=== PATIENT | female | born 1960 | race Caucasian/White ===

== ENCOUNTER → 2019-05-25 10:45 | Outpatient (BNVA) | payer OTHER, SELFPAY | PROVIDERS: Family Provider Internal Medicine; PCP Internal Medicine; Referring Provider Family Medicine; Visit Provider Family Medicine | DX: R11.10 Vomiting, unspecified (principal); J44.1 Chronic obstructive pulmonary disease with (acute) exacerbation; R68.89 Other general symptoms and signs; R19.7 Diarrhea, unspecified; J32.0 Chronic maxillary sinusitis | CPT/HCPCS: 87804 ==

== ENCOUNTER 2019-06-08 10:05 | Outpatient (CLI) | payer OTHER, SELFPAY ==
--- NOTE | 2019-06-08 10:20 | MR_ITS ---
WS: [id number] MRI LUMBAR SPINE WITH CONTRAST TECHNIQUE: Sagittal T1, T2 and STIR imaging. Axial T1 and T2 imaging. Post gadolinium imaging was obt ained. CLINICAL INFORMATION: lumbar pain COMPARISON: MRI September [address] myelogram February 03, 2019 FINDINGS: Mild lumbar curve. No acute compression. No high-grade central canal stenosis. Postoperative changes left L3-4 hemilaminectomy with normal postoperative enhancement. A few tiny disc protrusions in the l ower thoracic spine with moderate left foraminal narrowing at T8-T9 with a left proximal foraminal pr otrusion. L1-L2: Mild annular bulging with slight effacement of ventral thecal sac. Mild right and no significa nt left foraminal narrowing. Mild facet arthropathy. L2-L3: Mild disc bulging with narrowing of the subarticular recess bilaterally. Mild facet arthropath y. Mild bilateral foraminal narrowing. L3-L4: Mild annular bulging with postoperative hemilaminectomy and discectomy. No recurrent disc extr usion. Mild left and no significant right foraminal narrowing. Mild residual narrowing of the subarti cular recess. Mild facet arthropathy. L4-L5: Mild annular bulging with narrowing of the subarticular recess bilaterally. Mild to moderate l eft greater than right foraminal narrowing. Mild facet arthropathy. L5-S1: Disc osteophyte complex with endplate ridging. Narrowing of the subarticular recess bilaterall y with central disc osteophyte protrusion. This is unchanged from 2019. Moderate bilateral foraminal narrowing. Mild facet arthropathy. Visualized pelvic bony structures: Normal. Paravertebral soft tissues: Normal. MR/MR lumbar spine wo/w con [id number] IMPRESSION: 1. Interval postoperative changes left L3-4 hemilaminectomy and partial discec alphonso. No recurrent disc extrusion. Spinal canal is patent at this level with mi ld left foraminal narrowing. 2. Annular bulging L5-S1 with a broad-based disc osteophyte protrusion. Narrow ing of the subarticular recess bilaterally with moderate bilateral foraminal na rrowing unchanged. 3. Mild narrowing of the L4-5 subarticular recess 4. Small disc protrusions lower thoracic spine with a left proximal foraminal protrusion at T8-T9 with moderate left foraminal narrowing.
--- NOTE | 2019-06-08 11:30 | XR_ITS ---
WS: [id number] LUMBAR SPINE FLEXION AND EXTENSION TECHNIQUE: 3 views of the lumbar spine: Lateral neutral, flexion, and extension views. CLINICAL INFORMATION: lumbar pain COMPARISON: None. FINDINGS: Slight retrolisthesis L3 on L4 and L4 on L5. Disc space narrowing L2-L5. No acute appearing compressi on fractures. Mild facet arthropathy L5-S1. No instability on flexion-extension. XR/XR lumbar spine f/e only [id number] IMPRESSION: No instability on flexion-extension
== END 2019-06-08 10:06 | disposition home or self-care (01) ==
LOC: RADWPI 10:08
PROVIDERS: Family Provider Internal Medicine; PCP Internal Medicine; Visit Provider Specialist
DX: M51.27 Other intervertebral disc displacement, lumbosacral region (principal); M51.24 Other intervertebral disc displacement, thoracic region; M54.5 Low back pain; Z98.890 Other specified postprocedural states
CPT/HCPCS: 72120; 72158; A9579

== ENCOUNTER → 2019-07-27 10:10 | Outpatient (BNVA) | payer OTHER, SELFPAY | PROVIDERS: Family Provider Internal Medicine; PCP Internal Medicine; Visit Provider Nurse Practitioner Family | DX: J02.9 Acute pharyngitis, unspecified (principal); R22.1 Localized swelling, mass and lump, neck; T18.9XXA Foreign body of alimentary tract, part unspecified, initial encounter | CPT/HCPCS: 87071; 87880 ==

== ENCOUNTER 2019-10-07 08:32 | Outpatient (CLI) | payer OTHER, SELFPAY ==
--- NOTE | 2019-10-07 08:39 | CT_ITS ---
WS: [id number] CT LUNG CANCER SCREENING DLP: 79.75 mGy.cm DIvol: 2.27 mGy CLINICAL INFORMATION SCREENING VISIT: Baseline COMPARISON: 06/12/2016 FINDINGS Diagnostic quality: Satisfactory Comments: None. Lung Nodules: None. Lungs: Moderate pulmonary hyperexpansion. Linear stable scar at the RIGHT apex. No pneumonia or effus ions. No endobronchial lesions. Heart: Normal size heart. Mild increased pericardial fat. Pulmonary artery size is normal. Mild atherosclerosis aorta. Small mediastinal and hilar lymph nodes are stable since 2017. Other findings: Small hiatal hernia. Thoracic spondylosis. CT/CT lung screening [id number] IMPRESSION: LUNG-RADS: 1-Negative FOLLOW UP: 12 Month: Continue annual screening with LDCT
== END 2019-10-07 08:33 | disposition home or self-care (01) ==
LOC: RAD 08:35
PROVIDERS: PCP Internal Medicine; Visit Provider Internal Medicine
DX: J44.9 Chronic obstructive pulmonary disease, unspecified (principal); F17.200 Nicotine dependence, unspecified, uncomplicated; Z12.2 Encounter for screening for malignant neoplasm of respiratory organs
CPT/HCPCS: G0297

== ENCOUNTER 2019-10-15 15:08 | Outpatient (CLI) | payer OTHER, SELFPAY ==
--- NOTE | 2019-10-15 15:13 | MM_ITS ---
WS: [id number] BILATERAL DIGITAL SCREENING MAMMOGRAPHY WITH CAD CLINICAL INFORMATION: SCREENING HISTORY: Screening mammogram. No current complaints. COMPARISON: . TECHNIQUE: Bilateral CC and MLO views. FINDINGS: Scattered fibroglandular densities bilaterally. No suspicious focal mass, asymmetry, calcifications, or architectural distortion. No evidence of malignancy. MM/[place] [id number] IMPRESSION: BI-RADS: 1-Negative FOLLOW UP: 1 Year Follow-up Recommend return to annual screening mammography.
== END 2019-10-15 15:09 | disposition home or self-care (01) ==
LOC: RADSHAW 15:11
PROVIDERS: PCP Internal Medicine; Visit Provider Internal Medicine
DX: Z12.31 Encounter for screening mammogram for malignant neoplasm of breast (principal)
CPT/HCPCS: 77067

== ENCOUNTER → 2019-12-14 13:45 | Outpatient (BNVA) | payer OTHER, SELFPAY | PROVIDERS: PCP Internal Medicine; Visit Provider Licensed Practical Nurse | DX: M51.16 Intervertebral disc disorders with radiculopathy, lumbar region (principal); Z98.890 Other specified postprocedural states; F17.210 Nicotine dependence, cigarettes, uncomplicated | CPT/HCPCS: 99213 ==

== ENCOUNTER 2019-12-28 07:38 | Outpatient (CLI) | payer OTHER, SELFPAY ==
--- NOTE | 2019-12-28 08:00 | MR_ITS ---
WS: [id number] MRI LUMBAR SPINE WITH CONTRAST TECHNIQUE: Sagittal T1, T2 and STIR imaging. Axial T1 and T2 imaging. Post gadolinium imaging was obt ained. CLINICAL INFORMATION: Low back pain COMPARISON: MRI June 08, 2019 FINDINGS: Mild lumbar curve. No acute compression fractures. Postoperative changes left L3-4 hemilaminectomy wi th postoperative enhancement. No high-grade central canal stenosis. Progressed degenerative disc dise ase at L2-3 with endplate edema and enhancement most consistent with degenerative change. Small amoun t paravertebral enhancement at this level likely inflammatory. L1-L2: Mild disc bulging with slight effacement of the ventral thecal sac. Mild right greater than le ft foraminal narrowing. Mild facet arthropathy. L2-L3: Mild disc bulging with narrowing of subarticular recess bilaterally. Mild facet arthropathy. M ild right greater than left foraminal narrowing. Mild facet arthropathy. L3-L4: Small right subarticular disc protrusion. Impingement traversing right L5 nerve root. Mild lef t greater than right foraminal narrowing. Mild facet arthropathy. L4-L5: Mild disc bulging with slight effacement of ventral thecal sac. Mild left greater than right f oraminal narrowing. Mild facet arthropathy. L5-S1: Central and right pericentral disc protrusion with mild central canal stenosis. Impingement tr aversing S1 nerve roots. Mild facet arthropathy. Eccentric osteophytic ridging results in moderate to severe bilateral foraminal narrowing. Impingement on the exiting L5 nerve roots bilaterally. MR/MR lumbar spine wo/w con [id number] IMPRESSION: 1. Postoperative changes at L3-4 hemilaminectomy and partial discectomy. No re current disc extrusion. 2. Unchanged Disc osteophyte protrusion L5-S1 with narrowing of the subarticul ar recess and moderate to severe bilateral foraminal narrowing. Mild central ca nal stenosis. 3. Progressed degenerative disc disease at this L2-3 with endplate edema and e nhancement likely degenerative and inflammatory. 4. Shallow right pericentral protrusion L3-4 impinges the traversing right L4 nerve root unchanged. 5. No other significant changes from previous.
--- NOTE | 2019-12-28 08:45 | XR_ITS ---
WS: [id number] LUMBAR SPINE FLEXION AND EXTENSION TECHNIQUE: 3 views of the lumbar spine: Lateral neutral, flexion, and extension views. CLINICAL INFORMATION: Low back pain COMPARISON: June 08, 2019 FINDINGS: Slight retrolisthesis L3 on L4 and L4 on L5 unchanged. Disc space narrowing worse at L2-L3 L4-L5 and L5-S1. Moderate facet arthropathy L5-S1. No instability on flexion-extension. Cholecystectomy clips.. XR/XR lumbar spine f/e only [id number] IMPRESSION: No instability on flexion-extension.
== END 2019-12-28 07:39 | disposition home or self-care (01) ==
LOC: RADWPI 07:48
PROVIDERS: Family Provider Internal Medicine; PCP Internal Medicine; Visit Provider Licensed Practical Nurse
DX: M96.1 Postlaminectomy syndrome, not elsewhere classified (principal); M51.26 Other intervertebral disc displacement, lumbar region; M51.36 Other intervertebral disc degeneration, lumbar region; M25.78 Osteophyte, vertebrae
CPT/HCPCS: 72120; 72158; A9579

== ENCOUNTER → 2019-12-29 09:59 | Outpatient (BNVA) | payer OTHER, SELFPAY | PROVIDERS: Family Provider Internal Medicine; PCP Internal Medicine; Visit Provider Licensed Practical Nurse | DX: M51.16 Intervertebral disc disorders with radiculopathy, lumbar region (principal); Z98.890 Other specified postprocedural states; F17.210 Nicotine dependence, cigarettes, uncomplicated | CPT/HCPCS: 99213 ==

== ENCOUNTER → 2020-01-11 08:29 | Outpatient (BNVA) | payer OTHER, SELFPAY | PROVIDERS: PCP Internal Medicine; Referring Provider Licensed Practical Nurse; Visit Provider Anesthesiology Pain Medicine | DX: M51.16 Intervertebral disc disorders with radiculopathy, lumbar region (principal); M51.17 Intervertebral disc disorders with radiculopathy, lumbosacral region; M54.9 Dorsalgia, unspecified; M48.061 Spinal stenosis, lumbar region without neurogenic claudication; Z98.890 Other specified postprocedural states; Z79.899 Other long term (current) drug therapy | CPT/HCPCS: 99204 ==

== ENCOUNTER → 2020-01-18 12:51 | Outpatient (BNVA) | payer OTHER, SELFPAY | PROVIDERS: PCP Internal Medicine; Visit Provider Anesthesiology Pain Medicine | DX: M54.16 Radiculopathy, lumbar region (principal); M54.9 Dorsalgia, unspecified; F17.210 Nicotine dependence, cigarettes, uncomplicated | CPT/HCPCS: 64483; 64484; J1030; J3490 ==

== ENCOUNTER → 2020-02-03 10:41 | Outpatient (BNVA) | payer OTHER, SELFPAY | PROVIDERS: PCP Internal Medicine; Visit Provider Anesthesiology Pain Medicine | DX: G89.29 Other chronic pain (principal); M51.16 Intervertebral disc disorders with radiculopathy, lumbar region; M48.061 Spinal stenosis, lumbar region without neurogenic claudication; M54.9 Dorsalgia, unspecified; M79.605 Pain in left leg; Z98.890 Other specified postprocedural states; F17.210 Nicotine dependence, cigarettes, uncomplicated | CPT/HCPCS: 99214 ==

== ENCOUNTER → 2020-02-07 13:47 | Outpatient (BNVA) | payer OTHER, SELFPAY | PROVIDERS: PCP Internal Medicine; Visit Provider Anesthesiology Pain Medicine | DX: M51.16 Intervertebral disc disorders with radiculopathy, lumbar region (principal); M54.9 Dorsalgia, unspecified; F17.210 Nicotine dependence, cigarettes, uncomplicated | CPT/HCPCS: 64483; 64484; J1100; J3490 ==

== ENCOUNTER → 2020-02-21 07:52 | Outpatient (BNVA) | payer OTHER, SELFPAY | PROVIDERS: PCP Internal Medicine; Referring Provider Licensed Practical Nurse; Visit Provider Specialist | DX: M51.16 Intervertebral disc disorders with radiculopathy, lumbar region (principal); G57.32 Lesion of lateral popliteal nerve, left lower limb; M70.62 Trochanteric bursitis, left hip; Y93.9 Activity, unspecified; F17.210 Nicotine dependence, cigarettes, uncomplicated | CPT/HCPCS: 95908; 99203; G0463 ==

== ENCOUNTER → 2020-02-29 09:19 | Outpatient (BNVA) | payer OTHER, SELFPAY | PROVIDERS: PCP Internal Medicine; Visit Provider Anesthesiology Pain Medicine | DX: M51.16 Intervertebral disc disorders with radiculopathy, lumbar region (principal); M48.061 Spinal stenosis, lumbar region without neurogenic claudication; M19.90 Unspecified osteoarthritis, unspecified site; M54.9 Dorsalgia, unspecified; M79.605 Pain in left leg; M25.552 Pain in left hip; Z98.890 Other specified postprocedural states; Z20.828 Contact with and (suspected) exposure to other viral communicable diseases; Z11.59 Encounter for screening for other viral diseases; J06.9 Acute upper respiratory infection, unspecified | CPT/HCPCS: 87635; 99214 ==

== ENCOUNTER → 2020-03-13 13:20 | Outpatient (BNVA) | payer OTHER, SELFPAY | PROVIDERS: PCP Internal Medicine; Visit Provider Specialist | DX: M25.552 Pain in left hip (principal); M70.62 Trochanteric bursitis, left hip; Y93.9 Activity, unspecified; G57.32 Lesion of lateral popliteal nerve, left lower limb; M48.061 Spinal stenosis, lumbar region without neurogenic claudication; Z98.890 Other specified postprocedural states; F17.210 Nicotine dependence, cigarettes, uncomplicated | CPT/HCPCS: 20552; 99213 ==

== ENCOUNTER → 2020-03-28 10:04 | Outpatient (BNVA) | payer OTHER, SELFPAY | PROVIDERS: PCP Internal Medicine; Visit Provider Anesthesiology Pain Medicine | DX: M54.9 Dorsalgia, unspecified (principal); M51.16 Intervertebral disc disorders with radiculopathy, lumbar region; Z98.890 Other specified postprocedural states; M48.061 Spinal stenosis, lumbar region without neurogenic claudication; M79.605 Pain in left leg; M25.552 Pain in left hip; F17.210 Nicotine dependence, cigarettes, uncomplicated | CPT/HCPCS: 99213 ==

== ENCOUNTER 2020-03-28 11:21 | Outpatient (CLI) | payer OTHER, SELFPAY ==
--- NOTE | 2020-03-28 12:12 | XR_ITS ---
WS: [id number] Exam: XR hip BI 3-4V wo/w pel [id number] Date/Time of Exam: 03/28/2020 12:18 PM Reason For Exam: M19.90 - Unspecified osteoarthritis, unspecified site Comparison 10/02/2018. Right hip. No fracture or dislocation. Moderate degenerative narrowing of the joint compartment. Norm al soft tissues. XR/XR hip BI 3-4V wo/w pel [id number] IMPRESSION: 1. Moderate DJD of the right hip. Left hip. There is moderate narrowing of the left hip joint. No fracture or dis location. Normal soft tissues. IMPRESSION: 1. Moderate DJD of the left hip.
== END 2020-03-28 11:22 | disposition home or self-care (01) ==
PROVIDERS: PCP Internal Medicine; Visit Provider Anesthesiology Pain Medicine
DX: M16.12 Unilateral primary osteoarthritis, left hip (principal)
CPT/HCPCS: 73522

== ENCOUNTER → 2020-04-11 14:00 | Outpatient (BNVA) | payer OTHER, SELFPAY | PROVIDERS: PCP Internal Medicine; Visit Provider Anesthesiology Pain Medicine | DX: M51.16 Intervertebral disc disorders with radiculopathy, lumbar region (principal); M48.061 Spinal stenosis, lumbar region without neurogenic claudication; M54.9 Dorsalgia, unspecified; M79.605 Pain in left leg; M16.12 Unilateral primary osteoarthritis, left hip; Z98.890 Other specified postprocedural states | CPT/HCPCS: 99214 ==

== ENCOUNTER → 2020-04-19 13:23 | Outpatient (BNVA) | payer OTHER, SELFPAY | PROVIDERS: PCP Internal Medicine; Visit Provider Anesthesiology Pain Medicine | DX: M70.62 Trochanteric bursitis, left hip (principal); M19.90 Unspecified osteoarthritis, unspecified site; M54.9 Dorsalgia, unspecified; Y93.9 Activity, unspecified | CPT/HCPCS: 20610; 77002; J1030; J3490 ==

== ENCOUNTER → 2020-05-04 09:29 | Outpatient (BNVA) | payer OTHER, SELFPAY | PROVIDERS: PCP Internal Medicine; Visit Provider Anesthesiology Pain Medicine | DX: M51.16 Intervertebral disc disorders with radiculopathy, lumbar region (principal); M48.061 Spinal stenosis, lumbar region without neurogenic claudication; M25.552 Pain in left hip; M79.605 Pain in left leg; M16.12 Unilateral primary osteoarthritis, left hip; M54.9 Dorsalgia, unspecified; F17.210 Nicotine dependence, cigarettes, uncomplicated; Z98.890 Other specified postprocedural states | CPT/HCPCS: 99214 ==

== ENCOUNTER → 2020-05-30 10:15 | Outpatient (BNVA) | payer OTHER, SELFPAY | PROVIDERS: PCP Internal Medicine; Visit Provider Anesthesiology Pain Medicine | DX: M25.552 Pain in left hip (principal); M79.605 Pain in left leg; M51.16 Intervertebral disc disorders with radiculopathy, lumbar region; M48.061 Spinal stenosis, lumbar region without neurogenic claudication; M54.9 Dorsalgia, unspecified; M19.90 Unspecified osteoarthritis, unspecified site; Z98.890 Other specified postprocedural states; F17.210 Nicotine dependence, cigarettes, uncomplicated | CPT/HCPCS: 99213 ==

== ENCOUNTER → 2020-07-04 09:00 | Outpatient (BNVA) | payer OTHER, SELFPAY | PROVIDERS: PCP Internal Medicine; Visit Provider Anesthesiology Pain Medicine | DX: M51.16 Intervertebral disc disorders with radiculopathy, lumbar region (principal); M48.061 Spinal stenosis, lumbar region without neurogenic claudication; M54.9 Dorsalgia, unspecified; M16.0 Bilateral primary osteoarthritis of hip; M79.605 Pain in left leg; F17.210 Nicotine dependence, cigarettes, uncomplicated; Z98.890 Other specified postprocedural states | CPT/HCPCS: 99213 ==

== ENCOUNTER 2020-07-19 09:44 | Outpatient (CLI) | payer OTHER, SELFPAY ==
[2020-07-10 12:12] VITALS: BMI 19.3
--- NOTE | 2020-07-10 12:33 | P.ANESASSM_ITS ---
Pre-Anesthetic Assessment Pre-Anesthetic Assessment: Height/Weight: Height 1.42 m Weight 39.009 kg Preop Diagnosis: lumbar stenosis Proposed Procedure: Operation Date: 07/17/20 10:45 Proposed Procedures p l3/4 decompresssion [id number] m48.06(Not Applicable) - Mehran Guerrero, DO Was Beta Andrsé taken within 24 hours: N/A Was Clonidine taken within 24 hours: N/A Social: Social History: Tobacco and No alcohol Exam: Pre-Anes Outpt Exam: alert and oriented x 3 Airway: Submandibular: WNL Cervical ROM: WNL MP: 1 Dentition: False History/ROS: No significant history except as noted Pulmonary: Pulmonary: COPD CV/HEM: CV/HEM: CAD and HTN : : None reported Hepatic: Hepatic: None reported GI: GI: None reported Metabolic: Metabolic: None reported Musc/skel: Musc/skel: Lower Back Pain and OA/DJD Neuropsych: Neuropsych: None reported Anesthetic Plan: ASA status: 3 Anesthesia: General PFSH Anesthesia PFSH: Medical History Displacement of lumbar disc with radiculopathy HTN (hypertension) Lumbar disc disease with radiculopathy Myocardial infarction Nicotine abuse Surgical History History of appendectomy (~1998) Performed in [place], [place] History of cholecystectomy (~1998) Performed in [place], [place]. Took out appendix during same surgery. History of hysterectomy (~1989) Performed in [facility] due to hemorrhaging, states patient. History of lumbar laminectomy Left L3-L4 laminotomy/discectomy/foraminotomy 03/08/19 Dr. Yenifer Becker History of myringotomy (~1985) left, 1985. Performed in [place], [place] History of tonsillectomy performed in her 20's in [place] Hx of total cystectomy back of left leg 2x performed in [place], [place] Family History Father Heart disease Hypertension Mother Diabetes Hypertension Brother Diabetes Hypertension Social History Smoking and tobacco status: current every day smoker Alcohol intake: never Household members: significant other Marital status: / Current occupational status: retired History of recent travel: No Data Anesthesia CBC & Chem 7: 07/10/20 12:20 07/10/20 12:20 Cardiac Studies: No Data to Display
[2020-07-10 12:37] LABS: Basophils % 0.5 %; Eosinophils # 0.2 10^3/uL (0.0-0.8); Eosinophils % 3.3 %; Hematocrit 37.4 % (37.0-47.0); Lymphocytes # 1.8 10^3/uL (0.8-4.8); Lymphocytes % 28.5 %; Mean Corpuscular HGB Conc 32.1 g/dL (30.0-36.0); Mean Corpuscular Hemoglobin 32.3 pg (28.0-34.0); Mean Corpuscular Volume 100.5 fL (81-99); Mean Platelet Volume 8.8 fL (7.4-10.4); Monocytes # 0.6 10^3/uL (0.2-0.9); Neutrophils # 3.72 10^3/uL (1.8-7.7); Neutrophils % 58.5 %; Nucleated Red Blood Cells % 0 %; Platelet Count 202 10^3/cmm (130-400); Red Blood Count 3.72 10^6/uL (4.1-5.3); Red Cell Distribution Width 14.1 % (12.1-15.1); White Blood Count 6.4 10^3/uL (4.0-10.0)
[2020-07-10 12:51] LABS: Anion Gap 11.4 (5-19); Blood Urea Nitrogen 10 mg/dL (6-20); Calcium 8.6 mg/dL (8.5-10.5); Carbon Dioxide 28 mmol/L (22-29); Chloride 106 mmol/L (98-107); Glomerular Filtration Rate 85.6 mL/min (90-130); Glucose 83 mg/dL (65-115); Osmolality Calculated 292 mOsm/kg (285-295); Potassium 3.4 mmol/L (3.5-5.1); Sodium 142 mmol/L (136-145)
== END 2020-07-19 09:45 | disposition home or self-care (01) ==
LOC: GILAB 06-14 09:47
PROVIDERS: PCP Internal Medicine; Visit Provider Orthopaedic Surgery
DX: Z01.818 Encounter for other preprocedural examination (principal)
CPT/HCPCS: 36415; 80048; 85025; 87635

== ENCOUNTER 2020-07-21 08:53 | Day surgery (SDC) | payer OTHER, SELFPAY ==
[2020-07-20 14:39] VITALS: BMI 19.3
[2020-07-21] VITALS (11 sets, daily range): BP systolic 123–173; BP diastolic 73–106; PULSE 83–99; RESP 14–23; TEMP 36.3–37; O2SAT 90–100
--- NOTE | 2020-07-21 | XR_ITS ---
WS: [id number] Lumbar spine, C-arm fluoroscopy views, 07/21/2020 Clinical Data: L3/L4 decompression Comparison: Lumbar spine, 12/28/2019. Findings: Dr. Guerrero inspected the L3-L4 level. XR/XR lumbar spine 2-3V* [id number] Impression: Decompression of L3-L4.
--- NOTE | 2020-07-21 | SCC_ITS ---
Procedure Done: Left L3/4 revison laminectomy 11.0 seconds of fluoroscopic guidance, for a cumulative dose of 6.7 mGy, was provided to Dr. Guerrero by the radiology department. C-arm images of the lumbar spine were saved for the patient's permanent record. [facility]
--- NOTE | 2020-07-21 09:12 | ECG_ITS ---
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 Measurements Intervals [place] Rate: 75 P: -8 ID: 168 QRS: 101 QRSD: 97 T: -5 QT: 404 QTc: 452 Interpretive Statements SINUS RHYTHM MARKED RIGHT AXIS DEVIATION [QRS AXIS > 100] SEPTAL MYOCARDIAL INFARCTION [40+ ms Q WAVE IN V1/V2], OF INDETERMINATE AGE Compared to ECG 03/05/2019 10:58:56 Right-axis deviation now present Left-axis deviation no longer present Myocardial infarct finding still present Electronically Signed On 07-22-2020 5:25:14 CDT by Alecia Pennington M.D. [email or web address]
[2020-07-21] MEDS: sodium chloride 0.9% 1,000 ML 30 ML IV (09:40)
--- NOTE | 2020-07-21 10:39 | P.ANESUD_ITS ---
Pre-Anesthetic Update Pre-Anesthetic Assessment: Date of Surgery/Procedure: 07/21/20 Preop Kristina gnosis: lumbar stenosis Proposed Procedure: Operation Date: 07/21/20 11:00 Proposed Procedures p l3/4 decompresssion [id number] m48.06(Left) - Mehran Guerrero, DO Any changes to Pre-Anesthetic Assessment?: No Last Intake: Intake Last Liquid Date 07/20/20 Last Liquid Time 22:00 Last Solid Date 07/20/20 Last Solid Time 14:00 Vitals: Temperature 98.6 F 07/21/20 09:22 Pulse Rate 83 07/21/20 09:22 Pulse Rhythm 07/21/20 09:28 Pulse Strength 3+ Normal 07/21/20 09:28 Respiratory Rate 18 07/21/20 09:22 Blood Pressure 165/104 07/21/20 09:22 Blood Pressure Rosemarie n 124 07/21/20 09:22 Pulse Oximetry 93 07/21/20 09:22 Oxygen Delivery Me thod 07/21/20 09:28 Exam: Pre-Anes Outpt Exam: alert, oriented x 3 and regular rate & rhythm Cardiac Studies: No Data to Display
[2020-07-21] MEDS: HYDROmorphone 1 mg/mL INJ 1 mL IVP (10:46)
--- NOTE | 2020-07-21 11:42 | P.HP_ITS ---
Providers/Chief Complaint Primary Care Provider: Vonnie Tucker MD Chief Complaint: l3/4 decompresssion [id number] History of Present Illness Adwoa Ledbetter is a 60 year old female She states she isnt happy due to pain and would like her quality of life back . Chief Complaint: low back pain, left hip Onset: 1 year Duration: worse over last few months Characteristics: pressure, burning Severity: 11/07 Location: low back pain Radiating symptoms: anterior thigh, left ankle and top of left foot numbness and tingling Aggravating factors: walking for long periods, unable to drive due to pain, sitting for long periods Alleviating factors: really nothing she states she is unaware when she will have an attack Neuro deficits: denies incontinence of bowel/bladder, saddle anesthesia. Prior tx: epidural injections with one and half days of relief, Left L3-L4 hemilaminotomy/discectomy/foraminotomy DOS 03/08/[address] Becker. Injections into hip done by primary care with no relief. Review of Systems Narrative: General: Reports: 10 or more systems reviewed and unremarkable except as noted in History and below Const: Denies: fever(s) or chills Eyes: Denies: change in vision ENMT: Denies: throat pain Card: Denies: chest pain or dyspnea on exertion Resp: Denies: dyspnea, productive cough or wheezing GI: Denies: abdominal pain, nausea or vomiting Musc: Reports: limited range of motion Skin/Breast: Denies: changes in skin color or dry skin Neuro: Reports: numbness in extremities and weakness in extremities Psych: Denies: anxiety Roshan/Lymph: Denies: easy bruising or easy bleeding Medications/Allergies Home Medications Medication Instructions Recorded Confirmed Last Taken Type albuterol sulfate 90 mcg/actuation 2 puff INHALATION Q6H PRN 04/19/19 07/21/20 07/20/20 History aerosol inhaler aspirin 81 mg tablet,delayed 81 mg PO QDAY 04/19/19 07/21/20 07/16/20 History release fluoxetine 20 mg capsule 20 mg PO QDAY 04/19/19 07/21/20 07/20/20 History lisinopril 10 1 tab PO QDAY tab 04/19/19 07/21/20 07/20/20 History mg-hydrochlorothiazide 12.5 mg tablet multivitamin 1 tab PO QDAY 04/19/19 07/21/20 07/20/20 History nitroglycerin 0.4 mg sublingual 0.4 mg SUBLINGUAL Q5M PRN 04/19/19 07/20/20 Unknown History tablet acetaminophen 500 mg tablet 500 mg PO .2 AM 2 HS PRN tab 01/11/20 07/21/20 07/16/20 History ibuprofen 200 mg tablet 200 mg PO .2 AM to HS PRN tab 01/11/20 07/21/20 07/17/20 History methocarbamol 750 mg tablet 750 mg PO TID #90 tab 07/04/20 07/21/20 07/12/20 Rx gabapentin 200 mg PO TID 07/10/20 07/21/20 07/20/20 History Allergies Allergy/AdvReac Type Severity Reaction Status Date / Time clindamycin [From Cleocin] Allergy Severe anaphylaxis Verified 07/21/20 09:17 codeine Allergy Mild chest Verified 07/21/20 09:17 pain, abdominal pain tizanidine Allergy upset Verified 07/21/20 09:17 stomach PFSH Acute PFSH: Medical History Displacement of lumbar disc with radiculopathy HTN (hypertension) Lumbar disc disease with radiculopathy Myocardial infarction Nicotine abuse Surgical History History of appendectomy (~1998) Performed in [place], [place] History of cholecystectomy (~1998) Performed in [place], [place]. Took out appendix during same surgery. History of hysterectomy (~1989) Performed in [facility] due to hemorrhaging, states patient. History of lumbar laminectomy Left L3-L4 laminotomy/discectomy/foraminotomy 03/08/19 Dr. Yenifer Becker History of myringotomy (~1985) left, 1985. Performed in [place], [place] History of tonsillectomy performed in her 20's in [place], [place] Hx of total cystectomy back of left leg 2x performed in [place], [place] Family History Father Heart disease Hypertension Mother Diabetes Hypertension Brother Diabetes Hypertension Social History Smoking and tobacco status: current every day smoker Alcohol intake: never Household members: significant other Marital status: / Current occupational status: retired History of recent travel: No Vitals/I&O/Wt Last Vital Signs Temp 98.6 F 07/21/20 09:22 Pulse 83 07/21/20 09:22 Resp 16 07/21/20 10:46 BP 165/104 07/21/20 09:22 Pulse Ox 95 07/21/20 10:46 Weight last 48 hrs Weight 86 lb Physical Exam Narrative: EXAM NARRATIVE: EXAM NARRATIVE: CONSTITUTIONAL: The patient is normal appearing, well groomed, cooperative and in no apparent distress. GENERAL: Patient in no acute distress. Well nourished. CARDIAC: Regular rate and rhythm. CHEST: Normal inspiratory effort, normal respiratory rate. ABDOMEN: Soft and non-tender. SKIN: Clear, warm and intact. NEURO?PSYCH: The patient is alert and oriented to person, place and time. NEUROVASCULAR: Upper Extremity Sensory - SILT. Motor Strength: Shoulder abdu ction C5: 5/5; Wrist extension C6: 5/5; Elbow extension C7: 5/5; Hand Bodily Injury Adjuster C8: 5/5; Finger abduction T1: 5/5. Radial/ Ulnar/ Median in intact Lower Extremity Sensory - SILT. Motor Strength: Hip flexion L2/3; Ant/inner thigh: 5/5; Hip adduction L2/3: 5/5; Knee extension L4 Lat thigh: 5/5; Toe dorsiflexion L5: 5/5; Ankle dorsiflexion L5/ S1: 5/5; Plantar flexion S1: 5/5. DTR: Triceps 2+; Brachioradialis 2+; Patellar 2+; Achilles 2+. MUSCULOSKELETAL: UPPER EXTREMITIES: The patient had full active ROM in fingers, wrist, elbow, and shoulder. The patient demonstrated ability to fully flex/extend/abduct/adduct fingers, make ok sign, cross 2nd/3rd digits, extend 1st digit fully.. Radial pulse 2+, CR<2 seconds. LOWER EXTREMITIES: Pt has full, active ROM of toes, ankle, knee, and hip. Dorsal is pedis & posterior tibialis pulses 2+, CR<2 seconds. SPINE: Skin warm, dry, intact. A&P Assessment and plan (1) Lumbar stenosis with neurogenic claudication: Status: Acute Attestations Medical Necessity Statement*: failed conservative tx Coding Level of Care Code Acute Financial Reporting Manager for Chg Fwd Diagnoses Lumbar stenosis with neurogenic claudication M48.062
--- NOTE | 2020-07-21 11:46 | W.PM.OPSUD ---
Surgery/Procedure H&P Update DATE OF PROCEDURE: July 21, 2020 DATE H&P PERFORMED: 07/21/20 PREOP DIAGNOSIS: lumbar stenosis PLANNED PROCEDURE: Operation Date: 07/21/20 11:00 Proposed Procedures p l3/4 decompresssion [id number] m48.06(Left) - Mehran Guerrero DO
--- NOTE | 2020-07-21 15:10 | PM.OP ---
Operative Report Date of procedure: July 21, 2020 Pre-op Diagnosis: lumbar stenosis L3/4 Post-op diagnosis: same Procedure Done: Left L3/4 revison laminectomy Surgeon: Mehran Guerrero Anesthesia: General Estimated blood loss (mL): 5 Condition: stable Disposition: PACU Procedure: Left L3/4 revison laminectomy Patient is brought to the operative suite. After undergoing anesthesia they are placed in the supine position. All areas of impingement are well padded. Patient is then prepped and draped in the normal sterile fashion. A skin incision is made over the L3/4 level using distal end of previous incision. This is confirmed under c-arm guidance. A series of dilators are passed and the tubular retractor is docked on the L3 lamina. A bovie is used to clear the soft tissue off the lamina and the L 3/4 facet joint. A high speed danni is then used to perform the laminectomy and take down the medial aspect of the L 3/4 facet joint there was significant scarring of nerve to medial facet. A kerrison rongeure was then used to take down the remaining lamina and smooth the edge of the laminectomy up to the point where the ligamentum flavum attaches. Attention was then brought to the medial aspect of the facet joint. The remaining medial aspect of the superior and inferior aspect of the facet joint were taken down with the kerrison from the pedicle of L3 to L 4. The facet joint had significant hypertrophy. Attention was then brought to the Ligamentum Flavum. The ligament was taken down from the lamina of L3 to L4 and out medially to the remaining facet joint. The ligament was scarred. The dura was then exposed. The dura was in good repair. The L3 nerve was then traced with a curette out the L3/4 foramen and found to be adequately decompressed. The L4 nerve was traced with a curette around the L4 pedicle. The lateral recess was opened with a kerrison helping to further decompress the L4 nerve. Wound is then irrigated copiously with saline and surgiflo is used to stop any bleeding. The tubular retractor is removed and the wound is closed with vicryl and monocryl suture. Glue is then used to protect the wound. A sterile dressing is then placed. Patient was then placed in the supine position and transferred to the PACU in stable condition.
--- NOTE | 2020-07-21 16:20 | ANE.PACU2 ---
Inpatient post-anesthesia follow up: Airway intact: Yes Vital signs: Temperature 98.2 F Pulse Rate 86 Respiratory Rate 18 Blood Pressure 127/99 Pulse Oximetry 90 Oxygen Delivery Me thod Room Air Oxygen Flow Rate 2 Fraction of Inspir ed Oxygen Hydration adequate: Yes Nausea and vomiting: No Pain level: 2 Mental status: Baseline
== END 2020-07-21 16:05 | disposition home or self-care (01) ==
PROVIDERS: PCP Internal Medicine; Visit Provider Orthopaedic Surgery
PROC: (CPT 63005; principal; 2020-07-21 10:40)
DX: M48.061 Spinal stenosis, lumbar region without neurogenic claudication (principal)
CPT/HCPCS: 63042; 72100; 76000; 93005; J0690; J1100; J1170; J2250; J2405; J2704; J2710; J3010; J3490; J7030; J7611

== ENCOUNTER 2020-08-26 13:41 | Emergency (ER) | payer OTHER, SELFPAY ==
[2020-08-26 13:47] VITALS: BP 169/103; PULSE 78; RESP 16; TEMP 37.1; O2SAT 95; BMI 19.7
--- NOTE | 2020-08-26 14:16 | ED_ITS ---
HPI - Back Pain/Injury General: Chief Complaint: Back Pain/Injury Stated Complaint: back surgery 07-21-20,twisted now has pain/numbness Time Seen by Provider: 08/26/20 13:53 History of Present Illness: HPI Narrative: Patient is a 60-year-old female comes to the ED with back pain. Patient has a past medical history of COPD, hypertension and rheumatoid arthritis. patient had lumbar spine surgery with Dr. Yolanda washington on July 21. Procedure went well there were no complications. Patient says approximately 2 days ago she lifted a bag she palpation of out of her car and twisted her back and felt a sharp pain run up from her lower back to her mid back. She rates her back pain a 8 out of 10. She states she is just taking Tylenol for pain. she is complaining of bilateral hand joint pain and swelling as well. Denies pain radiating down the leg, bladder or bowel incontinence, pelvic anesthesia. Associated symptoms: Deny abdominal pain, chills, dysuria, fatigue, fever(s), hematuria, nausea or vomiting Review of Systems Const: Denies: fever(s), chills or fatigue Eyes: Denies: change in vision or eye discomfort ENMT: Denies: throat pain, odynophagia, nasal discharge or nasal congestion Card: Denies: chest pain, palpitations, edema, swelling of feet/ankles, dyspnea on exertion or orthopnea Resp: Denies: dyspnea, productive cough or non-productive cough GI: Denies: abdominal pain, nausea, vomiting, diarrhea, constipation or hematochezia : Denies: flank pain, dysuria or hematuria Musc: Reports: back pain, extremity pain (bilateral hand joint pain) and joint swelling (bilateral hands); Denies: neck pain or extremity swelling Skin/Breast: Denies: rash or new lesions Neuro: Denies: headache(s), numbness in extremities or weakness in extremities PFSH ED PFSH: Medical History Displacement of lumbar disc with radiculopathy HTN (hypertension) Lumbar disc disease with radiculopathy Myocardial infarction Nicotine abuse Surgical History History of appendectomy (~1998) Performed in [place], [place] History of cholecystectomy (~1998) Performed in [place], [place]. Took out appendix during same surgery. History of hysterectomy (~1989) Performed in [facility] due to hemorrhaging, states patient. History of lumbar laminectomy Left L3-L4 laminotomy/discectomy/foraminotomy 03/08/19 Dr. Yenifer Becker History of myringotomy (~1985) left, 1985. Performed in [place], [place] History of tonsillectomy performed in her 20's in [place] Hx of total cystectomy back of left leg 2x performed in [place], [place] Family History Father Heart disease Hypertension Mother Diabetes Hypertension Brother Diabetes Hypertension Social History Smoking and tobacco status: current every day smoker Alcohol intake: never Household members: significant other Marital status: / Current occupational status: retired History of recent travel: No Physical Exam Const: COMMON NORMALS: patient oriented x3 and alert GENERAL APPEARANCE: cooperative and comfortable HENMT: COMMON NORMALS: normocephalic HEAD & SCALP: normocephalic MOUTH: Normal oral and palatal mucosa present THROAT: posterior oropharynx normal and uvula midline Neck/C-Spine: COMMON NORMALS: supple GENERAL: Yes normal visual inspection Resp: COMMON NORMALS: normal respiratory effort, No retractions, No use of accessory muscles and clear to auscultation bilaterally AUSCULTATION: clear to auscultation bilaterally Cardio: COMMON NORMALS: regular rate, regular rhythm, S1 normal heart sound present, S2 normal heart sound present, No gallops present (Cardio), No clicks present (Cardio), No murmurs present (Cardio) and Peripheral pulses 2+ throughout RATE: regular rate RHYTHM: regular rhythm HEART SOUNDS: S1 normal heart sound present and S2 normal heart sound present PERIPHERAL PULSES: Peripheral pulses 2+ throughout GI: COMMON NORMALS: Normal to inspection, nondistended, normoactive bowel sounds present, Soft to palpation, non-tender and no masses PALPATION: Yes Soft to palpation : COMMON NORMALS: Yes no CVA tenderness BLADDER/KIDNEY EXAM: Yes no CVA tenderness Back/Pelvis: COMMON NORMALS: no CVA tenderness THORACIC SPINE/UPPER BACK: Yes thoracic spinal tenderness T-spine tenderness location: T10, T11 and T12 and Yes paraspinal muscle tenderness LUMBAR SPINE/LOWER BACK: Yes pain with ROM, Yes lumbar spinal tenderness and Yes paraspinal muscle tenderness Extremity: COMMON NORMALS: normal to inspection Neuro: COMMON NORMALS: patient oriented x3 and moves all extremities SENSORIUM/ORIENTATION: Yes alert Skin: GENERAL SKIN EXAM: dry skin Course Vital Signs: Vital signs: Vital Signs Temperature 98.7 F 08/26/20 13:47 Pulse Rate 69 08/26/20 15:36 Respiratory Rate 17 08/26/20 15:36 Blood Pressure 169/103 08/26/20 13:47 Pulse Oximetry 94 08/26/20 15:36 MDM - Back Pain/Injury MDM Narrative: Medical decision making narrative: Patient is 60-year-old female comes to the ED with back pain and bilateral hand joint pain. Patient has a past medical history of rheumatoid arthritis, COPD and hypertension. Patient had a recent lumbar spine surgery back on July 21. Acute on chronic back pain started after she lifted something. Denies cauda equina symptoms. Exam shows a nontoxic appearing patient with some lower thoracic and lumbar spine tenderness. Thoracic spine x-ray and lumbar spine x-ray just showed no acute fractures and just noted some chronic degenerative changes. Patient was diagnosed with thoracic back pain and pain in joints of hand. She was discharged home with a steroid prescription and a muscle relaxer. She was also told to take [id number] ibuprofen per bottle instruction as needed for pain. Return to ED precautions given. Follow-up with PCP in 7 to 10 days for reevaluation. Patient understood and agree with plan. Imaging Data^: Xray Ortho: Attestation: I personally reviewed and interpreted this imaging study as follows: Radiologist's impression: [address] [address] XRay Report Signed Patient: Adwoa Ledbetter Unit #: [id number] : 1960 Age/Sex: 60 / F ADM Date: 08/26/20 Loc: ER Room/Bed: Attending Dr: Ordering Provider/Ordering MD: Bryce Quiles Date of Service: 08/26/20 Procedure(s): XR lumbar spine 2-3V* 26235 Accession Number(s): [id number] Report Number: [id number] PROCEDURE INFORMATION: Exam: XR Lumbosacral Spine Exam date and time: 08/26/2020 2:24 PM Age: 60 years old Clinical indication: Low back pain; Prior surgery; Surgery type: 07/21/20 low back surgery; Additional info: Recent surgery, pain after lifting TECHNIQUE: Imaging protocol: XR of the lumbosacral spine. Views: 2 or 3 views. COMPARISON: OT XR lumbar spine 2-3V* [id number] 07/21/2020 2:43 PM FINDINGS: Bones/joints: 6 degree lumbar levoscoliosis. There are degenerative changes throughout the visualized spine including marginal osteophyte formations, endplate degenerative changes, and facet arthropathy. Multilevel disc space narrowing. Soft tissues: Unremarkable. XR/XR lumbar spine 2-3V* 57282 IMPRESSION: 6 degree lumbar levoscoliosis. There are degenerative changes as described above. Dictated By: Massiel Hodges MD Signed By: Massiel Hodges MD Signed Date/Time: 08/26/20 1508 DD/ [address] [address] XRay Report Signed Patient: Adwoa Ledbetter Unit #: [id number] : 1960 Age/Sex: 60 / F ADM Date: 08/26/20 Loc: ER Room/Bed: Attending Dr: Ordering Provider/Ordering MD: Bryce Quiles Date of Service: 08/26/20 Procedure(s): XR thoracic spine 3V* 08515 Accession Number(s): [id number] Report Number: [id number] PROCEDURE INFORMATION: Exam: XR Thoracic Spine Exam date and time: 08/26/2020 2:24 PM Age: 60 years old Clinical indication: Pain in thoracic spine; Prior surgery; Surgery type: Low back surgery 07/21/20; Patient HX: Pain in mid back and hands swelling; Additional info: Pain in mid back after lifing TECHNIQUE: Imaging protocol: XR of the thoracic spine. Views: 3 views. COMPARISON: No relevant prior studies available. FINDINGS: Bones/joints: 6 degree lower thoracic/lumbar levoscoliosis. Multilevel thoracic marginal osteophyte formations. Multilevel thoracic facet arthropathy. Multilevel mild disc space narrowing. Soft tissues: Unremarkable. Gastrointestinal tract: Air-filled stomach. There is contour abnormality of the gastric mucosa which may represent peristalsis. XR/XR thoracic spine 3V* [id number] IMPRESSION: 1. There is a 6 degree lower thoracic/lumbar levoscoliosis. Degenerative changes are present as described above. 2. Air-filled stomach. There is contour abnormality of the gastric mucosa which may represent peristalsis. Follow-up to exclude neoplasm if clinically warranted. Dictated By: Massiel Hodges MD Signed By: Massiel Hodges MD Signed Date/Time: 08/26/201510 DD/ 10 Discharge Plan Discharge Patient Disposition: Home Clinical Impression: Back pain, thoracic Qualifiers: Chronicity: unspecified Back pain laterality: bilateral Qualified Code(s): M54.6 - Pain in thoracic spine Pain in joints of unspecified hand Qualifiers: Laterality: bilateral Qualified Code(s): M25.541 - Pain in joints of right hand Condition: Stable Prescriptions: New Medrol (Reddy) 4 mg tablets,dose pack See Rx Instructions .ROUTE .COMPLEX Qty: 21 RF: 0 methocarbamol 750 mg tablet 750 mg PO Q8H Qty: 15 RF: 0 No Action aspirin 81 mg tablet,delayed release (DR/EC) 81 mg PO QAM RF: 0 albuterol sulfate [ProAir HFA] 90 mcg/actuation HFA aerosol inhaler 2 puff INHALATION Q6H PRN (Reason: Shortness Of Breath Or Wheezing) RF: 0 multivitamin Tablet 1 tab PO QAM RF: 0 nitroglycerin [Nitrostat] 0.4 mg tablet, sublingual 0.4 mg SUBLINGUAL Q5M PRN (Reason: Chest Pain) RF: 0 fluoxetine [Prozac] 20 mg capsule 20 mg PO QAM RF: 0 ibuprofen 200 mg tablet 400 mg PO PRN RF: 0 acetaminophen [Tylenol Extra Strength] 500 mg tablet 1,000 mg PO PRN RF: 0 methocarbamol [Robaxin-750] 750 mg tablet 750 mg PO TID Qty: 90 RF: 1 hydrocodone-acetaminophen 5-325 mg tablet 1 - 2 tab PO .Q4-6H PRN (Reason: pain) 7 Days Qty: 40 RF: 0 lisinopril 20 mg tablet 20 mg PO QAM RF: 0 Sleep Aid (diphenhydramine) 2 tab PO BEDTIME RF: 0 gabapentin 300 mg capsule 300 mg PO BEDTIME RF: 0 Discharge Orders: Discharge ED (Routine); Ordered 08/26/20 Ordered By: Bryce Quiles Referrals: Vonnie Tucker MD [Primary Care Provider] - Discharge Diet: Regular Discharge Activity: Increase activity as tolerated Patient Instructions: Back Pain (ED) Activity Restrictions/Additional Instructions: Follow-up with medical provider as directed in 7 to 10 days for reevaluation. Take medications as prescribed. Methocarbamol is a muscle relaxer and can cause drowsiness so take at night before going to bed. Take ncit-vbq-[id number] ibuprofen or Tylenol per bottle instruction for pain. Return to the ER or your medical provider if condition worsens. Please read and understand discharge instructions. Thank you for choosing [facility] [place] for your healthcare needs today. Please realize this is an emergency room and that we are providing you with a me dical screening exam and this may not be complete and all inclusive of all the testing and or work up that you may need to determine your ailment or severity of your illness. It is very important that you follow up as instructed or that you return to the Emergency Department should you have concerns or if your condition changes or worsens in any way. Coding Level of Care Code ED Customer Response Representative for Vernag Fwd Exam Comprehensive
--- NOTE | 2020-08-26 14:22 | XRR_ITS ---
PROCEDURE INFORMATION: Exam: XR Thoracic Spine Exam date and time: 08/26/2020 2:24 PM Age: 60 years old Clinical indication: Pain in thoracic spine; Prior surgery; Surgery type: Low back surgery 07/21/20; Patient HX: Pain in mid back and hands swelling; Additional info: Pain in mid back after lifing TECHNIQUE: Imaging protocol: XR of the thoracic spine. Views: 3 views. COMPARISON: No relevant prior studies available. FINDINGS: Bones/joints: 6 degree lower thoracic/lumbar levoscoliosis. Multilevel thoracic marginal osteophyte formations. Multilevel thoracic facet arthropathy. Multilevel mild disc space narrowing. Soft tissues: Unremarkable. Gastrointestinal tract: Air-filled stomach. There is contour abnormality of the gastric mucosa which may represent peristalsis. XR/XR thoracic spine 3V* [id number] IMPRESSION: 1. There is a 6 degree lower thoracic/lumbar levoscoliosis. Degenerative changes are present as described above. 2. Air-filled stomach. There is contour abnormality of the gastric mucosa which may represent peristalsis. Follow-up to exclude neoplasm if clinically warranted.
--- NOTE | 2020-08-26 14:22 | XRR_ITS ---
PROCEDURE INFORMATION: Exam: XR Lumbosacral Spine Exam date and time: 08/26/2020 2:24 PM Age: 60 years old Clinical indication: Low back pain; Prior surgery; Surgery type: 07/21/20 low back surgery; Additional info: Recent surgery, pain after lifting TECHNIQUE: Imaging protocol: XR of the lumbosacral spine. Views: 2 or 3 views. COMPARISON: OT XR lumbar spine 2-3V* [id number] 07/21/2020 2:43 PM FINDINGS: Bones/joints: 6 degree lumbar levoscoliosis. There are degenerative changes throughout the visualized spine including marginal osteophyte formations, endplate degenerative changes, and facet arthropathy. Multilevel disc space narrowing. Soft tissues: Unremarkable. XR/XR lumbar spine 2-3V* [id number] IMPRESSION: 6 degree lumbar levoscoliosis. There are degenerative changes as described above.
[2020-08-26] MEDS: HYDROcodone-acetaminophen 7.5-325 mg Tablet 1 TAB PO (14:47)
[2020-08-26 15:36] VITALS: PULSE 69; RESP 17; O2SAT 94
== END 2020-08-26 15:37 | disposition home or self-care (01) ==
PROVIDERS: Emergency Provider Physician Assistant; PCP Internal Medicine
DX: M54.6 Pain in thoracic spine (principal); M25.541 Pain in joints of right hand; Z79.82 Long term (current) use of aspirin; I10 Essential (primary) hypertension; I25.2 Old myocardial infarction; F17.210 Nicotine dependence, cigarettes, uncomplicated
CPT/HCPCS: 72072; 72100; 99283

== ENCOUNTER → 2020-08-29 10:14 | Outpatient (BNVA) | payer OTHER, SELFPAY | PROVIDERS: PCP Internal Medicine; Visit Provider Anesthesiology Pain Medicine | DX: M25.552 Pain in left hip (principal); M79.605 Pain in left leg; M54.9 Dorsalgia, unspecified; M51.16 Intervertebral disc disorders with radiculopathy, lumbar region; M48.061 Spinal stenosis, lumbar region without neurogenic claudication; M19.90 Unspecified osteoarthritis, unspecified site; Z98.890 Other specified postprocedural states; F17.210 Nicotine dependence, cigarettes, uncomplicated | CPT/HCPCS: 99213; 99214 ==

== ENCOUNTER → 2020-09-05 13:43 | Outpatient (BNVA) | payer OTHER, SELFPAY | PROVIDERS: PCP Internal Medicine; Visit Provider Orthopaedic Surgery | DX: Z48.89 Encounter for other specified surgical aftercare (principal); R52 Pain, unspecified | CPT/HCPCS: 72050 ==

== ENCOUNTER 2020-09-22 07:40 | Outpatient (CLI) | payer OTHER, SELFPAY ==
--- NOTE | 2020-09-22 08:00 | MR_ITS ---
WS: [id number] MRI CERVICAL SPINE NONCONTRAST HISTORY: M54.2 - Cervicalgia COMPARISON: Cervical radiographs 09/05/2020 Technique: Multiplanar, multisequence noncontrast imaging of the cervical spine. Straightening and reversal of the cervical lordosis. There is significant posterior curvature of the cervical spine causing deformity and posterior displacement of the cervical canal and cord. There is also mild LEFT convex curvature. No marrow edema or fracture. There is a very small of increased sig nal in the interspinous muscles at C7-T1. Signal within the cervical cord is normal. Visualized posterior fossa is unremarkable. Craniocervical junction, C1 and C2 relationship, odontoid process and soft tissues are normal. 2 mm anterolisthesis of C3, C4 and C5. C2-C3: Small osteophytes without stenosis. C3-C4: Bilateral facet joint arthritis, LEFT greater than RIGHT with a small central disc protrusion. Ligamentum flavum hypertrophy encroaching into the posterior thecal sac causing effacement of the po sterior CSF. Mild central stenosis and mild bilateral foraminal stenosis. C4-C5: Mild annular disc bulging. LEFT foraminal disc osteophyte complex contacting and slightly disp lacing the exiting nerve root posteriorly. Moderate central and LEFT foraminal stenosis. Mild stenosi s on the RIGHT. C5-C6: Complete effacement of CSF due to disc and osteophyte disease in the curvature of the spine. M oderate to severe central and RIGHT foraminal stenosis. Mild LEFT foraminal stenosis. C6-C7: Complete effacement of CSF. Disc and osteophyte disease causing severe central and bilateral f oraminal stenosis. C7-T1: Severe central stenosis due to combination of disc and osteophyte disease. Moderate to large R IGHT paracentral and proximal foraminal disc osteophyte causing significant deformity of the RIGHT la teral thecal sac and encroachment upon the nerve roots. Severe central and bilateral foraminal stenos is. Paraspinal soft tissue are normal. MR/MR cervical spin wo con* [id number] IMPRESSION: 1. Severe degenerative changes in the cervical spine with reversal the normal cervical lordosis contacting the cord and displacing the cord. 2. Severe central stenosis at C7-T1 due to combination of disc and osteophyte disease. Moderate to large RIGHT paracentral and proximal foraminal disc osteop hyte contacting and deforming the RIGHT lateral thecal sac. There is severe radha tral and bilateral foraminal stenosis at C7-T1. 3. Moderate to severe central and RIGHT foraminal stenosis at C5-6. 4. Moderate central LEFT foraminal stenosis at C4-5. 5. Mild central and bilateral foraminal stenosis at C3-4.
== END 2020-09-22 07:41 | disposition home or self-care (01) ==
LOC: RADSHAW 07:41
PROVIDERS: PCP Internal Medicine; Visit Provider Orthopaedic Surgery
DX: M54.2 Cervicalgia (principal); M48.02 Spinal stenosis, cervical region; M48.03 Spinal stenosis, cervicothoracic region
CPT/HCPCS: 72141

== ENCOUNTER 2020-10-11 12:48 | Emergency (ER) | payer OTHER, SELFPAY ==
[2020-10-11 13:43] VITALS: BP 171/98; PULSE 72; RESP 15; TEMP 36.6; O2SAT 94; BMI 19.1
--- NOTE | 2020-10-11 13:49 | XR_ITS ---
WS: [id number] Left wrist, 3 views, 10/11/2020 Clinical Data: fall Comparison: None. Findings: No fractures or dislocations are seen. The carpal bones are intact. There is no soft tissue swelling. The distal radius and ulna are not remarkable. There are small cystic changes in the lunate, triquetrum and hamate. XR/XR wrist LT min 3V* [id number] Impression: Negative for left wrist fracture.
--- NOTE | 2020-10-11 13:49 | XR_ITS ---
WS: [id number] Left hand, 3 views, 10/11/2020 Clinical Data: fall Comparison: None. Findings: No fractures or dislocations are seen. The soft tissues are unremarkable. The joint spaces are normal Flexion of the distal joints of the fingers obscures detail. XR/XR hand LT min 3V* [id number] Impression: Negative left hand for definite fracture.
--- NOTE | 2020-10-11 14:42 | ED_ITS ---
HPI - Fall General: Chief Complaint: Fall Stated Complaint: fall, L hip and wrist pain Time Seen by Provider: 10/11/20 14:30 Source: patient Mode of arrival: ambulatory Limitations: no limitations History of Present Illness: HPI Narrative: Patient is a nice 60-year-old female who presents to ED today with complaint of left wrist and hand pain following a fall. Patient states she was walking looking down at her cell phone when she accidentally tripped and fell and landed onto her left wrist and hand. No other injury sustained during the fall. She denies striking her head or LOC. No neck or back pain. Patient has been ambulatory since the fall without difficulty. MD complaint: fall Onset (ago): hour(s) Fall from: standing Fall witnessed: no Place fall occurred: home Loss of consciousness: None Prolonged down time: no Symptoms prior to fall: none Context: tripped/slipped Associated symptoms-after fall: Denies chest pain, headache(s) or neck pain Review of Systems Eyes: Denies: change in vision or blurry vision Card: Denies: chest pain Resp: Denies: dyspnea Musc: Reports: joint pain (L wrist/hand); Denies: neck pain, back pain or joint swelling Skin/Breast: Reports: other (no lacerations/abrasions) Neuro: Denies: headache(s) or dizziness PFSH ED PFSH: Medical History (Updated 10/11/20 @ 14:46 by MEG Young) Displacement of lumbar disc with radiculopathy HTN (hypertension) Lumbar disc disease with radiculopathy Myocardial infarction Nicotine abuse Surgical History History of appendectomy (~1998) Performed in [place], [place] History of cholecystectomy (~1998) Performed in [place]. Took out appendix during same surgery. History of hysterectomy (~1989) Performed in [facility] due to hemorrhaging, states patient. History of lumbar laminectomy Left L3-L4 laminotomy/discectomy/foraminotomy 03/08/19 Dr. Yenifer Becker History of myringotomy (~1985) left, 1985. Performed in [place], [place] History of tonsillectomy performed in her 20's in [place] Hx of total cystectomy back of left leg 2x performed in [place], [place] Family History Father Heart disease Hypertension Mother Diabetes Hypertension Brother Diabetes Hypertension Social History Smoking and tobacco status: current every day smoker Alcohol intake: never Household members: significant other Marital status: / Current occupational status: retired History of recent travel: No Physical Exam Const: COMMON NORMALS: no acute distress, patient oriented x3, no limitations and alert NUTRITIONAL APPEARANCE: thin ORIENTATION/CONSCIOUSNESS: Yes awake, Yes oriented to person, Yes oriented to place and Yes oriented to time HENMT: COMMON NORMALS: normocephalic and atraumatic HEAD & SCALP: normocephalic and atraumatic Neck/C-Spine: COMMON NORMALS: full ROM CERVICAL SPINE: No pain with cervical ROM and No Cervical spine tenderness Back/Pelvis: COMMON NORMALS: thoracic and lumbar spine normal to inspection, no thoracic nor lumbar tenderness and thoraco-lumbar ROM normal Extremity: GENERAL: Yes normal exam except as noted OTHER: TTP L radial distal wrist; no swelling or deformity noted; NV intact Neuro: COMMON NORMALS: patient oriented x3, moves all extremities, no focal motor deficits and no sensory deficits noted SENSORIUM/ORIENTATION: Yes alert, Yes oriented to person, Yes oriented to place and Yes oriented to time Skin: COMMON NORMALS: no rashes or lesions noted GENERAL SKIN EXAM: no rashes or lesions noted TRAUMA: no lacerations or abrasions Course Vital Signs: Vital signs: Vital Signs Temperature 97.9 F 10/11/20 13:43 Pulse Rate 72 10/11/20 13:43 Respiratory Rate 15 10/11/20 13:43 Blood Pressure 171/98 10/11/20 13:43 Pulse Oximetry 94 10/11/20 13:43 MDM - Fall Imaging Data^: XR L wrist: Radiologist's impression: [address] [address] XRay Report Signed Patient: Adwoa Ledbetter Unit #: [id number] : 1960 Age/Sex: 60 / F ADM Date: 10/11/20 Loc: ER Room/Bed: Attending Dr: Ordering Provider/Ordering MD: Keysha Ramos Date of Service: 10/11/20 Procedure(s): XR wrist LT min 3V* [id number] Accession Number(s): [id number] Report Number: [id number] WS: [id number] Left wrist, 3 views, 10/11/2020 Clinical Data: fall Comparison: None. Findings: No fractures or dislocations are seen. The carpal bones are intact. There is no soft tissue swelling. The distal radius and ulna are not remarkable. There are small cystic changes in the lunate, triquetrum and hamate. XR/XR wrist LT min 3V* 22413 Impression: Negative for left wrist fracture. Dictated By: Lizette Mejia MD Signed By: Lizette Mejia MD Signed Date/Time: 10/11/201430 DD/ 28 XR L hand: Radiologist's impression: [address] [address] XRay Report Signed Patient: Adwoa Ledbetter Unit #: [id number] : 1960 Age/Sex: 60 / F ADM Date: 10/11/20 Loc: ER Room/Bed: Attending Dr: Ordering Provider/Ordering MD: Keysha Ramos Date of Service: 10/11/20 Procedure(s): XR hand LT min 3V* [id number] Accession Number(s): [id number] Report Number: [id number] WS: [id number] Left hand, 3 views, 10/11/2020 Clinical Data: fall Comparison: None. Findings: No fractures or dislocations are seen. The soft tissues are unremarkable. The joint spaces are normal Flexion of the distal joints of the fingers obscures detail. XR/XR hand LT min 3V* [id number] Impression: Negative left hand for definite fracture. Dictated By: Lizette Mejia MD Signed By: Lizette Mejia MD Signed Date/Time: 10/11/201431 DD/ 30 Discharge Plan Discharge Patient Disposition: Home Clinical Impression: Fall on same level from tripping Left wrist sprain Qualifiers: Encounter type: initial encounter Qualified Code(s): S63.502A - Unspecified sprain of left wrist, initial encounter Condition: Stable Prescriptions: No Action aspirin 81 mg tablet,delayed release (DR/EC) 81 mg PO QAM RF: 0 albuterol sulfate [ProAir HFA] 90 mcg/actuation HFA aerosol inhaler 2 puff INHALATION Q6H PRN (Reason: Shortness Of Breath Or Wheezing) RF: 0 multivitamin Tablet 1 tab PO QAM RF: 0 nitroglycerin [Nitrostat] 0.4 mg tablet, sublingual 0.4 mg SUBLINGUAL Q5M PRN (Reason: Chest Pain) RF: 0 fluoxetine [Prozac] 20 mg capsule 20 mg PO QAM RF: 0 ibuprofen 200 mg tablet 400 mg PO PRN RF: 0 acetaminophen [Tylenol Extra Strength] 500 mg tablet 1,000 mg PO PRN RF: 0 methocarbamol [Robaxin-750] 750 mg tablet 750 mg PO TID Qty: 90 RF: 2 hydrocodone-acetaminophen 5-325 mg tablet 1 - 2 tab PO .Q4-6H PRN (Reason: pain) 7 Days Qty: 40 RF: 0 Medrol (Reddy) 4 mg tablets,dose pack See Rx Instructions .ROUTE .COMPLEX Qty: 21 RF: 0 methocarbamol 750 mg tablet 750 mg PO Q8H Qty: 15 RF: 0 lisinopril 20 mg tablet 20 mg PO QAM RF: 0 Sleep Aid (diphenhydramine) 2 tab PO BEDTIME RF: 0 gabapentin 300 mg capsule 300 mg PO BEDTIME RF: 0 Discharge Orders: Discharge ED (Routine); Ordered 10/11/20 Ordered By: Keysha Ramos Referrals: Vonnie Tucker MD [Primary Care Provider] - Patient Instructions: Wrist Sprain (ED) Coding Level of Care Code ED Lapidarist for Bonilla Gramajo
[2020-10-11 15:12] VITALS: BP 149/97; PULSE 61; RESP 14; TEMP 37.2; O2SAT 95
== END 2020-10-11 15:14 | disposition home or self-care (01) ==
PROVIDERS: Emergency Provider Physician Assistant; PCP Internal Medicine
DX: S63.502A Unspecified sprain of left wrist, initial encounter (principal); Z79.82 Long term (current) use of aspirin; I10 Essential (primary) hypertension; I25.2 Old myocardial infarction; F17.210 Nicotine dependence, cigarettes, uncomplicated; W01.0XXA Fall on same level from slipping, tripping and stumbling without subsequent striking against object, initial encounter
CPT/HCPCS: 73110; 73130; 99282

== ENCOUNTER 2020-10-20 14:43 | Outpatient (CLI) | payer OTHER, SELFPAY ==
--- NOTE | 2020-10-20 14:55 | MM_ITS ---
WS: [id number] BILATERAL DIGITAL SCREENING MAMMOGRAPHY WITH CAD CLINICAL INFORMATION: SCREENING HISTORY: Screening mammogram. No current complaints. COMPARISON: October 15, 2019 TECHNIQUE: Bilateral CC and MLO views. FINDINGS: Scattered fibroglandular densities bilaterally. No suspicious focal mass, asymmetry, calcifications, or architectural distortion. No evidence of malignancy. MM/[place] [id number] IMPRESSION: BI-RADS: 1-Negative FOLLOW UP: 1 Year Follow-up Recommend return to annual screening mammography.
== END 2020-10-20 14:44 | disposition home or self-care (01) ==
PROVIDERS: PCP Internal Medicine; Visit Provider Internal Medicine
DX: Z12.31 Encounter for screening mammogram for malignant neoplasm of breast (principal)
CPT/HCPCS: 77067

== ENCOUNTER 2020-11-09 12:44 | Outpatient (CLI) | payer OTHER, SELFPAY ==
--- NOTE | 2020-11-09 13:00 | CT_ITS ---
WS: [id number] LDCT LUNG CANCER SCREENING TECHNIQUE: Noncontrast CT of the chest with coronal and sagittal reformatted images. CLINICAL INFORMATION: NICOTINE DEPENDENCE, CIGARETTES W/OTHER NICOTINE DISORDERS COMPARISON: CT October 07, 2019 DLP: 52.6 mGy.cm DIvol: 1.[address] scans at [facility] use at least one of these dose optimization techniques: automat ed exposure control; mA and/or kV adjustment per patient size (includes targeted exams where dose is matched to clinical indication); or iterative reconstruction. FINDINGS: Mild chronic emphysematous changes. No acute pulmonary infiltrates. No focal pneumonia or pleural flu id. Noncalcified tiny subpleural nodule right upper lobe measuring 3 mm. Fibrosis in the lung apices unchanged in appearance. No other suspicious pulmonary parenchymal abnormalities. Aortic calcificatio n. No mediastinal or hilar lymphadenopathy. Mild spondylitic changes thoracic spine. CT/CT lung screening [id number] IMPRESSION: LUNG-RADS: 2-Benign Appearance or Behavior FOLLOW UP: 12 Month: Continue annual screening with LDCT
== END 2020-11-09 12:45 | disposition home or self-care (01) ==
PROVIDERS: PCP Internal Medicine; Visit Provider Internal Medicine
DX: Z12.2 Encounter for screening for malignant neoplasm of respiratory organs (principal); F17.218 Nicotine dependence, cigarettes, with other nicotine-induced disorders
CPT/HCPCS: 71271

== ENCOUNTER → 2020-11-10 09:03 | Outpatient (BNVA) | payer OTHER, SELFPAY | PROVIDERS: PCP Internal Medicine; Visit Provider Anesthesiology Pain Medicine | DX: M51.16 Intervertebral disc disorders with radiculopathy, lumbar region (principal); M48.061 Spinal stenosis, lumbar region without neurogenic claudication; M48.02 Spinal stenosis, cervical region; M79.605 Pain in left leg; M16.0 Bilateral primary osteoarthritis of hip; M79.672 Pain in left foot; Z98.890 Other specified postprocedural states; Z79.891 Long term (current) use of opiate analgesic | CPT/HCPCS: 99215 ==

== ENCOUNTER → 2020-11-28 13:05 | Outpatient (BNVA) | payer OTHER, SELFPAY | PROVIDERS: PCP Internal Medicine; Visit Provider Anesthesiology Pain Medicine | DX: G89.29 Other chronic pain (principal); M48.02 Spinal stenosis, cervical region; F17.210 Nicotine dependence, cigarettes, uncomplicated; Z79.891 Long term (current) use of opiate analgesic | CPT/HCPCS: 62321; J1100 ==

== ENCOUNTER → 2020-12-16 14:21 | Outpatient (BNVA) | payer OTHER, SELFPAY | PROVIDERS: PCP Internal Medicine; Visit Provider Registered Nurse Neonatal Intensive Care | DX: Z20.822 Contact with and (suspected) exposure to COVID-19 (principal) | CPT/HCPCS: 87635 ==

== ENCOUNTER → 2020-12-25 09:07 | Outpatient (BNVA) | payer OTHER, SELFPAY | PROVIDERS: PCP Internal Medicine; Visit Provider Anesthesiology Pain Medicine | DX: M48.02 Spinal stenosis, cervical region (principal); M51.16 Intervertebral disc disorders with radiculopathy, lumbar region; M48.061 Spinal stenosis, lumbar region without neurogenic claudication; M25.552 Pain in left hip; M79.605 Pain in left leg; M19.90 Unspecified osteoarthritis, unspecified site; Z98.890 Other specified postprocedural states; F17.210 Nicotine dependence, cigarettes, uncomplicated; Z79.891 Long term (current) use of opiate analgesic | CPT/HCPCS: 99214 ==

== ENCOUNTER → 2021-02-09 13:07 | Outpatient (BNVA) | payer OTHER, SELFPAY | PROVIDERS: PCP Internal Medicine; Visit Provider Internal Medicine Pulmonary Disease | DX: Z01.812 Encounter for preprocedural laboratory examination (principal); Z20.822 Contact with and (suspected) exposure to COVID-19 | CPT/HCPCS: 87635 ==

== ENCOUNTER 2021-02-15 07:35 | Outpatient (CLI) | payer OTHER, SELFPAY ==
--- NOTE | 2021-02-15 13:45 | PFTS_ITS ---
Date of Study:02/15/21 Date of Dictation: MECHANICS: Forced vital capacity (FVC) is normal. Forced expiratory volume in one second (FEV1) is reduced. FEV1/FVC is reduced. FLOW VOLUME LOOP: Reduced flow at all lung volumes with significant scooping. LUNG VOLUMES: Not measured DIFFUSING CAPACITY FOR CARBON MONOXIDE: Mildly reduced. INTERPRETATION: The postbronchodilator spirometry is consistent with moderate airflow obstruction. There is no significant postbronchodilator response. Gas exchange (DLCO) is mildly reduced. MTDD
== END 2021-02-15 07:36 | disposition home or self-care (01) ==
LOC: RT 07:39
PROVIDERS: PCP Internal Medicine; Visit Provider Internal Medicine Pulmonary Disease
DX: J44.9 Chronic obstructive pulmonary disease, unspecified (principal)
CPT/HCPCS: 94060; 94618; 94729; J7611

== ENCOUNTER → 2021-03-07 00:01 | Outpatient (BNVA) | payer OTHER, SELFPAY | PROVIDERS: PCP Internal Medicine; Visit Provider Orthopaedic Surgery | DX: Z20.822 Contact with and (suspected) exposure to COVID-19 (principal) | CPT/HCPCS: 87635 ==

== ENCOUNTER 2021-03-12 15:13 | Observation (INO) | payer OTHER, SELFPAY ==
[2021-03-08 10:37] VITALS: BMI 19.4
--- NOTE | 2021-03-08 10:49 | ECG_ITS ---
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 Measurements Intervals [place] Rate: 75 P: 64 MN: 153 QRS: -21 QRSD: 98 T: 79 QT: 329 QTc: 369 Interpretive Statements SINUS RHYTHM POSSIBLE RIGHT VENTRICULAR CONDUCTION DELAY [RSR (QR) IN V1/V2] ANTEROLATERAL MYOCARDIAL INFARCTION , OF INDETERMINATE AGE [40+ ms Q WAVE IN I/aVL/V3-V6] Compared to ECG 07/21/2020 09:41:52 Right-axis deviation no longer present Myocardial infarct finding still present Electronically Signed On 03-10-2021 7:49:39 SIDE BOSS by Romaine Figueroa M.D. [id number]
--- NOTE | 2021-03-08 19:46 | ANES.PREANE2 ---
Pre-Anesthetic Assessment Pre-Anesthetic Assessment: Height/Weight: Height 1.42 m Weight 39.326 kg Preop Diagnosis: Cervical radiculopathy Proposed Procedure: Operation Date: 03/12/21 08:10 Proposed Procedures p Cervical Posterior Fusion C2/T2 with decompression C3/T1 [id number](x4) 19433 54450(Not Applicable) - Mehran Guerrero, DO Was Beta Andrés taken within 24 hours: N/A Was Clonidine taken within 24 hours: N/A Social: Social History: Tobacco and No alcohol Exam: Pre-Anes Outpt Exam: alert, oriented x 3, clear to auscultation bilaterally and regular rate & rhythm Airway: Submandibular: WNL Cervical ROM: WNL Dentition: False Pulmonary: Pulmonary: COPD CV/HEM: CV/HEM: HTN : : None reported Hepatic: Hepatic: None reported GI: GI: None reported Metabolic: Metabolic: None reported Musc/skel: Musc/skel: Lower Back Pain, OA/DJD and Weakness Neuropsych: Neuropsych: Anxiety and Depression Anesthetic Plan: ASA status: 3 PFSH Anesthesia PFSH: Medical History Displacement of lumbar disc with radiculopathy HTN (hypertension) Lumbar disc disease with radiculopathy Myocardial infarction Nicotine abuse Surgical History History of appendectomy (~1998) Performed in [place], [place] History of cholecystectomy (~1998) Performed in [place], [place]. Took out appendix during same surgery. History of hysterectomy (~1989) Performed in [facility] due to hemorrhaging, states patient. History of lumbar laminectomy Left L3-L4 laminotomy/discectomy/foraminotomy 03/08/19 Dr. Yenifer Becker History of myringotomy (~1985) left, 1985. Performed in [place], [place] History of tonsillectomy performed in her 20's in [place] Hx of total cystectomy back of left leg 2x performed in [place] Family History Father Heart disease Hypertension Mother Diabetes Hypertension Brother Diabetes Hypertension Social History Alcohol intake: former Year of sobriety/quit date alcohol: 12 Household members: significant other Marital status: / Current occupational status: retired History of recent travel: No Data Anesthesia Cardiac Studies: No Data to Display
[2021-03-12] VITALS (21 sets, daily range): BP systolic 101–161; BP diastolic 69–108; PULSE 75–92; RESP 16–30; TEMP 36.3–37.4; O2SAT 95–100
--- NOTE | 2021-03-12 | XR_ITS ---
WS: [id number] INTRAOPERATIVE TECHNIQUE: 4 Spot fluoroscopic images for intraoperative purposes. FLUOROSCOPY TIME: 61.9 seconds CLINICAL INFORMATION: spondylosis w/ myeolpathy COMPARISON: None. FINDINGS: Intraoperative changes dorsal elements interconnecting vishal and screw fixation. This extends from C2 i nto the thoracic spine at T2. Hardware appears satisfactory position. Endotracheal tube. XR/XR cervical spine 3V* [id number] IMPRESSION: Images obtained for intraoperative purposes.
--- NOTE | 2021-03-12 | SCC_ITS ---
Procedure Done: 1. C2-T2 posterior fusion 2. C2-T2 posterior instrumentation 3. C3 laminectomy with bilateral partial facetectomies 4. C4 laminectomy with bilateral partial facetectomies 5. C5 laminectomy with bilateral partial facetectomies 6. C6 laminectomy with bilateral partial facetectomies 7. C7 laminectomy with bilateral partial facetectomies 8. T1 laminectomy with bilateral partial facetectomies 9. use of autograft 10. use of allograft 61.9 seconds of fluoroscopic guidance, for a cumulative dose of 4.06 mGy, was provided to Dr. Guerrero by the radiology department. C-arm images of the cervical spine were saved for the patient's permanent record. [facility]
[2021-03-12] MEDS: sodium chloride 0.9% 1,000 ML 30 ML IV (10:00)
--- NOTE | 2021-03-12 10:50 | P.ANESUD_ITS ---
Pre-Anesthetic Update Pre-Anesthetic Assessment: Date of Surgery/Procedure: 03/12/21 Preop Kristina gnosis: lumbar stenosis L3/4 Proposed Procedure: Operation Date: 03/12/21 11:15 Proposed Procedures p Cervical Posterior Fusion C2/T2 with decompression C3/T1 [id number] 08367(x4) 47464 53540(Not Applicable) - Mehran Guerrero, DO Any changes to Pre-Anesthetic Assessment?: No Last Intake: Intake Last Liquid Date 03/11/21 Last Liquid Time 20:30 Last Solid Date 03/11/21 Last Solid Time 20:30 Vitals: Temperature 99.3 F 03/12/21 09:38 Temperature Source Temporal Artery S can 03/12/21 09:38 Pulse Rate 80 03/12/21 09:38 Respiratory Rate 16 03/12/21 09:38 Blood Pressure 146/108 03/12/21 09:38 Blood Pressure Rosemarie n 120 03/12/21 09:38 Pulse Oximetry 95 03/12/21 09:38 Oxygen Delivery Me thod 03/12/21 09:45 Exam: Pre-Anes Outpt Exam: alert, oriented x 3, clear to auscultation bilaterally and regular rate & rhythm Cardiac Studies: No Data to Display
--- NOTE | 2021-03-12 10:53 | PM.HP ---
Providers/Chief Complaint Primary Care Provider: Vonnie Tucker MD Chief Complaint: Other spondylosis w/ myeolpathy History of Present Illness Adwoa Ledbetter is a 60 year old female 60 year old female here for follow up of neck pain. On 11/28/20 patient recieved C7/T1 Epidural Steroid Injection. She states her injection lasted less than one day. She continues to complain of headaches, neck pain and complete numbness to left hand. She describes pain that radiates into bilateral shoulders and arms as well as balance issues. Review of Systems Narrative: General ROS: negative for weight changes, fever ENT ROS: negative for nasal congestion, drainage or bleeding, sore throat, dysphagia or ear pain Eyes: PERRL Hematological and Lymphatic ROS: negative for swollen glands or abnormal bleeding Endocrine ROS: negative for polyuria/polydpsia or new changes in weight Respiratory ROS: negative for cough, shortness of breath, or wheezing Cardiovascular ROS: negative for chest pain or dyspnea on exertion Gastrointestinal ROS: negative for reflux, abdominal pain, change in bowel habits, or black or bloody stools Musculoskeletal ROS: negative for back pain, neck pain, or joint pain or swelling except for current problem Neurological ROS: negative for TIA or stoke symptoms Skin: no rashes Medications/Allergies Home Medications Medication Instructions Recorded Confirmed Last Taken Type albuterol sulfate 90 mcg/actuation 2 puff INHALATION Q6H PRN 04/19/19 03/08/21 07/20/20 History aerosol inhaler fluoxetine 20 mg capsule 20 mg PO QAM 04/19/19 03/12/21 03/11/21 10:00 History multivitamin 1 tab PO QAM 04/19/19 03/12/21 03/11/21 10:00 History nitroglycerin 0.4 mg sublingual 0.4 mg SUBLINGUAL Q5M PRN 04/19/19 03/08/21 Unknown History tablet acetaminophen 500 mg tablet 1,000 mg PO PRN PRN tab 01/11/20 03/12/21 03/11/21 10:00 History Sleep Aid (diphenhydramine) 2 tab PO BEDTIME PRN 08/26/20 03/12/21 Unknown History MEDICAL MARIJUANA See Rx Instructions .ROUTE .COMPLEX 12/25/20 03/12/21 03/11/21 10:00 History cyclobenzaprine 5 mg tablet 5 mg PO TID PRN #90 tab 12/25/20 03/12/21 02/26/21 Rx biotin 5 mg capsule 5 mg PO DAILY 01/10/21 03/12/21 03/11/21 10:00 History losartan 25 mg tablet 50 mg PO DAILY 01/10/21 03/12/21 03/11/21 10:00 History niacin 50 mg tablet 50 mg PO DAILY 01/10/21 03/12/21 03/11/21 10:00 History tiotropium 2.5 mcg-olodaterol 2.5 2 puff INHALATION DAILY #4 g 01/10/21 03/12/21 03/12/21 08:00 Rx mcg/actuation mist for inhalation tramadol 50 mg PO Q6H PRN 03/08/21 03/12/21 03/11/21 10:00 History Allergies Allergy/AdvReac Type Severity Reaction Status Date / Time clindamycin [From Cleocin] Allergy Severe anaphylaxis Verified 03/12/21 09:39 codeine Allergy Mild chest Verified 03/12/21 09:39 pain, abdominal pain tizanidine Allergy upset Verified 03/12/21 09:39 stomach PFSH Acute PFSH: Medical History Displacement of lumbar disc with radiculopathy HTN (hypertension) Lumbar disc disease with radiculopathy Myocardial infarction Nicotine abuse Surgical History History of appendectomy (~1998) Performed in [place], [place] History of cholecystectomy (~1998) Performed in [place], [place]. Took out appendix during same surgery. History of hysterectomy (~1989) Performed in [facility] due to hemorrhaging, states patient. History of lumbar laminectomy Left L3-L4 laminotomy/discectomy/foraminotomy 03/08/19 Dr. Yenifer Becker History of myringotomy (~1985) left, 1985. Performed in [place], [place] History of tonsillectomy performed in her 20's in [place], [place] Hx of total cystectomy back of left leg 2x performed in [place], [place] Family History Father Heart disease Hypertension Mother Diabetes Hypertension Brother Diabetes Hypertension Social History Alcohol intake: former Year of sobriety/quit date alcohol: 12 Household members: significant other Marital status: / Current occupational status: retired History of recent travel: No Vitals/I&O/Wt Last Vital Signs Temp 99.3 F 03/12/21 09:38 Pulse 80 03/12/21 09:38 Resp 16 03/12/21 09:38 BP 146/108 03/12/21 09:38 Pulse Ox 95 03/12/21 09:38 Physical Exam Narrative: EXAM NARRATIVE: CONSTITUTIONAL: The patient is a normal appearing [] in no apparent distress. GENERAL: Patient in no acute distress. CARDIAC: Regular rate and rhythm. CHEST: Normal inspiratory effort, normal respiratory rate. ABDOMEN: Soft and nontender. SKIN: Clear, warm and intact. NEURO?PSYCH: The patient is alert and oriented to person, place and time. Sensorv /SILT Motor StrengthShoulder abduction C5 5/5Wrist extension C6 5/5Elbow extension C7 5/5Hand Associate Technician C8 5/5Finger abduction T15/5 Radial/ Ulnar/ Median n intact LowerSensory (SILT)Motor StrengthHin flexion L2/3Ant/inner thigh 5/5Hip adduction L2/3 5/5Knee extension L4 Lat thigh, 5/5Toe dorsiflexion L5 5/5Ankle dorsiflexion L5/ C37Nxpjbxm flexion S1 5/5 DTRBleeps 2+Triceps 2+Brachioradialis 2+Patellar 2+Achilles 2+ MUSCULOSKELETAL: [] UPPEREXTREMITIES: The patient had full active ROM in fingers, wrist, elbow, and shoulder. The patient demonstrated ability to fully flex/extend/abduct/adduct fingers, make ok sign, cross 2nd/3rd digits, extend 1st digit fully.. Radial pulse 2+, CR<2 seconds. LOWER EXTREMITIES: Pt has full, active ROM of toes, ankle, knee, and hip. Dorsalis pedis/posterior tibialis pulses 2+, CR<2 seconds. SPINE: Skin warm, dry, intact. A&P Assessment and plan (1) Cervical spondylosis with myelopathy: posterior cervical decompression and fusion Status: Acute Attestations Medical Necessity Statement*: failed conservative tx Coding Level of Care Code Acute Patient Liaison for g Fwd Diagnoses Cervical spondylosis with myelopathy M47.12
[2021-03-12] MEDS: vancomycin 1,000 MG SDV 1000 MG XX (12:52)
--- NOTE | 2021-03-12 14:53 | P.OP_ITS ---
Operative Report Date of procedure: March 12, 2021 Pre-op Diagnosis: cervical spondylosis with myelopathy Post-op diagnosis: same Procedure Done: 1. C2-T2 posterior fusion 2. C2-T2 posterior instrumentation 3. C3 laminectomy with bilateral partial facetectomies 4. C4 laminectomy with bilateral partial facetectomies 5. C5 laminectomy with bilateral partial facetectomies 6. C6 laminectomy with bilateral partial facetectomies 7. C7 laminectomy with bilateral partial facetectomies 8. T1 laminectomy with bilateral partial facetectomies 9. use of autograft 10. use of allograft Surgeon: Mehran Guerrero Plywood Layup Line Back Feeder: Delgado Malin Plywood Layup Line Back Feeder: The surgical scrub tech, Delgado Malin, PAC was needed for his expertise under the microscope. He was important and necessary throughout the procedure to complete in a safe and timely manner. He assisted with patient positioning prepping and draping tissue retraction suctioning of the operative field protection of the dural sac and tissue closure Anesthesia: General Estimated blood loss (mL): 250 Condition: stable Disposition: PACU Procedure: 1. C2-T2 posterior fusion 2. C2-T2 posterior instrumentation 3. C3 laminectomy with bilateral partial facetectomies 4. C4 laminectomy with bilateral partial facetectomies 5. C5 laminectomy with bilateral partial facetectomies 6. C6 laminectomy with bilateral partial facetectomies 7. C7 laminectomy with bilateral partial facetectomies 8. T1 laminectomy with bilateral partial facetectomies 9. use of autograft 10. use of allograft Patient was brought to the operative suite. After undergoing anesthesia was placed in the prone position. All areas impingement were well-padded. Patient was then prepped and draped in normal sterile fashion. Skin incision made over the C2-T2 level. Subperiosteal dissection was made out from the lateral masses of C2-C7. As well as the transverse processes of T1 and T2 bilaterally. Once the exposure was completed. Attention was brought to placing the pars screws at C2. This was done by using a drill followed by hand drill followed by a pedicle feeler. Appropriate size screws were placed at C2 bilaterally. Screws were placed into the lateral masses of C3 bilaterally. C4 on the left side. C6 bilaterally. And T1 pedicle screws were placed. This was done by using the drill followed by gearshift followed by pedicle feeler followed by placing the screws. After all the screws were placed attention was then brought to performing the laminectomies. Laminectomies were performed at T1. This was done using high-speed bur lamina was taken down along with part of the facet joint. This was done bilaterally. C7 laminectomy was performed the same manner as well as C6 C5 C4 and C3. Again partial facetectomies were performed using the Kerrison rongeur bilaterally. Once all of the laminectomies and partial facetectomies were done bilaterally. The dura was in good repair had a good pulse. Floated back. Next attention was brought to placing the rods. The rods were connected from C2-T2 bilaterally. These were all locked in with the end caps and torqued down. The lateral masses and transverse processes and lamina were decorticated using high-speed bur. Then the osteoamp bone graft mixed with bone chips from the transverse processes and laminectomies were packed into the gutters. Wounds irrigated vancomycin powder was placed, deep drain was placed. The wound was closed in layered fashion. Using Vicryl and skin closed with Monocryl and Steri-Strips. Sterile Silverlon dressing was placed and patient was transferred to the PACU in stable condition.
--- NOTE | 2021-03-12 15:07 | PC.NURSE ---
patient into pacu, oral airway in place, simple mask in place with o2 at 6L and sats at 100%. patient has hemovac in place with serous drainage, silvalon dressing in place. dilaudid given to pt in pacu per luci mann at bedside. pt has [place] j collar in place.
--- NOTE | 2021-03-12 15:10 | PC.NURSE ---
scds in place and connected to machine, on.
--- NOTE | 2021-03-12 15:15 | SUR.PHASEI ---
all previous charting done by Hortensia Flores RN under Tonya Shoemaker RN name.
--- NOTE | 2021-03-12 15:19 | SUR.PHASEI ---
patient awake, very drowsy. simple mask and oral airway removed, placed on 3L nc with sats at 99%.
--- NOTE | 2021-03-12 16:01 | ANE.PACU2 ---
Inpatient post-anesthesia follow up: Airway intact: Yes Vital signs: Temperature 99.3 F Pulse Rate 90 Respiratory Rate 17 Blood Pressure 127/93 Pulse Oximetry 99 Oxygen Delivery Me thod Room Air Oxygen Flow Rate 6 Fraction of Inspir ed Oxygen Hydration adequate: Yes Nausea and vomiting: No Pain level: 3 Mental status: Baseline
--- NOTE | 2021-03-12 16:12 | SUR.PHASEI ---
1600: patient taken to 252-1. floor nurses salina goldberg RN, arnold garcia RN in room at arrival. patient moved to floor bed by slide board, patient tolerated well. patient awake, drowsy, drain in place, dressing in place. patient family to room after patient settled.
[2021-03-12] MEDS: lactated ringers 1,000 ML 90 ML IV (16:13)
[2021-03-12] MEDS: ketorolac 30 mg/mL INJ IVP (16:17)
[2021-03-12] MEDS: HYDROcodone-acetaminophen 5-325 mg Tablet PO ×2 (17:21→22:12)
[2021-03-12] MEDS: docusate sodium 100 mg Capsule PO (17:21)
[2021-03-12] MEDS: acetaminophen 325 mg Tablet 650 MG PO (19:35)
[2021-03-13] VITALS (8 sets, daily range): BP systolic 138–172; BP diastolic 68–95; PULSE 74–100; RESP 16–18; TEMP 36.7–36.9; O2SAT 93–100
[2021-03-13] MEDS: HYDROcodone-acetaminophen 5-325 mg Tablet PO ×2 (02:10→08:57)
[2021-03-13] MEDS: lactated ringers 1,000 ML 90 ML IV (02:59)
[2021-03-13] MEDS: morphine 4 mg/mL SDV 1 mL 2 MG IVP (03:37)
[2021-03-13] MEDS: enoxaparin 40 mg/0.4 mL Syringe SUBCUT (05:59)
[2021-03-13] MEDS: fluoxetine 20 mg Capsule PO (05:59)
--- NOTE | 2021-03-13 07:25 | PC.NURSE ---
Nurse notified of BP 164/95.
--- NOTE | 2021-03-13 07:31 | P.PN_ITS ---
Subjective Subjective: Interval history: POD 1 Pt resting comfortably. Moderate neck pain, reports improved feeling in both hands and feet. Vitals/I&O/Wt Last Vital Signs Temp 98.1 F 03/13/21 07:23 Pulse 89 03/13/21 07:23 Resp 18 03/13/21 07:23 BP 164/95 03/13/21 07:23 Pulse Ox 93 03/13/21 07:23 03/12/21 03/13/21 03/13/21 22:59 06:59 14:59 Intake Total 1700 / 2760 1029 / 3789 Output Total 660 / 660 Balance 1040 / 2100 1029 / 3129 Physical Exam Narrative: EXAM NARRATIVE: AO x 3, Orion-J collar present. fires in BUE/BLE extremities with good strength. good sensaation to light touch, Incision c/d Hemovac drain intact Urinary Catheter Management^: Vidales: Cath Placed During This Visit: yes, but has since been removed by the nurse Urinary Catheter Date of Insertion: 03/12/21 Urinary Catheter Time of Insertion: 12:50 Date Urinary Catheter Removed: 03/12/21 Time Urinary Catheter Discontinued: 14:21 A&P Assessment and plan (1) Cervical spondylosis with myelopathy: Physical therapy to mobilize. DC hemovac this AM. DC home later today, F/U in 1-2 wks for wound check. Status: Acute (2) Status post cervical spinal fusion: Status: Acute Attestations Medical Necessity Statement*: home today Coding Level of Care Code Acute Loading Machine Tool Setter for Bonilla Gramajo Diagnoses Cervical spondylosis with myelopathy M47.12 Status post cervical spinal fusion Z98.1
--- NOTE | 2021-03-13 08:17 | PM.DCS ---
Discharge Providers Date of Admission: 03/12/21 15:13 Date of Discharge: March 13, 2021 Attending Provider at Admission: Mehran Guerrero DO Attending Provider at Discharge: Mehran Guerrero DO Primary Care Provider: Vonnie Tucker MD Diagnoses at Discharge Discharge Diagnosis (1) Cervical spondylosis with myelopathy: Status: Acute (2) Status post cervical spinal fusion: Status: Acute Reason for Visit Reason for Visit: Other spondylosis w/ myeolpathy Hospital Course Hospital Course Patient was admitted on 03/12/2021 had a C2-T2 posterior spine fusion. Did well. She is discharged on 03/13/2021. Her stay was uneventful. Physical Exam Urinary Catheter Management^: Vidales: Cath Placed During This Visit: yes, but has since been removed by the nurse Urinary Catheter Date of Insertion: 03/12/21 Urinary Catheter Time of Insertion: 12:50 Date Urinary Catheter Removed: 03/12/21 Time Urinary Catheter Discontinued: 14:21 Discharge Data Data Completed and Pending: Completed Studies During Hospitalization Category Date Time Status XR cervical spine 3V* [id number] Routine Exams 03/12/21 Completed Pending at discharge Category Date Time Status C-arm Fluoroscopy [id number] Routine Exams 03/12/21 09:32 Taken Vitals: Last Vital Signs Temp 98.1 F 03/13/21 07:23 Pulse 89 03/13/21 07:23 Resp 18 03/13/21 07:23 BP 164/95 03/13/21 07:23 Pulse Ox 93 03/13/21 07:23 Discharge Plan Discharge Patient Disposition: Home Condition: Stable Prescriptions: New hydrocodone-acetaminophen 5-325 mg tablet 1 - 2 tab PO .Q4-6H Qty: 40 RF: 0 Continued albuterol sulfate [ProAir HFA] 90 mcg/actuation HFA aerosol inhaler 2 puff INHALATION Q6H PRN (Reason: Shortness Of Breath Or Wheezing) RF: 0 multivitamin Tablet 1 tab PO QAM RF: 0 nitroglycerin [Nitrostat] 0.4 mg tablet, sublingual 0.4 mg SUBLINGUAL Q5M PRN (Reason: Chest Pain) RF: 0 fluoxetine [Prozac] 20 mg capsule 20 mg PO QAM RF: 0 acetaminophen [Tylenol Extra Strength] 500 mg tablet 1,000 mg PO PRN PRN (Reason: pain) RF: 0 MEDICAL MARIJUANA See Rx Instructions .ROUTE .COMPLEX RF: 0 cyclobenzaprine 5 mg tablet 5 mg PO TID PRN (Reason: muscle spasm) Qty: 90 RF: 0 losartan 25 mg tablet 50 mg PO DAILY RF: 0 niacin 50 mg tablet 50 mg PO DAILY RF: 0 biotin 5 mg capsule 5 mg PO DAILY RF: 0 Stiolto Respimat 2.5-2.5 mcg/actuation mist 2 puff inhalation DAILY Qty: 4 RF: 3 Sleep Aid (diphenhydramine) 2 tab PO BEDTIME PRN (Reason: Sleep) RF: 0 tramadol 50 mg Tablet 50 mg PO Q6H PRN (Reason: Pain) RF: 0 Discharge Orders: Discharge Order (Routine); Ordered 03/13/21 Ordered By: Mehran Guerrero Discharge Diet: Advance as tolerated Discharge Activity: Limit activity as instructed Patient Instructions: Opioid Safety Activity Restrictions/Additional Instructions: Thank you for choosing [facility] for your care! The following is a list of instructions, from your provider, to follow upon your discharge to ensure you have the optimal recovery from your recent injury or surgery. Anterior Cervical Discectomy and Fusion: What to Expect at Home Your Recovery Follow-up care is a quinonez part of your treatment and safety. Be sure to make and go to all appointments, and call your doctor if you are having problems. If you do not already have a follow-up appointment made, call office in the next 1-3 days to make follow up appointment for 1 weeks at [phone]. It is also a good idea to know your test results and keep a list of the medicines you take. You can expect your neck to feel stiff or sore after surgery. This should improve in the weeks after surgery. But it may take 4 to 6 months for you to get better completely. You may have trouble sitting or standing in one position for very long and may need pain medicine in the weeks after your surgery. It may take 4 to 6 weeks to get back to your usual activities, but it may depend on what kind of surgery you had. Your throat will feel sore and it may be difficult to swallow for the first 3 days after your surgery. As long as you can get liquids down without difficulty, this should slowly improve, otherwise call our office or seek medical attention if it becomes increasingly difficult to get anything down including liquids. Avoid hot liquids for first 3-5 days. Soothing foods/liquids such as jello, pudding, and luke warm soups are recommended until swallowing improves. Staying elevated will also help, it's advised you keep propped up at while sleeping to help reduce the swelling. You may use an ice pack directly on your incision or around it on the front of your neck, using a cloth to protect your skin; and a heating pad to the back of your neck as needed. Do not use over the counter anti-inflammatory medications (Ibuprofen, Motrin, Aleve, Advil, etc) Taking these meds after having a fusion can delay fusion rates, we recommend you avoid them for the first 3 months after your surgery[address] Dr. Guerrero may advise you to work with a physical therapist to strengthen the muscles around your neck and back - this will be discussed at your follow - up appointments. The pain or numbness you were having in your arms before surgery should get better or go away completely. This care sheet gives you a general idea about how long it will take for you to recover. But each person recovers at a different pace. Follow the steps below to get better as quickly as possible. How can you care for yourself at home? Activity ? Rest when you feel tired. Getting enough sleep will help you recover. ? Try to walk each day. Start by walking a little more than you did the day before. Bit by bit, increase the amount you walk. Walking boosts blood flow and helps prevent pneumonia and constipation. Walking may also decrease your muscle soreness after surgery. ? No lifting anything that is more that 5 pounds. This may include heavy grocery bags and milk containers, a heavy briefcase or backpack, cat litter or dog food bags, a child, or a vacuum line cleaner. ? Avoid strenuous activities, such as bicycle riding, jogging, weightlifting, or aerobic exercise, until your doctor says it is okay. ? Do not drive until your follow-up visit after your surgery, or until your doctor says it isokay. ? Avoid taking long car trips for 2 to 4 weeks after surgery. Your neck may become tired and painful from sitting too long in one position. ? You will probably need to take 4 to 6 weeks off from work. It depends on the type of work you do and how you feel. ? You may have sex as soon as you feel able, but avoid positions that put stress on your neck or cause pain. Diet ? You can eat your normal diet. If your stomach is upset, try bland, low-fat foods like plain rice, broiled chicken, toast, and yogurt ? Drink plenty of fluids. If you have kidney, heart, or liver disease and have to limit fluids, talk with your doctor before you increase the amount of fluids you drink. ? You may notice that your bowel movements are not regular right after your surgery. This is common. Try to avoid constipation and straining with bowel movements. You may want to take a fiber supplement every day. If you have not had a bowel movement after a couple of days, ask your doctor about taking a mild laxative. Medicines ? Take pain medicines exactly as directed. 1. If Dr. Guerrero gave you a prescription medicine for pain, take lt as prescribed. 2. Do not take two or more pain medicines at the same time unless the doctor told you to. Many pain medicines have acetaminophen, which is Tylenol. Too much acetaminophen {Tylenol) can be harmful. 3. If you think your pain pill is making you sick to your stomach: 4. Take your pills after meals (unless your doctor has told you not to). 5. Ask your Dr. for a different pain pill. Incisioncare ? Remove your dressing 48hours after your surgery. Ok to shower and get the incision wet. Do not overtly wash your incision. When done, pad dry, leave open to air thereafter. Avoid creams and ointments directly on your incision. ? Your sutures in the incision will dissolve and fall out on their own. ? Keep the area clean and dry. You may cover it with a gauze bandage if it weeps or rubs against clothing; if you choose to do this, change the dressing everyday. Other instructions ? Use a heating pad, hot water bottle, or gentle massage on your back to reduce stiffness. Avoid putting heat on your incision When should you call for help? ? Call 911 anytime you think you may need emergency care. For example, call if: ? You pass out (lose consciousness). ? You have sudden chest pain and shortness of breath, or you cough upblood. ? You cannot swallow. ? You have severe pain in your neck or back. ? Call your DrCathy or seek immediate medical care if: ? You have pain that does not get better after you take pain pills. ? You have loose stitches, or your incision comes open. ? You have blood or fluid draining from the incision. ? You have signs of infection, such as: 1. Increased pain, swelling, warmth, or redness. 2. Red streaks leading from the site. 3. Pus draining from the site. 4. Swollen lymph nodes in your neck or armpits. 5. A fever. ? You have severe pain in your arms. ? You have new or increased weakness or numbness in your arms. ? Watch closely for any changes in your health, and be sure to contact your doctor if: ? You do not have a bowel movement after taking a laxative. Discharge Attestations Time Spent in Discharge Care*: less than 30 min Quality Metrics Clinical Quality Measures During this hospital stay, did patient experience: None Coding Level of Care Code Acute [facility] note Diagnoses Cervical spondylosis with myelopathy M47.12 Status post cervical spinal fusion Z98.1
[2021-03-13] MEDS: docusate sodium 100 mg Capsule PO (08:56)
[2021-03-13] MEDS: multivitamin therapeutic Tablet 1 TAB PO (08:56)
[2021-03-13] MEDS: losartan 50 mg Tablet PO (08:56)
--- NOTE | 2021-03-13 09:07 | PC.NURSE ---
tresa pulled by screen writerCathy
--- NOTE | 2021-03-13 12:14 | PC.NURSE ---
discharge instructions given to patient and patient verbalized understanding of instructions. patient taken to private vehicle via wheelchair by staff.
== END 2021-03-13 12:16 | disposition home or self-care (01) ==
LOC: MEDSURG 15:13
PROVIDERS: Admitting Provider Orthopaedic Surgery; PCP Internal Medicine; Visit Provider Orthopaedic Surgery
PROC: (CPT 22600; principal; 2021-03-12 11:15)
DX: M47.12 Other spondylosis with myelopathy, cervical region (principal); J44.9 Chronic obstructive pulmonary disease, unspecified; I10 Essential (primary) hypertension; F41.9 Anxiety disorder, unspecified; F32.A Depression, unspecified; I25.2 Old myocardial infarction; F17.200 Nicotine dependence, unspecified, uncomplicated
CPT/HCPCS: 20930; 20936; 22600 ×2; 22614 ×2; 22843 ×2; 51702; 72040; 76000; 93005; 96372; 97110; 97161; 97760; C1713; G0378; J0690; J1100; J1170; J1200; J1650; J1885; J2250; J2270; J2405; J2704; J3010; J3370; J3490; J7030; L0174; P9041

== ENCOUNTER → 2021-04-17 08:10 | Outpatient (BNVA) | payer OTHER, SELFPAY | PROVIDERS: PCP Internal Medicine; Visit Provider Physician Assistant | DX: Z48.89 Encounter for other specified surgical aftercare (principal); Z98.1 Arthrodesis status; M47.12 Other spondylosis with myelopathy, cervical region; M79.641 Pain in right hand; M65.311 Trigger thumb, right thumb; Z47.89 Encounter for other orthopedic aftercare | CPT/HCPCS: 72040; 73120 ==

== ENCOUNTER 2021-04-17 09:19 | Outpatient (CLI) | payer OTHER, SELFPAY | END 2021-04-17 09:20 | disposition home or self-care (01) | LOC: SPT 09:20 | PROVIDERS: PCP Internal Medicine; Visit Provider Physician Assistant | DX: Z46.89 Encounter for fitting and adjustment of other specified devices (principal); M65.311 Trigger thumb, right thumb | CPT/HCPCS: 97760; L3809 ==

== ENCOUNTER → 2021-05-29 08:03 | Outpatient (BNVA) | payer OTHER, SELFPAY | PROVIDERS: PCP Internal Medicine; Visit Provider Physician Assistant | DX: Z48.89 Encounter for other specified surgical aftercare (principal); Z98.1 Arthrodesis status | CPT/HCPCS: 72040 ==

== ENCOUNTER → 2021-06-25 08:52 | Outpatient (BNVA) | payer OTHER, SELFPAY | PROVIDERS: PCP Internal Medicine; Referring Provider Physician Assistant; Visit Provider Specialist | DX: M65.311 Trigger thumb, right thumb (principal) | CPT/HCPCS: 73130 ==

== ENCOUNTER → 2021-08-28 13:56 | Outpatient (BNVA) | payer OTHER, SELFPAY | PROVIDERS: PCP Internal Medicine; Visit Provider Orthopaedic Surgery | DX: M54.2 Cervicalgia (principal); Z47.89 Encounter for other orthopedic aftercare; Z98.1 Arthrodesis status | CPT/HCPCS: 72040; 99214 ==

== ENCOUNTER 2021-10-16 16:00 | Outpatient (CLI) | payer OTHER, SELFPAY ==
--- NOTE | 2021-10-16 16:00 | MR_ITS ---
WS: [id number] MRI CERVICAL SPINE NONCONTRAST HISTORY: Chronic cervical pain and bilateral arm pain for years. COMPARISON: 09/22/2020 Technique: Multiplanar, multisequence noncontrast imaging of the cervical spine. New since the prior CT is extensive posterior cervical fusion hardware extending from C2 to T2. Reverse curvature of the cervical spine has been moderately corrected. There is still very slight ret rolisthesis and reversal at C6-7. There is less contact and deformity of the cervical cord at C3-4. D isc osteophyte contact remains on the central cervical cord at C7-T1. Craniocervical junction, C1 and C2 relationship, odontoid process and soft tissues are normal. C2-C3: Artifact obscuring the foramina and central canal on the axial sequences. On the sagittal sequ ence no abnormality. C3-C4: Artifact from the hardware obscuring the foramina. No central stenosis. No significant foramin al stenosis on the sagittal sequence. C4-C5: Foramina are obscured. No central stenosis. C5-C6: Mild disc bulging. Obscuration of the foramina but no significant stenosis identified. C6-C7: Mild annular disc bulge with a shallow central and RIGHT paracentral disc protrusion. Mild los ateral foraminal stenosis. C7-T1: Retrolisthesis of T1 by 3 mm. RIGHT paracentral disc osteophyte contacting the ventral thecal sac with effacement of CSF and mild cord deformity and contact. Mild central and bilateral foraminal stenosis due to disc and osteophyte and facet disease. Paravertebral soft tissues are limited by the hardware throughout the posterior cervical spine. MR/MR cervical spin wo con* [id number] IMPRESSION: 1. Since the prior examination posterior cervical fusion hardware consisting o f screws and rods has been placed from C2 to T2. 2. Improved reversal of the normal cervical lordosis with less contact on the cervical cord. 3. Continued RIGHT paracentral disc osteophyte at C7-T1 with contact on the co rd and mild deformity. The disc osteophyte contact has improved since 09/22/2020 . 4. Shallow central and RIGHT paracentral disc protrusion at C6-7 with only min imal encroachment upon the ventral thecal sac.
== END 2021-10-16 16:01 | disposition home or self-care (01) ==
PROVIDERS: PCP Internal Medicine; Visit Provider Orthopaedic Surgery
DX: Z98.1 Arthrodesis status (principal); M47.12 Other spondylosis with myelopathy, cervical region
CPT/HCPCS: 72141

== ENCOUNTER → 2021-10-22 07:51 | Outpatient (BNVA) | payer OTHER, SELFPAY | PROVIDERS: PCP Internal Medicine; Referring Provider Specialist; Visit Provider Specialist | DX: G56.01 Carpal tunnel syndrome, right upper limb (principal) | CPT/HCPCS: 95908; 95909 ==

== ENCOUNTER 2021-10-23 11:17 | Outpatient (CLI) | payer OTHER, SELFPAY ==
--- NOTE | 2021-10-23 11:27 | MM_ITS ---
WS: [id number] BILATERAL SCREENING DIGITAL BREAST TOMOSYNTHESIS MAMMOGRAM WITH CAD HISTORY: SCREENING COMPARISON: 10/20/2020 and 10/15/2019 Bilateral CC and MLO views with tomosynthesis and synthetic mammography submitted. Computer aided det ection analyzed. Breast composition: There are scattered areas of fibroglandular density. No suspicious masses, microc alcifications or architectural distortion. MM/[place] [id number] IMPRESSION: BI-RADS: 1-Negative FOLLOW UP: 1 Year Follow-up
== END 2021-10-23 11:18 | disposition home or self-care (01) ==
LOC: RAD 11:18
PROVIDERS: PCP Internal Medicine; Visit Provider Internal Medicine
DX: Z12.31 Encounter for screening mammogram for malignant neoplasm of breast (principal)
CPT/HCPCS: 77063; 77067

== ENCOUNTER 2021-11-12 10:26 | Emergency (ER) | payer OTHER, SELFPAY ==
[2021-11-12 10:32] VITALS: BP 187/122; PULSE 82; RESP 18; TEMP 36.2; O2SAT 96; BMI 21.2
--- NOTE | 2021-11-12 11:07 | CT_ITS ---
WS: [id number] Exam: CT head wo con* [id number] Date/Time of Exam: 11/12/2021 11:15 AM Reason For Exam: headache DLP: 1051.[address] scans at [facility] use at least one of these dose optimization techniques: automated e xposure control; mA and/or kV adjustment per patient size (includes targeted exams where dose is matc hed to clinical indication); or iterative reconstruction. Comparison 06/23/2013. No sign of acute intracranial bleed or space-occupying mass. The ventricles and basal cisterns are no rmal in size. No extra-axial fluid collections. The brainstem and posterior fossa are unremarkable. T he skull is intact. The mastoids and visualized facial sinuses are unremarkable. Normal optic globes and optic nerves. CT/CT head wo con* [id number] IMPRESSION: 1. No acute intracranial finding.
--- NOTE | 2021-11-12 11:32 | ED_ITS ---
HPI - General Adult General: Chief complaint: Headache Stated complaint: High blood pressure, headache Time Seen by Provider: 11/12/21 11:07 History of Present Illness: Patient is 61-year-old female with a history of persistent presenting to the emergency room with complaints of headache. Patient was seen earlier today at Dr. Gastelum[facility] clinic for outpatient elective carpal tunnel surgery. Patient was noted to have an elevated blood pressure was told to come to the emergency room. On arrival, patient tells me that she has been having had a since exam. Patient reports parietal headache. Patient has a history of headaches reports headaches different from her usual. Patient has a headache gradual onset over the first 3 hours. Patient reports a dull headache on top of her head. Patient denies any pulsatile sensation, nausea/vomiting, auras, or any other focal neurological deficits. Patient was told to come to the emergency room by Dr. Gastelum. Patient denies nausea/vomiting, fever/chill, chest pain, shortness of breath, abdominal pain, dysuria/hematuria/polyuria, diarrhea/melena/hematochezia. Onset:6am Duration:ongoing Location:home Severity:moderate Associated symptoms: Reports headache(s); Deny chest pain, dyspnea, nausea, rash, palpitations or vomiting Review of Systems Const: Denies: fever(s) or chills Eyes: Denies: change in vision ENMT: Denies: mouth pain Card: Denies: chest pain or palpitations Resp: Denies: dyspnea or non-productive cough GI: Denies: abdominal pain, nausea, vomiting or diarrhea : Denies: dysuria Musc: Denies: extremity pain Skin/Breast: Denies: rash or new lesions Neuro: Reports: headache(s); Denies: weakness in extremities Psych: Reports: other (Normal mood) Roshan/Lymph: Denies: easy bruising PFSH ED PFSH: Medical History (Updated 11/12/21 @ 12:27 by Chanda Clements MD) Displacement of lumbar disc with radiculopathy HTN (hypertension) Lumbar disc disease with radiculopathy Myocardial infarction Nicotine abuse Surgical History History of appendectomy (~1998) Performed in [place] History of cholecystectomy (~1998) Performed in [place]. Took out appendix during same surgery. History of hysterectomy (~1989) Performed in [facility] due to hemorrhaging, states patient. History of lumbar laminectomy Left L3-L4 laminotomy/discectomy/foraminotomy 03/08/19 Dr. Yenifer Becker History of myringotomy (~1985) left, 1985. Performed in [place], [place] History of tonsillectomy performed in her 20's in [place] Hx of total cystectomy back of left leg 2x performed in [place] Family History Father Heart disease Hypertension Mother Diabetes Hypertension Brother Diabetes Hypertension Social History Smoking and tobacco status: current every day smoker cigarettes Packs smoked per day: 3 Years cigarettes smoked: 38 [ Other cigarette details: 10 cigarettes per day currently] Alcohol intake: former Year of sobriety/quit date alcohol: 12 Household members: significant other Marital status: / Current occupational status: retired History of recent travel: No Physical Exam Const: COMMON NORMALS: alert HENMT: COMMON NORMALS: atraumatic HEAD & SCALP: atraumatic MOUTH: moist mucous membranes not abnormal Eye: COMMON NORMALS: EOMs intact bilaterally and conjunctivae normal CONJUNCTIVA: Yes conjunctivae normal Neck/C-Spine: COMMON NORMALS: full ROM and supple Resp: COMMON NORMALS: normal respiratory effort and clear to auscultation bilaterally AUSCULTATION: clear to auscultation bilaterally Cardio: COMMON NORMALS: regular rate RATE: regular rate GI: COMMON NORMALS: Soft to palpation and non-tender PALPATION: Yes Soft to palpation Extremity: COMMON NORMALS: full ROM Neuro: SENSORIUM/ORIENTATION: Yes alert MOTOR EXAM: No Abnormal motor strength present and Other motor observations present (no focal motor deficits) OTHER: Mental status? Awake, alert, and oriented to self, year, month, location, and situation.? Following simple axial and appendicular commands.? Has appropriate fund of knowledge, comprehension, and insight.? Able to recall and understands pertinent aspects of medical history and current treatment status.? ? Language? Speech is fluent without word-finding difficulties.? Intact naming, expression, medical receptionist assistant, and repetition.? ? Cranial nerves? 2,3,4,6: PERRL, EOMI with no nystagmus. 5: Intact sensation to light touch, symmetric? 7: Smile symmetrical, no facial droop.? 8: Hearing grossly intact.? 9,10: Normal palate movement.? 11: Normal strength in trapezius bilaterally 12: Tongue protrudes midline.? ? Motor examination? Normal bulk & tone. Strength as follows (R/L): Delts (5/5), Biceps (5/5), Triceps (5/5), Wrist ext (5/5), hip flexors (5/5), plantarflexors (5/5), dorsiflexors (5/5). ? Sensation? Light Touch: Grossly intact and equal in upper and lower extremities bilaterally? Romberg: Negative.? Distal joint position sense intact ? Coordination? Hmgdmn-ax-wket-finger movements intact without dysmetria or past-pointing.? Rapid fingertaps: preserved amplitude without decriment.? No tremor, myoclonus or truncal ataxia.? ? Gait/stance? Steady, normal narrow base gait with appropriate arm swing and turning.? Tandem gait without hesitation or loss of balance. Psych: COMMON NORMALS: speech normal SPEECH: Yes normal speech MOOD & AFFECT: Yes euthymic mood Course Vital Signs: Vital signs: Vital Signs Temperature 97.1 F L 11/12/21 10:32 Pulse Rate 82 11/12/21 10:32 Respiratory Rate 16 11/12/21 12:34 Blood Pressure 146/79 11/12/21 12:34 Pulse Oximetry 97 11/12/21 12:34 Oxygen Delivery Me thod 11/12/21 10:32 [facility] - General Adult Medical Decision Making 61-year-old female presents emergency room with concerns headache. Patient neurologically intact. Patient is noted to have mild mildly elevated blood pre ssure. Neurologically patient is intact. Lab work-up not show any acute findings. CT head is negative for any acute brain bleed. I doubt that this is subarachnoid bleed given the fact the patient has not had worse headache of his life, headaches associate with other symptoms, has no family history of aneurysm. Patient received a cocktail for headache including IVF, Benadryl and Reglan with improvement in headache. Patient received amlodipine 5 mg for the high blood pressure. On reassessment, patient's blood pressure appears to be improved. Rx: Magnesium oxide, Tylenol, Reglan as needed for headache Disposition: Discharge. Patient counseled regarding diagnostic impression, treatment plan. Patient given ED strict return precautions to return for continuation, worsening, or development of new symptoms. Instructed to f/u w/ PCP regarding symptoms today. Patient verbalized understanding. Lab Data : 11/12/21 11:45 11/12/21 11:[address] 11/12/21 11:07 IMPRESSION: 1. No acute intracranial finding. Laboratory Results WBC 7.3 10^3/uL (4.0-10.0) 11/12/21 11:45 RBC 4.67 10^6/uL (4.1-5.3) 11/12/21 11:45 Hgb 13.9 g/dL (11.5-15.3) 11/12/21 11:45 Hct 43.0 % (37.0-47.0) 11/12/21 11:45 MCV 92.1 fl (81-99) 11/12/21 11:45 MCH 29.8 pg (28.0-34.0) 11/12/21 11:45 MCHC 32.3 g/dL (30.0-36.0) 11/12/21 11:45 RDW 12.5 % (12.1-15.1) 11/12/21 11:45 Plt Count 224 10^3/cmm (130-400) 11/12/21 11:45 MPV 8.6 fL (7.4-10.4) 11/12/21 11:45 Neut % (Auto) 68.3 % 11/12/21 11:45 Lymph % (Auto) 21.9 % 11/12/21 11:45 [place]nee % (Auto) 6.2 % 11/12/21 11:45 Eos % (Auto) 2.9 % 11/12/21 11:45 Baso % (Auto) 0.4 % 11/12/21 11:45 Neut # (Auto) 4.99 10^3/uL (1.8-7.7) 11/12/21 11:45 Lymph # (Auto) 1.6 10^3/uL (0.8-4.8) 11/12/21 11:45 [place] # (Auto) 0.5 10^3/uL (0.2-0.9) 11/12/21 11:45 Eos # (Auto) 0.2 10^3/uL (0.0-0.8) 11/12/21 11:45 Baso # (Auto) 0.0 10^3/uL (0.0-0.1) 11/12/21 11:45 Nucleated RBC % (auto) 0 % 11/12/21 11:45 Nucleated RBCs # 0.0 /100WBC 11/12/21 11:45 Sodium 142 mmol/L (136-145) 11/12/21 11:45 Potassium 4.2 mmol/L (3.5-5.1) 11/12/21 11:45 Chloride 102 mmol/L (98-107) 11/12/21 11:45 Carbon Dioxide 32 mmol/L (22-29) H 11/12/21 11:45 Anion Gap 12.2 (5-19) 11/12/21 11:45 BUN 14 mg/dL (8-23) 11/12/21 11:45 Creatinine 0.6 mg/dL (0.5-0.9) 11/12/21 11:45 GFR Calculation 102.0 mL/min (90-130) 11/12/21 11:45 Glucose 99 mg/dL (65-115) 11/12/21 11:45 Calculated Osmolality 295 mOsm/kg (285-295) 11/12/21 11:45 Calcium 9.5 mg/dL (8.5-10.5) 11/12/21 11:45 Total Bilirubin 0.2 mg/dL (0.15-1.2) 11/12/21 11:45 AST 27 U/L (0-32) 11/12/21 11:45 ALT 11 U/L (0-33) 11/12/21 11:45 Alkaline Phosphatase 75 U/L (35-105) 11/12/21 11:45 Total Protein 6.8 g/dL (6.6-8.7) 11/12/21 11:45 Albumin 4.7 g/dL (3.5-5.2) 11/12/21 11:45 Globulin 2.1 g/dL (1.3-4.6) 11/12/21 11:45 Imaging Data Other Imaging: Radiologist's impression: Close Head CT (Signed) Mario Patel - 11/12/21 Launch?Image [facility] [address] [place] [address] CT Scan Report Signed Patient: Adwoa Ledbetter Unit #: [id number] : 1960 Age/Sex: 61 / F ADM Date: 11/12/21 Loc: ER Room/Bed: Attending Dr: Ordering Provider/Ordering MD: Chanda Clements MD Date of Service: 11/12/21 Procedure(s): CT head wo con* [id number] Accession Number(s): [id number] Report Number: [id number] WS: [id number] Exam: CT head wo con* [id number] Date/Time of Exam: 11/12/2021 11:15 AM Reason For Exam: headache DLP: 1051.[address] scans at [facility] use at least one of these dose optimization techniques: automated exposure control; mA and/or kV adjustment per patient size (includes targeted exams where dose is matched to clinical indication); or iterative reconstruction. Comparison 06/23/2013. No sign of acute intracranial bleed or space-occupying mass. The ventricles and basal cisterns are normal in size. No extra-axial fluid collections. The brainstem and posterior fossa are unremarkable. The skull is intact. The mastoids and visualized facial sinuses are unremarkable. Normal optic globes and optic nerves. CT/CT head wo con* [id number] IMPRESSION: 1. No acute intracranial finding. ? Dictated By: Mario Patel DO Signed By: Mario Patel DO Signed Date/Time: 11/12/21 1134 DD/ 1131 Discharge Plan Discharge Patient Disposition: Home Clinical Impression: Headache Condition: Stable Prescriptions: New acetaminophen 500 mg tablet 500 mg PO Q6H PRN (Reason: pain) 5 Days Qty: 20 0RF Reglan 5 mg tablet 5 mg PO BID PRN (Reason: nausea and vomiting) 5 Days Qty: 10 0RF magnesium oxide 400 mg magnesium capsule 400 mg PO DAILY PRN (Reason: headache) 10 Days Qty: 10 0RF No Action albuterol sulfate [ProAir HFA] 90 mcg/actuation HFA aerosol inhaler 2 puff INHALATION Q6H PRN (Reason: Shortness Of Breath Or Wheezing) multivitamin Tablet 1 tab PO QAM nitroglycerin [Nitrostat] 0.4 mg tablet, sublingual 0.4 mg SUBLINGUAL Q5M PRN (Reason: Chest Pain) fluoxetine [Prozac] 20 mg capsule 20 mg PO QAM acetaminophen [Tylenol Extra Strength] 500 mg tablet 1,000 mg PO PRN PRN (Reason: pain) MEDICAL MARIJUANA See Rx Instructions .ROUTE .COMPLEX Rx Instructions: 1 dose three times a day cyclobenzaprine 5 mg tablet 5 mg PO TID PRN (Reason: muscle spasm) Qty: 90 0RF losartan 25 mg tablet 50 mg PO DAILY niacin 50 mg tablet 50 mg PO DAILY biotin 5 mg capsule 5 mg PO DAILY gabapentin 300 mg capsule 300 mg PO TID amitriptyline 50 mg tablet 50 mg PO DAILY Sleep Aid (diphenhydramine) 2 tab PO BEDTIME PRN (Reason: Sleep) tramadol 50 mg Tablet 50 mg PO Q6H PRN (Reason: Pain) Discharge Orders: Discharge ED (Routine); Ordered 11/12/21 Ordered By: Chanda Clements Referrals: Vonnie Tucker MD [Primary Care Provider] - Discharge Diet: Advance as tolerated Discharge Activity: Increase activity as tolerated Patient Instructions: Acute Headache (ED) Activity Restrictions/Additional Instructions: Please come back to the emergency room you have any fever chills, worsening headache, focal weakness, nausea/vomiting, inability to perform daily activity, or any new concerning complaints. You need to follow-up with your primary care provider for further adjustment of your blood pressure. Your blood pressure puts you at risk for developing strokes and heart attack. Therefore it is very important for you to follow-up with this number to see if the numbers improve gradually. Because blood pressure adjustment is a gradual process, were not able to change it in 1 visit. Therefore please log your blood pressure and follow-up with your primary care provider in the next 72 hours for further adjustment of your blood pressures. Coding Level of Care Code ED Preforms Laminator for Bonilla Gramajo Exam Comprehensive
[2021-11-12] MEDS: acetaminophen 500 mg Tablet PO (11:44)
[2021-11-12] MEDS: metoclopramide 5 mg/mL SDV 2 mL 10 MG IVP (11:44)
[2021-11-12] MEDS: amlodipine 5 mg Tablet PO (11:44)
[2021-11-12] MEDS: diphenhydrAMINE 50 mg/mL SDV 1mL IVP (11:44)
[2021-11-12] MEDS: sodium chloride 0.9% 1,000 ML 999 ML IV (11:45)
[2021-11-12 11:54] LABS: Basophils % 0.4 %; Eosinophils # 0.2 10^3/uL (0.0-0.8); Eosinophils % 2.9 %; Hemoglobin 13.9 g/dL (11.5-15.3); Lymphocytes # 1.6 10^3/uL (0.8-4.8); Lymphocytes % 21.9 %; Mean Corpuscular HGB Conc 32.3 g/dL (30.0-36.0); Mean Corpuscular Hemoglobin 29.8 pg (28.0-34.0); Mean Corpuscular Volume 92.1 fl (81-99); Mean Platelet Volume 8.6 fL (7.4-10.4); Monocytes # 0.5 10^3/uL (0.2-0.9); Monocytes % 6.2 %; Neutrophils # 4.99 10^3/uL (1.8-7.7); Neutrophils % 68.3 %; Nucleated Red Blood Cells % 0 %; Platelet Count 224 10^3/cmm (130-400); Red Blood Count 4.67 10^6/uL (4.1-5.3); Red Cell Distribution Width 12.5 % (12.1-15.1); White Blood Count 7.3 10^3/uL (4.0-10.0)
[2021-11-12 12:22] LABS: Alanine Aminotransferase 11 U/L (0-33); Albumin Level 4.7 g/dL (3.5-5.2); Alkaline Phosphatase 75 U/L (35-105); Anion Gap 12.2 (5-19); Aspartate Amino Transferase 27 U/L (0-32); Blood Urea Nitrogen 14 mg/dL (8-23); Calcium 9.5 mg/dL (8.5-10.5); Carbon Dioxide 32 mmol/L (22-29); Chloride 102 mmol/L (98-107); Globulin 2.1 g/dL (1.3-4.6); Glucose 99 mg/dL (65-115); Osmolality Calculated 295 mOsm/kg (285-295); Potassium 4.2 mmol/L (3.5-5.1); Sodium 142 mmol/L (136-145); Total Bilirubin 0.2 mg/dL (0.15-1.2); Total Protein 6.8 g/dL (6.6-8.7)
[2021-11-12 12:34] VITALS: BP 146/79; RESP 16; O2SAT 97
== END 2021-11-12 12:47 | disposition home or self-care (01) ==
PROVIDERS: Physician Assistant; Emergency Provider Emergency Medicine; PCP Internal Medicine
DX: R51.9 Headache, unspecified (principal); F17.210 Nicotine dependence, cigarettes, uncomplicated; I10 Essential (primary) hypertension; I25.2 Old myocardial infarction
CPT/HCPCS: 70450; 80053; 85025; 96361; 96374; 96375; 99213; 99214; 99285; J1200; J2765; J7030

== ENCOUNTER → 2021-11-29 08:23 | Outpatient (BNVA) | payer OTHER, SELFPAY | PROVIDERS: PCP Internal Medicine; Visit Provider Physician Assistant | DX: M47.811 Spondylosis without myelopathy or radiculopathy, occipito-atlanto-axial region (principal); Z98.1 Arthrodesis status | CPT/HCPCS: 72040; 99213; 99214 ==

== ENCOUNTER → 2021-12-05 09:17 | Outpatient (BNVA) | payer OTHER, SELFPAY | PROVIDERS: PCP Internal Medicine; Visit Provider Anesthesiology Pain Medicine | DX: M47.811 Spondylosis without myelopathy or radiculopathy, occipito-atlanto-axial region (principal); M47.12 Other spondylosis with myelopathy, cervical region; M48.02 Spinal stenosis, cervical region; M51.16 Intervertebral disc disorders with radiculopathy, lumbar region; M48.061 Spinal stenosis, lumbar region without neurogenic claudication; M79.605 Pain in left leg; Z98.1 Arthrodesis status; Z98.890 Other specified postprocedural states; M16.12 Unilateral primary osteoarthritis, left hip; F17.210 Nicotine dependence, cigarettes, uncomplicated | CPT/HCPCS: 99215 ==

== ENCOUNTER → 2021-12-12 08:05 | Outpatient (BNVA) | payer OTHER, SELFPAY | PROVIDERS: PCP Internal Medicine; Visit Provider Specialist | DX: G56.01 Carpal tunnel syndrome, right upper limb (principal) | CPT/HCPCS: 99214 ==

== ENCOUNTER → 2021-12-18 09:42 | Outpatient (BNVA) | payer OTHER, SELFPAY | PROVIDERS: PCP Internal Medicine; Visit Provider Anesthesiology Pain Medicine | DX: M79.18 Myalgia, other site (principal); M54.2 Cervicalgia; F17.210 Nicotine dependence, cigarettes, uncomplicated | CPT/HCPCS: 20553; 99213 ==

== ENCOUNTER 2021-12-25 05:45 | Day surgery (SDC) | payer OTHER, SELFPAY ==
[2021-12-25] VITALS (11 sets, daily range): BP systolic 127–172; BP diastolic 78–105; PULSE 72–83; RESP 12–21; TEMP 35.9–37.3; O2SAT 92–100
[2021-12-25] MEDS: acetaminophen 1,000 MG/100 ML PIGGYBACK 400 MG IV (06:22)
[2021-12-25] MEDS: CELEcoxib 200 mg Capsule 400 MG PO (06:22)
[2021-12-25] MEDS: sodium chloride 0.9% 1,000 ML 30 ML IV (06:23)
--- NOTE | 2021-12-25 06:44 | P.ANESASSM_ITS ---
Pre-Anesthetic Assessment Height/Weight: Height 1.42 m Weight 44.452 kg Temp Pulse Resp BP Pulse Ox O2 Del Method 99.1 F 83 18 172/105 93 12/25/21 06:10 12/25/21 06:10 12/25/21 06:10 12/25/21 06:10 12/25/21 06:10 12/25/21 06:10 Preop Diagnosis: Right carpal tunnel syndrome Operation Date: 12/25/21 07:00 Proposed Procedures p RIGHT CARPAL TUNNEL RELEASE [id number],G56.00(Right) - Sheila Gastelum MD Familial anesthetic complications: None Was Beta Andrés taken within 24 hours: N/A Was Clonidine taken within 24 hours: N/A Last intake: Intake Last Liquid Date 12/24/21 Last Liquid Time 22:00 Last Solid Date 12/24/21 Last Solid Time 19:00 Social Tobacco and No alcohol Exam alert, oriented x 3, clear to auscultation bilaterally and regular rate & rhythm diminished b/l Airway Mallampati: Class II Dentition: false Pulmonary Chronic Obstructive Pulmonary Disease CV/HEM Coronary Artery Disease and Hypertension Musc/skel cervical fusion Anesthetic Plan ASA status: 3 Anesthesia: General Risk of > 500 ml blood loss (7ml/kg in children): No Medications/Allergies Home Medications Medication Instructions Recorded Confirmed Last Taken Type albuterol sulfate 90 mcg/actuation 2 puff inhalation Q6H PRN 04/19/19 12/25/21 12/24/21 History aerosol inhaler (ProAir HFA) Shortness Of Breath Or Wheezing fluoxetine 20 mg capsule (Prozac) 20 mg PO QAM 04/19/19 12/25/21 12/24/21 History multivitamin 1 tab PO QAM 04/19/19 12/25/21 12/24/21 History nitroglycerin 0.4 mg sublingual 0.4 mg sublingual Q5M PRN Chest 04/19/19 12/25/21 12/24/21 History tablet (Nitrostat) Pain acetaminophen 500 mg tablet 1,000 mg PO PRN PRN pain 01/11/20 12/25/21 12/24/21 History (Tylenol Extra Strength) Sleep Aid (diphenhydramine) 2 tab PO BEDTIME PRN Sleep 08/26/20 12/25/21 12/24/21 History MEDICAL MARIJUANA 1 inh inhalation TID 12/25/20 12/25/21 12/24/21 History biotin 5 mg capsule 5 mg PO DAILY 01/10/21 12/25/21 12/24/21 History losartan 25 mg tablet 50 mg PO DAILY 01/10/21 12/25/21 12/24/21 History niacin 50 mg tablet 50 mg PO DAILY 01/10/21 12/25/21 12/24/21 History tramadol 50 mg tablet 50 mg PO Q6H PRN Pain 03/08/21 12/25/21 12/24/21 History amitriptyline 50 mg tablet 50 mg PO DAILY 10/22/21 12/25/21 12/24/21 History cyclobenzaprine 5 mg tablet 5 mg PO TID PRN muscle spasm #90 12/05/21 12/25/21 12/24/21 Rx tabs gabapentin 300 mg capsule 600 mg PO TID pain #180 caps 12/05/21 12/25/21 12/24/21 Rx Allergies Allergy/AdvReac Type Severity Reaction Status Date / Time clindamycin [From Cleocin] Allergy Severe anaphylaxis Verified 12/18/21 10:09 codeine Allergy Mild chest Verified 12/18/21 10:09 pain, abdominal pain tizanidine Allergy upset Verified 12/18/21 10:09 stomach Current Medications Generic Name Dose Route Start Last Admin Trade Name Freq PRN Reason Stop Dose Admin Sodium Chloride 1,000 mls @ 30 mls/hr 12/25/21 06:00 12/25/21 06:23 Sodium Chloride 0.9% IV 12/26/21 05:59 30 mls/hr .Q24H MARISOL Administration PFSH Anesthesia Medical History Displacement of lumbar disc with radiculopathy HTN (hypertension) Lumbar disc disease with radiculopathy Myocardial infarction Nicotine abuse Surgical History History of appendectomy (~1998) Performed in [place], [place] History of cholecystectomy (~1998) Performed in [place]. Took out appendix during same surgery. History of hysterectomy (~1989) Performed in [facility] due to hemorrhaging, states patient. History of lumbar laminectomy Left L3-L4 laminotomy/discectomy/foraminotomy 03/08/19 Dr. Yenifer Becker History of myringotomy (~1985) left, 1986. Performed in [place] History of tonsillectomy performed in her 20's in [place] Hx of total cystectomy back of left leg 2x performed in [place] Family History Father Heart disease Hypertension Mother Diabetes Hypertension Brother Diabetes Hypertension Social History Smoking and tobacco status: current every day smoker cigarettes Packs smoked per day: 3 Years cigarettes smoked: 38 [ Other cigarette details: 10 cigarettes per day currently] Quit status (tobacco): has tried quititng Alcohol intake: former Year of sobriety/quit date alcohol: 12 Household members: significant other Marital status: / Current occupational status: retired History of recent travel: No Data Anesthesia Cardiac Studies: No Data to Display
--- NOTE | 2021-12-25 06:57 | W.PM.OPSUD ---
Surgery/Procedure H&P Update DATE OF PROCEDURE: December 25, 2021 DATE H&P PERFORMED: 12/12/21 H&P UPDATE INFORMATION: I have reviewed H&P completed within last 30 days, I have examined patient prior to procedure, No changes to prior documentation and H&P is in [facility] on date indicated PREOP DIAGNOSIS: Right carpal tunnel syndrome PLANNED PROCEDURE: Operation Date: 12/25/21 07:00 Proposed Procedures p RIGHT CARPAL TUNNEL RELEASE [id number],G56.00(Right) - Sheila Gastelum MD Related Problem List Diagnoses (1) Right carpal tunnel syndrome:
[2021-12-25] MEDS: ceFAZolin 2,000 MG in sodium chloride 0.9% (plus) 50 ML 100 MG IV (07:00)
--- NOTE | 2021-12-25 08:08 | P.PCN_ITS ---
PACU note Narrative: VSS, Good respiratory effort, report to IT RECRUITER Exam: awake
--- NOTE | 2021-12-25 08:08 | PM.PACU ---
PACU note Narrative: VSS, Good respiratory effort, report to SHEAR GRINDER OPERATOR Exam: awake
--- NOTE | 2021-12-25 08:08 | PM.OP ---
Operative Report Date of procedure: December 25, 2021 Pre-op diagnosis: Right carpal tunnel syndrome Post-op diagnosis: Right carpal tunnel syndrome Post-op findings: Very tight carpal canal with compression on the nerve Procedure done: Right carpal tunnel release Specimens removed/disposition: None Pathology: none sent Surgeon: Sheila Gastelum Automotive Manufacturer: None Anesthesia: General (Per LMA, ASA 3) Estimated blood loss (mL): 5 Tourniquet time (min): 23 (At 250 mmHg) IV fluids (mL): 600 Urine output (mL): 0 (No Vidales) Complications: None Findings: Severe compression across the carpal canal with fibrous tissue within the canal Condition: stable Disposition: PACU (Then return to same-day surgery for discharge to home) Brief History: Patient states she continues to have pain and numbness consistent with her right carpal tunnel syndrome. Patient states that she continues to drop items on a daily basis. Patient states that she has numbness and tingling to the thumb and index finger. She presented to the office for surgical discussion preoperatively. Consents were signed, and questions were answered. Procedure: The patient was brought to the operating theater. The patient had general anesthesia per LMA, ASA 3. The tourniquet was elevated to 250 mmHg for a total tourniquet time of 23 minutes. The patient was also given Ancef 2 g preoperatively. The arm was then prepped and draped with DuraPrep in usual fashion with the arm draped free. A surgical pause was performed. At the time, the surgical pause, we confirmed the site and side of surgery. We also confirmed the patient's identity, appropriate and timely administration of preoperative antibiotics and preoperative surgical markings. An incision was then made along the thenar crease. The incision crossed the wrist joint in a curvilinear fashion. Dissection continued through skin and soft tissues using a scalpel. The palmaris longus was identified along with the transverse carpal ligament. Each of these was released carefully to avoid injury to the median nerve. We were able to dissect gently into the carpal canal which was noted to be quite tight with significant compression across the median nerve. The nerve was visualized and was an hourglass shape.? Release of fibrous tissues within the canal was also accomplished.? The canal was subsequently palpated to assure there was no bony encroachment upon the canal.? The canal was then palpated distally and proximally to assure that my small finger was passed easily without impingement. Finding this to be so, attention was directed to closure. The wound was irrigated with ropivacaine plain. It was then closed with 3-0 nylon in an interrupted mattress fashion. Sterile dressing was then placed consisting of Dermabond, OpSite, fluffed fluffs, sterile soft roll, and an Benjie wrap. The tourniquet was released after 23 minutes. There were no complications. There were no specimens. The procedure was well tolerated. Plan is the patient will be discharged home. Related Problem List Diagnoses (1) Right carpal tunnel syndrome:
--- NOTE | 2021-12-25 14:47 | ANE.PACU2 ---
Inpatient post-anesthesia follow up: Airway intact: Yes Vital signs: Temperature 96.6 F Pulse Rate 72 Respiratory Rate 18 Blood Pressure 134/78 Pulse Oximetry 94 Oxygen Delivery Me thod Room Air Oxygen Flow Rate 10 Fraction of Inspir ed Oxygen Hydration adequate: Yes Nausea and vomiting: No Pain level: 1 Mental status: Baseline
== END 2021-12-25 09:00 | disposition home or self-care (01) ==
PROVIDERS: PCP Internal Medicine; Visit Provider Specialist
PROC: (CPT 64721; principal; 2021-12-25 07:00)
DX: G56.01 Carpal tunnel syndrome, right upper limb (principal); J44.9 Chronic obstructive pulmonary disease, unspecified; I25.10 Atherosclerotic heart disease of native coronary artery without angina pectoris; I10 Essential (primary) hypertension; Z98.1 Arthrodesis status; I25.2 Old myocardial infarction; F17.210 Nicotine dependence, cigarettes, uncomplicated
CPT/HCPCS: 64721; J2405; J2704; J3010; J3490; J7030

== ENCOUNTER → 2022-01-09 08:35 | Outpatient (BNVA) | payer OTHER, SELFPAY | PROVIDERS: PCP Internal Medicine; Visit Provider Nurse Practitioner Family | DX: Z98.890 Other specified postprocedural states (principal) | CPT/HCPCS: 73110; 99024 ==

== ENCOUNTER → 2022-01-14 10:28 | Outpatient (BNVA) | payer OTHER, SELFPAY | PROVIDERS: PCP Internal Medicine; Visit Provider Anesthesiology Pain Medicine | DX: M47.12 Other spondylosis with myelopathy, cervical region (principal); M47.811 Spondylosis without myelopathy or radiculopathy, occipito-atlanto-axial region; Z98.1 Arthrodesis status; F17.210 Nicotine dependence, cigarettes, uncomplicated | CPT/HCPCS: 99213 ==

== ENCOUNTER → 2022-02-14 10:48 | Outpatient (BNVA) | payer OTHER, SELFPAY | PROVIDERS: PCP Internal Medicine; Visit Provider Anesthesiology Pain Medicine | DX: M47.811 Spondylosis without myelopathy or radiculopathy, occipito-atlanto-axial region (principal); M47.12 Other spondylosis with myelopathy, cervical region; Z98.1 Arthrodesis status | CPT/HCPCS: 20553; 99213; J1030; J3490 ==

== ENCOUNTER → 2022-03-14 09:37 | Outpatient (BNVA) | payer OTHER, SELFPAY | PROVIDERS: PCP Internal Medicine; Visit Provider Anesthesiology Pain Medicine | DX: M54.16 Radiculopathy, lumbar region (principal); M47.811 Spondylosis without myelopathy or radiculopathy, occipito-atlanto-axial region; M47.12 Other spondylosis with myelopathy, cervical region; Z98.1 Arthrodesis status | CPT/HCPCS: 99214 ==

== ENCOUNTER 2022-03-27 08:01 | Outpatient (CLI) | payer OTHER, SELFPAY ==
--- NOTE | 2022-03-27 08:10 | CT_ITS ---
WS: [id number] LDCT LUNG CANCER SCREENING TECHNIQUE: Noncontrast CT of the chest with coronal and sagittal reformatted images. CLINICAL INFORMATION: NICOTINE DEPENDENCE,CIGARETTES COMPARISON: CT 11/09/20 DLP: 70.32 mGy.cm DIvol: Mean CTDIvol: 1.60 (mGy) All CT scans at [facility] use at least one of these dose optimization techniques: automat ed exposure control; mA and/or kV adjustment per patient size (includes targeted exams where dose is matched to clinical indication); or iterative reconstruction. FINDINGS: Stable 3 mm noncalcified pulmonary nodule RIGHT upper lobe. Fibrosis in the RIGHT greater than LEFT l chilo apex. Associated pleural thickening. Slightly spiculated fibrotic lesion in the RIGHT upper lobe extending to the lung apex is unchanged in appearance measuring 6 mm. Additional fibrotic lesion RIGH T upper lobe measuring 4.5 mm is stable. Lungs are well aerated. No focal pneumonia pleural fluid. Normal caliber thoracic aorta. Aortic calci fication. Coronary calcification. No mediastinal or hilar lymphadenopathy. No axillary lymphadenopath y. Adrenal glands are normal. Small esophageal hiatal hernia. Splenic artery calcification. Mild brick off bearer margarita intrahepatic biliary duct dilatation appears similar to CT abdomen pelvis 2017. Prior cholecystec alphonso. Prior postoperative changes decompressive laminectomies with pedicle screw fixation in the lower cerv ical and upper thoracic spine. CT/CT lung screening [id number] IMPRESSION: LUNG-RADS: 2-Benign Appearance or Behavior FOLLOW UP: 12 Month: Continue annual screening with LDCT
== END 2022-03-27 08:02 | disposition home or self-care (01) ==
PROVIDERS: PCP Internal Medicine; Visit Provider Internal Medicine
DX: Z12.2 Encounter for screening for malignant neoplasm of respiratory organs (principal); F17.210 Nicotine dependence, cigarettes, uncomplicated
CPT/HCPCS: 71271

== ENCOUNTER → 2022-04-10 07:39 | Outpatient (BNVA) | payer OTHER, SELFPAY | PROVIDERS: PCP Internal Medicine; Visit Provider Specialist | DX: G56.01 Carpal tunnel syndrome, right upper limb (principal) | CPT/HCPCS: 99213 ==

== ENCOUNTER → 2022-09-03 13:21 | Outpatient (BNVA) | payer OTHER, SELFPAY | PROVIDERS: PCP Internal Medicine; Visit Provider Nurse Practitioner Family | DX: R52 Pain, unspecified (principal) | CPT/HCPCS: 73030 ==

== ENCOUNTER 2022-09-19 16:16 | Outpatient (CLI) | payer OTHER, SELFPAY ==
--- NOTE | 2022-09-19 | CT_ITS ---
WS: [id number] CT HEAD TECHNIQUE: Noncontrast CT of the head obtained from the skullbase to the vertex. CLINICAL INFORMATION: FALLS, DIZZINESS COMPARISON: CT November 12, 2021 DLP: 920.[address] scans at [facility] use at least one of these dose optimization techniques: automated e xposure control; mA and/or kV adjustment per patient size (includes targeted exams where dose is matc hed to clinical indication); or iterative reconstruction. FINDINGS: No evidence of intracranial hemorrhage or mass effect. Ventricular system and basal cisterns are corea nt. Mild small vessel changes with mild parenchymal volume loss. No extra-axial fluid collections. No evidence of mass or mass effect. Paranasal sinuses and mastoid air cells are well aerated. .Normal visualized soft tissues. CT/CT head wo con* [id number] IMPRESSION: 1. No evidence of intracranial hemorrhage or mass effect. 2. Mild small vessel changes. Mild parenchymal volume loss. 3. No acute intracranial findings.
== END 2022-09-19 16:17 | disposition home or self-care (01) ==
LOC: RAD 16:20
PROVIDERS: PCP Internal Medicine; Visit Provider Nurse Practitioner Family
DX: R42 Dizziness and giddiness (principal)
CPT/HCPCS: 70450

== ENCOUNTER 2023-01-15 08:55 | Outpatient (CLI) | payer OTHER, SELFPAY ==
--- NOTE | 2023-01-15 09:07 | MM_ITS ---
WS: [id number] Bilateral screening 3D tomosynthesis digital mammogram, 01/15/2023 Clinical Data: SCREENING Comparison: 10/23/2021, 10/20/2020, 10/15/2019, 10/03/2017. Findings: The breast parenchymal pattern shows fibroglandular tissue. No spiculated masses or clustered calcifi cations are seen. There are no secondary signs of carcinoma. Impression: 1. Negative bilateral mammogram unchanged. 2. Recommend annual screening mammograms. MM/[place] [id number] BIRADS: 1-Negative FOLLOW UP: 1 Year Follow-up The CAD job checker was used.
== END 2023-01-15 08:56 | disposition home or self-care (01) ==
LOC: RAD 08:55
PROVIDERS: PCP Internal Medicine; Visit Provider Internal Medicine
DX: Z12.31 Encounter for screening mammogram for malignant neoplasm of breast (principal)
CPT/HCPCS: 77063; 77067

== ENCOUNTER → 2023-02-24 13:53 | Outpatient (BNVA) | payer OTHER, SELFPAY | PROVIDERS: PCP Internal Medicine; Visit Provider Nurse Practitioner Family | DX: J02.9 Acute pharyngitis, unspecified (principal) | CPT/HCPCS: 87880 ==

== ENCOUNTER 2023-06-09 08:28 | Outpatient (CLI) | payer OTHER, SELFPAY ==
--- NOTE | 2023-06-09 08:33 | CT_ITS ---
WS: [id number] LDCT LUNG CANCER SCREENING HISTORY: NICOTINE DEPENDENCE,CIGARETTES TECHNIQUE: Axial imaging performed from the apices to 1 cm below the costophrenic angles. Coronal and sagittal reformats are submitted with axial MIP series. All CT scans at [facility] use at least one of these dose optimization techniques: automated exposure control; mA and/or kV adjustment per patient size (includes targeted exams where dose is matched to clinical indication); or iterativ e reconstruction. DLP: 39.60 mGy.cm DIvol: Mean CTDIvol: 0.60 (mGy) COMPARISON: 03/27/2022 Diagnostic quality: Satisfactory Lungs: Pulmonary hyperinflation. Previously described scarring and pleural nodularity in the RIGHT up per lobe is reidentified. No new or increasing size of any nodules or mass. There are a few scattered granulomata. Mucous retention in the trachea. Heart: Normal size heart with no pericardial effusion.. Other findings: Mild atherosclerosis aorta. Mildly dilated pulmonary artery. AP window of the mediast inum and hilar regions are difficult to evaluate without IV contrast. Prior cholecystectomy. Mild thi ckening of the LEFT adrenal gland. IMPRESSION: CT/CT lung screening [id number] LUNG-RADS: 2-Benign Appearance or Behavior FOLLOW UP: 12 Month: Continue annual screening with LDCT OTHER FINDINGS (S MODIFIER): None.
== END 2023-06-09 08:29 | disposition home or self-care (01) ==
LOC: RAD 08:29
PROVIDERS: PCP Internal Medicine; Visit Provider Internal Medicine
DX: Z12.2 Encounter for screening for malignant neoplasm of respiratory organs (principal); F17.210 Nicotine dependence, cigarettes, uncomplicated; R91.8 Other nonspecific abnormal finding of lung field
CPT/HCPCS: 71271

== ENCOUNTER 2023-07-03 14:01 | Outpatient (CLI) | payer OTHER, SELFPAY ==
[2023-07-04 12:04] LABS: Lyme AB Screen <0.90 index
[2023-07-08 17:29] LABS: RMSF IGG NOT DETECTED; RMSF IGM NOT DETECTED
[2023-07-09 17:04] LABS: E. Chaffeensis AB IGG <1:64; E. Chaffeensis AB IGM <1:20
== END 2023-07-03 14:02 | disposition home or self-care (01) ==
LOC: LAB 14:03
PROVIDERS: Physician Assistant; PCP Internal Medicine; Visit Provider Internal Medicine
DX: R50.9 Fever, unspecified (principal); T14.8XXA Other injury of unspecified body region, initial encounter; W57.XXXA Bitten or stung by nonvenomous insect and other nonvenomous arthropods, initial encounter
CPT/HCPCS: 36415; 86618; 86666; 86757; 87400; J1100; J1885

== ENCOUNTER → 2023-08-14 11:40 | Outpatient (BNVA) | payer OTHER, SELFPAY | PROVIDERS: PCP Internal Medicine; Visit Provider Specialist | DX: G43.711 Chronic migraine without aura, intractable, with status migrainosus (principal) | CPT/HCPCS: 99204 ==

== ENCOUNTER → 2023-10-17 13:14 | Outpatient (BNVA) | payer OTHER, SELFPAY | PROVIDERS: PCP Internal Medicine; Visit Provider Specialist | DX: G43.711 Chronic migraine without aura, intractable, with status migrainosus (principal); F17.200 Nicotine dependence, unspecified, uncomplicated; Z71.6 Tobacco abuse counseling | CPT/HCPCS: 99213 ==

== ENCOUNTER 2023-12-19 13:55 | Outpatient (CLI) | payer OTHER, SELFPAY ==
--- NOTE | 2023-12-19 13:58 | XR_ITS ---
WS: [id number] DEXA (DUAL ENERGY X-RAY ABSORPTIOMETRY) Bone mineral density was performed using a [employer] machine. HISTORY: ASYMPTOMATIC POSTMENOPAUSAL COMPARISON: None available. Left forearm BMD: 0.754 g/cm2. T score: -1.4 Z score: -0.3 Total hip BMD: Left: 0.759 g/cm2. T score: -2.0 Z score: -0.2 Right: 0.713 g/cm2. T score: -2.3 Z score: -0.6 10 year probability of a major osteoporotic fracture is 11.0%. XR/XR DEXA axial skeleton* [id number] IMPRESSION: OSTEOPENIA based upon the WHO classification for females.
== END 2023-12-19 13:56 | disposition home or self-care (01) ==
LOC: RAD 13:56
PROVIDERS: PCP Internal Medicine; Visit Provider Internal Medicine
DX: Z13.820 Encounter for screening for osteoporosis (principal); M85.80 Other specified disorders of bone density and structure, unspecified site
CPT/HCPCS: 77080

== ENCOUNTER 2024-01-21 13:11 | Outpatient (CLI) | payer OTHER, SELFPAY ==
--- NOTE | 2024-01-21 13:15 | MM_ITS ---
WS: [id number] VIEWS: MLO and CC views both breasts. 3D digital tomosynthesis is also included in this exam. Comparison made with prior exam of 10/03/2017, 10/15/2019, 10/20/2020, 10/23/2021, 01/15/2023.. Findings: There are scattered areas of fibroglandular density. No sign of suspicious mass, tumor calcification or architectural distortion. Stable appearing parench ymal densities noted in the RIGHT breast. MM/MM scr BI tomosynthesis [id number] Impression: BI-RADS: 2 - Benign FOLLOW-UP: 1 Year Follow-up This mammogram was also analyzed by the Computer Aided Detection System [employer]2 Imag e Chairman And Chief Executive Officer.
== END 2024-01-21 13:12 | disposition home or self-care (01) ==
LOC: RAD 13:12
PROVIDERS: PCP Internal Medicine; Visit Provider Internal Medicine
DX: Z12.31 Encounter for screening mammogram for malignant neoplasm of breast (principal); R92.341 Mammographic extreme density, right breast
CPT/HCPCS: 77063; 77067

== ENCOUNTER → 2024-01-23 13:30 | Outpatient (BNVA) | payer OTHER, SELFPAY | PROVIDERS: PCP Internal Medicine; Visit Provider Specialist | DX: G43.711 Chronic migraine without aura, intractable, with status migrainosus (principal); F17.200 Nicotine dependence, unspecified, uncomplicated | CPT/HCPCS: 64615; J0585 ==

== ENCOUNTER → 2024-04-23 08:29 | Outpatient (BNVA) | payer OTHER, SELFPAY | PROVIDERS: PCP Internal Medicine; Visit Provider Specialist | DX: G43.711 Chronic migraine without aura, intractable, with status migrainosus (principal); F17.210 Nicotine dependence, cigarettes, uncomplicated | CPT/HCPCS: 64615; J0585 ==

== ENCOUNTER 2024-07-07 11:30 | Emergency (ER) | payer OTHER, SELFPAY ==
[2024-07-07 11:43] VITALS: BP 151/67; PULSE 74; RESP 16; TEMP 36.8; O2SAT 93; BMI 17.2
--- NOTE | 2024-07-07 12:40 | CT_ITS ---
WS: [id number] CT HEAD TECHNIQUE: Noncontrast CT of the head obtained from the skullbase to the vertex. CLINICAL INFORMATION: Headache COMPARISON: None. DLP: 937.[address] scans at [facility] use at least one of these dose optimization techniques: automated exposure control; mA and/or kV adjustment per patient size (includes targeted exams where dose is matched to clinical indication); or iterative reconstruction. FINDINGS: No evidence of intracranial hemorrhage or mass effect. Ventricular system and basal cisterns are patent. Mild small vessel changes with mild parenchymal volume loss. No extra-axial fluid collections. No evidence of mass or mass effect. Normal onofre-white differentiation. Paranasal sinuses and mastoid air cells are well aerated. .Normal visualized soft tissues. CT/CT head wo con* [id number] IMPRESSION: 1. No evidence of intracranial hemorrhage or mass effect. 2. Mild small vessel changes. Mild parenchymal volume loss. 3. No acute intracranial findings.
[2024-07-07 12:50] VITALS: BP 142/86; PULSE 75
[2024-07-07 13:13] LABS: Basophils % 0.3 %; Eosinophils # 0.2 10^3/uL (0.0-0.8); Eosinophils % 2.4 %; Hematocrit 24.5 % (36-47); Lymphocytes # 1.3 10^3/uL (0.8-4.8); Lymphocytes % 18.2 %; Mean Corpuscular HGB Conc 32.2 g/dL (30-55); Mean Corpuscular Hemoglobin 30.9 pg (27-33); Mean Corpuscular Volume 95.7 fl (85-98); Mean Platelet Volume 8.8 fL (7.4-10.4); Monocytes # 0.4 10^3/uL (0.2-0.9); Monocytes % 6.3 %; Neutrophils % 72.5 %; Nucleated Red Blood Cells % 0 %; Platelet Count 244 10^3/cmm (157-399); Red Blood Count 2.56 10^6/uL (3.85-5.65); Red Cell Distribution Width 13.9 % (12.1-15.1); White Blood Count 7.03 10^3/uL (3.29-11.43)
--- NOTE | 2024-07-07 13:17 | W.ED.HA ---
HPI - Headache General: Chief Complaint: Headache Stated Complaint: headache Time Seen by Provider: 07/07/24 12:37 History of Present Illness: 64-year-old female presents emergency room complaining of headache at the crown of her head and on the right parietal area. She has some tenderness to her scalp. She has been nauseous with it. She tried several [id number] medications with no relief she has had migraines in the past states this feels different than what she has had before. She not had any fever sweats or chills. She patient is a smoker. No recent medication changes. Associated symptoms: Deny chest pain, fever(s) or rash Related Data Home Medications ?Medication ?Instructions ?Recorded ?Confirmed fluoxetine 20 mg capsule (Prozac) 20 mg PO QAM 04/19/19 07/07/24 fluoxetine 40 mg capsule 40 mg PO DAILY 01/20/24 07/07/24 amitriptyline 25 mg tablet 25 mg PO DAILY 07/07/24 07/07/24 amlodipine 5 mg tablet 5 mg PO DAILY 07/07/24 07/07/24 atorvastatin 10 mg tablet 10 mg PO DAILY 07/07/24 07/07/24 fluticasone fur. 100 mcg-umeclid 1 inh inhalation DAILY 07/07/24 07/07/24 62.5 mcg-vilant 25 mcg inhalat.powder (Trelegy Ellipta) Previous Rx's ?Medication ?Instructions ?Recorded rimegepant 75 mg disintegrating 75 mg PO ONCE #10 tabs 04/06/24 tablet (Nurtec ODT) promethazine 25 mg tablet 25 mg PO Q6H PRN headache #20 tabs 07/07/24 Allergies Allergy/AdvReac Type Severity Reaction Status Date / Time clindamycin (From Cleocin) Allergy Severe anaphylaxis Verified 07/07/24 11:50 codeine Allergy Mild chest Verified 07/07/24 11:50 pain, abdominal pain tizanidine Allergy upset Verified 07/07/24 11:50 stomach topiramate (From Topamax) Allergy ADR-Headach Verified 07/07/24 11:50 e Review of Systems Const: Denies: fever(s) or chills Card: Denies: chest pain Resp: Denies: dyspnea GI: Denies: abdominal pain : Denies: dysuria, urinary frequency or urinary urgency Musc: Denies: neck pain or back pain Skin/Breast: Denies: rash Neuro: Reports: headache(s) PFSH ED PFSH: Medical History (Updated 07/07/24 @ 15:02 by Shyam Chavez DO) Displacement of lumbar disc with radiculopathy Lumbar disc disease with radiculopathy Nicotine abuse Myocardial infarction HTN (hypertension) Surgical History History of lumbar laminectomy Left L3-L4 laminotomy/discectomy/foraminotomy 03/08/19 Dr. Yenifer Becker History of myringotomy (~1985) left, 1985. Performed in [place], [place] History of cholecystectomy (~1998) Performed in [place], [place]. Took out appendix during same surgery. History of tonsillectomy performed in her 20's in [place], [place] History of hysterectomy (~1989) Performed in [facility] due to hemorrhaging, states patient. Hx of total cystectomy back of left leg 2x performed in [place], [place] History of appendectomy (~1998) Performed in [place], [place] Family History Father Heart disease Hypertension Mother Diabetes Hypertension Brother Diabetes Hypertension Social History Smoking and tobacco/nicotine status: current every day tobacco/nicotine user (1/2 pack a day) cigarettes Packs smoked per day: 3 Years cigarettes smoked: 38 [ Other cigarette details: 10 cigarettes per day currently] Quit status (tobacco/nicotine): has tried quititng Alcohol intake: former Year of sobriety/quit date alcohol: 12 Substance/Drug Use: current Other substance/drug use details: HAS MED MARIJUANA CARD Household members: significant other Marital status: / Current occupational status: retired Physical Exam Const: GENERAL APPEARANCE: cooperative ORIENTATION/CONSCIOUSNESS: Yes awake, Yes oriented to person, Yes oriented to place and Yes oriented to time HENMT: COMMON NORMALS: normocephalic, atraumatic, hearing grossly normal bilaterally, external ears normal, EAC's normal, TM's normal bilaterally and Normal nasal mucous membranes and turbinates present HEAD & SCALP: normocephalic and atraumatic NOSE: Normal nasal mucous membranes and turbinates present EXTERNAL EAR: Yes external ears normal EXTERNAL AUDITORY CANAL: EAC's normal TYMPANIC MEMBRANE: TM's normal bilaterally Eye: COMMON NORMALS: Equal, round and reactive pupils present, EOMs intact bilaterally, conjunctivae normal and no scleral icterus CONJUNCTIVA: Yes conjunctivae normal PUPIL: Yes Equal, round and reactive pupils present Resp: COMMON NORMALS: normal respiratory effort, No retractions, No use of accessory muscles and clear to auscultation bilaterally AUSCULTATION: clear to auscultation bilaterally Cardio: COMMON NORMALS: regular rate, regular rhythm and No murmurs present (Cardio) RATE: regular rate RHYTHM: regular rhythm GI: COMMON NORMALS: Soft to palpation and No hepatosplenomegaly present AUSCULTATION: Yes normoactive bowel sounds PALPATION: Yes Soft to palpation, No Tenderness to palpation present (GI), No Guarding due to palpation present (GI) and Yes No hepatosplenomegaly present Extremity: COMMON NORMALS: normal to inspection, capillary refill normal, no clubbing, cyanosis or edema, no calf tenderness and no pedal edema Neuro: SENSORIUM/ORIENTATION: Yes oriented to person, Yes oriented to place and Yes oriented to time OTHER: No focal neurologic deficits are noted Skin: COMMON NORMALS: no rashes or lesions noted GENERAL SKIN EXAM: no rashes or lesions noted Course Vital Signs: Vital signs: Vital Signs Temperature 98.2 F 07/07/24 11:43 Pulse Rate 72 07/07/24 15:16 Respiratory Rate 16 07/07/24 11:43 Blood Pressure 136/74 07/07/24 15:16 Pulse Oximetry 94 07/07/24 15:16 Oxygen Delivery Me thod Room Air 07/07/24 14:49 MDM - Headache Medical Decision Making Headache improved with medications given. Discharged home can use promethazine along with Tylenol ibuprofen if has recurrence of symptoms. Encouraged her to follow-up with her primary care doctor consider increasing her amitriptyline for headache prophylaxis. Lab Data 07/07/24 12:45 07/07/24 12:[address] 07/07/24 12:40 IMPRESSION: 1. No evidence of intracranial hemorrhage or mass effect. 2. Mild small vessel changes. Mild parenchymal volume loss. 3. No acute intracranial findings. Laboratory Results WBC 7.03 10^3/uL (3.29-11.43) 07/07/24 12:45 RBC 2.56 10^6/uL (3.85-5.65) L 07/07/24 12:45 Hgb 7.90 g/dL (11.27-16.99) L 07/07/24 12:45 Hct 24.5 % (36-47) L 07/07/24 12:45 MCV 95.7 fl (85-98) 07/07/24 12:45 MCH 30.9 pg (27-33) 07/07/24 12:45 MCHC 32.2 g/dL (30-55) 07/07/24 12:45 RDW 13.9 % (12.1-15.1) 07/07/24 12:45 Plt Count 244 10^3/cmm (157-399) 07/07/24 12:45 MPV 8.8 fL (7.4-10.4) 07/07/24 12:45 Neut % (Auto) 72.5 % 07/07/24 12:45 Lymph % (Auto) 18.2 % 07/07/24 12:45 [place] % (Auto) 6.3 % 07/07/24 12:45 Eos % (Auto) 2.4 % 07/07/24 12:45 Baso % (Auto) 0.3 % 07/07/24 12:45 Neut # (Auto) 5.10 10^3/uL (1.8-7.7) 07/07/24 12:45 Lymph # (Auto) 1.3 10^3/uL (0.8-4.8) 07/07/24 12:45 [place] # (Auto) 0.4 10^3/uL (0.2-0.9) 07/07/24 12:45 Eos # (Auto) 0.2 10^3/uL (0.0-0.8) 07/07/24 12:45 Baso # (Auto) 0.0 10^3/uL (0.0-0.1) 07/07/24 12:45 Nucleated RBC % (auto) 0 % 07/07/24 12:45 Nucleated RBCs # 0.0 /100WBC 07/07/24 12:45 Sodium 141 mmol/L (136-145) 07/07/24 12:45 Potassium 3.9 mmol/L (3.5-5.1) 07/07/24 12:45 Chloride 106 mmol/L (98-107) 07/07/24 12:45 Carbon Dioxide 25 mmol/L (22-29) 07/07/24 12:45 Anion Gap 13.9 (5-19) 07/07/24 12:45 BUN 16 mg/dL (8-23) 07/07/24 12:45 Creatinine 0.7 mg/dL (0.5-0.9) 07/07/24 12:45 GFR Calculation 84.5 mL/min (90-130) L 07/07/24 12:45 Glucose 93 mg/dL (65-115) 07/07/24 12:45 Calculated Osmolality 293 mOsm/kg (285-295) 07/07/24 12:45 Calcium 8.8 mg/dL (8.5-10.5) 07/07/24 12:45 Total Bilirubin 0.2 mg/dL (0.15-1.2) 07/07/24 12:45 AST 31 U/L (0-32) 07/07/24 12:45 ALT 29 U/L (0-33) 07/07/24 12:45 Alkaline Phosphatase 82 U/L (35-105) 07/07/24 12:45 Total Protein 6.1 g/dL (6.6-8.7) L 07/07/24 12:45 Albumin 4.0 g/dL (3.5-5.2) 07/07/24 12:45 Globulin 2.1 g/dL (1.3-4.6) 07/07/24 12:45 All radiology interpretation(s) finalized by discharge Discharge Plan Discharge Patient Disposition: Home Clinical Impression: Headache Condition: Stable Prescriptions: New promethazine 25 mg tablet 25 mg PO Q6H PRN (Reason: headache) Qty: 20 0RF No Action fluoxetine [Prozac] 20 mg capsule 20 mg PO QAM fluoxetine 40 mg capsule 40 mg PO DAILY Rx Instructions: take with 20mg capsules every morning Nurtec ODT 75 mg tablet,disintegrating 75 mg PO ONCE Qty: 10 2RF Rx Instructions: take 1 when headache occurs atorvastatin 10 mg tablet 10 mg PO DAILY amlodipine 5 mg tablet 5 mg PO DAILY amitriptyline 25 mg tablet 25 mg PO DAILY Trelegy Ellipta 100-62.5-25 mcg blister with device 1 inh INHALATION DAILY Discharge Orders: Discharge ED (Routine); Ordered 07/07/24 Ordered By: Shyam Chavez Referrals: Vonnie Tucker MD [Primary Care Provider] - Discharge Diet: Usual diet Discharge Activity: Increase activity as tolerated Patient Instructions: Opioid Safety, Pain Management Activity Restrictions/Additional Instructions: Thank you for choosing [facility] for your healthcare needs today. It is very important that you follow up as instructed or that you return to the Emergency Department should you have concerns or if your condition changes or worsens in any way. You were seen in the emergency room with complaints of headache. Your CT of your head was negative. Your headache did improve with medications given. You are discharged home with promethazine you can take along with Tylenol ibuprofen if your headache recurs follow-up with your primary care doctor. Discussed with your doctor about the possibility of increasing her amitriptyline to help prevent headaches in the future. Print Language: Mexican Coding Level of Care Code ED Psychiatric Specialist for Bonilla Gramajo
[2024-07-07] MEDS: ketorolac 30 mg/mL INJ IVP (14:08)
[2024-07-07] MEDS: prochlorperazine 10 mg/2 mL Inj IVP (14:11)
[2024-07-07 14:13] VITALS: BP 156/74; PULSE 72; O2SAT 96
[2024-07-07 14:13] LABS: Alanine Aminotransferase 29 U/L (0-33); Alkaline Phosphatase 82 U/L (35-105); Anion Gap 13.9 (5-19); Aspartate Amino Transferase 31 U/L (0-32); Blood Urea Nitrogen 16 mg/dL (8-23); Calcium 8.8 mg/dL (8.5-10.5); Carbon Dioxide 25 mmol/L (22-29); Chloride 106 mmol/L (98-107); Creatinine Clr Calc Pharmacy 45.3566; Globulin 2.1 g/dL (1.3-4.6); Glomerular Filtration Rate 84.5 mL/min (90-130); Glucose 93 mg/dL (65-115); Osmolality Calculated 293 mOsm/kg (285-295); Potassium 3.9 mmol/L (3.5-5.1); Sodium 141 mmol/L (136-145); Total Bilirubin 0.2 mg/dL (0.15-1.2); Total Protein 6.1 g/dL (6.6-8.7)
[2024-07-07 14:49] VITALS: BP 120/61; PULSE 72; O2SAT 93
[2024-07-07 15:16] VITALS: BP 136/74; PULSE 72; O2SAT 94
== END 2024-07-07 15:18 | disposition home or self-care (01) ==
PROVIDERS: Emergency Provider Family Medicine; PCP Internal Medicine
DX: R51.9 Headache, unspecified (principal); F17.210 Nicotine dependence, cigarettes, uncomplicated; I10 Essential (primary) hypertension
CPT/HCPCS: 36415; 70450; 80053; 85025; 96374; 96375; 99285; J0780; J1885

== ENCOUNTER 2024-07-19 08:48 | Outpatient (CLI) | payer OTHER, SELFPAY ==
--- NOTE | 2024-07-19 08:52 | CT_ITS ---
WS: [id number] LDCT LUNG CANCER SCREENING TECHNIQUE: Noncontrast CT of the chest with coronal and sagittal reformatted images. CLINICAL INFORMATION: NICOTINE DEPENDENCE, CIGARETTES COMPARISON: None. DLP: 38.62 mGy.cm DIvol: Mean CTDIvol: 0.60 (mGy) All CT scans at [facility] use at least one of these dose optimization techniques: automated exposure control; mA and/or kV adjustment per patient size (includes targeted exams where dose is matched to clinical indication); or iterative reconstruction. FINDINGS: Interval development of suspicious RIGHT posterior perihilar mass measuring approximately 3.1 x 2.1 x 3.8 cm highly suspicious for neoplasm abutting the posterior mediastinum. This abuts the RIGHT posterior upper lobe bronchi. Recommend further evaluation with bronchoscopy. Additional smaller adjacent satellite nodules the largest measuring 1.4 cm. New lymphadenopathy involving the RIGHT paratracheal, anterior mediastinal, subcarinal, and RIGHT hilar. Prominent RIGHT paratracheal lymphadenopathy Splenic artery calcification. Small esophageal hernia. Advanced spinal lytic changes thoracic spine. Postoperative changes in the upper thoracic spine. Chronic emphysematous changes. Aortic calcification. Coronary calcification. CT/CT lung screening [id number] IMPRESSION: New RIGHT upper lobe posterior hilar mass abutting the posterior me diastinum and posterior RIGHT hilum highly suspicious for neoplasm with a few s urrounding satellite nodules. Recommend further evaluation with bronchoscopy an d PET/CT. New lymphadenopathy described above. LUNG-RADS: 4X-Suspicious FOLLOW UP: See Report Recommend further evaluation with pulmonology consult bronchoscopy and PET/CT
== END 2024-07-19 08:49 | disposition home or self-care (01) ==
PROVIDERS: PCP Internal Medicine; Visit Provider Internal Medicine
DX: Z12.2 Encounter for screening for malignant neoplasm of respiratory organs (principal); F17.218 Nicotine dependence, cigarettes, with other nicotine-induced disorders; R91.8 Other nonspecific abnormal finding of lung field; R59.0 Localized enlarged lymph nodes; I70.8 Atherosclerosis of other arteries; K44.9 Diaphragmatic hernia without obstruction or gangrene; J43.8 Other emphysema; I70.0 Atherosclerosis of aorta; I25.10 Atherosclerotic heart disease of native coronary artery without angina pectoris
CPT/HCPCS: 71271

== ENCOUNTER → 2024-08-02 13:17 | Outpatient (BNVA) | payer OTHER, SELFPAY | PROVIDERS: PCP Internal Medicine; Visit Provider Specialist | DX: G43.711 Chronic migraine without aura, intractable, with status migrainosus (principal) | CPT/HCPCS: 64615; J0585; J9999 ==

== ENCOUNTER 2024-08-16 09:30 | Oncology outpatient (recurring) (ONCR) | payer OTHER, SELFPAY ==
--- NOTE | 2024-08-13 12:30 | PETR_ITS ---
PROCEDURE INFORMATION: Exam: PET/CT Skull Base to Mid-thigh Exam date and time: 08/13/2024 1:20 PM Age: 64 years old Clinical indication: Condition or disease and abnormal findings; Primary cancer: Non small cell lung cancer; New right upper lobe posterior hilar mass abutting the posterior mediastinum and posterior right hilum highly suspicious for neoplasm with a few surrounding satellite nodules CT lung screen07/19/24 LABS AND CLINICAL REPORTS: Glucose: 118 mg/dl Treatment strategy for malignancy (PET staging): Initial Staging (PI) TECHNIQUE: Imaging protocol: Following at least four-hour fasting and following the injection of radiopharmaceutical, low dose CT images were obtained. Then, PET images were obtained. Attenuation corrected images were constructed using the CT scan. Fused images of PET and CT were reviewed. The standardized uptake values (SUV) reported below are maximum values within a region of interest, expressed in gm/ml. Exam includes orbital meatal line to mid-thigh. SUV normalization method: BodyWeight Radiopharmaceutical: 11.2 mCi F-18 FDG (Fluorodeoxyglucose), IV. Time of imaging post radiopharmaceutical administration: 49 minutes Injection site: left ac COMPARISON: CT lung screening [id number] 07/19/2024 9:01 AM FINDINGS: Brain: Visualized brain has normal physiologic uptake. Pharynx: No abnormal uptake. Larynx: No abnormal uptake. Lungs, pleura and trachea: Emphysematous changes throughout the lungs. FDG avid posteromedial right upper lobe mass measuring 2.9 x 2.8 cm shows SUV max 15.5. Couple of smaller nodules just lateral, index measuring 2.1 x 1.2 cm on axial image 78 and shows SUV max 11.3. Heart: Normal physiologic uptake. Coronary arteries: Mild coronary artery calcification. Mediastinal space: No abnormal uptake. Esophagus: Mild FDG uptake along the esophagus without discrete underlying CT abnormality. Liver: No abnormal uptake. Gallbladder and biliary ducts: No abnormal uptake. Prior cholecystectomy. Pancreas: No abnormal uptake. Spleen: No abnormal uptake. Adrenal glands: No abnormal uptake. Kidneys and ureters: Normal physiologic uptake. Stomach and bowel: No abnormal uptake. Colonic diverticulosis without findings of diverticulitis. Reproductive: The uterus appears surgically absent. Vasculature: No abnormal uptake. [id number] systemic atherosclerotic calcification without aortic aneurysm. Lymph nodes: FDG avid mediastinal and right hilar lymphadenopathy with index right paratracheal node measuring approximately 2.2 cm in the short axis on axial image 79 showing SUV max 9.9, subcarinal node measuring 1.8 cm in the short axis showing peripheral FDG uptake with SUV max 8.8, and right hilar node measuring approximately 1.4 cm in the short axis on axial image 92 with SUV max 7.0. Skeleton: Focal FDG uptake at the anterolateral right 6th rib with underlying fracture deformity and questionable small lucent lesion with adjacent mild sclerosis not present on recent comparison chest CT. Cervicothoracic postsurgical change with posterior decompression from C3-T1 and posterior fusion hardware from C2-T2. Degenerative change along the spine, shoulders, and pubic symphysis. Soft tissues: No abnormal uptake in the visualized head, neck, chest, abdomen, pelvis, and extremities. METRICS: Mediastinal blood pool: SUV mean 1.7 Liver uptake: SUV mean 1.9 PET/PET skull to thigh INIT [id number] IMPRESSION: 1. FDG avid right upper lobe mass and adjacent nodules compatible with malignancy. 2. Metastatic mediastinal and right hilar lymphadenopathy. 3. Focal FDG uptake at the anterolateral right 6th rib with underlying fracture deformity. Questionable small lucent lesion with adjacent mild sclerosis not present on recent comparison chest CT could be related to healing fracture deformity, metastatic lesion difficult to entirely exclude. 4. Mild FDG uptake along the esophagus is likely benign physiologic or inflammatory. 5. Additional chronic and incidental findings as above.
[2024-08-16] MEDS: ondansetron 2 mg/ML SDV 2 mL 4 MG IVP (09:54)
[2024-08-16] MEDS: diphenhydrAMINE 50 mg/mL SDV 1mL 25 MG IVP (09:58)
[2024-08-16] MEDS: dihydroergotamine 1 mg/mL Inj 0.5 MG IVP ×4 (10:10→11:38)
[2024-08-16 10:30] VITALS: BP 156/98; PULSE 75; O2SAT 91
[2024-08-16 12:05] VITALS: BP 153/85; PULSE 65; O2SAT 90
--- NOTE | 2024-08-16 16:41 | PC.NURSE ---
Pt in infusion room for DHE protocol. Pt states after 4th dose, she did not want to continue. Pt states pain is a 2 on scale of 1-10.
== END 2024-08-28 23:59 | disposition home or self-care (01) ==
PROVIDERS: PCP Internal Medicine; Visit Provider Internal Medicine Medical Oncology
DX: Z53.9 Procedure and treatment not carried out, unspecified reason; G43.711 Chronic migraine without aura, intractable, with status migrainosus; Z79.899 Other long term (current) drug therapy
CPT/HCPCS: 78815; 96374; 96375; 96376; 99205; A9552; J1110; J1200; J2405

== ENCOUNTER → 2024-09-09 12:45 | Outpatient (BNVA) | payer OTHER, SELFPAY | PROVIDERS: PCP Internal Medicine; Visit Provider Student in an Organized Health Care Education/Training Program | DX: Z95.828 Presence of other vascular implants and grafts (principal) | CPT/HCPCS: 99204 ==

== ENCOUNTER 2024-09-15 08:03 | Day surgery (SDC) | payer OTHER, SELFPAY ==
[2024-09-15] VITALS (9 sets, daily range): BP systolic 97–167; BP diastolic 52–103; PULSE 72–80; RESP 14–18; TEMP 36.1–36.8; O2SAT 90–97; BMI 18.8
--- NOTE | 2024-09-15 08:28 | W.PM.OPSUD ---
Surgery/Procedure H&P Update DATE OF PROCEDURE: September 15, 2024 DATE H&P PERFORMED: 09/09/24 H&P UPDATE INFORMATION: I have reviewed H&P completed within last 30 days, I have examined patient prior to procedure and No changes to prior documentation PLANNED PROCEDURE: Operation Date: 09/15/24 09:50 Proposed Procedures p Portacath Placement 50372 Z95.828(Not Applicable) - Cal Gomes MD
[2024-09-15] MEDS: sodium chloride 0.9% 1,000 ML 30 ML IV (08:55)
[2024-09-15] MEDS: ceFAZolin 2,000 mg SDV 2000 MG IVP (09:02)
--- NOTE | 2024-09-15 09:08 | SC_ITS ---
WS: [id number] C-arm fluoroscopy for infusion port insertion, 09/15/2024 Clinical Data: intra-op Comparison: None. Findings: Dr. Gomes inserted at the right infusion catheter into the superior vena cava. SC/C-arm FL for CVA 60424 Impression: Insertion right infusion catheter.
[2024-09-15] MEDS: lidocaine-epi 1% 20 mL INJ INJECTION (09:20)
[2024-09-15] MEDS: BUPivacaine 0.25% INJ 10 mL INJECTION (09:20)
[2024-09-15] MEDS: heparin, porcine 1,000 unit/mL INJ 10 mL 10000 UNIT IRRIGATION (09:20)
--- NOTE | 2024-09-15 09:25 | ANES.PREANE2 ---
Pre-Anesthetic Assessment Height/Weight: Height 4 ft 8 in Weight 84 lb O2 Del Method Room Air 09/15/24 08:35 Preop Diagnosis: Lung cancer Operation Date: 09/15/24 09:50 Proposed Procedures p Portacath Placement 93082 Z95.828(Not Applicable) - Cal Gomes MD Was Beta Andrés taken within 24 hours: N/A Was Clonidine taken within 24 hours: N/A Last intake: Intake Last Liquid Date 09/14/24 Last Liquid Time 20:00 Last Solid Date 09/14/24 Last Solid Time 16:00 Social Tobacco Exam alert and oriented x 3 Airway Submandibular: within normal limits Cervical ROM: within normal limits Mallampati: Class II Comments: Comments: Edentulous Anesthetic Plan ASA status: 4 Anesthesia: Choice Other: No prior issues with anesthesia NPO since yesterday evening History of hypertension on amlodipine GERD on omeprazole Patient has lung cancer, still smoking States that she is still able to get around okay on her own Plan for MAC anesthesia with local via surgeon Medications/Allergies Home Medications ?Medication ?Instructions ?Recorded ?Confirmed ?Last Taken ?Type fluoxetine 20 mg capsule (Prozac) 20 mg PO QAM 04/19/19 09/14/24 09/14/24 History fluoxetine 40 mg capsule 40 mg PO DAILY 01/20/24 09/14/24 09/14/24 History amitriptyline 25 mg tablet 25 mg PO DAILY 07/07/24 09/14/24 09/13/24 History amlodipine 5 mg tablet 5 mg PO DAILY 07/07/24 09/14/24 09/13/24 History atorvastatin 10 mg tablet 10 mg PO DAILY 07/07/24 09/14/24 09/14/24 History fluticasone fur. 100 mcg-umeclid 1 inh inhalation DAILY 07/07/24 09/14/24 09/14/24 History 62.5 mcg-vilant 25 mcg inhalat.powder (Trelegy Ellipta) promethazine 25 mg tablet 25 mg PO Q6H PRN headache #20 tabs 07/07/24 09/14/24 Unknown Rx baclofen 5 mg tablet 5 mg PO DAILY PRN muscle spasm #20 07/27/24 09/14/24 Unknown Rx tabs diazepam 10 mg tablet (Valium) 10 mg PO ONCE PRN anxiety #1 tab 07/29/24 09/14/24 Unknown Rx omeprazole 40 mg capsule,delayed 40 mg PO DAILY #30 caps 08/30/24 09/14/24 09/13/24 Rx release Allergies Allergy/AdvReac Type Severity Reaction Status Date / Time clindamycin (From Cleocin) Allergy Severe anaphylaxis Verified 09/14/24 15:16 codeine Allergy Mild chest Verified 09/14/24 15:16 pain, abdominal pain tizanidine Allergy upset Verified 09/14/24 15:16 stomach topiramate (From Topamax) Allergy ADR-Headach Verified 09/14/24 15:16 e Current Medications Generic Name Dose Route Start Last Admin Trade Name Freq PRN Reason Stop Dose Admin Sodium Chloride 1,000 mls @ 30 mls/hr 09/15/24 08:15 09/15/24 08:55 Sodium Chloride 0.9% IV 09/16/24 08:14 30 mls/hr .Q24H MARISOL Administration PFSH Anesthesia Medical History Displacement of lumbar disc with radiculopathy Lumbar disc disease with radiculopathy Nicotine abuse Myocardial infarction HTN (hypertension) Surgical History History of lumbar laminectomy Left L3-L4 laminotomy/discectomy/foraminotomy 03/08/19 Dr. Yenifer Becker History of myringotomy (~1985) left, 1985. Performed in [place], [place] History of cholecystectomy (~1998) Performed in [place], [place]. Took out appendix during same surgery. History of tonsillectomy performed in her 20's in [place], [place] History of hysterectomy (~1989) [facility], states patient. Hx of total cystectomy back of left leg 2x performed in [place], [place] History of appendectomy (~1998) Performed in [place], [place] Family History Father Heart disease Hypertension Mother Diabetes Hypertension Brother Diabetes Hypertension Social History Smoking and tobacco/nicotine status: current every day tobacco/nicotine user (1/2 pack a day) cigarettes Packs smoked per day: 3 Years cigarettes smoked: 38 [ Other cigarette details: 10 cigarettes per day currently] Quit status (tobacco/nicotine): has tried quititng Alcohol intake: former Year of sobriety/quit date alcohol: 12 Substance/Drug Use: current Other substance/drug use details: HAS MED MARIJUANA CARD Household members: significant other Marital status: / Current occupational status: retired
--- NOTE | 2024-09-15 09:33 | P.OP_ITS ---
Operative Report Date of procedure: September 15, 2024 Pre-op diagnosis: Lung cancer Post-op diagnosis: same Post-op findings: Tip of catheter at atriocaval junction confirmed with intraoperative fluoroscopy Procedure done: Port-A-Cath placement. Intraoperative fluoroscopy interpretation. Implants: Port-A-Cath Specimens removed/disposition: N/A Pathology: none sent Surgeon: Cal Gomes MD Language Teacher: N/A Anesthesia: MAC Estimated blood loss (mL): 10 Complications: N/A Findings: Tip of catheter at atriocaval junction confirmed with intraoperative fluoroscopy. Condition: stable Disposition: same day Brief History: 64-year-old female with lung cancer. Discussed risk and benefits and patient agreed to proceed with Port-A-Cath placement. Procedure: Patient was brought into the operating room and a timeout was carried out. Procedure was done under MAC. Patient was placed supine with the arms tucked and in Trendelenburg. Patient was prepped and draped in the usual sterile fashion. The left internal jugular vein was not suitable for port placement. Using ultrasound guidance the right internal jugular vein was accessed. A guidewire was then placed down to the atriocaval junction using fluoroscopy. The finder needle was removed and the guidewire was secured. I then turned my attention to creating a pocket over the right chest. Make sure to locally infiltrated using plain lidocaine and bupivacaine at the site of the pocket and throughout the tunnel site. I confirmed adequate hemostasis at the pocket. I then proceeded to place the port that was already preassembled and flushed with heparinized saline and the chest pocket. I tunneled the catheter from the chest to the neck at the site where I accessed the internal jugular vein. I measured and adjusted the length of the catheter so it would reach the atrial caval junction. At this point, I used a dilator to dilate the tract into the internal jugular vein using fluoroscopy. I removed the guidewire and proceeded to thread the central venous catheter through the introducer. In the process, I removed the sheath as a completely pushed the catheter into the internal jugular vein. I then confirmed adequate placement of the catheter by performing intraoperative interpretation of fluoroscopy. The tip of the catheter was confirmed to be placed in the atriocaval junction. There were no kinks noted throughout the trajectory of the catheter. I then proceeded to test the port and was satisfied with its functionality. I proceeded to flushed the catheter without any issues. I then hep-locked the port. Skin was closed using deep dermal 3-0 Vicryl, subcuticular 4-0 Monocryl, and Dermabond. Patient was then transferred to PACU without any complications.
[2024-09-15] MEDS: ondansetron 2 mg/ML SDV 2 mL 4 MG IVP (10:19)
--- NOTE | 2024-09-15 11:02 | SUR.PHASEII ---
10:45 BILATERAL BREATH SOUNDS PRESENT. FAINT WHEEZING NOTED.
[2024-09-15] MEDS: albuterol 2.5 mg/3 mL Neb INHALATION (11:03)
--- NOTE | 2024-09-15 11:45 | ANE.PACU2 ---
Inpatient post-anesthesia follow up: Airway intact: Yes Vital signs: Temperature 98.2 F Pulse Rate 79 Respiratory Rate 18 Blood Pressure 137/85 Pulse Oximetry 92 Oxygen Delivery Me thod Room Air Oxygen Flow Rate Fraction of Inspir ed Oxygen Hydration adequate: Yes Nausea and vomiting: No Pain level: 1 Mental status: Baseline
== END 2024-09-15 11:45 | disposition home or self-care (01) ==
PROVIDERS: PCP Internal Medicine; Visit Provider Student in an Organized Health Care Education/Training Program
PROC: (CPT 36561; principal; 2024-09-15 09:50)
DX: C34.00 Malignant neoplasm of unspecified main bronchus (principal); I10 Essential (primary) hypertension; K21.9 Gastro-esophageal reflux disease without esophagitis; F17.210 Nicotine dependence, cigarettes, uncomplicated; I25.2 Old myocardial infarction
CPT/HCPCS: 36561; 76000; 77001; C1788; J0690; J1644; J2405; J2704; J3010; J3490; J7030; J7613; J9999

== ENCOUNTER 2024-09-27 07:45 | Oncology outpatient (recurring) (ONCR) | payer OTHER, SELFPAY ==
--- NOTE | 2024-09-02 10:03 | N.ONRAD NP_ITS ---
Radiation Oncology New Patient Visit Patient: Adwoa Ledbetter MR#: [id number] : 1960 Age: 64 Sex: Female Dictated by: Prabhakar Diggs DO/RUBIO/RACHAEL Date of Service: 09/02/2024 Referring Physician(s) : Dr. Johnson Diagnosis: C77.1 - secondary and unspecified malignant neoplasm of intrathoracic lymph nodes, Diagnosed 08/13/2024 (active) and C34.11 - malignant neoplasm of upper lobe, right bronchus or lung, Diagnosed 08/05/2024 (active). PET/CT 08/13/2024 RUL MASS 2.9X2.8CM(15.5), SMALLE ADJACENT NODULES 2.1 X 1.2CM (11.3), RT PARATRACHEAL LN 2.2CM (9.8), SUBCARINAL LN 1.8CM (8.8), RT HILAR LN 1.4CM (7), -HCT, +TTF-1, ADENOCARCINOMA, FALLS A LOT ANTEROLAT RT 6TH RIBWITH FX DEFORMITY CANT EXCLUDE METS, + TOBACCO ABUSE 3PPD x 42 YRS, -H/F/C/NS/BONY TENDERNESS, HX OF REMOTE ETOH ABUSE SOBERITY X 12 YEARS, PORT PLACEMENT EVAL 09/09/2024, PLAN 7000cGy/35 FX STAGE: T4N2M0 ICD-10: C34.11, C77.1 Radiotherapy to date: Summary > No prior radiation therapy. Chief Complaint / History of Present Illness: I have lung cancer. 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 Patient is a chronic smoker and has been in the yearly CT scan program. Her previous scan in 2023 was read as okay. Patient is asymptomatic and underwent CT of the chest on 07/19/2024. This showed right perihilar mass measuring 3.1 x 2.1 x 3.8 cm that was highly suspicious for neoplasm abutting the posterior mediastinum. New lymphadenopathy involving the right paratracheal and anterior mediastinal subcarinal right hilar lymph nodes seem to be involved. Additional smaller adjacent satellite nodules the largest was measuring 1.4 cm. Due to patient's history of falling, HCT on 07/07/2024 showed no evidence of mass or metastatic disease. Patient underwent bronchoscopy and biopsy on 08/05/2024 which returned + TTF-1 ADENOCARCINOMA. PET/CT on 08/13/2024 showed an avid RUL mass with an adjacent nodule. There is also PET avid mediastinal and right hilar lymphadenopathy. RUL-2.9 x 2.8 (15.5), smaller nodules to date Jose 2.1 x 1.2 cm (11.3), Right Paratracheal LN 2.2 cm (9.8), Subcarinal LN 1.8 cm (8.8), Right Hilar LN 1.4 cm (7), anterior lateral sixth rib with fracture deformity but cannot exclude metastasis. Patient is a longtime smoker of 126 years and continues to smoke. She also has a remote history of ethanol abuse with sobriety of 12 years. Patient is to have surgical consult on 09/09/2024 for port placement. They will contact us when the port placement date has been determined. CT CAP centimeters with PET fusion after port placement. Plan is IMRT based XRT to as close to 7000 cGy in 35 fractions as constraints allow. She is also to have weekly chemotherapy consisting of carboplatin/etoposide followed by immunotherapy after XRT is completed. Uses home oxygen as needed and daily inhalers. Current Medications: amitriptyline 25 mg PO DAILY amlodipine 5 mg PO DAILY atorvastatin 10 mg PO DAILY baclofen 5 mg PO DAILY PRN diazepam (Valium) 10 mg PO ONCE PRN fluoxetine (Prozac) 20 mg PO QAM fluoxetine 40 mg PO DAILY tcpzfzpkjuc-hjomorsts-wwepivof 100-62.5-25 mcg (Trelegy Ellipta) 1 inh inhalation DAILY promethazine 25 mg PO Q6H PRN Allergies: clindamycin (From Cleocin) Allergy (Severe, anaphylaxis) codeine Allergy chest pain, abdominal pain tizanidine Allergy upset stomach topiramate (From Topamax) Allergy ADR-Headache Medical History: No history of collagen vascular disease. No previous radiation therapy. Displacement of lumbar disc with radiculopathy Lumbar disc disease with radiculopathy Nicotine abuse Myocardial infarction HTN (hypertension) Surgical History: History of lumbar laminectomy Left L3-L4 laminotomy/discectomy/foraminotomy 03/08/19 Dr. Yenifer Becker History of myringotomy (~1985) left, 1985. Performed in [place] History of cholecystectomy (~1998) Performed in [place]. Took out appendix during same surgery. History of tonsillectomy performed in her 20's in [place], [place] History of hysterectomy (~1989) Performed in [facility] due to hemorrhaging, states patient. Hx of total cystectomy back of left leg 2x performed in [place], [place] History of appendectomy (~1998) Performed in [place] Family History: Father Heart disease Hypertension Mother Diabetes Hypertension Brother Diabetes Hypertension No immediate family history of carcinoma. Social History: Smoking and tobacco/nicotine status: current every day tobacco/nicotine user (3packS a day/ 42 [id number]) cigarettes Packs smoked per day: 3 Years cigarettes smoked: 42 [ Other cigarette details: 3 PPD currently] Quit status (tobacco/nicotine): has tried quititng Alcohol intake: former Year of sobriety/quit date alcohol: 12 Substance/Drug Use: current Other substance/drug use details: HAS MED MARIJUANA CARD Household members: significant other Marital status: / Current occupational status: retired Dietary Habits Caffeine: Yes Caffeine intake frequency: carbonated beverages, coffee and tea Current Complaints / Review of Systems: . As noted above Vital Signs: Performed on 09/02/2024 8:39 AM BMI - 18.474 kg/m2 (low), Height - 56 in, Weight - 82.4 lbs, Temperature - 97.6 f, Pulse - 83 /min, Respiration - 16 /min, O2 Sat - 94 % (low), Pain - 0, Fatigue - 0 and BP - 181/ 98 mm(hg)(high). Physical Exam: AAOx3. Head is normocephalic. General body habitus is petite dry skin. No intercostal retraction no wheezing noted extremities intact x 4. Vertebral exam shows no bony tenderness Performance Status: KPS 90 Pathology: Primary, c77.1 - secondary and unspecified malignant neoplasm of intrathoracic lymph nodes, Diagnosed 08/13/2024 (active) and Primary, c34.11 - malignant neoplasm of upper lobe, right bronchus or lung, Diagnosed 08/05/2024 (active) . Lab: Imaging: See HPI Impression: C77.1 - secondary and unspecified malignant neoplasm of intrathoracic lymph nodes, Diagnosed 08/13/2024 (active) and C34.11 - malignant neoplasm of upper lobe, right bronchus or lung, Diagnosed 08/05/2024 (active). PET/CT 08/13/2024 RUL MASS 2.9X2.8CM(15.5), SMALLE ADJACENT NODULES 2.1 X 1.2CM (11.3), RT PARATRACHEAL LN 2.2CM (9.8), SUBCARINAL LN 1.8CM (8.8), RT HILAR LN 1.4CM (7), -HCT, +TTF-1, ADENOCARCINOMA, FALLS A LOT ANTEROLAT RT 6TH RIBWITH FX DEFORMITY CANT EXCLUDE METS, + TOBACCO ABUSE 3PPD x 42 YRS, -H/F/C/NS/BONY TENDERNESS, HX OF REMOTE ETOH ABUSE SOBERITY X 12 YEARS, PORT PLACEMENT EVAL 09/09/2024, PLAN 7000cGy/35 FX STAGE: T4N2M0 ICD-10: C34.11, C77.1 PLAN: Options were discussed with patient and family this date. Patient desires combined chemoradiation therapy. Patient will need port placement prior to CT simulation CT simulation after port placement for use also of PET fusion. Total dose is IMRT to is close to 7000 cGy in conventional fractionation as possible along with weekly carbo/etoposide. 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 Signed by: 09/02/2024 10:01:42 AM <<Signature on File>> Time spent with patient:70 MINUTES CPT Code: CPT Code:
[2024-09-27 08:21] LABS: Basophils % 0.4 %; Eosinophils # 0.4 10^3/uL (0.0-0.8); Eosinophils % 5.5 %; Lymphocytes # 1.4 10^3/uL (0.8-4.8); Lymphocytes % 19.4 %; Mean Corpuscular HGB Conc 32.8 g/dL (30-55); Mean Corpuscular Hemoglobin 30.2 pg (27-33); Mean Platelet Volume 8.9 fL (7.4-10.4); Monocytes # 0.6 10^3/uL (0.2-0.9); Neutrophils # 4.74 10^3/uL (1.8-7.7); Neutrophils % 66.4 %; Nucleated Red Blood Cells % 0 %; Platelet Count 232 10^3/cmm (157-399); Red Blood Count 4.24 10^6/uL (3.85-5.65); Red Cell Distribution Width 12.4 % (12.1-15.1); White Blood Count 7.13 10^3/uL (3.29-11.43)
[2024-09-27 08:32] LABS: Alanine Aminotransferase 22 U/L (0-33); Albumin Level 4.4 g/dL (3.5-5.2); Alkaline Phosphatase 82 U/L (35-105); Anion Gap 16.7 (5-19); Aspartate Amino Transferase 27 U/L (0-32); Blood Urea Nitrogen 11 mg/dL (8-23); Calcium 9.2 mg/dL (8.5-10.5); Carbon Dioxide 29 mmol/L (22-29); Chloride 104 mmol/L (98-107); Globulin 2.3 g/dL (1.3-4.6); Glomerular Filtration Rate 63.2 mL/min (90-130); Glucose 106 mg/dL (65-115); Osmolality Calculated 302 mOsm/kg (285-295); Potassium 3.7 mmol/L (3.5-5.1); Sodium 146 mmol/L (136-145); Total Bilirubin 0.2 mg/dL (0.15-1.2); Total Protein 6.7 g/dL (6.6-8.7)
[2024-09-27 08:56] VITALS: BP 158/92; PULSE 78; TEMP 36.7; O2SAT 93
[2024-09-27] MEDS: sodium chloride 0.9% 250 ML 75 ML IV (09:28)
[2024-09-27] MEDS: acetaminophen 325 mg Tablet 650 MG PO (09:32)
[2024-09-27] MEDS: diphenhydrAMINE 50 mg/mL SDV 1mL 25 MG IVP (09:33)
[2024-09-27] MEDS: famotidine 20 mg/2 mL INJ IVP (09:40)
[2024-09-27] MEDS: palonosetron 0.25 mg/5 mL SDV IVP (09:45)
[2024-09-27] MEDS: dexamethasone 20 MG in sodium chloride 0.9% 50 ML 188 MG IV (09:48)
[2024-09-27] MEDS: [UNRECOGNIZED DRUG - REMARK] 260 MG IV (10:40)
--- NOTE | 2024-09-27 11:36 | PC.NURSE ---
Pt in infusion room for first dose of paclitaxel and carboplatin. At 1108, pt stated she was feeling light headed. Paclitaxel stopped. NS started at 500mL/hr. Vitals 85% and 89% oxygen, BP 170/96 manual. Oxygen placed on patient at 2L. Oxygen 97%. Miguel Angel Villagomez NP notified. No other medications given to patient, pt was feeling better after infusion stopped and oxygen was given. 1124 vitals 98% on 2L, HR 75, BP 162/90. Paclitaxel was restarted per Miguel Angel Villagomez NP.
[2024-09-27] MEDS: CARBOplatin 130 MG in sodium chloride 0.9% 500 ML 513 MG IV (12:36)
[2024-09-27] MEDS: ibuprofen 200 mg Tablet 400 MG PO (13:49)
[2024-09-27 14:00] VITALS: BP 168/98; PULSE 81; TEMP 37; O2SAT 91
== END 2024-09-27 23:59 | disposition home or self-care (01) ==
PROVIDERS: PCP Internal Medicine; Visit Provider Internal Medicine Medical Oncology
DX: Z53.9 Procedure and treatment not carried out, unspecified reason; Z51.0 Encounter for antineoplastic radiation therapy; Z51.11 Encounter for antineoplastic chemotherapy; C34.11 Malignant neoplasm of upper lobe, right bronchus or lung; C77.1 Secondary and unspecified malignant neoplasm of intrathoracic lymph nodes; Z79.52 Long term (current) use of systemic steroids; Z79.899 Other long term (current) drug therapy; Z79.633 Long term (current) use of mitotic inhibitor; F17.210 Nicotine dependence, cigarettes, uncomplicated; I10 Essential (primary) hypertension
CPT/HCPCS: 77300; 77301; 77334; 77338; 77386; 77470; 80053; 85025; 96367; 96375; 96413; 96417; 99205; 99214; 99215; J1100; J1200; J2469; J3490; J7040; J7050; J9045; J9267; J9999

== ENCOUNTER 2024-10-14 09:13 | Oncology outpatient (recurring) (ONCR) | payer OTHER, SELFPAY ==
--- NOTE | 2024-09-28 10:09 | ONCRAD TMN_ITS ---
Radiation Oncology Weekly Treatment Management Patient: Adwoa Ledbetter MR#: [id number] : 1960 Attending Physician: Robin Diggs Date of Service: 09/28/2024 Referring Physician(s) : Diagnosis: C77.1 - Secondary and unspecified malignant neoplasm of intrathoracic lymph nodes, Diagnosed 08/13/2024 (Active) C34.11 - Malignant neoplasm of upper lobe, right bronchus or lung, Diagnosed 08/05/2024 (Active) Radiotherapy to date: Course: RUL 2024, Treatment Site: RT Lung 2024, Ref. ID: PTV RtLung, Energy: 6X, Dose/Fx (cGy): 200, #Fx: , Dose Correction (cGy): 0, Total Dose Delivered (cGy): 400, Start Date: 09/27/2024, Elapsed Days: 1 Reason for visit: The patient is being seen today as part of their regularly scheduled weekly on treatment visits to assess for acute toxicities from radiotherapy. HISTORY: Diagnosis: C77.1 - secondary and unspecified malignant neoplasm of intrathoracic lymph nodes, Diagnosed 08/13/2024 (active) and C34.11 - malignant neoplasm of upper lobe, right bronchus or lung, Diagnosed 08/05/2024 (active). PET/CT 08/13/2024 RUL MASS 2.9X2.8CM(15.5), SMALLE ADJACENT NODULES 2.1 X 1.2CM (11.3), RT PARATRACHEAL LN 2.2CM (9.8), SUBCARINAL LN 1.8CM (8.8), RT HILAR LN 1.4CM (7), -HCT, +TTF-1, ADENOCARCINOMA, FALLS A LOT ANTEROLAT RT 6TH RIBWITH FX DEFORMITY CANT EXCLUDE METS, + TOBACCO ABUSE 3PPD x 42 YRS, -H/F/C/NS/BONY TENDERNESS, HX OF REMOTE ETOH ABUSE SOBERITY X 12 YEARS, PORT PLACEMENT EVAL 09/09/2024, PLAN 7000cGy/35 FX STAGE: T4N2M0 ICD-10: C34.11, C77.1 Radiotherapy to date: Summary > No prior radiation therapy. Chief Complaint / History of Present Illness: I have lung cancer. 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 Patient is a chronic smoker and has been in the yearly CT scan program. Her previous scan in 2023 was read as okay. Patient is asymptomatic and underwent CT of the chest on 07/19/2024. This showed right perihilar mass measuring 3.1 x 2.1 x 3.8 cm that was highly suspicious for neoplasm abutting the posterior mediastinum. New lymphadenopathy involving the right paratracheal and anterior mediastinal subcarinal right hilar lymph nodes seem to be involved. Additional smaller adjacent satellite nodules the largest was measuring 1.4 cm. Due to patient's history of falling, HCT on 07/07/2024 showed no evidence of mass or metastatic disease. Patient underwent bronchoscopy and biopsy on 08/05/2024 which returned + TTF-1 ADENOCARCINOMA. PET/CT on 08/13/2024 showed an avid RUL mass with an adjacent nodule. There is also PET avid mediastinal and right hilar lymphadenopathy. RUL-2.9 x 2.8 (15.5), smaller nodules to date Jose 2.1 x 1.2 cm (11.3), Right Paratracheal LN 2.2 cm (9.8), Subcarinal LN 1.8 cm (8.8), Right Hilar LN 1.4 cm (7), anterior lateral sixth rib with fracture deformity but cannot exclude metastasis. Patient is a longtime smoker of 126 years and continues to smoke. She also has a remote history of ethanol abuse with sobriety of 12 years. Patient is to have surgical consult on 09/09/2024 for port placement. They will contact us when the port placement date has been determined. CT CAP centimeters with PET fusion after port placement. Plan is IMRT based XRT to as close to 7000 cGy in 35 fractions as constraints allow. She is also to have weekly chemotherapy consisting of carboplatin/etoposide followed by immunotherapy after XRT is completed. Uses home oxygen as needed and daily inhalers. Review of Systems: Patient started combined chemoradiation yesterday. She had her first dose of chemotherapy. She is on a steroid hide at this present time. No voice complaints. Vital Signs: Performed on 09/28/2024 9:51 AM BMI - 18.743 kg/m2, Height - 56 in, Weight - 83.6 lbs, Temperature - 98.1 f, Pulse - 90 /min, Respiration - 20 /min, O2 Sat - 90 % (low), Pain - 0, Fatigue - 0 and BP - 177/ 105 mm(hg)(high). Physical Exam: AAOx3. Skin intact. No intercostal retractions Imaging: Radiation therapy imaging related to accurate target localization (i.e. KV, MV and CBCT) was reviewed. Appropriate changes, if any, were made to ensure treatment accuracy. Plan: Weekly chemotherapy on Mondays Continue XRT Labs adequate for treatment. Signed by: Robin Diggs 09/28/2024 10:08:17 AM
[2024-10-04 09:13] LABS: Hematocrit 37.1 % (36-47); Hemoglobin 11.80 g/dL (11.27-16.99); Mean Corpuscular HGB Conc 31.8 g/dL (30-55); Mean Corpuscular Hemoglobin 28.6 pg (27-33); Mean Corpuscular Volume 90.0 fl (85-98); Nucleated Red Blood Cells % 0 %; Platelet Count 260 10^3/cmm (157-399); Red Blood Count 4.12 10^6/uL (3.85-5.65); White Blood Count 6.73 10^3/uL (3.29-11.43)
[2024-10-04 09:33] LABS: Alanine Aminotransferase 23 U/L (0-33); Albumin Level 4.2 g/dL (3.5-5.2); Alkaline Phosphatase 71 U/L (35-105); Anion Gap 15.4 (5-19); Aspartate Amino Transferase 27 U/L (0-32); Blood Urea Nitrogen 12 mg/dL (8-23); Calcium 8.9 mg/dL (8.5-10.5); Carbon Dioxide 27 mmol/L (22-29); Chloride 106 mmol/L (98-107); Creatinine Clr Calc Pharmacy 50.0680; Globulin 2.2 g/dL (1.3-4.6); Glucose 86 mg/dL (65-115); Osmolality Calculated 297 mOsm/kg (285-295); Potassium 4.4 mmol/L (3.5-5.1); Sodium 144 mmol/L (136-145); Total Protein 6.4 g/dL (6.6-8.7)
[2024-10-04] MEDS: diphenhydrAMINE 50 mg/mL SDV 1mL 25 MG IVP (11:18)
[2024-10-04] MEDS: [UNRECOGNIZED DRUG - REMARK] 260 MG IV (11:55)
[2024-10-04] MEDS: CARBOplatin 150 MG in sodium chloride 0.9% 500 ML 515 MG IV (13:03)
[2024-10-04 14:21] VITALS: BP 150/87; PULSE 87; RESP 18; TEMP 36.9; O2SAT 92
--- NOTE | 2024-10-05 10:46 | ONCRAD TMN_ITS ---
Radiation Oncology Weekly Treatment Management Patient: Adwoa Ledbetter MR#: [id number] : 1960 Attending Physician: Dr. Rene Serrano Date of Service: 10/05/2024 Referring Physician(s) : Diagnosis: C77.1 - Secondary and unspecified malignant neoplasm of intrathoracic lymph nodes, Diagnosed 08/13/2024 (Active) C34.11 - Malignant neoplasm of upper lobe, right bronchus or lung, Diagnosed 08/05/2024 (Active) Radiotherapy to date: Course: RUL 2024, Treatment Site: RT Lung 2024, Ref. ID: PTV RtLung, Energy: 6X, Dose/Fx (cGy): 200, #Fx: , Dose Correction (cGy): 0, Total Dose Delivered (cGy): 1,200, Start Date: 09/27/2024, Elapsed Days: 8 Reason for visit: The patient is being seen today as part of their regularly scheduled weekly on treatment visits to assess for acute toxicities from radiotherapy. Review of Systems: Some sore throat. Gargling with salt water. Still smoking now reduced from 2 ppd to ??? ppd. Stressed out as boyfriend???s brother this am.some constipation. Vital Signs: Performed on 10/05/2024 9:44 AM BMI - 19.057 kg/m2, Height - 56 in, Weight - 85 lbs, Temperature - 98.8 f, Pulse - 99 /min, Respiration - 17 /min, O2 Sat - 94 % (low), Pain - 0, Fatigue - 0 and BP - 154/ 84 mm(hg)(high/). Physical Exam: omitted Imaging: Radiation therapy imaging related to accurate target localization (i.e. KV, MV and CBCT) was reviewed. Appropriate changes, if any, were made to ensure treatment accuracy. Plan: Add magic mouth wash. Advised complete smoking cessation. Discussed management of constipation. Signed by: Dr. Rene Serrano 10/05/2024 10:44:17 AM
[2024-10-11 09:13] LABS: Hematocrit 34.2 % (36-47); Hemoglobin 11.00 g/dL (11.27-16.99); Mean Corpuscular HGB Conc 32.2 g/dL (30-55); Mean Corpuscular Hemoglobin 28.9 pg (27-33); Mean Corpuscular Volume 90.0 fl (85-98); Nucleated Red Blood Cells % 0 %; Platelet Count 187 10^3/cmm (157-399); Red Blood Count 3.80 10^6/uL (3.85-5.65); White Blood Count 4.54 10^3/uL (3.29-11.43)
[2024-10-11 09:29] LABS: Alanine Aminotransferase 19 U/L (0-33); Albumin Level 4.2 g/dL (3.5-5.2); Alkaline Phosphatase 80 U/L (35-105); Anion Gap 14.0 (5-19); Aspartate Amino Transferase 21 U/L (0-32); Blood Urea Nitrogen 11 mg/dL (8-23); Calcium 9.0 mg/dL (8.5-10.5); Carbon Dioxide 28 mmol/L (22-29); Chloride 104 mmol/L (98-107); Creatinine Clr Calc Pharmacy 49.4797; Globulin 2.2 g/dL (1.3-4.6); Glucose 87 mg/dL (65-115); Osmolality Calculated 293 mOsm/kg (285-295); Potassium 4.0 mmol/L (3.5-5.1); Sodium 142 mmol/L (136-145); Total Protein 6.4 g/dL (6.6-8.7)
[2024-10-11] MEDS: diphenhydrAMINE 50 mg/mL SDV 1mL 25 MG IVP (11:37)
[2024-10-11] MEDS: [UNRECOGNIZED DRUG - REMARK] 260 MG IV (12:34)
[2024-10-11] MEDS: CARBOplatin 150 MG in sodium chloride 0.9% 500 ML 515 MG IV (13:47)
[2024-10-11 15:25] VITALS: BP 174/88; PULSE 7; RESP 17; TEMP 36.5; O2SAT 92
--- NOTE | 2024-10-12 17:06 | ONCRAD TMN_ITS ---
Radiation Oncology Weekly Treatment Management Patient: Adwoa Ledbetter MR#: [id number] : 1960 Attending Physician: Dr. Rene Serrano Date of Service: 10/12/2024 Referring Physician(s) : Diagnosis: C77.1 - Secondary and unspecified malignant neoplasm of intrathoracic lymph nodes, Diagnosed 08/13/2024 (Active) C34.11 - Malignant neoplasm of upper lobe, right bronchus or lung, Diagnosed 08/05/2024 (Active) Radiotherapy to date: Course: RUL 2024, Treatment Site: RT Lung 2024, Ref. ID: PTV RtLung, Energy: 6X, Dose/Fx (cGy): 200, #Fx: , Dose Correction (cGy): 0, Total Dose Delivered (cGy): 2,200, Start Date: 09/27/2024, Elapsed Days: 15 Reason for visit: The patient is being seen today as part of their regularly scheduled weekly on treatment visits to assess for acute toxicities from radiotherapy. Review of Systems: significant sore throat. Magic mouthwash lasts only 20 minutes or so. Eating softer foods. Chops up formed foods. On Prilosec. Declined Peg tube when this was discussed before. Smoking ??? cig a day. Vital Signs: Performed on 10/12/2024 9:57 AM BMI - 18.653 kg/m2, Height - 56 in, Weight - 83.2 lbs, Temperature - 98.4 f, Pulse - 102 /min (high), Respiration - 22 /min (high), O2 Sat - 94 % (low), Pain - 8, Fatigue - 0 and BP - 179/ 112 mm(hg)(high). Physical Exam: omitted Imaging: Radiation therapy imaging related to accurate target localization (i.e. KV, MV and CBCT) was reviewed. Appropriate changes, if any, were made to ensure treatment accuracy. Plan: Add Nystatin for possible dena esophagitis. Continue as planned. will also review current elevated BP (179/112) still present today while on HTN meds Signed by: Dr. Rene Serrano 10/12/2024 5:05:33 PM
== END 2024-10-14 23:59 | disposition home or self-care (01) ==
PROVIDERS: Internal Medicine Medical Oncology; Nurse Practitioner Family; PCP Internal Medicine; Visit Provider Radiology Radiation Oncology
DX: Z51.0 Encounter for antineoplastic radiation therapy (principal); C34.11 Malignant neoplasm of upper lobe, right bronchus or lung; C77.1 Secondary and unspecified malignant neoplasm of intrathoracic lymph nodes
CPT/HCPCS: 77336; 77386; 80053; 85025; 96367; 96375; 96413; 96417; 99024; 99213; 99214; J1100; J1200; J2469; J3490; J7040; J7050; J9045; J9267; J9999

== ENCOUNTER 2024-10-28 09:35 | Oncology outpatient (recurring) (ONCR) | payer OTHER, SELFPAY ==
[2024-10-18 09:19] LABS: Hematocrit 33.0 % (36-47); Hemoglobin 10.80 g/dL (11.27-16.99); Mean Corpuscular HGB Conc 32.7 g/dL (30-55); Mean Corpuscular Hemoglobin 29.0 pg (27-33); Mean Corpuscular Volume 88.7 fl (85-98); Nucleated Red Blood Cells % 0 %; Platelet Count 183 10^3/cmm (157-399); Red Blood Count 3.72 10^6/uL (3.85-5.65); White Blood Count 4.58 10^3/uL (3.29-11.43)
[2024-10-18 09:31] LABS: Alanine Aminotransferase 20 U/L (0-33); Albumin Level 4.1 g/dL (3.5-5.2); Alkaline Phosphatase 64 U/L (35-105); Anion Gap 18.7 (5-19); Aspartate Amino Transferase 21 U/L (0-32); Blood Urea Nitrogen 13 mg/dL (8-23); Calcium 8.8 mg/dL (8.5-10.5); Carbon Dioxide 25 mmol/L (22-29); Chloride 106 mmol/L (98-107); Creatinine Clr Calc Pharmacy 48.8901; Globulin 1.9 g/dL (1.3-4.6); Glucose 175 mg/dL (65-115); Osmolality Calculated 304 mOsm/kg (285-295); Potassium 4.7 mmol/L (3.5-5.1); Sodium 145 mmol/L (136-145); Total Protein 6.0 g/dL (6.6-8.7)
[2024-10-18 11:35] VITALS: RESP 18; O2SAT 96
[2024-10-18] MEDS: morphine 4 mg/mL SDV 1 mL 1 MG IVP (11:35)
[2024-10-18] MEDS: diphenhydrAMINE 50 mg/mL SDV 1mL 25 MG IVP (11:36)
[2024-10-18] MEDS: [UNRECOGNIZED DRUG - REMARK] 260 MG IV (12:51)
[2024-10-18] MEDS: CARBOplatin 150 MG in sodium chloride 0.9% 500 ML 515 MG IV (13:56)
[2024-10-18 15:08] VITALS: BP 140/86; PULSE 96; RESP 16; O2SAT 93
[2024-10-25 09:49] LABS: Hematocrit 34.3 % (36-47); Hemoglobin 11.20 g/dL (11.27-16.99); Mean Corpuscular HGB Conc 32.7 g/dL (30-55); Mean Corpuscular Hemoglobin 29.2 pg (27-33); Mean Corpuscular Volume 89.3 fl (85-98); Nucleated Red Blood Cells % 0 %; Platelet Count 154 10^3/cmm (157-399); Red Blood Count 3.84 10^6/uL (3.85-5.65); White Blood Count 4.79 10^3/uL (3.29-11.43)
[2024-10-25 10:11] LABS: Alanine Aminotransferase 54 U/L (0-33); Albumin Level 4.1 g/dL (3.5-5.2); Alkaline Phosphatase 122 U/L (35-105); Anion Gap 17.8 (5-19); Aspartate Amino Transferase 47 U/L (0-32); Blood Urea Nitrogen 20 mg/dL (8-23); Calcium 8.8 mg/dL (8.5-10.5); Carbon Dioxide 22 mmol/L (22-29); Chloride 102 mmol/L (98-107); Creatinine Clr Calc Pharmacy 32.9859; Globulin 2.2 g/dL (1.3-4.6); Glucose 131 mg/dL (65-115); Osmolality Calculated 290 mOsm/kg (285-295); Potassium 3.8 mmol/L (3.5-5.1); Sodium 138 mmol/L (136-145); Total Protein 6.3 g/dL (6.6-8.7)
[2024-10-25] MEDS: diphenhydrAMINE 50 mg/mL SDV 1mL 25 MG IVP (10:46)
[2024-10-25] MEDS: [UNRECOGNIZED DRUG - REMARK] 260 MG IV (11:48)
[2024-10-25] MEDS: CARBOplatin 120 MG in sodium chloride 0.9% 500 ML 512 MG IV (13:16)
[2024-10-25 14:36] VITALS: BP 143/82; PULSE 90; RESP 18; TEMP 37.1; O2SAT 93
--- NOTE | 2024-10-26 10:00 | ONCRAD TMN_ITS ---
Radiation Oncology Weekly Treatment Management Patient: Adwoa Ledbetter MR#: [id number] : 1960 Attending Physician: Dr. Robin Diggs Date of Service: 10/26/2024 Referring Physician(s) : Diagnosis: C77.1 - Secondary and unspecified malignant neoplasm of intrathoracic lymph nodes, Diagnosed 08/13/2024 (Active) C34.11 - Malignant neoplasm of upper lobe, right bronchus or lung, Diagnosed 08/05/2024 (Active) Radiotherapy to date: Course: RUL 2024, Treatment Site: RT Lung 2024, Ref. ID: PTV RtLung, Energy: 6X, Dose/Fx (cGy): 200, #Fx: , Dose Correction (cGy): 0, Total Dose Delivered (cGy): 4,200, Start Date: 09/27/2024, Elapsed Days: Reason for visit: The patient is being seen today as part of their regularly scheduled weekly on treatment visits to assess for acute toxicities from radiotherapy. Review of Systems: is an ICU but doing well. She is having significant anxiety problems related to her cancer. She lost 4 pounds over the last week. She is using MMW occasionally. She received chemo yesterday and labs were adequate for that treatment. She is having more crying spells which is not her. Vital Signs: Performed on 10/26/2024 9:43 AM BMI - 18.429 kg/m2 (low), Height - 56 in, Weight - 82.2 lbs, Temperature - 98.4 f, Pulse - 105 /min (high), Respiration - 18 /min, O2 Sat - 96 %, Pain - 8, Fatigue - 0 and BP - 153/ 90 mm(hg)(high/). Physical Exam: AAOx3. Skin intact. Poor hydration with significant skin tenting. Imaging: Radiation therapy imaging related to accurate target localization (i.e. KV, MV and CBCT) was reviewed. Appropriate changes, if any, were made to ensure treatment accuracy. Plan: Continue XRT Continue chemotherapy on Mondays Increase calorie count Ativan 0.25 mg, #30, 1 every 8 hours as needed for cancer anxiety, NRF Signed by: Robin Diggs 10/26/2024 9:59:23 AM
== END 2024-10-28 23:59 | disposition home or self-care (01) ==
PROVIDERS: Nurse Practitioner Family; PCP Internal Medicine; Visit Provider Radiology Radiation Oncology
DX: Z51.0 Encounter for antineoplastic radiation therapy (principal); C34.11 Malignant neoplasm of upper lobe, right bronchus or lung; C77.1 Secondary and unspecified malignant neoplasm of intrathoracic lymph nodes; F17.210 Nicotine dependence, cigarettes, uncomplicated
CPT/HCPCS: 77336; 77386; 80053; 85025; 96367; 96375; 96413; 96417; 99024; 99214; J1100; J1200; J2270; J2469; J3490; J7040; J7050; J9045; J9267; J9999

== ENCOUNTER 2024-11-08 09:15 | Oncology outpatient (recurring) (ONCR) | payer OTHER, SELFPAY ==
[2024-11-01 10:25] LABS: Hematocrit 29.3 % (36-47); Hemoglobin 9.60 g/dL (11.27-16.99); Mean Corpuscular HGB Conc 32.8 g/dL (30-55); Mean Corpuscular Hemoglobin 29.3 pg (27-33); Mean Corpuscular Volume 89.3 fl (85-98); Nucleated Red Blood Cells % 0 %; Platelet Count 112 10^3/cmm (157-399); Red Blood Count 3.28 10^6/uL (3.85-5.65); White Blood Count 3.39 10^3/uL (3.29-11.43)
[2024-11-01 10:36] LABS: Alanine Aminotransferase 19 U/L (0-33); Albumin Level 3.9 g/dL (3.5-5.2); Alkaline Phosphatase 80 U/L (35-105); Anion Gap 14.7 (5-19); Aspartate Amino Transferase 17 U/L (0-32); Blood Urea Nitrogen 17 mg/dL (8-23); Calcium 9.0 mg/dL (8.5-10.5); Carbon Dioxide 26 mmol/L (22-29); Chloride 104 mmol/L (98-107); Creatinine Clr Calc Pharmacy 37.1095; Globulin 2.3 g/dL (1.3-4.6); Glucose 164 mg/dL (65-115); Osmolality Calculated 297 mOsm/kg (285-295); Potassium 3.7 mmol/L (3.5-5.1); Sodium 141 mmol/L (136-145); Total Protein 6.2 g/dL (6.6-8.7)
[2024-11-01] MEDS: diphenhydrAMINE 50 mg/mL SDV 1mL 25 MG IVP (11:02)
[2024-11-01] MEDS: [UNRECOGNIZED DRUG - REMARK] 260 MG IV (12:06)
[2024-11-01] MEDS: CARBOplatin 120 MG in sodium chloride 0.9% 500 ML 512 MG IV (13:22)
[2024-11-01 14:59] VITALS: BP 131/82; PULSE 98; RESP 16; TEMP 36.9
--- NOTE | 2024-11-02 10:52 | ONCRAD TMN_ITS ---
Radiation Oncology Weekly Treatment Management Patient: Adwoa Ledbetter MR#: [id number] : 1960 Attending Physician: Dr. Rene Serrano Date of Service: 11/02/2024 Referring Physician(s) : Diagnosis: C77.1 - Secondary and unspecified malignant neoplasm of intrathoracic lymph nodes, Diagnosed 08/13/2024 (Active) C34.11 - Malignant neoplasm of upper lobe, right bronchus or lung, Diagnosed 08/05/2024 (Active) Radiotherapy to date: Course: RUL 2024, Treatment Site: RT Lung 2024, Ref. ID: PTV RtLung, Energy: 6X, Dose/Fx (cGy): 200, #Fx: , Dose Correction (cGy): 0, Total Dose Delivered (cGy): 5,200, Start Date: 09/27/2024, Elapsed Days: 36 Reason for visit: The patient is being seen today as part of their regularly scheduled weekly on treatment visits to assess for acute toxicities from radiotherapy. Review of Systems: Chemo given yesterday ( Friday) and went well with no nausea. She does have transient abdominal pain after swallowing medications. Eating ok with supplements of 6 Ensures a day. Breathing better. Sleeping is on and off. Now off of oxygen. was hospitalized with pneumonia now home. He is on oxygen at home. Both he and patient continue to smoke. She does want to quit. Smoking 10 cigs a day. Vital Signs: Performed on 11/02/2024 9:50 AM BMI - 18.294 kg/m2 (low), Height - 56 in, Weight - 81.6 lbs, Temperature - 97.5 f, Pulse - 109 /min (high), Respiration - 17 /min, O2 Sat - 96 %, Pain - 8, Fatigue - 0 and BP - 152/ 99 mm(hg)(high). Physical Exam: omitted Imaging: Radiation therapy imaging related to accurate target localization (i.e. KV, MV and CBCT) was reviewed. Appropriate changes, if any, were made to ensure treatment accuracy. Plan: Good tolerance of treatment. Continue as planned. Discussed need to quit cigarettes. Signed by: Dr. Rene Serrano 11/02/2024 10:51:10 AM
[2024-11-08 09:16] LABS: Hematocrit 29.0 % (36-47); Hemoglobin 9.70 g/dL (11.27-16.99); Mean Corpuscular HGB Conc 33.4 g/dL (30-55); Mean Corpuscular Hemoglobin 29.8 pg (27-33); Mean Corpuscular Volume 89.2 fl (85-98); Nucleated Red Blood Cells % 0 %; Platelet Count 153 10^3/cmm (157-399); Red Blood Count 3.25 10^6/uL (3.85-5.65); White Blood Count 3.13 10^3/uL (3.29-11.43)
[2024-11-08 09:31] LABS: Alanine Aminotransferase 55 U/L (0-33); Albumin Level 3.8 g/dL (3.5-5.2); Alkaline Phosphatase 143 U/L (35-105); Anion Gap 15.5 (5-19); Aspartate Amino Transferase 28 U/L (0-32); Blood Urea Nitrogen 18 mg/dL (8-23); Calcium 8.7 mg/dL (8.5-10.5); Carbon Dioxide 25 mmol/L (22-29); Chloride 105 mmol/L (98-107); Creatinine Clr Calc Pharmacy 47.7123; Globulin 2.4 g/dL (1.3-4.6); Glucose 124 mg/dL (65-115); Osmolality Calculated 297 mOsm/kg (285-295); Potassium 3.5 mmol/L (3.5-5.1); Sodium 142 mmol/L (136-145); Total Protein 6.2 g/dL (6.6-8.7)
--- NOTE | 2024-11-08 09:37 | N.ONRD TS_ITS ---
Radiation Oncology Treatment Summary Patient: Adwoa Ledbetter MR#: [id number] : 1960 Age: 64 Sex: Female Dictated by: Dr. Robin Diggs Date of Service: 11/08/2024 Referring Physician(s) : Diagnosis: C77.1 - Secondary and unspecified malignant neoplasm of intrathoracic lymph nodes, Diagnosed 08/13/2024 (Active) C34.11 - Malignant neoplasm of upper lobe, right bronchus or lung, Diagnosed 08/05/2024 (Active) Radiotherapy to Date: Course: RUL 2024, Treatment Site: RT Lung 2024, Ref. ID: PTV RtLung, Energy: 6X, Dose/Fx (cGy): 200, #Fx: , Dose Correction (cGy): 0, Total Dose Delivered (cGy): 6,000, Start Date: 09/27/2024, End Date: 11/08/2024, Elapsed Days: 42 Clinical Summary: The patient tolerated RT well. She is breathing better. She is off her home O2. She continues to smoke but desires to quit. She lost only 1 pound during treatment. She tolerated chemotherapy also well. Plan: End of treatment today. Continue on the above medication until the skin reaction resolves. Follow up in one month or sooner if need be. Signed by: Robin Diggs>11/08/2024 9:35:29 AM <<Signature on File>>
[2024-11-08] MEDS: diphenhydrAMINE 50 mg/mL SDV 1mL 25 MG IVP (10:34)
[2024-11-08] MEDS: [UNRECOGNIZED DRUG - REMARK] 260 MG IV (10:56)
[2024-11-08] MEDS: CARBOplatin 140 MG in sodium chloride 0.9% 500 ML 514 MG IV (12:15)
[2024-11-08 13:20] VITALS: RESP 17
[2024-11-08] MEDS: morphine 4 mg/mL SDV 1 mL 2 MG IVP (13:20)
[2024-11-08 13:37] VITALS: BP 114/52; PULSE 93; RESP 16; TEMP 37.4; O2SAT 92
== END 2024-11-28 23:59 | disposition home or self-care (01) ==
PROVIDERS: Internal Medicine Medical Oncology; PCP Internal Medicine; Visit Provider Radiology Radiation Oncology
DX: Z53.9 Procedure and treatment not carried out, unspecified reason; Z51.0 Encounter for antineoplastic radiation therapy; Z51.11 Encounter for antineoplastic chemotherapy; C34.90 Malignant neoplasm of unspecified part of unspecified bronchus or lung; F17.210 Nicotine dependence, cigarettes, uncomplicated; R03.0 Elevated blood-pressure reading, without diagnosis of hypertension; R13.10 Dysphagia, unspecified; Y84.2 Radiological procedure and radiotherapy as the cause of abnormal reaction of the patient, or of later complication, without mention of misadventure at the time of the procedure; Z95.828 Presence of other vascular implants and grafts; Z79.899 Other long term (current) drug therapy
CPT/HCPCS: 77336; 77386; 80053; 85025; 96367; 96375; 96413; 96417; 99024; 99214; J1100; J1200; J2270; J2469; J3490; J7040; J7050; J9045; J9267; J9999

== ENCOUNTER → 2024-11-18 08:30 | Outpatient (BNVA) | payer OTHER, SELFPAY | PROVIDERS: PCP Internal Medicine; Visit Provider Specialist | DX: G43.711 Chronic migraine without aura, intractable, with status migrainosus (principal); F17.200 Nicotine dependence, unspecified, uncomplicated | CPT/HCPCS: 64615; J0585; J9999 ==

== ENCOUNTER 2024-11-23 10:52 | Emergency (ER) | payer OTHER, SELFPAY ==
--- OUTSIDE RECORDS SUMMARY | 2024-11-23 11:01 | XMS_ITS | Encounter Summary ---
Author Organization [facility] Address [address] [place] [address] Care Team Providers Care Mogul Operator Name Role Phone Vonnie Tucker MD Primary Care Provider [phone] Reason for Referral * CT Scan (Routine) - Closed Specialty Diagnoses / Procedures Referred By Robin young Referred To Contact Radiology Diagnoses Intervertebral disc disorder with radiculopathy of lumbosacral region Procedures CT LUMBAR SPINE W CONTRAST Queta Parks FNP [address] [place] [address] Phone: tel: fax: [facility] CT Scan [address] [place] [address] Phone: tel: fax: Referral ID Status Reason Start Date Expiration Date V isits Requested Visits Authorized [id number] Closed [facility] TO SCHEDULE ([facility]) 12/31/2018 01/31/2020 1 1 * Radiology Services (Routine) - Closed Specialty Diagnoses / Procedures Referred By Robni young Referred To Contact Radiology Diagnoses Intervertebral disc disorder with radiculopathy of lumbosacral region Procedures XR MYELOGRAM LUMBAR IA MYELOGRAPHY VIA LUMBAR INJECT RS&I LUMBOSACRAL CHG FLUOROSCOPY UP TO 1 HOUR PHYSICIAN/QHP TIME Queta Parks FNP [address] [place] [address] Phone: tel: fax: [facility] [address] [place] [address] Phone: tel: fax: Referral ID Status Reason Start Date Expiration Date V isits Requested Visits Authorized [id number] Closed [facility] TO SCHEDULE ([facility]) 12/31/2018 01/31/2020 1 1 Encounter Details Date Type Department Care Team (Late st Contact Info) Description 12/31/2018 Ancillary Orders [facility] Pre-Registration [facility] CALL TO MAKE APPOINTMENT ONLY [address] [place] [address] Queta Parks FNP [address] [place], [place] [address] Intervertebral disc disorder with radiculopathy of lumbosacral region Social History Tobacco Use Types Packs/Day Years Used Date Smoking Tobacco: Never Assessed Comments Unknown Sex and Gender Information Value Date Recorded Sex Assigned at Not on file Legal Sex Female 11:46 AM CDT Gender Identity Not on file Sexual Orientation Not on file documented as of this encounter Plan of Treatment Not on file documented as of this encounter Results * CT LUMBAR SPINE W CONTRAST (02/03/2019 11:05 AM LEAN MANUFACTURING COORDINATOR) Anatomical Region Laterality Modality Spine Computed Tomogra phy 02/03/2019 11:0 5 AM LEAN MANUFACTURING COORDINATOR Impressions 02/03/2019 12:51 PM LEAN MANUFACTURING COORDINATOR IMPRESSION: Please see below. Exam: CT LUMBAR SPINE W CONTRAST Date/Time of Exam: 02/03/2019 11:05 AM Reason For Exam: See Diagnosis. Diagnosis: Intervertebral disc disorder with radiculopathy of lumbosacral region. Technique: CT of the lumbar spine was performed following the administration of intravenous contrast. Contrast: 12 mL Isovue-M 300 intrathecal. Comparison: None FINDINGS: Lumbar alignment is grossly normal. Moderate to prominent diffuse lumbar disc degeneration and spondylosis present. Endplate sclerosis and intradiscal vacuum. Mild to moderate facet arthropathy L5-S1. No compression fracture or listhesis. Axial images show mild annular bulging at L1-2. No significant stenosis. At L2-3, mild to moderate annular bulging results in mild bilateral subarticular and neural foraminal narrowing. At L3-4, moderate lateral predominant annular bulging with a broad-based left paracentral and foraminal disc protrusion with extruded fragment extending below the disc margin. There is severe left-sided subarticular narrowing. Extruded component also compresses leftward thecal sac and descending nerve roots in the lateral recess below the disc margin. Moderate left-sided neural foraminal narrowing. At L4-5, mild to moderate annular bulging results in mild to moderate bilateral subarticular and neural foraminal narrowing. At L5-S1, moderate lateral predominant spondylotic disc bulging results in mild bilateral subarticular narrowing. Severe bilateral neural foraminal narrowing at this level. IMPRESSION: Moderate to prominent diffuse lumbar disc degeneration and spondylosis. Findings are most significant at L3-4 where a left paracentral disc herniation as described results in severe left-sided subarticular narrowing and also compresses the thecal sac and descending leftward nerve roots in the lateral recess below the disc margin. Moderate left-sided neural foraminal narrowing at this level. Severe bilateral neural foraminal narrowing at L5-S1. [id number] Narrative Procedure Note Solomon Aguilar DO - 02/03/2019 IMPRESSION: Please see below. Exam: CT LUMBAR SPINE W CONTRAST Date/Time of Exam: 02/03/2019 11:05 AM Reason For Exam: See Diagnosis. Diagnosis: Intervertebral disc disorder with radiculopathy of lumbosacral region. Technique: CT of the lumbar spine was performed following the administration of intravenous contrast. Contrast: 12 mL Isovue-M 300 intrathecal. Comparison: None FINDINGS: Lumbar alignment is grossly normal. Moderate to prominent diffuse lumbar disc degeneration and spondylosis present. Endplate sclerosis and intradiscal vacuum. Mild to moderate facet arthropathy L5-S1. No compression fracture or listhesis. Axial images show mild annular bulging at L1-2. No significant stenosis. At L2-3, mild to moderate annular bulging results in mild bilateral subarticular and neural foraminal narrowing. At L3-4, moderate lateral predominant annular bulging with a broad-based left paracentral and foraminal disc protrusion with extruded fragment extending below the disc margin. There is severe left-sided subarticular narrowing. Extruded component also compresses leftward thecal sac and descending nerve roots in the lateral recess below the disc margin. Moderate left-sided neural foraminal narrowing. At L4-5, mild to moderate annular bulging results in mild to moderate bilateral subarticular and neural foraminal narrowing. At L5-S1, moderate lateral predominant spondylotic disc bulging results in mild bilateral subarticular narrowing. Severe bilateral neural foraminal narrowing at this level. IMPRESSION: Moderate to prominent diffuse lumbar disc degeneration and spondylosis. Findings are most significant at L3-4 where a left paracentral disc herniation as described results in severe left-sided subarticular narrowing and also compresses the thecal sac and descending leftward nerve roots in the lateral recess below the disc margin. Moderate left-sided neural foraminal narrowing at this level. Severe bilateral neural foraminal narrowing at L5-S1. [id number] Queta Parks [facility] CT ORDERABLES Final Result * XR MYELOGRAM LUMBAR (02/03/2019 10:33 AM LEAN MANUFACTURING COORDINATOR) Anatomical Region Laterality Modality Spine Computed Radiogr aphy 02/03/2019 10:3 3 AM LEAN MANUFACTURING COORDINATOR Impressions 02/03/2019 12:33 PM LEAN MANUFACTURING COORDINATOR IMPRESSION: Please see below. Exam: XR MYELOGRAM LUMBAR Date/Time of Exam: 02/03/2019 10:33 AM Reason For Exam: See Diagnosis. Diagnosis: Intervertebral disc disorder with radiculopathy of lumbosacral region. Comparison: None FINDINGS: Please see CT lumbar spine with contrast from same day for full lumbar myelography results and reporting. Narrative Procedure Note Solomon Aguilar DO - 02/03/2019 IMPRESSION: Please see below. Exam: XR MYELOGRAM LUMBAR Date/Time of Exam: 02/03/2019 10:33 AM Reason For Exam: See Diagnosis. Diagnosis: Intervertebral disc disorder with radiculopathy of lumbosacral region. Comparison: None FINDINGS: Please see CT lumbar spine with contrast from same day for full lumbar myelography results and reporting. Queta Cali Jarquinen [employer] INSTRUMENT REPAIRER DIAGNOSTIC IMAGING ORDERABLES Final Result documented in this encounter Visit Diagnoses Diagnosis Intervertebral disc disorder with radiculopathy of lumbosacral region Thoracic or lumbosacral neuritis or radiculitis, unspecified Intervertebral disc disorder with radiculopathy of lumbosacral region Thoracic or lumbosacral neuritis or radiculitis, unspecified Intervertebral disc disorder with radiculopathy of lumbosacral region Thoracic or lumbosacral neuritis or radiculitis, unspecified documented in this encounter Care Teams Mogul Operator Relationship Specialty Start Date End Date Vonnie Tucker MD [address] [place] [address] PCP - General Internal Medicine 01/01/19 documented as of this encounter
--- OUTSIDE RECORDS SUMMARY | 2024-11-23 11:01 | XMS_ITS | Patient Health Record ---
Author Organization [facility] Address [address] [place] [address] Care Team Providers Care Bar Pilot Name Role Phone DR. Vonnie Tucker Primary Care Provider Xavier Hoover Unavailable [phone] Allergies Allergen (clinical drug ingredient) Drug/Non Drug Allergy documented on EMR Reaction Allergy Type Onset Date Status codeine Codeine Unknown Drug Allergy Active Results Component Value Reference Range Notes Prothrombin Time 27825 Reviewed date:08/05/2024 11:59:04 AM Interpretation: Performing Lab: Notes/Report: Diagnosis Description: Shortness of breath ProTime 10.9 9.1-11.9 SEC Normal Range: 9.1-11.9 INR 1.03 .90-1.20 Therapeutic Range: 2.0-3.0 Therapaeutic Range for heart valve replacement: 2.5-3.50 Gram Stain 61644 Reviewed date:08/05/2024 03:47:55 PM Interpretation: Performing Lab: Notes/Report: Gram Stain PIPER An Gram Stain t: Gram Stain Gram Stain [facility] [id number] Gram Stain n: Gram Stain Microbiology Gram Stain PROCEDURE: Gram Stai n [] Gram Stain SOURCE: Body Fl BODY SITE: Gram Stain COLLECTED DATE/TIME: 08/05/2024 13:01 CDT RECEIVED DATE/TIME: 08/05/2024 13:22 CDT Gram Stain START DATE/TIME: 08/05 13:22 CDT FREE TEXT SOURCE: Gram Stain STAINS/PREPARATIONS Gram Stain GS [] Gram Stain Verified Date/Time: 08/05/2024 14:02 CDT Gram Stain No organisms seen. Chest inspiratory/expiratory -10756 Reviewed date:08/06/2024 07:56:44 AM Interpretation: Performing Lab: Notes/Report: See Below For Report Chest inspiratory/expiratory report called to RN @ 1700 Read See Below For Report Chest inspiratory/expiratory -72619 Reviewed date:08/05/2024 03:47:55 PM Interpretation: Performing Lab: Notes/Report: See Below For Report Chest inspiratory/expiratory 08/05/2024 14:24:14 called rpt to rn Read See Below For Report Chest inspiratory/expiratory -18294 Reviewed date:08/05/2024 03:47:55 PM Interpretation: Performing Lab: Notes/Report: See Below For Report Chest inspiratory/expiratory Read See Below For Report CT Guidance for Needle-Biops [id number] Reviewed date:08/05/2024 03:47:55 PM Interpretation: Performing Lab: Notes/Report: See Below For Report CT Guidance for Yrnmxf-Omaamt-Vlso Read See Below For Report CT Guidance for Needle-Biops [id number] Reviewed date:08/05/2024 11:59:04 AM Interpretation: Performing Lab: Notes/Report: [id number] Culture, Tissue--[id number] Reviewed date:08/09/2024 12:58:01 PM Interpretation: Performing Lab: Notes/Report: Culture Tissue Jenn ALEMAN PIPER Culture Tissue t: Culture Tissue Culture Tissue [facility] [id number] Culture Tissue n: Culture Tissue Microbiology Culture Tissue PROCEDURE: Culture Tissue [] Culture Tissue SOURCE: Tissue BODY SITE: Culture Tissue COLLECTED DATE/TIME: 08/05/2024 13:01 CDT RECEIVED DATE/TIME: 08/05/2024 13:22 CDT Culture Tissue START DATE/TIME: 08/05 13:22 CDT FREE TEXT SOURCE: Culture Tissue FINAL REPORT Culture Tissue Final Report [] Culture Tissue Verified Date/Time: 08/08/2024 10:07 CDT Culture Tissue No growth at 72 hours Schedule Confirmation Reviewed date:08/05/2024 11:59:04 AM Interpretation: Performing Lab: Notes/Report: CT Guidance for Cxlxdg-Wbuhys-Jrbw Schedule Confirmation Reviewed date:07/26/2024 12:02:42 PM Interpretation: Performing Lab: Notes/Report: CT Guidance for Iutlli-Ikxvwj-Rljf Reason For Referral Reason LUNG MASS 07/20: G AMEEE DR. RUSSO CT REPORT-NEED IMAGES [employer] 07/20: 1 WK PER KARAN Scheduled 07/22/2024 @ 10 AM Diagnosis 1 Lung mass (R91.8) Referring Provider First Name Vonnie Referring Provider Last Name Caitlin Referring Provider Speciality Internal M edicine Referred Organization [facility] Referred Provider Xavier Russo Referred Address [address] [place] [address] [address] [place],[address], General Notes Felipa Sandoval 07/20 08:43:24 AM >07/20: GAVE DR. RUSSO CT REPORT-NEED IMAGES POWERSHARED, Felipa Sandoval 07/20/2024 04:20:13 PM >Scheduled 07/22/2024 @ 10 AM, Felipa Sandoval 07/20/2024 04:21:20 PM >LVM for Radiology to [facility]oc[facility] CT., Felipa Sandoval 07/21/2024 08:26:25 AM >Images iwoc[facility]ared Referral Priority Stat Reason Malignant neoplasm r ight lung Diagnosis 1 Malignant neoplasm o f upper lobe of right lung (C34.11) Referral Organization [facility] Referring Provider First Name Xavier Referring Provider Last Name Karan Referring Provider Speciality Pulmonary Diseases Referred Provider [facility] Referred Provider Specialty Oncology General Notes Esther Miller 025 04:18:06 PM >Received. Patient was seen today @ 8:00 PM., Esther Miller 08/11/2024 04:18:48 PM >Note is signed and they are faxing over. Referral Priority Routine Referral Appointment Date 08/11/2024 Medications Medication SIG (Take, Route, Frequency, Duration) Notes Start Date End Date Status Amitriptyline HCl 25 MG Tablet TAKE 1 TABLET BY MOUTH EVERY DAY Oral; Duration: 30 Days Active Botox every 3 months for migraine Active Albuterol Sulfate 108 (90 Base) MCG/ACT Aerosol Powder Breath Activated 1 puff as needed Inhalation every 4 hrs Active diazePAM 10 MG Tablet Oral; Duration: 2 Days Active FLUoxetine HCl 40 MG Capsule TAKE 1 CAPSULE BY MOUTH ONCE DAILY WITH 20 MG CAPSULE TO EQUAL 60 MG DAILY Oral; Duration: 90 Days Active Promethazine HCl 25 MG Tablet TAKE 1 TABLET BY MOUTH EVERY 6 HOURS NEEDED FOR HEADACHE Oral; Duration: 5 Days Active Trelegy Ellipta 100-62.5-25 MCG/ACT Aerosol Powder Breath Activated USE 1 INHALATION BY MOUTH ONCE DAILY Inhalation; Duration: 90 Days Active Biotin 1000 MCG Tablet Chewable as directed Orally Active Niacin 500 MG Tablet 1 tablet with food Orally Once a day Active Atorvastatin Calcium 10 MG Tablet TAKE 1 TABLET BY MOUTH EVERY DAY Oral; Duration: 90 Days Active amLODIPine Besylate 5 MG Tablet TAKE 1 TABLET BY MOUTH EVERY DAY Oral; Duration: 90 Days Active Social History Tobacco Use: Social History Observation Description Date Details (start date - stop date) Current Smoker NA - NA Social History Tobacco Use: Social Info Question Answer Notes Tobacco Control (Standard) Tobacco use: Current smoker How often do you smoke cigarettes? Every day Problems Problem Type SNOMED Code ICD Code Onset Dates Problem Status W/U Status Risk Notes Problem Tobacco user (604801648) Nicotine dependence, cigarettes, uncomplicated (F17.210) Active confirmed Problem Solitary pulmonary nodule (152387769) Solitary pulmonary nodule (R91.1) Active confirmed Problem Malignant neoplasm of upper lobe, bronchus or lung (030955240) Malignant neoplasm of upper lobe of right lung (C34.11) Active confirmed Problem Chronic respiratory failure (89035784) Chronic hypoxic respiratory failure (J96.11) Active confirmed Vital Signs Heart Rate 75 /min 08/09/2024 Uses 02 at home as needed Temperature 99.0 degrees Fahrenheit 08/09/2024 Uses 02 at home as needed Respiratory Rate 18 /min 08/09/2024 Uses 02 at home as needed Height-cm 152.4 cm 08/09/2024 Uses 02 at home as needed Oximetry 93 % 08/09/2024 Uses 02 at home as needed Blood pressure diastolic 101 mm Hg 08/09/2024 Use s 02 at home as needed Weight-kg 37.4 kg 08/09/2024 Uses 02 at home as needed Height 60 in 08/09/2024 Uses 02 at home as needed Blood pressure systolic 160 mm Hg 08/09/2024 Uses 02 at home as needed Weight 82.45 lbs 08/09/2024 Uses 02 at home as needed BMI 16.1 kg/m2 08/09/2024 Uses 02 at home as needed Procedures Procedure Date Ordered Date Performed Result Body Sit e PFT with FRC: (NO TGV) 07/22/2024 N/A Encounters Encounter Location Date Provider Diagnosis [facility] [address] [place] [address] [place] [address] 07/22/2024 Xavier Russo Solitary pulmonary nodule R91.1 ; Chronic cough R05.3 ; Nicotine dependence, cigarettes, uncomplicated F17.210 ; Encounter for smoking cessation counseling Z71.6 and Shortness of breath R06.02 [facility] [address] [place] [address] [place] [address] 08/09/2024 Xavier Russo Chronic cough R05.3 ; Malignant neoplasm of upper lobe of right lung C34.11 ; Nicotine dependence, cigarettes, uncomplicated F17.210 ; Encounter for smoking cessation counseling Z71.6 ; Shortness of breath R06.02 and Chronic hypoxic respiratory failure J96.11 Assessments Encounter Date Diagnosis (ICD Code) Assessment Notes Treatment Notes Treatment Clinical Notes Section Notes 07/22/2024 Solitary pulmonary nodule (ICD-10 - R91.1) I have discussed treatment options with patient of CT guided biopsy vs robotic navigational bronchoscopy. Patient has opted for CT guided biopsy. I will place the order for this. Send for cytology and culture. 07/22/2024 Chronic cough (ICD-10 - R05.3) Patient states she will have a pain in the bottom front side of her right lung from how much she coughs 08/09/2024 Chronic cough (ICD-10 - R05.3) Patient states she will have a pain in the bottom front side of her right lung from how much she coughs 08/09/2024 Malignant neoplasm of upper lobe of right lung (ICD-10 - C34.11) CT guided biopsy 08/05/24 positive for malignancy. I will send a referral to Oncology. I took of her bandage this morning. 08/09/2024 Nicotine dependence, cigarettes, uncomplicated (ICD-10 - F17.210) Patient has smoked up to 3 zkhyh-gaq-lvn for 42 years. Smoking cessation emphasized. 07/22/2024 Nicotine dependence, cigarettes, uncomplicated (ICD-10 - F17.210) Patient has smoked up to 3 vvdni-mws-mwu for 42 years. Smoking cessation emphasized. 07/22/2024 Encounter for smoking cessation counseling (ICD-10 - Z71.6) 08/09/2024 Encounter for smoking cessation counseling (ICD-10 - Z71.6) 08/09/2024 Shortness of breath (ICD-10 - R06.02) Obtain PFT Patient on Trelegy and albuterol 07/22/2024 Shortness of breath (ICD-10 - R06.02) Obtain PFT 08/09/2024 Chronic hypoxic respiratory failure (ICD-10 - J96.11) Continue nasal cannula to maintain a saturation above 88%. 07/22/2024 Other Tammy Mckeon am scribing for, and in the presence of Dr. Xavier Russo. I, Dr. Xavier Russo, personally performed the services described in this documentation, as scribed by Tammy Mancilla in my presence, and it is both accurate and complete. 08/09/2024 Other Mike, Tammy Mancilla am scribing for, and in the presence of Dr. Xavier Russo. I, Dr. Xavier Russo, personally performed the services described in this documentation, as scribed by Tammy Mancilla in my presence, and it is both accurate and complete. Plan Of Treatment Pending Test Test Name Order Date Prothrombin Time 70784 07/22/2024 Carbon Monoxide Diffusing Capacity-74670 08/09/2024 PFT SpHb-47221 08/09/2024 PFT Thoracic Gas Volume-81656 08/09/2024 Spirometry With Bronchodilator-05710 02/2025 PFT with FRC: (NO TGV) 07/22/2024 Spirometry Without Bronchodilator-30492 08/09/2024 Insurance Providers Payer Name Payer Address Payer Phone Subscriber Number Group Number Insured Name Patient Relationship to Insured Coverage Start Date Coverage End Date [facility] [address] [address] [place] [address] [id number] PIPER ALEMAN Self - patient is the insured Medical (General) History Medical History History ICD Code measles mumps chicken pox pneumonia anemia migraine headache back trouble hypertension asthma bronchitis Surgical History Surgery Date(Month/Year) Neck Surgery 03/05/2021 Back Surgery 12/25/2020 Back Surgery 03/12/2021 Hospitalization History Reason Date(Month/Year) See Surgical HX
--- OUTSIDE RECORDS SUMMARY | 2024-11-23 11:01 | XMS_ITS | Clinical Summary ---
Author Organization [facility] Address [address] [facility] Attn: Epic Prelude ADT CATRINA SHARPE [address] Care Team Providers Care Process Operator Name Role Phone Vonnie Tucker MD Primary Care Provider [phone]- [phone] Allergies Active Allergy Reactions Criticality Noted Date Comments Clindamycin Hcl Palpitations,Abdominal Pain Medium 08/2018 chest pain Codeine Shortness of Breath/Wheezing,Abdominal Pain High 02/03/2019 Medications omeprazole (PriLOSEC) 40 mg Capsule, Delayed Release(E.C.) Take 40 mg by mouth daily. 02/03/2019 Active FLUoxetine (PROzac) 20 mg tablet Take 20 mg by mouth daily. 02/03/2019 Active naproxen-diphen hydrAMINE 220-25 mg Tablet Take 220 mg by mouth nightly as needed. 02/03/2019 Active niacin (NIACOR) 500 mg tablet Take 500 mg by mouth daily. 02/03/2019 Active traMADoL (ULTRAM) 50 mg tablet Take 100 mg by mouth 2 times daily as needed for Pain. 02/03/2019 Active QUEtiapine (SEROquel) 50 mg tablet Take 50 mg by mouth one time only. 02/03/2019 Active lisinopril-hydr oCHLOROthiazide (ZESTORETIC) 10-12.5 mg tablet Take 1 Tablet by mouth daily. 02/03/2019 Active Social History Tobacco Use Types Packs/Day Years Used Date Smoking Tobacco: Every Day Cigarettes Smokeless Tobacco: Never Comments Unknown Sex and Gender Information Value Date Recorded Sex Assigned at Not on file Legal Sex Female 9:31 PM SPRINKLER HELPER Gender Identity Not on file Sexual Orientation Not on file Last Filed Vital Signs Vital Sign Reading Time Taken Comments Blood Pressure 121/70 02/03/2019 10:43 AM SPRINKLER HELPER Pulse 69 02/03/2019 10:43 AM SPRINKLER HELPER Temperature 37.6 C (99.6 F) 02/03/2019 10:43 AM SPRINKLER HELPER Respiratory Rate 16 02/03/2019 10:43 AM SPRINKLER HELPER Oxygen Saturation - - Inhaled Oxygen Concentration - - Weight 39.9 kg (88 lb) 02/03/2019 9:26 AM SPRINKLER HELPER Height 142.2 cm (4' 8 ) 02/03/2019 9:26 AM SPRINKLER HELPER Body Mass Index 19.73 02/03/2019 9:26 AM SPRINKLER HELPER Plan of Treatment Health Maintenance Due Date Last Done Comments DTAP/TDAP/TD VACCINES (1 - Tdap) 1980 HPV/Cotest (21-29) 1982 CERVICAL CANCER SCREENING 06/15/1991 HPV/Cotest (30-65) 06/15/1991 PAP SMEAR 06/15/1991 BREAST CANCER SCREENING 2001 COLORECTAL SCREENING 2006 Colorectal Cancer Screening 2006 FIT-DNA Q 3 years 2006 FIT/FOBT Q 1 year 2006 Flex Sig/CT Colonography Q 5 years 2006 ZOSTER VACCINE (1 of 2) 06/15/2011 INFLUENZA VACCINE (#1) 2024 RSV VACCINE (60+ or ) (1 - 1-dose 75+ series) 2036 Care Teams Process Operator Relationship Specialty Start Date End Date Vonnie Tucker MD [address] [place] [address] PCP - General Internal Medicine 01/01/19
--- OUTSIDE RECORDS SUMMARY | 2024-11-23 11:01 | XMS_ITS | Clinical Summary ---
Author Organization [facility] Address [address] [place] [address] Phone Care Team Providers Care Mobile Application Architect Name Role Phone Vonnie Tucker MD Primary Care Provider [phone]- [phone] Allergies Active Allergy Reactions Criticality Noted Date Comments Clindamycin Hcl Palpitations,Abdominal Pain Medium 08/2018 chest pain Codeine Shortness of Breath/Wheezing,Abdominal Pain High 02/03/2019 Medications traMADol (ULTRAM) 50 mg tablet Take 100 mg by mouth 2 times daily as needed for Pain. Active FLUoxetine (PROzac) 20 mg tablet Take 20 mg by mouth daily. Active omeprazole (PriLOSEC) 40 mg Capsule, Delayed Release(E.C.) Take 40 mg by mouth daily. Active lisinopril-hydr oCHLOROthiazide (ZESTORETIC) 10-12.5 mg tablet Take 1 Tablet by mouth daily. Active niacin (NIACOR) 500 mg tablet Take 500 mg by mouth daily. Active naproxen-diphen hydrAMINE (ALEVE PM) 220-25 mg Tablet Take 220 mg by mouth nightly as needed. Active QUEtiapine (SEROquel) 50 mg tablet Take 50 mg by mouth one time only. Active Social History Tobacco Use Types Packs/Day Years Used Date Smoking Tobacco: Every Day Cigarettes 1 30 Smokeless Tobacco: Never Tobacco Cessation:Ready to Q uit: No; Counseling Given: No Comments Unknown Sex and Gender Information Value Date Recorded Sex Assigned at Not on file Legal Sex Female 11:46 AM CDT Gender Identity Not on file Sexual Orientation Not on file Last Filed Vital Signs Vital Sign Reading Time Taken Comments Blood Pressure 121/70 02/03/2019 10:43 AM MASTER SCHEDULER Pulse 69 02/03/2019 10:43 AM MASTER SCHEDULER Temperature 37.6 C (99.6 F) 02/03/2019 10:43 AM MASTER SCHEDULER Respiratory Rate 16 02/03/2019 10:43 AM MASTER SCHEDULER Oxygen Saturation 96% 02/03/2019 10:43 AM MASTER SCHEDULER Inhaled Oxygen Concentration - - Weight 39.9 kg (88 lb) 02/03/2019 9:26 AM MASTER SCHEDULER Height 142.2 cm (4' 8 ) 02/03/2019 9:26 AM MASTER SCHEDULER Body Mass Index 19.73 02/03/2019 9:26 AM MASTER SCHEDULER Plan of Treatment Health Maintenance Due Date [...] ) (1 - 1-dose 75+ series) 2036 Insurance [employer] Care Teams Mobile Application Architect Relationship Specialty Start Date End Date Vonnie Tucker MD [address] [place] [id number] PCP - General Internal Medicine 01/01/19
--- NOTE | 2024-11-23 11:05 | XR_ITS ---
WS: [id number] Exam: XR chest 1V portable [id number] Date/Time of Exam: 11/23/2024 11:19 AM Reason For Exam: chest pain Comparison 09/15/2024. Lungs are hyperinflated and clear. Normal cardiomediastinal silhouette. Right- sided Port-A-Cath ends in the lower one third of the SVC in good position. Fusion hardware in the cervical and upper thoracic spine. Fibrous scarring in the lung apices. Bony structures are intact. Old single RIGHT rib fracture. No pleural effusion. Thoracolumbar scoliosis. XR/XR chest 1V portable [id number] IMPRESSION: 1. No acute cardiopulmonary finding. Hyperinflation.
--- NOTE | 2024-11-23 11:05 | ECG_ITS ---
[employer] Test Date: 2024-11-23 Pat Name: Adwoa Ledbetter Department: Room: Gender: Female Certification Technician: : [id number] Requested By: Shyam Leiva Order Number: [id number] Hans MD: Galileo Martin M.D. Measurements Intervals [place] Rate: 104 P: 68 IA: 159 QRS: -34 QRSD: 96 T: 94 QT: 273 QTc: 360 Interpretive Statements SINUS TACHYCARDIA LEFT AXIS DEVIATION [QRS AXIS < -30] INCOMPLETE RIGHT BUNDLE BRANCH BLOCK [90+ ms QRS DURATION, TERMINAL R IN V1/V2, 40+ ms S IN I/aVL/V4/V5/V6] SEPTAL MYOCARDIAL INFARCTION , OF INDETERMINATE AGE [40+ ms Q WAVE IN V1/V2] Compared to ECG 03/08/2021 10:52:29 Left-axis deviation now present Incomplete right bundle-branch block now present Sinus rhythm no longer present Myocardial infarct finding still present Electronically Signed On 11-23-2024 18:08:05 CDT by Galileo Martin M.D. [email or web address]
[2024-11-23 11:10] VITALS: BP 116/79; PULSE 105; RESP 18; TEMP 36.6; O2SAT 98; BMI 16.5
--- NOTE | 2024-11-23 11:23 | W.ED.CHESTPA ---
HPI - Chest Pain General: Chief Complaint: Chest Pain Stated Complaint: chest pain Time Seen by Provider: 11/23/24 11:17 Source: patient and family Mode of arrival: ambulatory Limitations: no limitations History of Present Illness: Patient is a 64-year-old female with a history of lung cancer currently undergoing chemo and radiation here for complaint of chest pain. She states pain has been present over the past month and was prescribed hydrocodone from her oncology team. She states she was told this was secondary to radiation-induced esophagitis. She states she ran out of her pain medication 2 days ago. She is having pain to her chest when swallowing. She is not complaining of worsening dyspnea. She states with her lung cancer and smoking history, she does have baseline shortness of breath. She is not running fevers. No cough. She has not had any episodes of vomiting or hematemesis. MD complaint: chest pain Pertinent past history: other (lung CA) Onset (ago): week(s) Timing of current episode: constant Prior episodes: Yes Pain location: substernal and right chest Pain radiation: none Severity: moderate Relieving factors: other (rx hydrocodone) Exacerbating factors: other (swallowing) Context: other (radiation to chest) Associated symptoms: Reports dyspnea (chronic); Deny abdominal pain, fever(s), palpitations, syncope or vomiting Treatment prior to arrival: none Risk Factors: Thoracic aortic dissection risk factors: none Pulmonary embolism risk factors: malignancy Related Data Home Medications ?Medication ?Instructions ?Recorded ?Confirmed fluoxetine 20 mg capsule (Prozac) 20 mg PO QAM 04/19/19 11/18/24 fluoxetine 40 mg capsule 40 mg PO DAILY 01/20/24 11/18/24 amitriptyline 25 mg tablet 25 mg PO DAILY 07/07/24 11/18/24 amlodipine 5 mg tablet 5 mg PO DAILY 07/07/24 11/18/24 fluticasone fur. 100 mcg-umeclid 1 inh inhalation DAILY 07/07/24 11/18/24 62.5 mcg-vilant 25 mcg inhalat.powder (Trelegy Ellipta) Previous Rx's ?Medication ?Instructions ?Recorded promethazine 25 mg tablet 25 mg PO Q6H PRN headache #20 tabs 07/07/24 baclofen 5 mg tablet 5 mg PO DAILY PRN muscle spasm #20 04/29/25 tabs dexamethasone 4 mg tablet 20 mg (5 x 4 mg) PO .COMPLEX #40 09/21/24 tabs ondansetron HCl 4 mg tablet 4 mg PO Q6H PRN nausea and 09/21/24 vomiting #30 tabs prochlorperazine maleate 10 mg 10 mg PO Q4H PRN mild nausea #30 09/21/24 tablet (Compazine) tabs lidocaine-prilocaine 2.5 %-2.5 % 1 applic topical .COMPLEX #30 grams 09/22/24 topical cream lorazepam 0.5 mg tablet 0.5 mg PO TID PRN insomnia #30 tabs 09/22/24 gabapentin 100 mg capsule 100 mg PO BID #60 caps 10/11/24 lidocaine HCl 2 % mucosal solution 5 ml PO Q6H #100 mL 10/11/24 (Lidocaine Viscous) nystatin 100,000 unit/mL oral 5 ml PO QID 14 days #280 mL 10/12/24 suspension omeprazole 40 mg capsule,delayed 40 mg PO DAILY #30 caps 10/12/24 release lorazepam 0.5 mg tablet (Ativan) 0.25 mg (1/2 x 0.5 mg) PO Q8H PRN 10/26/24 anxiety #30 tabs diazepam 10 mg tablet (Valium) 10 mg PO ONCE PRN anxiety #1 tab 11/15/24 hydrocodone 5 mg-acetaminophen 325 1 tab PO TID PRN pain #15 tabs 11/23/24 mg tablet lidocaine HCl 2 % mucosal solution 5 ml PO QID #100 mL 11/23/24 (Lidocaine Viscous) sucralfate 100 mg/mL oral 1 g (10 mL) PO BID #400 mL 11/23/24 suspension (Carafate) Allergies Allergy/AdvReac Type Severity Reaction Status Date / Time clindamycin (From Cleocin) Allergy Severe anaphylaxis Verified 11/18/24 09:09 codeine Allergy Mild chest Verified 11/18/24 09:09 pain, abdominal pain tizanidine Allergy upset Verified 11/18/24 09:09 stomach topiramate (From Topamax) Allergy ADR-Headach Verified 11/18/24 09:09 e Review of Systems Const: Denies: fever(s), chills, body aches, fatigue or malaise Card: Reports: chest pain; Denies: palpitations, irregular heart rhythm, edema, swelling of feet/ankles, lightheadedness, syncope, pre-syncope or orthopnea Resp: Reports: dyspnea (chronic); Denies: productive cough or non-productive cough GI: Denies: abdominal pain, vomiting or change in bowel habits : Denies: flank pain or dysuria Musc: Denies: neck pain, back pain, extremity pain, extremity swelling or joint swelling Skin/Breast: Denies: rash Neuro: Denies: headache(s), numbness in extremities, weakness in extremities, sensory changes or dizziness PFSH ED PFSH: Medical History Displacement of lumbar disc with radiculopathy Lumbar disc disease with radiculopathy Nicotine abuse Myocardial infarction HTN (hypertension) Surgical History History of lumbar laminectomy Left L3-L4 laminotomy/discectomy/foraminotomy 03/08/19 Dr. Yenifer Becker History of myringotomy (~1985) left, 1985. Performed in [place], [place] History of cholecystectomy (~1998) Performed in [place], [place]. Took out appendix during same surgery. History of tonsillectomy performed in her 20's in [place], [place] History of hysterectomy (~1989) Performed in [facility] due to hemorrhaging, states patient. Hx of total cystectomy back of left leg 2x performed in [place], [place] History of appendectomy (~1998) Performed in [place], [place] Family History Father Heart disease Hypertension Mother Diabetes Hypertension Brother Diabetes Hypertension Social History Smoking and tobacco/nicotine status: current every day tobacco/nicotine user (1/2 pack a day) cigarettes Packs smoked per day: 3 Years cigarettes smoked: 38 [ Other cigarette details: 10 cigarettes per day currently] Quit status (tobacco/nicotine): has tried quititng Alcohol intake: former Year of sobriety/quit date alcohol: 12 Substance/Drug Use: current Other substance/drug use details: HAS MED MARIJUANA CARD Household members: significant other Marital status: / Current occupational status: retired Physical Exam Const: COMMON NORMALS: no acute distress, patient oriented x3, no limitations and alert GENERAL APPEARANCE: frail appearing ORIENTATION/CONSCIOUSNESS: Yes awake, Yes oriented to person, Yes oriented to place and Yes oriented to time Eye: COMMON NORMALS: no scleral icterus Chest: COMMONS NORMALS: normal inspection of the chest OTHER: TTP anterior chest Resp: COMMON NORMALS: normal respiratory effort and clear to auscultation bilaterally AUSCULTATION: clear to auscultation bilaterally Cardio: COMMON NORMALS: regular rate and regular rhythm RATE: regular rate RHYTHM: regular rhythm GI: COMMON NORMALS: Normal to inspection, nondistended, normoactive bowel sounds present, Soft to palpation, non-tender, No hepatosplenomegaly present and no masses PALPATION: Yes Soft to palpation and Yes No hepatosplenomegaly present Extremity: COMMON NORMALS: capillary refill normal, no clubbing, cyanosis or edema, no calf tenderness and no pedal edema GENERAL: Yes normal exam except as noted Neuro: COMMON NORMALS: patient oriented x3, moves all extremities, no focal motor deficits and no sensory deficits noted SENSORIUM/ORIENTATION: Yes alert, Yes oriented to person, Yes oriented to place and Yes oriented to time Skin: COMMON NORMALS: no rashes or lesions noted GENERAL SKIN EXAM: no rashes or lesions noted Course Reevaluation(s): Reevaluation #1: Pain significantly improved after IV morphine, zofran, GI cocktail. Currently rating at a 1/10. Vital Signs: Vital signs: Vital Signs Temperature 97.8 F 11/23/24 11:10 Pulse Rate 100 11/23/24 12:35 Respiratory Rate 16 11/23/24 12:35 Blood Pressure 148/88 11/23/24 12:35 Pulse Oximetry 93 11/23/24 12:35 Oxygen Delivery Me thod Room Air 11/23/24 12:35 MDM - Chest Pain Medical Decision Making Patient is a nice 64-year-old female with a history of lung cancer currently undergoing chemo and radiation here for substernal chest pain that she states has been present over the past month. She was taking hydrocodone for this pain but ran out a few days ago. She is complaining of worsening pain with swallowing. Pain most likely secondary to radiation esophagitis. No ischemic changes noted on her EKGs. Baseline troponin of 20 with a negative delta. Chest x-ray is unremarkable. She gained significantly relief after IV morphine and GI cocktail here. Will place her on viscous lidocaine and carafate at home to help with her esophagitis as well as refill her pain medication. Recommend she reach out to primary care and/or her oncology team for additional medications if needed. Return to ED precautions discussed. Medical Records I reviewed the patient's medical records. Lab Data I reviewed the patient's lab results. 11/23/24 11:27 11/23/24 11:27 Radiology Impressions Chest X-Ray 11/23/24 11:05 IMPRESSION: 1. No acute cardiopulmonary finding. Hyperinflation. Laboratory Results WBC 4.50 10^3/uL (3.29-11.43) 11/23/24 11: RBC 3.07 10^6/uL (3.85-5.65) L 11/23/24 11:27 Hgb 9.20 g/dL (11.27-16.99) L 11/23/24 11:27 Hct 29.2 % (36-47) L 11/23/24 11:27 MCV 95.1 fl (85-98) 11/23/24 11:27 MCH 30.0 pg (27-33) 11/23/24 11:27 MCHC 31.5 g/dL (30-55) 11/23/24 11:27 RDW 21.5 % (12.1-15.1) H 11/23/24 11:27 Plt Count 154 10^3/cmm (157-399) L 11/23/24 11:27 MPV 9.2 fL (7.4-10.4) 11/23/24 11:27 Neut % (Auto) 73.6 % 11/23/24 11:27 Lymph % (Auto) 14.7 % 11/23/24 11:27 [place] % (Auto) 10.9 % 11/23/24 11:27 Eos % (Auto) 0.2 % 11/23/24 11: Baso % (Auto) 0.2 % 11/23/24 11:27 Neut # (Auto) 3.31 10^3/uL (1.8-7.7) 11/23/24 11:27 Lymph # (Auto) 0.7 10^3/uL (0.8-4.8) L 11/23/24 11:27 [place] # (Auto) 0.5 10^3/uL (0.2-0.9) 11/23/24 11:27 Eos # (Auto) 0.0 10^3/uL (0.0-0.8) 11/23/24 11:27 Baso # (Auto) 0.0 10^3/uL (0.0-0.1) 11/23/24 11:27 Nucleated RBC % (auto) 0 % 11/23/24 11:27 Nucleated RBCs # 0.0 /100WBC 11/23/24 11:27 Sodium 142 mmol/L (136-145) 11/23/24 11:27 Potassium 3.8 mmol/L (3.5-5.1) 11/23/24 11:27 Chloride 107 mmol/L (98-107) 11/23/24 11:27 Carbon Dioxide 22 mmol/L (22-29) 11/23/24 11:27 Anion Gap 16.8 (5-19) 11/23/24 11:27 BUN 8 mg/dL (8-23) 11/23/24 11:27 Creatinine 0.6 mg/dL (0.5-0.9) 11/23/24 11:27 GFR Calculation 101.0 mL/min (90-130) 11/23/24 11:27 Glucose 93 mg/dL (65-115) 11/23/24 11:27 Calculated Osmolality 292 mOsm/kg (285-295) 11/23/24 11:27 Calcium 9.1 mg/dL (8.5-10.5) 11/23/24 11:27 Total Bilirubin 0.2 mg/dL (0.15-1.2) 11/23/24 11:27 AST 22 U/L (0-32) 11/23/24 11:27 ALT 17 U/L (0-33) 11/23/24 11:27 Alkaline Phosphatase 111 U/L (35-105) H 11/23/24 11:27 Troponin T Baseline 20 ng/L (0-10) H 11/23/24 11:27 Troponin T 120 Minute 18.93 ng/L (0-10) H 11/23/24 13:17 Delta Troponin T -1.07 ABS# (0-10) L 11/23/24 13:17 Total Protein 5.6 g/dL (6.6-8.7) L 11/23/24 11:27 Albumin 3.9 g/dL (3.5-5.2) 11/23/24 11:27 Globulin 1.7 g/dL (1.3-4.6) 11/23/24 11:27 All radiology interpretation(s) finalized by discharge Discharge Plan Discharge Patient Disposition: Home Clinical Impression: Radiation esophagitis Condition: Stable Prescriptions: New sucralfate [Carafate] 100 mg/mL suspension 1 g PO BID Qty: 400 0RF lidocaine HCl [Lidocaine Viscous] 2 % solution 5 ml PO QID Qty: 100 0RF Continued hydrocodone-acetaminophen 5-325 mg tablet 1 tab PO TID PRN (Reason: pain) Qty: 15 0RF No Action fluoxetine [Prozac] 20 mg capsule 20 mg PO QAM baclofen 5 mg tablet 5 mg PO DAILY PRN (Reason: muscle spasm) Qty: 20 0RF lidocaine-prilocaine 2.5-2.5 % cream 1 applic topical .COMPLEX Qty: 30 2RF Rx Instructions: Apply quarter-size amount to port site 30 minutes prior to access; cover with cling wrap lorazepam 0.5 mg tablet 0.5 mg PO TID PRN (Reason: insomnia) Qty: 30 3RF Rx Instructions: 1/2 tablet at hs if not sleepy in 1 hours repeat 1/2 tablet then use 1 tablet up to TID prn anxiety, insomnia or severe nausea lidocaine HCl [Lidocaine Viscous] 2 % solution 5 ml PO Q6H Qty: 100 0RF Rx Instructions: 5 mL orally every 6 hours; Mix in equal volume with 100ml of antacid and 100 ml Benadryl elixir. gabapentin 100 mg capsule 100 mg PO BID Qty: 60 0RF Rx Instructions: one cap at bedtime for 5 days then may add additional cap in morning if needed fluoxetine 40 mg capsule 40 mg PO DAILY Rx Instructions: take with 20mg capsules every morning ondansetron HCl 4 mg tablet 4 mg PO Q6H PRN (Reason: nausea and vomiting) Qty: 30 3RF prochlorperazine maleate [Compazine] 10 mg tablet 10 mg PO Q4H PRN (Reason: mild nausea) Qty: 30 3RF dexamethasone 4 mg tablet 20 mg PO .COMPLEX Qty: 40 3RF Rx Instructions: Take 20 mg (5 tab) 12 hours and 6 hours prior to taxol treatment nystatin 100,000 unit/mL suspension 5 ml PO QID 14 Days Qty: 280 0RF Rx Instructions: swish and swallow omeprazole 40 mg capsule,delayed release(DR/EC) 40 mg PO DAILY Qty: 30 2RF lorazepam [Ativan] 0.5 mg tablet 0.25 mg PO Q8H PRN (Reason: anxiety) Qty: 30 0RF diazepam [Valium] 10 mg tablet 10 mg PO ONCE PRN (Reason: anxiety) Qty: 1 0RF Rx Instructions: Pre procedure medication amlodipine 5 mg tablet 5 mg PO DAILY amitriptyline 25 mg tablet 25 mg PO DAILY Trelegy Ellipta 100-62.5-25 mcg blister with device 1 inh INHALATION DAILY promethazine 25 mg tablet 25 mg PO Q6H PRN (Reason: headache) Qty: 20 0RF Discharge Orders: Discharge ED (Routine); Ordered 11/23/24 Ordered By: Keysha Ramos Referrals: Vonnie Tucker MD [Primary Care Provider, Internal Medicine] Patient Instructions: Esophagitis (ED), Patient Portal & Merari Instructions Activity Restrictions/Additional Instructions: As we discussed, I would like you to follow-up with your oncology team and/your primary care for further evaluation of symptoms in case medications do not help. You may return to the emergency department at anytime for any further concerns you may have. Print Language: Yi Coding Level of Care Code ED Fire Official for Bonilla Gramajo
[2024-11-23 11:27] VITALS: BP 150/87; PULSE 99; RESP 16; O2SAT 96
[2024-11-23 11:49] LABS: Hematocrit 29.2 % (36-47); Hemoglobin 9.20 g/dL (11.27-16.99); Mean Corpuscular HGB Conc 31.5 g/dL (30-55); Mean Corpuscular Hemoglobin 30.0 pg (27-33); Mean Corpuscular Volume 95.1 fl (85-98); Nucleated Red Blood Cells % 0 %; Platelet Count 154 10^3/cmm (157-399); Red Blood Count 3.07 10^6/uL (3.85-5.65); White Blood Count 4.50 10^3/uL (3.29-11.43)
[2024-11-23] MEDS: lidocaine 2% viscous 15 ML, aluminum-mag hydrox-simethicon 30 ML, sucralfate oral liq 1 GM PO (11:52)
[2024-11-23 12:12] LABS: Alanine Aminotransferase 17 U/L (0-33); Albumin Level 3.9 g/dL (3.5-5.2); Alkaline Phosphatase 111 U/L (35-105); Anion Gap 16.8 (5-19); Aspartate Amino Transferase 22 U/L (0-32); Blood Urea Nitrogen 8 mg/dL (8-23); Calcium 9.1 mg/dL (8.5-10.5); Carbon Dioxide 22 mmol/L (22-29); Chloride 107 mmol/L (98-107); Creatinine Clr Calc Pharmacy 50.8540; Globulin 1.7 g/dL (1.3-4.6); Glucose 93 mg/dL (65-115); Osmolality Calculated 292 mOsm/kg (285-295); Potassium 3.8 mmol/L (3.5-5.1); Sodium 142 mmol/L (136-145); Total Protein 5.6 g/dL (6.6-8.7)
[2024-11-23 12:13] LABS: Troponin(5th) Baseline 20 ng/L (0-10)
[2024-11-23 12:22] VITALS: BP 150/87; PULSE 101; RESP 18; O2SAT 97
[2024-11-23] MEDS: morphine 4 mg/mL SDV 1 mL IVP (12:23)
[2024-11-23] MEDS: ondansetron 2 mg/ML SDV 2 mL 4 MG IVP (12:23)
[2024-11-23 12:35] VITALS: BP 148/88; PULSE 100; RESP 16; O2SAT 93
--- NOTE | 2024-11-23 13:05 | ECG_ITS ---
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 Measurements Intervals [place] Rate: 95 P: 65 [place]: 167 QRS: -42 QRSD: 105 T: 91 QT: 296 QTc: 372 Interpretive Statements SINUS RHYTHM LEFT AXIS DEVIATION [QRS AXIS < -30] INCOMPLETE RIGHT BUNDLE BRANCH BLOCK [90+ ms QRS DURATION, TERMINAL R IN V1/V2, 40+ ms S IN I/aVL/V4/V5/V6] ANTEROSEPTAL MYOCARDIAL INFARCTION , OF INDETERMINATE AGE [40+ ms Q WAVE IN V1-V4] Compared to ECG 11/23/2024 11:09:03 Sinus tachycardia no longer present Myocardial infarct finding still present Electronically Signed On 11-23-2024 18:15:11 CDT by Galileo Martin M.D. [email or web address] [id number]
[2024-11-23 13:46] LABS: Troponin 5 2HR 18.93 ng/L (0-10)
[2024-11-23 13:47] LABS: Troponin 5 2HR Delta -1.07 ABS# (0-10)
[2024-11-23 14:07] VITALS: BP 138/81; PULSE 101; O2SAT 96
[2024-11-23 14:16] VITALS: BP 138/81; PULSE 101; O2SAT 94
== END 2024-11-23 14:17 | disposition home or self-care (01) ==
PROVIDERS: Family Medicine; Emergency Provider Physician Assistant; PCP Internal Medicine
DX: K20.80 Other esophagitis without bleeding (principal); F17.210 Nicotine dependence, cigarettes, uncomplicated; I10 Essential (primary) hypertension; Z85.118 Personal history of other malignant neoplasm of bronchus and lung
CPT/HCPCS: 36415; 71045; 80053; 84484; 85025; 93005; 96374; 96375; 99285; J2270; J2405; J9999

== ENCOUNTER 2024-11-29 12:13 | Emergency (ER) | payer OTHER, SELFPAY ==
--- OUTSIDE RECORDS SUMMARY | 2024-11-29 12:18 | XMS_ITS | Patient Health Record ---
Author Organization [facility] Address [address] [place] [address] Care Team Providers Care Oyster Floater Name Role Phone DR. Vonnie Tucker Primary Care Provider Xavier Hoover Unavailable [phone] Allergies Allergen (clinical drug ingredient) Drug/Non Drug Allergy documented on EMR Reaction Allergy Type Onset Date Status codeine Codeine Unknown Drug Allergy Active Results Component Value Reference Range Notes Prothrombin Time 44442 Reviewed date:08/05/2024 11:59:04 AM Interpretation: Performing Lab: Notes/Report: Diagnosis Description: Shortness of breath ProTime 10.9 9.1-11.9 SEC Normal Range: 9.1-11.9 INR 1.03 .90-1.20 Therapeutic Range: 2.0-3.0 Therapaeutic Range for heart valve replacement: 2.5-3.50 Gram Stain 20549 Reviewed date:08/05/2024 03:47:55 PM Interpretation: Performing Lab: Notes/Report: Gram Stain PIPER An Gram Stain t: Gram Stain Gram Stain [facility] [id number] Gram Stain n: Gram Stain Microbiology Gram Stain PROCEDURE: Gram Stai n [] Gram Stain SOURCE: Body Fl BODY SITE: Gram Stain COLLECTED DATE/TIME: 08/05/2024 13:01 CDT RECEIVED DATE/TIME: 08/05/2024 13:22 CDT Gram Stain START DATE/TIME: 08/05 13:22 CDT FREE TEXT SOURCE: Gram Stain STAINS/PREPARATIONS Gram Stain GS [] Gram Stain Verified Date/Time: 08/05/2024 14:02 CDT Gram Stain No organisms seen. Chest inspiratory/expiratory -69133 Reviewed date:08/06/2024 07:56:44 AM Interpretation: Performing Lab: Notes/Report: See Below For Report Chest inspiratory/expiratory report called to RN @ 1700 Read See Below For Report Chest inspiratory/expiratory -98568 Reviewed date:08/05/2024 03:47:55 PM Interpretation: Performing Lab: Notes/Report: See Below For Report Chest inspiratory/expiratory 08/05/2024 14:24:14 called rpt to rn Read See Below For Report Chest inspiratory/expiratory -31001 Reviewed date:08/05/2024 03:47:55 PM Interpretation: Performing Lab: Notes/Report: See Below For Report Chest inspiratory/expiratory Read See Below For Report CT Guidance for Needle-Biops [id number] Reviewed date:08/05/2024 03:47:55 PM Interpretation: Performing Lab: Notes/Report: See Below For Report CT Guidance for Vqwbwt-Vehwez-Kmkj Read See Below For Report CT Guidance for Needle-Biops [id number] Reviewed date:08/05/2024 11:59:04 AM Interpretation: Performing Lab: Notes/Report: [id number] Culture, Tissue--[id number] Reviewed date:08/09/2024 12:58:01 PM Interpretation: Performing Lab: Notes/Report: Culture Tissue Jenn ALEMAN PIPER Culture Tissue t: Culture Tissue Culture Tissue [facility] [id number] Culture Tissue n: Culture Tissue Microbiology Culture [...] Interpretation: Performing Lab: Notes/Report: CT Guidance for Xtrijc-Uwerjm-Vojk Schedule Confirmation Reviewed date:07/26/2024 12:02:42 PM Interpretation: Performing Lab: Notes/Report: CT Guidance for Pyhsgq-Stdxyv-Kuue Reason For Referral Reason LUNG MASS 07/20: G AMEEE DR. RUSSO CT REPORT-NEED IMAGES JackpocketHARED 07/20: 1 WK PER KARAN Scheduled 07/22/2024 @ 10 AM Diagnosis 1 Lung mass (R91.8) Referring Provider First Name Vonnie Referring Provider Last Name Caitlin Referring Provider Speciality Internal M edicine Referred Organization [facility] Referred Provider Xavier Russo Referred Address [address] [place] [address] [address],[place],[address], General Notes Felipa Sandoval 07/20 08:43:24 AM >07/20: GAVE DR. RUSSO CT REPORT-NEED IMAGES POWERSHARED, Felipa Sandoval 07/20/2024 04:20:13 PM >Scheduled 07/22/2024 @ 10 AM, Felipa Sandoval 07/20/2024 04:21:20 PM >LVM for Radiology to OrderAheadhare CT., Felipa Sandoval 07/21/2024 08:26:25 AM >Images OrderAheadhared Referral Priority Stat Reason Malignant neoplasm r ight lung Diagnosis 1 Malignant neoplasm o f upper lobe of right lung (C34.11) Referral Organization [facility] Referring Provider First Name Xavier Referring Provider Last Name Karan Referring Provider Speciality Pulmonary Diseases Referred Provider [facility] Referred Provider Specialty Oncology General Notes Esther [...] W/U Status Risk Notes Problem Tobacco user (800773457) Nicotine dependence, cigarettes, uncomplicated (F17.210) Active confirmed Problem Solitary pulmonary nodule (874335383) Solitary pulmonary nodule (R91.1) Active confirmed Problem Malignant neoplasm of upper lobe, bronchus or lung (833853998) Malignant neoplasm of upper lobe of right lung (C34.11) Active confirmed Problem Chronic respiratory failure (00058625) Chronic hypoxic respiratory failure (J96.11) Active confirmed [...] Date Provider Diagnosis [facility] [address] [place] [address] [place] [address] 07/22/2024 Xavier Russo Solitary pulmonary nodule R91.1 ; Chronic cough R05.3 ; Nicotine dependence, cigarettes, uncomplicated F17.210 ; Encounter for smoking cessation counseling Z71.6 and Shortness of breath R06.02 [facility] [address] [place] [address] [place] [address] 08/09/2024 Xavier Russo Chronic cough R05.3 ; [...] F17.210) Patient has smoked up to 3 tpkih-[id number] for 42 years. Smoking cessation emphasized. 07/22/2024 Nicotine dependence, cigarettes, uncomplicated (ICD-10 - F17.210) Patient has smoked up to 3 dshmt-tbe-ohc for 42 years. Smoking cessation emphasized. 07/22/2024 [...] Test Test Name Order Date Prothrombin Time 70565 07/22/2024 Carbon Monoxide Diffusing Capacity-60805 08/09/2024 PFT SpHb-68138 08/09/2024 PFT Thoracic Gas Volume-47307 08/09/2024 Spirometry With Bronchodilator-82885 02/2025 PFT with FRC: (NO TGV) 07/22/2024 Spirometry Without Bronchodilator-17319 08/09/2024 Insurance Providers Payer Name Payer Address Payer Phone Subscriber Number Group Number Insured Name Patient Relationship to Insured Coverage Start Date Coverage End Date [facility] [address] [address] [place] [address] [id number] PIPER ALEMAN Self - patient is the insured Medical (General) History Medical History History ICD Code measles mumps chicken pox pneumonia anemia migraine headache back trouble hypertension asthma bronchitis Surgical History Surgery Date(Month/Year) Back Surgery 03/12/2021 Back Surgery 12/25/2020 Neck Surgery 03/05/2021 Hospitalization History Reason Date(Month/Year) See Surgical HX
--- OUTSIDE RECORDS SUMMARY | 2024-11-29 12:18 | XMS_ITS | Clinical Summary ---
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 Gender Identity Not on file Sexual Orientation Not on file Last Filed Vital Signs Vital Sign Reading Time Taken Comments Blood Pressure 121/70 02/03/2019 10:43 AM FIRE PRODUCTION OPERATOR Pulse 69 02/03/2019 10:43 AM FIRE PRODUCTION OPERATOR Temperature 37.6 C (99.6 F) 02/03/2019 10:43 AM FIRE PRODUCTION OPERATOR Respiratory Rate 16 02/03/2019 10:43 AM FIRE PRODUCTION OPERATOR Oxygen Saturation - - Inhaled Oxygen Concentration - - Weight 39.9 kg (88 lb) 02/03/2019 9:26 AM FIRE PRODUCTION OPERATOR Height 142.2 cm (4' 8 ) 02/03/2019 9:26 AM FIRE PRODUCTION OPERATOR Body Mass Index 19.73 02/03/2019 9:26 AM FIRE PRODUCTION OPERATOR Plan of Treatment Health Maintenance Due Date [...] - 1-dose 75+ series) 2036 Care Teams Compliance Review Officer Relationship Specialty Start Date End Date Vonnie Tucker MD [address] [place] [address] PCP - General Internal Medicine 01/01/19
--- OUTSIDE RECORDS SUMMARY | 2024-11-29 12:18 | XMS_ITS | Encounter Summary ---
Author Organization [facility] Address [address] [place] [address] Care Team Providers Care Station Operator Name Role Phone Vonnie Tucker MD Primary Care Provider [phone]- [phone] Reason for Referral * CT Scan (Routine) - Closed Specialty Diagnoses / Procedures Referred By Robin young Referred To Contact Radiology Diagnoses Intervertebral disc disorder with radiculopathy of lumbosacral region Procedures CT LUMBAR SPINE W CONTRAST Queta Parks FNP [address] [place] [address] Phone: tel: fax: [facility] CT Scan [address] [place] [address] Phone: tel: fax: Referral ID Status Reason Start Date Expiration Date V isits Requested Visits Authorized [id number] Closed [facility] TO SCHEDULE ([facility]) 12/31/2018 01/31/2020 1 1 * Radiology Services (Routine) - Closed Specialty Diagnoses / Procedures Referred By Robin young Referred To Contact Radiology Diagnoses Intervertebral disc disorder with radiculopathy of lumbosacral region Procedures XR MYELOGRAM LUMBAR MN MYELOGRAPHY VIA LUMBAR INJECT RS&I LUMBOSACRAL CHG FLUOROSCOPY UP TO 1 HOUR PHYSICIAN/QHP TIME Queta Parks FNP [address] [place] [address] Phone: tel: fax: [facility] Imaging Services [address] [place] [address] Phone: tel: fax: Referral ID Status Reason Start Date Expiration Date V isits Requested Visits Authorized [id number] Closed [facility] TO SCHEDULE ([facility] [place]) 12/31/2018 01/31/2020 1 1 Encounter Details Date Type Department Care Team (Late st Contact Info) Description 12/31/2018 Ancillary Orders [facility] Pre-Registration [place] CALL TO MAKE APPOINTMENT ONLY [address] [place] [address] Queta Parks FNP [address] [place], [place] [id number] Intervertebral disc disorder with radiculopathy of lumbosacral [...] LUMBAR SPINE W CONTRAST (02/03/2019 11:05 AM DATA STEWARD) Anatomical Region Laterality Modality Spine Computed Tomogra phy 02/03/2019 11:0 5 AM DATA STEWARD Impressions 02/03/2019 12:51 PM DATA STEWARD IMPRESSION: Please see below. Exam: CT LUMBAR [...] Severe bilateral neural foraminal narrowing at L5-S1. [id number] Narrative Procedure Note Solomon Aguilar DO - [...] Severe bilateral neural foraminal narrowing at L5-S1. [id number] Queta Parks [facility] CT ORDERABLES Final Result * XR MYELOGRAM LUMBAR (02/03/2019 10:33 AM DATA STEWARD) Anatomical Region Laterality Modality Spine Computed Radiogr aphy 02/03/2019 10:3 3 AM DATA STEWARD Impressions 02/03/2019 12:33 PM DATA STEWARD IMPRESSION: Please see below. Exam: XR MYELOGRAM [...] myelography results and reporting. Queta Cali Jarquinen TECH[employer]ICAL PUBLICATION[employer] WRITER DIAGNOSTIC IMAGING ORDERABLES Final Result documented in this encounter Visit Diagnoses Diagnosis Intervertebral disc disorder with radiculopathy of lumbosacral region Thoracic or lumbosacral neuritis or radiculitis, unspecified Intervertebral disc disorder with radiculopathy of lumbosacral region Thoracic or lumbosacral neuritis or radiculitis, unspecified Intervertebral disc disorder with radiculopathy of lumbosacral region Thoracic or lumbosacral neuritis or radiculitis, unspecified documented in this encounter Care Teams Station Operator Relationship Specialty Start Date End Date Vonnie Tucker MD [address] [place] [address] PCP - General Internal Medicine 01/01/19 documented as of this encounter
--- OUTSIDE RECORDS SUMMARY | 2024-11-29 12:18 | XMS_ITS | Clinical Summary ---
Author Organization [facility] Address [address] [place] [address] Phone Care Team Providers Care [employer] Name Role Phone Vonnie Tucker MD Primary Care Provider +1- [phone] Allergies Active Allergy Reactions Criticality Noted Date [...] Comments Blood Pressure 121/70 02/03/2019 10:43 AM [facility] Pulse 69 02/03/2019 10:43 AM [employer] [employer] Temperature 37.6 C (99.6 F) 02/03/2019 10:43 AM [facility] Respiratory Rate 16 02/03/2019 10:43 AM [facility] Oxygen Saturation 96% 02/03/2019 10:43 AM [facility] Inhaled Oxygen Concentration - - Weight 39.9 kg (88 lb) 02/03/2019 9:26 AM [facility] Height 142.2 cm (4' 8 ) 02/03/2019 9:26 AM [facility] Body Mass Index 19.73 02/03/2019 9:26 AM [facility] Plan of Treatment Health Maintenance Due Date [...] 75+ series) 2036 Insurance [employer] Care Teams [employer] Relationship Specialty Start Date End Date Vonnie Tucker MD [address] [place] [id number] PCP - General Internal Medicine 01/01/19
[2024-11-29 12:26] VITALS: BP 133/95; PULSE 110; RESP 20; TEMP 36.7; O2SAT 92; BMI 16.5
--- NOTE | 2024-11-29 12:30 | XRR_ITS ---
PROCEDURE INFORMATION: Exam: XR Chest Exam date and time: 11/29/2024 12:31 PM Age: 64 years old Clinical indication: Shortness of breath; Prior surgery; Surgery date: 6+ months; Surgery type: Port; Additional info: R sided chest/epigastric pain TECHNIQUE: Imaging protocol: Radiologic exam of the chest. Views: 1 view. COMPARISON: CR XR chest 1V portable [id number] 11/23/2024 11:38 AM PET-CT 08/13/2024 FINDINGS: Tubes, catheters and devices: A right internal jugular central venous port catheter is similar in position likely terminating in the proximal SVC. Lungs: Unremarkable. No consolidation. Pleural spaces: Unremarkable. No pleural effusion. No pneumothorax. Heart/Mediastinum: Unremarkable. No cardiomegaly. Bones/joints: There is a similar healed right posterolateral 7th rib fracture. Degenerative changes in the visualized spine are noted. Soft tissues: There are right upper quadrant abdominal surgical clips. XR/XR chest 1V portable [id number] IMPRESSION: No acute findings.
--- NOTE | 2024-11-29 12:32 | CTR_ITS ---
PROCEDURE INFORMATION: Exam: CTA Chest With Contrast Exam date and time: 11/29/2024 12:52 PM Age: 64 years old Clinical indication: Pain; Right-sided; Prior surgery; Surgery date: 6+ months; Surgery type: Port; Additional info: R sided chest pain, known malignancy, compare to recent CT chest a few months ago TECHNIQUE: Imaging protocol: Computed tomographic angiography of the chest with contrast. Exam focused on the arteries. 3D rendering (Not supervised by radiologist): MIP and/or 3D reconstructed images were created by the technologist. Radiation optimization: All CT scans at this facility use at least one of these dose optimization techniques: automated exposure control; mA and/or kV adjustment per patient size (includes targeted exams where dose is matched to clinical indication); or iterative reconstruction. Contrast material: OMNI 350; Contrast volume: 37 ml; Contrast route: INTRAVENOUS (IV); COMPARISON: Chest x-ray 11/29/2024, CT radiotherapy guidance 09/16/2024, PT PET skull to thigh INIT [id number] 08/13/2024 1:20 PM, CT chest screening 07/19/2024 RADIATION DOSE METRICS: Total DLP (mGy-cm): 111.72 FINDINGS: Tubes, catheters and devices: A right internal jugular central venous port catheter terminates in the proximal right atrium. Pulmonary arteries: Normal. No pulmonary emboli. Aorta: Atherosclerotic calcifications within the aorta are noted. Other arteries: Upper abdominal atherosclerotic calcifications are present. Lungs: Two adjacent solid nodules in the posterior right upper lobe with cavitary components demonstrating decreased solid components and increased cavitary components compared with 09/16/2024. These nodules were radiotracer avid on the prior PET-CT. The largest solid component currently measures 2.1 x 1.9 cm (previously 3.3 x 2.8 cm) on series 6, image 184. Mild bilateral centrilobular emphysematous changes are present. Pleural spaces: Unremarkable. No pneumothorax. No pleural effusion. Heart: Unremarkable. No cardiomegaly. No pericardial effusion. Coronary arteries: Coronary artery atherosclerotic calcifications are noted. Lymph nodes: Mildly prominent mediastinal lymph nodes are noted and appear decreased in size compared with 09/16/2024. Examples: A right paratracheal lymph node measuring 1.4 cm (previously 2.1 cm) in short axis is noted on series 6, image 166; a subcarinal lymph node measuring 1.2 cm (previously 2.0 cm) in short axis in the subcarinal space is noted on series 6, image 250. There is decreased size of a right inferior hilar lymph node measuring 1.1 cm (previously 1.4 cm) in short axis on series 6, image 230. This lymph node was radiotracer avid on the prior PET-CT. Gallbladder and biliary ducts: Mild intrahepatic biliary ductal dilatation appears similar within the visualized liver. Spleen: There is a calcified granuloma in the spleen. Adrenal glands: Mild low-density thickening of the bilateral adrenal glands is noted. Bones/joints: Mild to moderate diffuse degenerative vertebral body spondylosis is noted. Posterior metallic fusion extends superiorly from the level of T2 off the image the view. No acute fracture. Healed anterolateral right 6th rib fracture with interval increase in healing compared with 09/16/2024. Soft tissues: Unremarkable. CT/CT angio chest PE protcl [id number] IMPRESSION: 1. No acute findings. 2. Interval decrease in solid nodularity in the posterior right upper lobe. With the prior examinations. 3. Decreased mediastinal and right hilar lymphadenopathy compared with 09/16/2024. 4. Mild low-density nodularity of the adrenal glands is noted likely related to the presence of adenomas or hyperplasia. These branches were not radiotracer avid on the prior PET-CT. 5. Additional nonurgent findings as detailed above. COMMENTS: The presence of pulmonary emphysema on CT is an independent risk factor for lung cancer. In the absence of a history or active diagnosis of lung cancer, it is recommended that this patient with emphysema be evaluated for enrollment in a low dose CT lung cancer screening program.
--- NOTE | 2024-11-29 12:33 | W.ED.ABDPA2 ---
HPI - Abdominal Pain General: Chief Complaint: Shortness of Breath/Dyspnea Stated Complaint: NV / rt side armpit pain Time Seen by Provider: 11/29/24 12:15 Source: patient Mode of arrival: ambulatory Limitations: no limitations History of Present Illness: Patient is a 64-year-old female with known history of lung cancer actively undergoing chemo/radiation here for complaint of epigastric/chest pain. She states pain is similar to when she was seen here last week. Personally saw patient at that visit and felt symptoms were related to radiation esophagitis as she has had similar symptoms and symptoms were completely alleviated after a GI cocktail and administering her normal narcotic medications which she was out of. Extensive workup was completed at that visit including cardiac workup. She states she was doing good until this morning when pain returned. She states she has been taking the viscous lidocaine and Carafate liquid that was prescribed to her on her last visit. She has also been taking her hydrocodone-states twice daily. She does have omeprazole that was prescribed to her by Dr. Johnson but states she only takes this as needed. she states pain radiates into the right side of her chest. States she has chronic dyspnea and feels this is at baseline. She has not had any vomiting. No recent URI symptoms or fevers. MD elicited complaint: abdominal pain (epigastric/chest pain) Onset (ago): week(s) (she has had symptoms for weeks-worse this AM) Pain Consistency: constant Location: Chest and Epigastric Severity: severe Radiation: none Migration to: no migration Exacerbating factors: eating Relieving factors: other (usually her hydrocodone) Associated Symptoms: Reports nausea; Denies change in bowel habits, chills, fever(s), hematemesis, melena, syncope and vomiting Related Data Home Medications ?Medication ?Instructions ?Recorded ?Confirmed fluoxetine 20 mg capsule (Prozac) 20 mg PO QAM 04/19/19 11/29/24 fluoxetine 40 mg capsule 40 mg PO DAILY 01/20/24 11/29/24 amitriptyline 25 mg tablet 25 mg PO BEDTIME 07/07/24 11/29/24 amlodipine 5 mg tablet 5 mg PO DAILY 07/07/24 11/29/24 fluticasone fur. 100 mcg-umeclid 1 inh inhalation DAILY 07/07/24 11/29/24 62.5 mcg-vilant 25 mcg inhalat.powder (Trelegy Ellipta) diazepam 10 mg tablet (Valium) See Rx Instructions .Route 11/29/24 11/29/24 .COMPLEX PRN anxiety Previous Rx's ?Medication ?Instructions ?Recorded baclofen 5 mg tablet 5 mg PO DAILY PRN muscle spasm #20 07/27/24 tabs dexamethasone 4 mg tablet 20 mg (5 x 4 mg) PO .COMPLEX #40 09/21/24 tabs ondansetron HCl 4 mg tablet 4 mg PO Q6H PRN nausea and 09/21/24 vomiting #30 tabs prochlorperazine maleate 10 mg 10 mg PO Q4H PRN mild nausea #30 09/21/24 tablet (Compazine) tabs lidocaine-prilocaine 2.5 %-2.5 % 1 applic topical .COMPLEX #30 grams 09/22/24 topical cream gabapentin 100 mg capsule 100 mg PO BID #60 caps 10/11/24 lorazepam 0.5 mg tablet (Ativan) 0.25 mg (1/2 x 0.5 mg) PO Q8H PRN 10/26/24 anxiety #30 tabs hydrocodone 5 mg-acetaminophen 325 1 tab PO TID PRN pain 30 days #60 11/26/24 mg tablet tabs lidocaine HCl 2 % mucosal solution 5 ml PO QID #100 mL 11/29/24 (Lidocaine Viscous) omeprazole 40 mg capsule,delayed 40 mg PO BID #30 caps 11/29/24 release sucralfate 100 mg/mL oral 1 g (10 mL) PO BID #400 mL 11/29/24 suspension (Carafate) Allergies Allergy/AdvReac Type Severity Reaction Status Date / Time clindamycin (From Cleocin) Allergy Severe anaphylaxis Verified 11/18/24 09:09 codeine Allergy Mild chest Verified 11/18/24 09:09 pain, abdominal pain tizanidine Allergy upset Verified 11/18/24 09:09 stomach topiramate (From Topamax) Allergy ADR-Headach Verified 11/18/24 09:09 e Review of Systems Const: Denies: fever(s), chills, body aches, fatigue or malaise Card: Reports: chest pain and dyspnea on exertion (chronic); Denies: palpitations, irregular heart rhythm, edema, swelling of feet/ankles, lightheadedness, syncope, pre-syncope, leg pain with exertion or acrocyanosis Resp: Reports: dyspnea (chronic-at baseline); Denies: productive cough, non-productive cough, wheezing, hemoptysis or chest congestion GI: Reports: abdominal pain (epigastric) and nausea; Denies: vomiting, hematemesis, change in bowel habits or melena Musc: Denies: neck pain, back pain, extremity pain or joint swelling Skin/Breast: Denies: rash Neuro: Denies: headache(s), numbness in extremities, weakness in extremities, sensory changes or dizziness PFSH ED PFSH: Medical History Displacement of lumbar disc with radiculopathy Lumbar disc disease with radiculopathy Nicotine abuse Myocardial infarction HTN (hypertension) Surgical History History of lumbar laminectomy Left L3-L4 laminotomy/discectomy/foraminotomy 03/08/19 Dr. Yenifer Becker History of myringotomy (~1985) left, 1985. Performed in [place] History of cholecystectomy (~1998) Performed in [place]. Took out appendix during same surgery. History of tonsillectomy performed in her 20's in [place] History of hysterectomy (~1989) Performed in [facility] due to hemorrhaging, states patient. Hx of total cystectomy back of left leg 2x performed in [place] History of appendectomy (~1998) Performed in [place] Family History Father Heart disease Hypertension Mother Diabetes Hypertension Brother Diabetes Hypertension Social History Smoking and tobacco/nicotine status: current every day tobacco/nicotine user (1/2 pack a day) cigarettes Packs smoked per day: 3 Years cigarettes smoked: 38 [ Other cigarette details: 10 cigarettes per day currently] Quit status (tobacco/nicotine): has tried quititng Alcohol intake: former Year of sobriety/quit date alcohol: 12 Substance/Drug Use: current Other substance/drug use details: HAS MED MARIJUANA CARD Household members: significant other Marital status: / Current occupational status: retired Physical Exam Const: COMMON NORMALS: patient oriented x3, no limitations and alert GENERAL APPEARANCE: cooperative and frail appearing NUTRITIONAL APPEARANCE: cachectic ORIENTATION/CONSCIOUSNESS: Yes awake, Yes oriented to person, Yes oriented to place and Yes oriented to time Eye: COMMON NORMALS: no scleral icterus Chest: COMMONS NORMALS: normal inspection of the chest OTHER: R chest wall Resp: COMMON NORMALS: normal respiratory effort and clear to auscultation bilaterally AUSCULTATION: clear to auscultation bilaterally Cardio: COMMON NORMALS: regular rate and regular rhythm RATE: regular rate RHYTHM: regular rhythm GI: COMMON NORMALS: Normal to inspection, nondistended, normoactive bowel sounds present, Soft to palpation, No hepatosplenomegaly present and no masses INSPECTION: Yes normal to inspection AUSCULTATION: Yes normoactive bowel sounds PALPATION: Yes Soft to palpation, Yes Tenderness to palpation present (GI) (epigastric), No Guarding due to palpation present (GI), No Rigid due to palpation and Yes No hepatosplenomegaly present : COMMON NORMALS: Yes no CVA tenderness BLADDER/KIDNEY EXAM: Yes no CVA tenderness Back/Pelvis: COMMON NORMALS: no CVA tenderness, thoracic and lumbar spine normal to inspection and no thoracic nor lumbar tenderness Extremity: GENERAL: Yes normal exam except as noted Neuro: COMMON NORMALS: patient oriented x3, moves all extremities, no focal motor deficits and no sensory deficits noted SENSORIUM/ORIENTATION: Yes alert, Yes oriented to person, Yes oriented to place and Yes oriented to time Skin: COMMON NORMALS: no rashes or lesions noted GENERAL SKIN EXAM: no rashes or lesions noted Course Vital Signs: Vital signs: Vital Signs Temperature 98.1 F 11/29/24 12:26 Pulse Rate 96 11/29/24 13:24 Respiratory Rate 20 H 11/29/24 12:52 Blood Pressure 133/95 11/29/24 13:24 Pulse Oximetry 89 L 11/29/24 13:24 MDM - Abdominal Pain Medical Decision Making Blood work today shows stable H&H. No concern at this time for a bleeding ulcer. White count is normal. Chemistry panel overall is unremarkable. Lipase is normal. CTA imaging obtained as she had initially complained of right-sided chest pain with shortness of breath although later told me her shortness of breath seems to be at baseline and she just feels like her breathing is secondary to being in pain. She was slightly tachycardic upon arrival with known history of malignancy so PE needed to be excluded as well as other etiologies for her worsening discomfort. CTA showing no acute findings. She will be provided refills of her Carafate and viscous lidocaine. Will have her start taking her PPI twice daily for 2 weeks and then daily after that. She can increase her hydrocodone to every 4-6 hours. Will try to get her a sooner appointment with her oncology team. Discussed other dietary modifications including soft, nonirritating foods and avoiding spicy/salty foods. Differential Diagnosis Likely abdominal pain Medical Records I reviewed the patient's medical records. Lab Data I reviewed the patient's lab results. 11/29/24 12:44 11/29/24 12:44 Labs/Radiology: Radiology Impressions Chest X-Ray 11/29/24 12:30 IMPRESSION: No acute findings. Chest CTA 11/29/24 12:32 IMPRESSION: 1. No acute findings. 2. Interval decrease in solid nodularity in the posterior right upper lobe. With the prior examinations. 3. Decreased mediastinal and right hilar lymphadenopathy compared with 09/16/2024. 4. Mild low-density nodularity of the adrenal glands is noted likely related to the presence of adenomas or hyperplasia. These branches were not radiotracer avid on the prior PET-CT. 5. Additional nonurgent findings as detailed above. COMMENTS: The presence of pulmonary emphysema on CT is an independent risk factor for lung cancer. In the absence of a history or active diagnosis of lung cancer, it is recommended that this patient with emphysema be evaluated for enrollment in a low dose CT lung cancer screening program. Laboratory Results WBC 5.82 10^3/uL (3.29-11.43) 11/29/24 12:44 RBC 2.99 10^6/uL (3.85-5.65) L 11/29/24 12:44 Hgb 9.20 g/dL (11.27-16.99) L 11/29/24 12:44 Hct 28.4 % (36-47) L 11/29/24 12:44 MCV 95.0 fl (85-98) 11/29/24 12:44 MCH 30.8 pg (27-33) 11/29/24 12:44 MCHC 32.4 g/dL (30-55) 11/29/24 12:44 RDW 21.5 % (12.1-15.1) H 11/29/24 12:44 Plt Count 144 10^3/cmm (157-399) L 11/29/24 12:44 MPV 9.2 fL (7.4-10.4) 11/29/24 12:44 Neut % (Auto) 77.1 % 11/29/24 12:44 Lymph % (Auto) 11.7 % 11/29/24 12:44 Taliaferro % (Auto) 10.1 % 11/29/24 12:44 Eos % (Auto) 0.3 % 11/29/24 12:44 Baso % (Auto) 0.3 % 11/29/24 12:44 Neut # (Auto) 4.48 10^3/uL (1.8-7.7) 11/29/24 12:44 Lymph # (Auto) 0.7 10^3/uL (0.8-4.8) L 11/29/24 12:44 Taliaferro # (Auto) 0.6 10^3/uL (0.2-0.9) 11/29/24 12:44 Eos # (Auto) 0.0 10^3/uL (0.0-0.8) 11/29/24 12:44 Baso # (Auto) 0.0 10^3/uL (0.0-0.1) 11/29/24 12:44 Nucleated RBC % (auto) 0 % 11/29/24 12:44 Nucleated RBCs # 0.0 /100WBC 11/29/24 12:44 Sodium 141 mmol/L (136-145) 11/29/24 12:44 Potassium 3.6 mmol/L (3.5-5.1) 11/29/24 12:44 Chloride 104 mmol/L (98-107) 11/29/24 12:44 Carbon Dioxide 26 mmol/L (22-29) 11/29/24 12:44 Anion Gap 14.6 (5-19) 11/29/24 12:44 BUN 11 mg/dL (8-23) 11/29/24 12:44 Creatinine 0.7 mg/dL (0.5-0.9) 11/29/24 12:44 GFR Calculation 84.5 mL/min (90-130) L 11/29/24 12:44 Glucose 120 mg/dL (65-115) H 11/29/24 12:44 Calculated Osmolality 293 mOsm/kg (285-295) 11/29/24 12:44 Calcium 9.0 mg/dL (8.5-10.5) 11/29/24 12:44 Total Bilirubin 0.3 mg/dL (0.15-1.2) 11/29/24 12:44 AST 17 U/L (0-32) 11/29/24 12:44 ALT 12 U/L (0-33) 11/29/24 12:44 Alkaline Phosphatase 107 U/L (35-105) H 11/29/24 12:44 Total Protein 6.1 g/dL (6.6-8.7) L 11/29/24 12:44 Albumin 3.8 g/dL (3.5-5.2) 11/29/24 12:44 Globulin 2.3 g/dL (1.3-4.6) 11/29/24 12:44 Lipase 28 U/L (13-60) 11/29/24 12:44 All radiology interpretation(s) finalized by discharge Discharge Plan Discharge Patient Disposition: Home Clinical Impression: Radiation esophagitis Condition: Stable Prescriptions: Continued sucralfate [Carafate] 100 mg/mL suspension 1 g PO BID Qty: 400 0RF lidocaine HCl [Lidocaine Viscous] 2 % solution 5 ml PO QID Qty: 100 0RF Changed omeprazole 40 mg capsule,delayed release(DR/EC) 40 mg PO BID Qty: 30 0RF No Action fluoxetine [Prozac] 20 mg capsule 20 mg PO QAM Rx Instructions: along with 40mg to=60mg total baclofen 5 mg tablet 5 mg PO DAILY PRN (Reason: muscle spasm) Qty: 20 0RF lidocaine-prilocaine 2.5-2.5 % cream 1 applic topical .COMPLEX Qty: 30 2RF Rx Instructions: Apply quarter-size amount to port site 30 minutes prior to access; cover with cling wrap gabapentin 100 mg capsule 100 mg PO BID Qty: 60 0RF Rx Instructions: one cap at bedtime for 5 days then may add additional cap in morning if needed fluoxetine 40 mg capsule 40 mg PO DAILY Rx Instructions: along with 20mg to=60mg total ondansetron HCl 4 mg tablet 4 mg PO Q6H PRN (Reason: nausea and vomiting) Qty: 30 3RF prochlorperazine maleate [Compazine] 10 mg tablet 10 mg PO Q4H PRN (Reason: mild nausea) Qty: 30 3RF dexamethasone 4 mg tablet 20 mg PO .COMPLEX Qty: 40 3RF Rx Instructions: Take 20 mg (5 tab) 12 hours and 6 hours prior to taxol treatment. lorazepam [Ativan] 0.5 mg tablet 0.25 mg PO Q8H PRN (Reason: anxiety) Qty: 30 0RF hydrocodone-acetaminophen 5-325 mg tablet 1 tab PO TID PRN (Reason: pain) 30 Days Qty: 60 0RF amlodipine 5 mg tablet 5 mg PO DAILY amitriptyline 25 mg tablet 25 mg PO BEDTIME Trelegy Ellipta 100-62.5-25 mcg blister with device 1 inh INHALATION DAILY diazepam [Valium] 10 mg tablet See Rx Instructions .ROUTE .COMPLEX PRN (Reason: anxiety) Rx Instructions: Take 10 mg orally as needed pre procedure for anxiety. Discharge Orders: Discharge ED (Routine); Ordered 11/29/24 Ordered By: Keysha Ramos Referrals: Vonnie Tucker MD [Primary Care Provider, Internal Medicine] Patient Instructions: Esophagitis (ED), Opioid Safety, Pain Management, Patient Portal & [facility] Instructions Activity Restrictions/Additional Instructions: As we discussed, we will provide you refills of your Carafate and viscous lidocaine. I have given you an additional refill of your omeprazole in case you need more of this. As we discussed, I would like you to begin taking your omeprazole 40 mg twice daily over the next 2 weeks (instead of as needed as you have been taking it). After 2 weeks you can start taking once daily. Continue to avoid salty/spicy foods. Soft/non-irrigating foods are best. I will try and get you a sooner appointment with your oncology team. As we discussed you can take your hydrocodone as needed every 4-6 hours. 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
[2024-11-29 12:52] VITALS: RESP 20; O2SAT 92
[2024-11-29] MEDS: morphine 4 mg/mL SDV 1 mL IVP (12:52)
[2024-11-29] MEDS: ondansetron 2 mg/ML SDV 2 mL 4 MG IVP (12:52)
[2024-11-29] MEDS: lidocaine 2% viscous 15 ML, aluminum-mag hydrox-simethicon 30 ML, sucralfate oral liq 1 GM PO (12:53)
[2024-11-29 12:55] LABS: Hematocrit 28.4 % (36-47); Hemoglobin 9.20 g/dL (11.27-16.99); Mean Corpuscular HGB Conc 32.4 g/dL (30-55); Mean Corpuscular Hemoglobin 30.8 pg (27-33); Mean Corpuscular Volume 95.0 fl (85-98); Nucleated Red Blood Cells % 0 %; Platelet Count 144 10^3/cmm (157-399); Red Blood Count 2.99 10^6/uL (3.85-5.65); White Blood Count 5.82 10^3/uL (3.29-11.43)
[2024-11-29] MEDS: iohexol 350 mg/mL 500 mL Btl (per mL) IV (12:57)
[2024-11-29 13:13] LABS: Alanine Aminotransferase 12 U/L (0-33); Albumin Level 3.8 g/dL (3.5-5.2); Alkaline Phosphatase 107 U/L (35-105); Anion Gap 14.6 (5-19); Aspartate Amino Transferase 17 U/L (0-32); Blood Urea Nitrogen 11 mg/dL (8-23); Calcium 9.0 mg/dL (8.5-10.5); Carbon Dioxide 26 mmol/L (22-29); Chloride 104 mmol/L (98-107); Creatinine Clr Calc Pharmacy 43.5892; Globulin 2.3 g/dL (1.3-4.6); Glucose 120 mg/dL (65-115); Lipase 28 U/L (13-60); Osmolality Calculated 293 mOsm/kg (285-295); Potassium 3.6 mmol/L (3.5-5.1); Sodium 141 mmol/L (136-145); Total Protein 6.1 g/dL (6.6-8.7)
[2024-11-29] MEDS: HYDROmorphone 0.5 MG/0.5 ML INJ IVP (13:21)
[2024-11-29 13:24] VITALS: BP 133/95; PULSE 96; O2SAT 89
[2024-11-29] MEDS: pantoprazole 40 mg SDV IVP (13:56)
[2024-11-29 14:13] VITALS: BP 133/95; PULSE 109; O2SAT 90
--- NOTE | 2024-11-29 14:17 | DCPLANNER ---
messaged oncology to ask for sooner appt
== END 2024-11-29 14:14 | disposition home or self-care (01) ==
PROVIDERS: Emergency Provider Physician Assistant; PCP Internal Medicine
DX: K20.80 Other esophagitis without bleeding (principal); C34.91 Malignant neoplasm of unspecified part of right bronchus or lung; I10 Essential (primary) hypertension; F17.210 Nicotine dependence, cigarettes, uncomplicated; Z92.21 Personal history of antineoplastic chemotherapy; Z92.3 Personal history of irradiation
CPT/HCPCS: 71045; 71275; 80053; 83690; 85025; 96374; 96375; 99285; J1171; J2270; J2405; J2470; J9999

== ENCOUNTER 2024-12-24 13:43 | Emergency (ER) | payer OTHER, SELFPAY ==
[2024-12-24 13:44] VITALS: BP 148/65; PULSE 95; RESP 20; TEMP 36.7; O2SAT 90
--- OUTSIDE RECORDS SUMMARY | 2024-12-24 13:48 | XMS_ITS | Encounter Summary ---
Author Organization [facility] Address [address] [place] [address] Care Team Providers Care Airconditioning Plant Operator Name Role Phone Vonnie Tucker MD Primary Care Provider [phone] Reason for Referral * CT Scan (Routine) - Closed Specialty Diagnoses / Procedures Referred By Robin young Referred To Contact Radiology Diagnoses Intervertebral disc disorder with radiculopathy of lumbosacral region Procedures CT LUMBAR SPINE W CONTRAST Queta Parks FNP [address] [place] [address] Phone: tel: fax: [facility] CT Scan [address] [place] [address] Phone: tel: fax: Referral ID Status Reason Start Date Expiration Date V isits Requested Visits Authorized [id number] Closed [facility] TO SCHEDULE ([facility]) 12/31/2018 01/31/2020 1 1 * Radiology Services (Routine) - Closed Specialty Diagnoses / Procedures Referred By Robin young Referred To Contact Radiology Diagnoses Intervertebral disc disorder with radiculopathy of lumbosacral region Procedures XR MYELOGRAM LUMBAR NC MYELOGRAPHY VIA LUMBAR INJECT RS&I LUMBOSACRAL CHG FLUOROSCOPY UP TO 1 HOUR PHYSICIAN/QHP TIME Queta Parks FNP [address] [place] [address] Phone: tel: fax: [facility] [address] [place] [address] Phone: tel: fax: Referral ID Status Reason Start Date Expiration Date V isits Requested Visits Authorized [id number] Closed [facility] [place] [place] 12/31/2018 01/31/2020 1 1 Encounter Details Date Type Department Care Team (Late st Contact Info) Description 12/31/2018 Ancillary Orders [facility] Pre-Registration [place] CALL TO MAKE APPOINTMENT ONLY [address] [place] [address] Queta Parks FNP [address] [place], [place] [id number] Intervertebral disc disorder with radiculopathy of lumbosacral [...] LUMBAR SPINE W CONTRAST (02/03/2019 11:05 AM CARE CENTER MANAGER) Anatomical Region Laterality Modality Spine Computed Tomogra phy 02/03/2019 11:0 5 AM CARE CENTER MANAGER Impressions 02/03/2019 12:51 PM CARE CENTER MANAGER IMPRESSION: Please see below. Exam: CT LUMBAR [...] Severe bilateral neural foraminal narrowing at L5-S1. [id number] Narrative Procedure Note Solomon Aguilar DO - [...] Severe bilateral neural foraminal narrowing at L5-S1. [id number] Queta Parks [facility] ORDERABLES Final Result * XR MYELOGRAM LUMBAR (02/03/2019 10:33 AM CARE CENTER MANAGER) Anatomical Region Laterality Modality Spine Computed Radiogr aphy 02/03/2019 10:3 3 AM CARE CENTER MANAGER Impressions 02/03/2019 12:33 PM CARE CENTER MANAGER IMPRESSION: Please see below. Exam: XR MYELOGRAM [...] myelography results and reporting. Queta Cali Jarquinen LARGE ENGINE ASSEMBLER DIAGNOSTIC IMAGING ORDERABLES Final Result documented in this encounter Visit Diagnoses Diagnosis Intervertebral disc disorder with radiculopathy of lumbosacral region Thoracic or lumbosacral neuritis or radiculitis, unspecified Intervertebral disc disorder with radiculopathy of lumbosacral region Thoracic or lumbosacral neuritis or radiculitis, unspecified Intervertebral disc disorder with radiculopathy of lumbosacral region Thoracic or lumbosacral neuritis or radiculitis, unspecified documented in this encounter Care Teams Airconditioning Plant Operator Relationship Specialty Start Date End Date Vonnie Tucker MD [address] [place] [address] PCP - General Internal Medicine 01/01/19 documented as of this encounter
--- OUTSIDE RECORDS SUMMARY | 2024-12-24 13:48 | XMS_ITS | Clinical Summary ---
Author Organization [facility] Address [address] [place] [address] Phone Care Team Providers Care Nursery Helper Name Role Phone Vonnie Tucker MD Primary Care Provider +1- [phone] Allergies Active Allergy Reactions Criticality Noted Date [...] Comments Blood Pressure 121/70 02/03/2019 10:43 AM OUTPATIENT THERAPIST Pulse 69 02/03/2019 10:43 AM OUTPATIENT THERAPIST Temperature 37.6 C (99.6 F) 02/03/2019 10:43 AM OUTPATIENT THERAPIST Respiratory Rate 16 02/03/2019 10:43 AM OUTPATIENT THERAPIST Oxygen Saturation 96% 02/03/2019 10:43 AM OUTPATIENT THERAPIST Inhaled Oxygen Concentration - - Weight 39.9 kg (88 lb) 02/03/2019 9:26 AM OUTPATIENT THERAPIST Height 142.2 cm (4' 8 ) 02/03/2019 9:26 AM OUTPATIENT THERAPIST Body Mass Index 19.73 02/03/2019 9:26 AM OUTPATIENT THERAPIST Plan of Treatment Health Maintenance Due Date [...] 75+ series) 2036 Insurance [employer] Care Teams Nursery Helper Relationship Specialty Start Date End Date Vonnie Tucker MD [address] [place] [id number] PCP - General Internal Medicine 01/01/19
--- OUTSIDE RECORDS SUMMARY | 2024-12-24 13:48 | XMS_ITS | Clinical Summary ---
Author Organization [facility] Address [address] [facility] Attn: Epic Prelude ADT CATRINA SHARPE [address] Care Team Providers Care Tower Observer Name Role Phone Vonnie Tucker MD Primary Care Provider +1- [phone] Allergies Active Allergy Reactions Criticality Noted Date [...] on file Legal Sex Female 9:31 PM TELEPHONE OPERATOR CHIEF Gender Identity Not on file Sexual Orientation Not on file Last Filed Vital Signs Vital Sign Reading Time Taken Comments Blood Pressure 121/70 02/03/2019 10:43 AM TELEPHONE OPERATOR CHIEF Pulse 69 02/03/2019 10:43 AM TELEPHONE OPERATOR CHIEF Temperature 37.6 C (99.6 F) 02/03/2019 10:43 AM TELEPHONE OPERATOR CHIEF Respiratory Rate 16 02/03/2019 10:43 AM TELEPHONE OPERATOR CHIEF Oxygen Saturation - - Inhaled Oxygen Concentration - - Weight 39.9 kg (88 lb) 02/03/2019 9:26 AM TELEPHONE OPERATOR CHIEF Height 142.2 cm (4' 8 ) 02/03/2019 9:26 AM TELEPHONE OPERATOR CHIEF Body Mass Index 19.73 02/03/2019 9:26 AM TELEPHONE OPERATOR CHIEF Plan of Treatment Health Maintenance Due Date [...] - 1-dose 75+ series) 2036 Care Teams Tower Observer Relationship Specialty Start Date End Date Vonnie Tucker MD [address] [place] [address] PCP - General Internal Medicine 01/01/19
--- OUTSIDE RECORDS SUMMARY | 2024-12-24 13:48 | XMS_ITS | Patient Health Record ---
Author Organization [facility] Address [address] [place] [address] Care Team Providers Care Distribution District Supervisor Name Role Phone DR. Vonnie Tucker Primary Care Provider Xavier Hoover Unavailable [phone] Allergies Allergen (clinical drug ingredient) Drug/Non Drug Allergy documented on EMR Reaction Allergy Type Onset Date Status codeine Codeine Unknown Drug Allergy Active Results Component Value Reference Range Notes Prothrombin Time 71952 Reviewed date:08/05/2024 11:59:04 AM Interpretation: Performing Lab: Notes/Report: Diagnosis Description: Shortness of breath ProTime 10.9 9.1-11.9 SEC Normal Range: 9.1-11.9 INR 1.03 .90-1.20 Therapeutic Range: 2.0-3.0 Therapaeutic Range for heart valve replacement: 2.5-3.50 Gram Stain 33603 Reviewed date:08/05/2024 03:47:55 PM Interpretation: Performing Lab: Notes/Report: Gram Stain PIPER An Gram Stain t: Gram Stain Gram Stain [facility] [id number] Gram Stain n: Gram Stain Microbiology Gram Stain PROCEDURE: Gram Stai n [] Gram Stain SOURCE: Body Fl BODY SITE: Gram Stain COLLECTED DATE/TIME: 08/05/2024 13:01 CDT RECEIVED DATE/TIME: 08/05/2024 13:22 CDT Gram Stain START DATE/TIME: 08/05 13:22 CDT FREE TEXT SOURCE: Gram Stain STAINS/PREPARATIONS Gram Stain GS [] Gram Stain Verified Date/Time: 08/05/2024 14:02 CDT Gram Stain No organisms seen. Chest inspiratory/expiratory -44157 Reviewed date:08/05/2024 03:47:55 PM Interpretation: Performing Lab: Notes/Report: See Below For Report Chest inspiratory/expiratory Read See Below For Report Chest inspiratory/expiratory -04138 Reviewed date:08/05/2024 03:47:55 PM Interpretation: Performing Lab: Notes/Report: See Below For Report Chest inspiratory/expiratory 08/05/2024 14:24:14 called rpt to rn Read See Below For Report Chest inspiratory/expiratory -61617 Reviewed date:08/06/2024 07:56:44 AM Interpretation: Performing Lab: Notes/Report: See Below For Report Chest inspiratory/expiratory report called to RN @ 1700 Read See Below For Report CT Guidance for Needle-Biops [id number]-Fxky-49360 Reviewed date:08/05/2024 03:47:55 PM Interpretation: Performing Lab: Notes/Report: See Below For Report CT Guidance for Dibqgc-Brygci-Txhz Read See Below For Report CT Guidance for Needle-Biops r-Bikz-55208 Reviewed date:08/05/2024 11:59:04 AM Interpretation: Performing Lab: Notes/Report: [id number]=iSite Culture, Tissue--07070 Reviewed date:08/09/2024 12:58:01 PM Interpretation: Performing Lab: Notes/Report: Culture Tissue Jenn ALEMAN PIPER Culture Tissue t: Culture Tissue [id number] Culture Tissue n: Culture Tissue Microbiology Culture Tissue PROCEDURE: Culture T issue [] Culture Tissue SOURCE: Tissue BODY SITE: Culture Tissue COLLECTED DATE/TIME: 08/05/2024 13:01 CDT RECEIVED DATE/TIME: 08/05/2024 13:22 CDT Culture Tissue START DATE/TIME: 08/05 13:22 CDT FREE TEXT SOURCE: Culture Tissue FINAL REPORT Culture Tissue Final Report [] Culture Tissue Verified Date/Time: 08/08/2024 10:07 CDT Culture Tissue No growth at 72 hours Schedule Confirmation Reviewed date:07/26/2024 12:02:42 PM Interpretation: Performing Lab: Notes/Report: CT Guidance for Dotthb-Radngp-Npbb Schedule Confirmation Reviewed date:08/05/2024 11:59:04 AM Interpretation: Performing Lab: Notes/Report: CT Guidance for Dwtqzm-Upcral-Hsvv Reason For Referral Reason LUNG MASS 07/20: G SANDRA RUSSO CT REPORT-NEED IMAGES [employer] 07/20: 1 WK PER KARAN Scheduled 07/22/2024 @ 10 AM Diagnosis 1 Lung mass (R91.8) Referring Provider First Name Vonnie Referring Provider Last Name Caitlin Referring Provider Speciality Internal M edicine Referred Organization [facility] Referred Provider Xavier Russo Referred Address [address] [place] [address] [address],[place], [place],[address], General Notes Felipa Sandoval 07/20 08:43:24 AM >07/20: GAVE DR. RUSSO CT REPORT-NEED IMAGES [employer], Felipa Sandoval 07/20/2024 04:20:13 PM >Scheduled 07/22/2024 @ 10 AM, Felipa Sandoval 07/20/2024 04:21:20 PM >LVM for Radiology to [facility] Felipa Sandoval 07/21/2024 08:26:25 AM >Images [email or web address] Referral Priority Stat Reason Malignant neoplasm r ight lung Diagnosis 1 Malignant neoplasm o f upper lobe of right lung (C34.11) Referral Organization [facility] Referring Provider First Name Xavier Referring Provider Last Name Karan Referring Provider Speciality Pulmonary Diseases Referred Provider [facility] Referred Provider Specialty Oncology General Notes [...] W/U Status Risk Notes Problem Tobacco user (580140968) Nicotine dependence, cigarettes, uncomplicated (F17.210) Active confirmed Problem Solitary pulmonary nodule (255421902) Solitary pulmonary nodule (R91.1) Active confirmed Problem Malignant neoplasm of upper lobe, bronchus or lung (509294553) Malignant neoplasm of upper lobe of right lung (C34.11) Active confirmed Problem Chronic respiratory failure (38435020) Chronic hypoxic respiratory failure (J96.11) Active confirmed [...] N/A Encounters Encounter Location Date Provider Diagnosis [facility] [address] [place] [address] [place] [address] 07/22/2024 Xavier Russo Solitary pulmonary nodule R91.1 ; Chronic cough R05.3 ; Nicotine dependence, cigarettes, uncomplicated F17.210 ; Encounter for smoking cessation counseling Z71.6 and Shortness of breath R06.02 [facility] [address] [place] [address] [place] [address] 08/09/2024 Xavier Russo Chronic cough R05.3 ; [...] took of her bandage this morning. 08/09/2024 Chronic cough (ICD-10 - R05.3) Patient states she will have a pain in the bottom front side of her right lung from how much she coughs 08/09/2024 Nicotine dependence, cigarettes, uncomplicated (ICD-10 - F17.210) Patient has smoked up to 3 xyglp-ghq-iml for 42 years. Smoking cessation emphasized. 07/22/2024 Nicotine dependence, cigarettes, uncomplicated (ICD-10 - F17.210) Patient has smoked up to 3 ppsuj-uxy-iyv for 42 years. Smoking cessation emphasized. 07/22/2024 Encounter for smoking cessation counseling (ICD-10 - Z71.6) 08/09/2024 Encounter for smoking cessation counseling (ICD-10 - Z71.6) 07/22/2024 Shortness of breath (ICD-10 - R06.02) Obtain PFT 08/09/2024 Shortness of breath (ICD-10 - R06.02) Obtain PFT Patient on Trelegy and albuterol 08/09/2024 Chronic hypoxic respiratory failure (ICD-10 - [...] Test Test Name Order Date Prothrombin Time 21347 07/22/2024 Carbon Monoxide Diffusing Capacity-07302 08/09/2024 PFT SpHb-01767 08/09/2024 PFT Thoracic Gas Volume-91385 08/09/2024 Spirometry With Bronchodilator-76963 02/2025 PFT with FRC: (NO TGV) 07/22/2024 Spirometry Without Bronchodilator-92484 08/09/2024 Insurance Providers Payer Name Payer Address Payer Phone Subscriber Number Group Number Insured Name Patient Relationship to Insured Coverage Start Date Coverage End Date [facility] [address] [address] [place] [address] [id number] PIPER ALEMAN Self - patient is the insured Medical (General) History Medical History History ICD Code measles mumps chicken pox pneumonia anemia migraine headache back trouble hypertension asthma bronchitis Surgical History Surgery Date(Month/Year) Back Surgery 03/12/2021 Back Surgery 12/25/2020 Neck Surgery 03/05/2021 Hospitalization History Reason Date(Month/Year) See Surgical HX
--- NOTE | 2024-12-24 13:49 | ECG_ITS ---
[employer] Test Date: 2024-12-24 Pat Name: Adwoa Ledbetter Department: Room: Gender: Female Foxing Closer: : 1960 Requested By: Clare Leiva Order Number: [id number] Hans MD: CAPRICE ABBASI Measurements Intervals [place] Rate: 95 P: 67 CT: 169 QRS: -55 QRSD: 97 T: 95 QT: 287 QTc: 362 Interpretive Statements SINUS RHYTHM PATTERN CONSISTENT WITH PULMONARY DISEASE INCOMPLETE RIGHT BUNDLE BRANCH BLOCK [90+ ms QRS DURATION, TERMINAL R IN V1/V2, 40+ ms S IN I/aVL/V4/V5/V6] LEFT ANTERIOR FASCICULAR BLOCK [QRS AXIS <= -45, QR IN I, RS IN II] SEPTAL MYOCARDIAL INFARCTION , OF INDETERMINATE AGE [40+ ms Q WAVE IN V1/V2] Compared to ECG 11/23/2024 13:53:19 Left anterior fascicular block now present Left-axis deviation no longer present Myocardial infarct finding still present Electronically Signed On 12-25-2024 21:34:54 CDT by CAPRICE ABBASI [email or web address]
--- NOTE | 2024-12-24 13:57 | XR_ITS ---
WS: [id number] Exam: XR chest 1V portable [id number] Date/Time of Exam: 12/24/2024 2:21 PM Reason For Exam: Shortness of breath Comparison 11/29/2024. Lungs are hyperinflated and clear. Cardiomediastinal silhouette is unremarkable for technique. No pleural effusions. A right-sided Chemo-Port ends in the lower one third of the SVC. Fusion hardware noted in the cervical and upper thoracic spine. Dextroscoliosis of the T-spine. XR/XR chest 1V portable [id number] IMPRESSION: 1. No acute cardiopulmonary finding.
--- NOTE | 2024-12-24 14:12 | ED_ITS ---
HPI - SOB/Dyspnea 2 General: Chief Complaint: Shortness of Breath/Dyspnea Stated Complaint: SOB Time Seen by Provider: 12/24/24 13:57 History of Present Illness: HPI Narrative: 64-year-old female with a history of [employer] D, non-small cell lung cancer status post radiation therapy and chemotherapy recently, chronic pain syndrome on opioid therapy, who presents to the emergency room with shortness of breath. She has had cough and congestion for about a week. She says she feels short of breath when she walks around. On a separate note she has concern for inability to eat solids. She says since she had radiation therapy this has been the case she has been using Ensure etc. but has lost some weight. She said that her oncologist told her she get better within 3 weeks but it has not. No fevers. No altered mental status. Related Data Home Medications ?Medication ?Instructions ?Recorded ?Confirmed fluoxetine 20 mg capsule (Prozac) 20 mg PO QAM 0 12/13/24 fluoxetine 40 mg capsule 40 mg PO DAILY 01/20/2411/29 amitriptyline 25 mg tablet 25 mg PO BEDTIME 07/07/24 0 12/13/24 amlodipine 5 mg tablet 5 mg PO DAILY 07/07/2412/13 fluticasone fur. 100 mcg-umeclid 1 inh inhalation PAUL Y 07/07/24 12/13/24 62.5 mcg-vilant 25 mcg inhalat.powder (Trelegy Ellipta) diazepam 10 mg tablet (Valium) See Rx Instructions .Ro [place] 11/29/24 12/13/24 .COMPLEX PRN anxiety Previous Rx's ?Medication ?Instructions ?Recorded baclofen 5 mg tablet 5 mg PO DAILY PRN muscle spa sm #20 07/27/24 tabs dexamethasone 4 mg tablet 20 mg (5 x 4 mg) PO .COMPLEX #40 09/21/24 tabs ondansetron HCl 4 mg tablet 4 mg PO Q6H PRN nausea and 09/21/24 vomiting #30 tabs prochlorperazine maleate 10 mg 10 mg PO Q4H PRN mild n ausea #30 09/21/24 tablet (Compazine) tabs lidocaine-prilocaine 2.5 %-2.5 % 1 applic topical .TripleTree PLEX #30 grams 09/22/24 topical cream gabapentin 100 mg capsule 100 mg PO BID #60 caps 10/11 lorazepam 0.5 mg tablet (Ativan) 0.25 mg (1/2 x 0.5 mg ) PO Q8H PRN 10/26/24 anxiety #30 tabs hydrocodone 5 mg-acetaminophen 325 1 tab PO TID PRN pa in 30 days #60 11/26/24 mg tablet tabs lidocaine HCl 2 % mucosal solution 5 ml PO QID #100 mL 11/29/24 (Lidocaine Viscous) sucralfate 100 mg/mL oral 1 g (10 mL) PO TID PRN vomit ing 11/30/24 suspension (Carafate) #500 mL morphine concentrate 20 mg/mL oral 10 mg (0.5 mL) subl ingual Q4H PRN 12/02/24 syringe (FOR ORAL USE ONLY) pain 30 days #50 mL omeprazole 40 mg capsule,delayed 40 mg PO BID #30 caps 12/23/24 release dexamethasone 6 mg tablet 6 mg PO DAILY 5 days #5 tabs 12/24/24 doxycycline hyclate 100 mg capsule 100 mg PO BID 7 day s #14 caps 12/24/24 Allergies Allergy/AdvReac Type Severity Reaction Status Date / Time clindamycin (From Cleocin) Allergy Severe anaphylaxis Verified 12/13/24 10:24 codeine Allergy Mild chest Verified 12/13/24 10:24 pain, abdominal pain tizanidine Allergy upset Verified 12/13/24 10:24 stomach topiramate (From Topamax) Allergy ADR-Headach Verified 12/13/24 10:24 e [facility] ED 2 PFSH: Medical History (Updated 12/24/24 @ 15:31 by Clare Mclean MD) Displacement of lumbar disc with radiculopathy Lumbar disc disease with radiculopathy Nicotine abuse Myocardial infarction HTN (hypertension) Surgical History History of lumbar laminectomy Left L3-L4 laminotomy/discectomy/foraminotomy 03/08/19 Dr. Yenifer Becker History of myringotomy (~1985) left, 1985. Performed in [place], [place] History of cholecystectomy (~1998) Performed in [place], [place]. Took out appendix during same surgery. History of tonsillectomy performed in her 20's in [place], [place] History of hysterectomy (~1989) Performed in [facility] due to hemorrhaging, states patient. Hx of total cystectomy back of left leg 2x performed in [place], [place] History of appendectomy (~1998) Performed in [place], [place] Family History Father Heart disease Hypertension Mother Diabetes Hypertension Brother Diabetes Hypertension Social History Smoking and tobacco/nicotine status: current every day tobacco/nicotine user (1/2 pack a day) cigarettes Packs smoked per day: 3 Years cigarettes smoked: 38 [ Other cigarette details: 10 cigarettes per day currently] Quit status (tobacco/nicotine): has tried quititng Alcohol intake: former Year of sobriety/quit date alcohol: 12 Substance/Drug Use: current Other substance/drug use details: HAS MED MARIJUANA CARD Household members: significant other Marital status: / Current occupational status: retired Physical Exam 2 Narrative: EXAM NARRATIVE: General: Alert, no acute distress. Skin: Warm, dry. Head: Normocephalic, atraumatic. Neck: Supple, trachea midline. Eye: Extraocular movements are intact. Ears, nose, mouth and throat: Oral mucosa moist. Cardiovascular: Regular rate and rhythm, Normal peripheral perfusion. Respiratory: coarse, scattered wheeze, no increased wob. Mild tachypnea, breath sounds are equal, Symmetrical chest wall expansion. Gastrointestinal: Soft, Nontender, Non distended Musculoskeletal: Normal ROM, no deformity. Neurological: Alert and oriented, No focal neurological deficit observed. Psychiatric: Cooperative, appropriate mood & affect. Course 2 Vital Signs: Vital signs: Vital Signs Temperature 98.1 F 12/24/24 13:44 Pulse Rate 95 12/24/24 13:44 Respiratory Rate 20 H 12/24/24 13:44 Blood Pressure 148/65 12/24/24 13:44 Pulse Oximetry 90 12/24/24 13:44 Oxygen Delivery Me thod Room Air 12/24/24 13:44 MDM - SOB/Dyspnea Medical Decision Making Differential diagnosis for patient with shortness of breath includes but is not limited to and based on the above HPI, review of systems and physical exam: Pneumonia. Bronchitis. Asthma or COPD with acute exacerbation. Acute coronary syndrome / CT. Pulmonary embolism. Anxiety. Congestive heart failure. Viral infections including influenza and Covid-19. Atrial fibrillation. Anxiety. Pleural effusion. Pneumothorax. Orders placed to evaluate differential diagnosis based on the above differential, HPI and physical exam EKG: Time 1349. Rate 95. Normal sinus rhythm, nonspecific ST-T changes, no ectopy, partial right bundle, left anterior fascicular blocks, This was reviewed and interpreted by myself the ER physician at 1355 Chest x-ray: No acute process. No infiltrate. No pneumothorax. This was reviewed and interpreted by myself the emergency room physician. I also reviewed the radiology report. Lab Review: Laboratory results were reviewed and interpreted by myself the emergency room physician. No leukocytosis. Stable anemia. No renal failure. Lipase is negative. Liver enzymes are normal I reviewed the patient's medical record. Reexamination: Patient remained stable. No increased work of breathing. No altered mental status. No focal motor deficits. We discussed possibility of EGD and/or PEG tube. She will see her oncologist on Friday. Assessment and plan: COPD exacerbation Dehydration Probable esophageal stricture ?Decadron and fluids in the emergency room - Discharged home - Discussed findings and plan with patient. Answered any questions. - All laboratory values were reviewed and interpreted personally by myself, the ER physician - All imaging was reviewed and interpreted personally by myself, the ER physician. - Evaluation and treatment of this problem were appropriate in the emergency setting Lab Data 12/24/24 14:30 12/24/24 14:30 Labs/Radiology: Radiology Impressions Chest X-Ray 12/24/24 13:57 IMPRESSION: 1. No acute cardiopulmonary finding. Laboratory Results WBC 5.22 10^3/uL (3.29-11.43) 12/24/24 14:30 RBC 2.90 10^6/uL (3.85-5.65) L 12/24/24 14:30 Hgb 9.60 g/dL (11.27-16.99) L 12/24/24 14:30 Hct 29.2 % (36-47) L 12/24/24 14:30 MCV 100.7 fl (85-98) H 12/24/24 14:30 MCH 33.1 pg (27-33) H 12/24/24 14:30 MCHC 32.9 g/dL (30-55) 12/24/24 14:30 RDW 16.7 % (12.1-15.1) H 12/24/24 14:30 Plt Count 168 10^3/cmm (157-399) 12/24/24 14:30 MPV 8.8 fL (7.4-10.4) 12/24/24 14:30 Neut % (Auto) 72.4 % 12/24/24 14:30 Lymph % (Auto) 15.3 % 12/24/24 14:30 [place] % (Auto) 10.2 % 12/24/24 14:30 Eos % (Auto) 1.7 % 12/24/24 14:30 Baso % (Auto) 0.2 % 12/24/24 14:30 Neut # (Auto) 3.78 10^3/uL (1.8-7.7) 12/24/24 14:30 Lymph # (Auto) 0.8 10^3/uL (0.8-4.8) 12/24/24 14:30 [place] # (Auto) 0.5 10^3/uL (0.2-0.9) 12/24/24 14:30 Eos # (Auto) 0.1 10^3/uL (0.0-0.8) 12/24/24 14:30 Baso # (Auto) 0.0 10^3/uL (0.0-0.1) 12/24/24 14:30 Nucleated RBC % (auto) 0 % 12/24/24 14:30 Nucleated RBCs # 0.0 /100WBC 12/24/24 14:30 Sodium 140 mmol/L (136-145) 12/24/24 14:30 Potassium 3.5 mmol/L (3.5-5.1) 12/24/24 14:30 Chloride 99 mmol/L (98-107) 12/24/24 14:30 Carbon Dioxide 28 mmol/L (22-29) 12/24/24 14:30 Anion Gap 16.5 (5-19) 12/24/24 14:30 BUN 9 mg/dL (8-23) 12/24/24 14:30 Creatinine 0.6 mg/dL (0.5-0.9) 12/24/24 14:30 GFR Calculation 101.0 mL/min (90-130) 12/24/24 14:30 Glucose 100 mg/dL (65-115) 12/24/24 14:30 Calculated Osmolality 289 mOsm/kg (285-295) 12/24/24 14:30 Lactic Acid 1.0 mmol/L (0.5-2.2) 12/24/24 14:30 Calcium 8.8 mg/dL (8.5-10.5) 12/24/24 14:30 Total Bilirubin 0.2 mg/dL (0.15-1.2) 12/24/24 14:30 AST 19 U/L (0-32) 12/24/24 14:30 ALT 11 U/L (0-33) 12/24/24 14:30 Alkaline Phosphatase 94 U/L (35-105) 12/24/24 14:30 Troponin T Baseline 20 ng/L (0-10) H 12/24/24 14:30 NT-Pro-B Natriuret Pep 519 pg/mL (0-125) H 12/24/24 14:30 Total Protein 5.9 g/dL (6.6-8.7) L 12/24/24 14:30 Albumin 3.5 g/dL (3.5-5.2) 12/24/24 14:30 Globulin 2.4 g/dL (1.3-4.6) 12/24/24 14:30 Lipase 11 U/L (13-60) L 12/24/24 14:30 All radiology interpretation(s) finalized by discharge Discharge Plan Discharge Patient Disposition: Home Clinical Impression: COPD with acute exacerbation, Difficulty swallowing Condition: Stable Prescriptions: New doxycycline hyclate 100 mg capsule 100 mg PO BID 7 Days Qty: 14 0RF dexamethasone 6 mg tablet 6 mg PO DAILY 5 Days Qty: 5 0RF No Action fluoxetine [Prozac] 20 mg capsule 20 mg PO QAM Rx Instructions: along with 40mg to=60mg total baclofen 5 mg tablet 5 mg PO DAILY PRN (Reason: muscle spasm) Qty: 20 0RF lidocaine-prilocaine 2.5-2.5 % cream 1 applic topical .COMPLEX Qty: 30 2RF Rx Instructions: Apply quarter-size amount to port site 30 minutes prior to access; cover with cling wrap gabapentin 100 mg capsule 100 mg PO BID Qty: 60 0RF Rx Instructions: one cap at bedtime for 5 days then may add additional cap in morning if needed fluoxetine 40 mg capsule 40 mg PO DAILY Rx Instructions: along with 20mg to=60mg total ondansetron HCl 4 mg tablet 4 mg PO Q6H PRN (Reason: nausea and vomiting) Qty: 30 3RF prochlorperazine maleate [Compazine] 10 mg tablet 10 mg PO Q4H PRN (Reason: mild nausea) Qty: 30 3RF dexamethasone 4 mg tablet 20 mg PO .COMPLEX Qty: 40 3RF Rx Instructions: Take 20 mg (5 tab) 12 hours and 6 hours prior to taxol treatment. lorazepam [Ativan] 0.5 mg tablet 0.25 mg PO Q8H PRN (Reason: anxiety) Qty: 30 0RF hydrocodone-acetaminophen 5-325 mg tablet 1 tab PO TID PRN (Reason: pain) 30 Days Qty: 60 0RF sucralfate [Carafate] 100 mg/mL suspension 1 g PO TID PRN (Reason: vomiting) Qty: 500 0RF Rx Instructions: mix with 2 tsp of [place] morphine concentrate 20 mg/mL syringe 10 mg sublingual Q4H PRN (Reason: pain) 30 Days Qty: 50 0RF omeprazole 40 mg capsule,delayed release(DR/EC) 40 mg PO BID Qty: 30 0RF amlodipine 5 mg tablet 5 mg PO DAILY amitriptyline 25 mg tablet 25 mg PO BEDTIME Trelegy Ellipta 100-62.5-25 mcg blister with device 1 inh INHALATION DAILY diazepam [Valium] 10 mg tablet See Rx Instructions .ROUTE .COMPLEX PRN (Reason: anxiety) Rx Instructions: Take 10 mg orally as needed pre procedure for anxiety. lidocaine HCl [Lidocaine Viscous] 2 % solution 5 ml PO QID Qty: 100 0RF Discharge Orders: Discharge ED (Routine); Ordered 12/24/24 Ordered By: Clare Mclean Referrals: Vonnie Tucker MD [Primary Care Provider, Internal Medicine] Discharge Diet: Advance as tolerated Discharge Activity: Increase activity as tolerated Patient Instructions: Opioid Safety, Pain Management, Patient Portal & [place] Instructions Activity Restrictions/Additional Instructions: You need to talk with your oncologist and/or your primary provider about the benefits of feeding tube. Also you need to follow-up with Dr. Gomes in GI clinic to consider endoscopy to rule out esophageal stricture and/or possible feeding tube placement. Thank you for choosing [facility] for your healthcare needs today. You have been screened and evaluated and felt safe for discharge. Health conditions do change or evolve sometimes and as such it is important that you follow up with your Primary Doctor to be re checked, 3-5 days is a general good time frame for follow up. You are always welcome to return to the ED for re assessment if your symptoms are worsening or you have new concerns Print Language: Frisian Coding Level of Care Code ED Medication Tech for [facility]
[2024-12-24 14:30] VITALS: BP 150/94; PULSE 95; RESP 24; O2SAT 94
[2024-12-24 14:37] LABS: Hematocrit 29.2 % (36-47); Hemoglobin 9.60 g/dL (11.27-16.99); Mean Corpuscular HGB Conc 32.9 g/dL (30-55); Mean Corpuscular Hemoglobin 33.1 pg (27-33); Mean Corpuscular Volume 100.7 fl (85-98); Nucleated Red Blood Cells % 0 %; Platelet Count 168 10^3/cmm (157-399); Red Blood Count 2.90 10^6/uL (3.85-5.65); White Blood Count 5.22 10^3/uL (3.29-11.43)
[2024-12-24 14:59] LABS: Lactic Sepsis W/Reflex 1.0 mmol/L (0.5-2.2)
[2024-12-24 15:00] VITALS: BP 150/85; PULSE 89; O2SAT 94
[2024-12-24 15:00] LABS: Troponin(5th) Baseline 20 ng/L (0-10)
[2024-12-24 15:09] LABS: Alanine Aminotransferase 11 U/L (0-33); Albumin Level 3.5 g/dL (3.5-5.2); Alkaline Phosphatase 94 U/L (35-105); Anion Gap 16.5 (5-19); Aspartate Amino Transferase 19 U/L (0-32); Blood Urea Nitrogen 9 mg/dL (8-23); Calcium 8.8 mg/dL (8.5-10.5); Carbon Dioxide 28 mmol/L (22-29); Chloride 99 mmol/L (98-107); Creatinine Clr Calc Pharmacy 45.3559; Globulin 2.4 g/dL (1.3-4.6); Glucose 100 mg/dL (65-115); Lipase 11 U/L (13-60); NT Pro B Type Natriuretic Pept 519 pg/mL (0-125); Osmolality Calculated 289 mOsm/kg (285-295); Potassium 3.5 mmol/L (3.5-5.1); Sodium 140 mmol/L (136-145); Total Protein 5.9 g/dL (6.6-8.7)
[2024-12-24 15:30] VITALS: BP 109/80; PULSE 92; O2SAT 94
[2024-12-24] MEDS: methylPREDNISolone sod succ 125 mg/2 mL INJ 60 MG IVP (15:50)
[2024-12-24 16:00] VITALS: BP 109/90; PULSE 90; O2SAT 92
[2024-12-24 16:50] VITALS: BP 157/103; PULSE 85; O2SAT 92
[2024-12-24 17:00] LABS: Respiratory Syncytial Virus Ce NEGATIVE (Negative); SARS-CoV-2 PCR NEGATIVE (Negative)
== END 2024-12-24 16:51 | disposition home or self-care (01) ==
PROVIDERS: Emergency Provider Emergency Medicine; PCP Internal Medicine
DX: J44.1 Chronic obstructive pulmonary disease with (acute) exacerbation (principal); R13.10 Dysphagia, unspecified; F17.210 Nicotine dependence, cigarettes, uncomplicated; I10 Essential (primary) hypertension; Z85.118 Personal history of other malignant neoplasm of bronchus and lung
CPT/HCPCS: 36415; 71045; 80053; 83605; 83690; 83880; 84484; 85025; 87040; 87637; 93005; 96374; 99285; J2919; J7040

== ENCOUNTER 2024-12-27 08:52 | Oncology outpatient (recurring) (ONCR) | payer OTHER, SELFPAY ==
--- NOTE | 2024-11-30 15:29 | ONCRAD EPV_ITS ---
Radiation Oncology Established Patient Visit Patient: Adwoa Ledbetter [id number] : 1960 Age: 64 Sex: Female Dictated by: Robin Diggs Date of Service: 11/30/2024 Referring Physician(s) : Diagnosis: C77.1 - Secondary and unspecified malignant neoplasm of intrathoracic lymph nodes, Diagnosed 08/13/2024 (Active) C34.11 - Malignant neoplasm of upper lobe, right bronchus or lung, Diagnosed 08/05/2024 (Active) C77.1 - secondary and unspecified malignant neoplasm of intrathoracic lymph nodes, Diagnosed 08/13/2024 (active) and C34.11 - malignant neoplasm of upper lobe, right bronchus or lung, Diagnosed 08/05/2024 (active). PET/CT 08/13/2024 RUL MASS 2.9X2.8CM(15.5), SMALLE ADJACENT NODULES 2.1 X 1.2CM (11.3), RT PARATRACHEAL LN 2.2CM (9.8), SUBCARINAL LN 1.8CM (8.8), RT HILAR LN 1.4CM (7), -HCT, +TTF-1, ADENOCARCINOMA, FALLS A LOT ANTEROLAT RT 6TH RIBWITH FX DEFORMITY CANT EXCLUDE METS, + TOBACCO ABUSE 3PPD x 42 YRS, -H/F/C/NS/BONY TENDERNESS, HX OF REMOTE ETOH ABUSE SOBERITY X 12 YEARS, PORT PLACEMENT EVAL 09/09/2024, PLAN 7000cGy/35 FX STAGE: [id number] ICD-10: C34.11, C77.1 Radiotherapy to Date: Course: RUL 2024, Treatment Site: RT Lung 2024, Ref. ID: PTV RtLung, Energy: 6X, Dose/Fx (cGy): 200, #Fx: , Dose Correction (cGy): 0, Total Dose Delivered (cGy): 6,000, Start Date: 09/27/2024, End Date: 11/08/2024, Elapsed Days: 42 Current History: 64-year-old female who came for an unscheduled visit today. She is complaining of right-sided anterior chest pain and also esophagitis. She needs her Carafate ordered and slurry form. She was seen in the ER yesterday and given IV morphine 4 mg with good result. We would recommend a trial of morphine elixir and in the hospital they carry 20 mg/cc. Current Medications: amitriptyline 25 mg PO DAILY amlodipine 5 mg PO DAILY baclofen 5 mg PO DAILY PRN dexamethasone Take 20 mg (5 tab) 12 hours and 6 hours prior to taxol treatment diazepam (Valium) 10 mg PO ONCE PRN fluoxetine (Prozac) 20 mg PO QAM fluoxetine 40 mg PO DAILY [id number] 100-62.5-25 mcg (Trelegy Ellipta) 1 inh inhalation DAILY gabapentin 100 mg PO BID hydrocodone-acetaminophen 5-325 mg 1 tab PO TID PRN 30 days lidocaine HCl 2% (Lidocaine Viscous) 5 mL PO Q6H lidocaine-prilocaine 2.5-2.5 % Apply quarter-size amount to port site 30 minutes prior to access; cover with cling wrap lorazepam 0.5 mg PO TID PRN lorazepam (Ativan) 0.25 mg (1/2 x 0.5 mg) PO Q8H PRN nystatin 5 mL PO QID 14 days omeprazole 40 mg PO DAILY ondansetron HCl 4 mg PO Q6H PRN prochlorperazine maleate (Compazine) 10 mg PO Q4H PRN promethazine 25 mg PO Q6H PRN Allergies: clindamycin (From Cleocin) Allergy (Severe, Verified 11/08/24 09:27) anaphylaxis codeine Allergy (Mild, Verified 11/08/24 09:27) chest pain, abdominal pain tizanidine Allergy (Verified 11/08/24 09:27) upset stomach topiramate (From Topamax) Allergy (Verified 11/08/24 09:27) ADR-Headache Current Complaints / Review of Systems: . Vital Signs: Performed on 11/30/2024 2:14 PM BMI - 16.277 kg/m2 (low), Height - 56 in, Weight - 72.6 lbs, Temperature - 98.0 f, Pulse - 106 /min (high), Respiration - 18 /min, O2 Sat - 89 % (low), Pain - 8, Fatigue - 0 and BP - 120/ 78 mm(hg). Physical Exam: General: Alert and oriented x 3. No acute distress. HEENT: Normocephalic, atraumatic. Extraocular Movements Intact: Pupils Equal, Round, Reactive to Light and Accommodation: Sclerae anicteric. Oral cavity is clear without lesions, masses or ulcers. NECK: Supple without supraclavicular or jugular lymphadenopathy. LUNGS: Clear to auscultation bilaterally without rales, rhonchi or wheeze. HEART: Regular rate and rhythm, normal S1 and S2 without murmur, gallop or rub. MUSCULOSKELETAL: No tenderness or percussion pain over the axial skeleton, scapulae or pelvis. There is pain over the left anterior right ribs. Coughing is caused tremendous pain in the area ABDOMEN: Soft, nontender, nondistended without masses or organomegaly. Bowell sounds are present. EXTREMITIES: No peripheral edema is identified. Limited motor and sensory examination are grossly intact and symmetric bilaterally. NEUROLOGIC: Cranial nerves II ???XII are grossly intact. Normal sensation, strength 5/5 in all extremities, normal gait, no ataxia. Performance Status: Lab: None pending. Pathology: Primary, c77.1 - secondary and unspecified malignant neoplasm of intrathoracic lymph nodes, Diagnosed 08/13/2024 (active) and Primary, c34.11 - malignant neoplasm of upper lobe, right bronchus or lung, Diagnosed 08/05/2024 (active) . Imaging: See HPI Impression: Cancer related pain not resolved with oral medication PLAN: Morphine elixir 20 mg/cc-quarter cc every 4 hours as needed for cancer pain Carafate slurry prescription ordered and recommended RTC as previously directed Signed by: 11/30/2024 3:28:36 PM <<Signature on File>> Time spent with patient: CPT Code: CPT Code:
[2024-12-13 09:45] LABS: Hematocrit 29.0 % (36-47); Hemoglobin 9.40 g/dL (11.27-16.99); Mean Corpuscular HGB Conc 32.4 g/dL (30-55); Mean Corpuscular Hemoglobin 32.8 pg (27-33); Mean Corpuscular Volume 101.0 fl (85-98); Nucleated Red Blood Cells % 0 %; Platelet Count 157 10^3/cmm (157-399); Red Blood Count 2.87 10^6/uL (3.85-5.65); White Blood Count 9.19 10^3/uL (3.29-11.43)
[2024-12-13 10:01] LABS: Alanine Aminotransferase 15 U/L (0-33); Albumin Level 3.4 g/dL (3.5-5.2); Alkaline Phosphatase 97 U/L (35-105); Anion Gap 15.0 (5-19); Aspartate Amino Transferase 18 U/L (0-32); Blood Urea Nitrogen 14 mg/dL (8-23); Calcium 8.9 mg/dL (8.5-10.5); Carbon Dioxide 25 mmol/L (22-29); Chloride 101 mmol/L (98-107); Globulin 2.2 g/dL (1.3-4.6); Glucose 96 mg/dL (65-115); Osmolality Calculated 286 mOsm/kg (285-295); Potassium 3.0 mmol/L (3.5-5.1); Sodium 138 mmol/L (136-145); Total Protein 5.6 g/dL (6.6-8.7)
[2024-12-13] MEDS: durvalumab 1,500 MG in sodium chloride 0.9% 250 ML 280 MG IV (11:10)
[2024-12-13 12:21] VITALS: BP 118/73; PULSE 92; RESP 16; TEMP 37.2; O2SAT 91
--- NOTE | 2024-12-27 10:07 | ONCRAD EPV_ITS ---
Radiation Oncology Established Patient Visit Patient: Adwoa Ledbetter [id number] : 1960 Age: 64 Sex: Female Dictated by: Dr. Eileen Weston Date of Service: 12/27/2024 Referring Physician(s) : Diagnosis: C77.1 - Secondary and unspecified malignant neoplasm of intrathoracic lymph nodes, Diagnosed 08/13/2024 (Active) C34.11 - Malignant neoplasm of upper lobe, right bronchus or lung, Diagnosed 08/05/2024 (Active) Radiotherapy to Date: Course: RUL 2024, Treatment Site: RT Lung 2024, Ref. ID: PTV RtLung, Energy: 6X, Dose/Fx (cGy): 200, #Fx: , Dose Correction (cGy): 0, Total Dose Delivered (cGy): 6,000, Start Date: 09/27/2024, End Date: 11/08/2024, Elapsed Days: 42 Current History: Patient is a 64-year-old lady who was diagnosed with a T4 N2 M0 non-small cell carcinoma lung and completed radiation and chemotherapy on November 08. She did not have his much trouble swallowing during the course of her treatment as she did in the 2 to 3 weeks after. She has however continued to have difficulty and pain with swallowing which has not improved in the last month. She has been able to stabilize her weight by taking an Ensure. We talked about how this had started towards the end of her treatments. She is also been to the emergency room at least once with shortness of breath. Current Medications: amitriptyline 25 mg PO DAILY amlodipine 5 mg PO DAILY baclofen 5 mg PO DAILY PRN dexamethasone Take 20 mg (5 tab) 12 hours and 6 hours prior to taxol treatment diazepam (Valium) 10 mg PO ONCE PRN fluoxetine (Prozac) 20 mg PO QAM fluoxetine 40 mg PO DAILY [id number] 100-62.5-25 mcg (Trelegy Ellipta) 1 inh inhalation DAILY gabapentin 100 mg PO BID hydrocodone-acetaminophen 5-325 mg 1 tab PO TID PRN 30 days lidocaine HCl 2% (Lidocaine Viscous) 5 mL PO Q6H lidocaine-prilocaine 2.5-2.5 % Apply quarter-size amount to port site 30 minutes prior to access; cover with cling wrap lorazepam 0.5 mg PO TID PRN lorazepam (Ativan) 0.25 mg (1/2 x 0.5 mg) PO Q8H PRN nystatin 5 mL PO QID 14 days omeprazole 40 mg PO DAILY ondansetron HCl 4 mg PO Q6H PRN prochlorperazine maleate (Compazine) 10 mg PO Q4H PRN promethazine 25 mg PO Q6H PRN Allergies: clindamycin (From Cleocin) Allergy (Severe, Verified 11/08/24 09:27) anaphylaxis codeine Allergy (Mild, Verified 11/08/24 09:27) chest pain, abdominal pain tizanidine Allergy (Verified 11/08/24:) upset stomach topiramate (From Topamax) Allergy (Verified 11/08/24 09:) ADR-Headache Current Complaints / Review of Systems: . Vital Signs: Performed on 12/27/2024 9:17 AM BMI - 15.066 kg/m2 (low), Height - 56 in, Weight - 67.2 lbs, Temperature - 97.4 f, Pulse - 114 /min (high), Respiration - 18 /min, O2 Sat - 94 % (low), Pain - 8, Fatigue - 0 and BP - 129/ 84 mm(hg). Physical Exam: General: Alert and oriented x 3. No acute distress. HEENT: Normocephalic, atraumatic. Extraocular Movements Intact: Pupils Equal, Round, Reactive to Light and Accommodation: Sclerae anicteric. Oral cavity is clear without lesions, masses or ulcers. NECK: Supple without supraclavicular or jugular lymphadenopathy. LUNGS: Respiratory rate is regular nonlabored. HEART: Regular rate and rhythm, normal S1 and S2 without murmur, gallop or rub. . ABDOMEN: Patient is quite thin and cachectic EXTREMITIES: No peripheral edema is identified. NEUROLOGIC: Alert and orient x 3. Gait and speech within normal limits. Performance Status: KPS 80 Lab: None pending. Pathology: Primary, c77.1 - secondary and unspecified malignant neoplasm of intrathoracic lymph nodes, Diagnosed 08/13/2024 (active) and Primary, c34.11 - malignant neoplasm of upper lobe, right bronchus or lung, Diagnosed 08/05/2024 (active) . Imaging: See HPI Impression: Non-small cell carcinoma of the lung now a month and a half out from completion of treatment with continued problems with swallowing Plan: I reviewed the initial PET scan Ms. Ledbetter had before she started treatment. I also reviewed her treatment plan from her radiation. With the location of her cancer and her adjacent esophagus she would most definitely have had esophagitis which should have resolved after about 3 weeks from her completion date. She has however continued to have increasing problems and pain on swallowing in 2 locations. Looking at her initial PET scan her esophagus actually did not look normal. It was thickened and actually had a mild trace of uptake. I have discussed with her at this point that we need to have an EGD done to make sure were not assuming that her symptoms were related to her treatment and missing an actual cause. I suspect that she may actually have a second cancer in the esophagus. I have told her this is well. We talked about how we just need to find out why she is having these problems and not assume that they are from the treatment. Will send a referral to GI and asked them to perform an EGD. Once the results have been obtained we can order a PET scan as well. She will be due for her PET in approximately a month. At this point she verbalized understanding. The referrals been put through. Signed by: 12/27/2024 10:06:21 AM <<Signature on File>> Time spent with patient: 30 CPT Code: CPT Code:
== END 2024-12-28 23:59 | disposition home or self-care (01) ==
PROVIDERS: PCP Internal Medicine; Visit Provider Internal Medicine Medical Oncology
DX: C34.11 Malignant neoplasm of upper lobe, right bronchus or lung (principal); C77.1 Secondary and unspecified malignant neoplasm of intrathoracic lymph nodes; Z92.3 Personal history of irradiation; Z92.21 Personal history of antineoplastic chemotherapy; G89.3 Neoplasm related pain (acute) (chronic); R13.10 Dysphagia, unspecified
CPT/HCPCS: 36415; 80053; 85025; 96413; 99024; 99214; A4222; J7050; J9173

== ENCOUNTER 2025-01-04 08:54 | Day surgery (SDC) | payer OTHER, SELFPAY ==
[2025-01-04 09:19] VITALS: BP 173/116; PULSE 101; RESP 18; TEMP 36.8; O2SAT 97; BMI 14.3
--- NOTE | 2025-01-04 09:38 | ANES.PREANE2 ---
Pre-Anesthetic Assessment Height/Weight: Height 1.42 m Weight 29.03 kg Temp Pulse Resp BP Pulse Ox O2 Del Method 98.3 F 101 H 18 173/116 97 Room Air 01/04/25 09:19 01/04/25 09:19 01/04/25 09:19 01/04/25 09:19 01/04/25 09:19 01/04/25 09:19 Operation Date: 01/04/25 10:30 Proposed Procedures p EGD EGD with Biopsy 56846 R13.10 C34.90(Not Applicable) - Cal Gomes MD Familial anesthetic complications: none Was Beta Andrés taken within 24 hours: N/A Was Clonidine taken within 24 hours: N/A Last intake: Intake Last Liquid Date 01/03/25 Last Liquid Time 22:00 Last Solid Date 01/03/25 Last Solid Time 16:00 Social Tobacco (Medical marijuana) and No alcohol 1 pack(s) per day 42 pack years Exam alert, oriented x 3, clear to auscultation bilaterally (Diminished BBS) and regular rate & rhythm Airway Submandibular: within normal limits Cervical ROM: within normal limits Mallampati: Class II Dentition: false History/ROS No significant history except as noted and No significant complaints Pulmonary Chronic Obstructive Pulmonary Disease and Exertional Dyspnea Lung cancer CV/HEM Hypertension None reported Hepatic None reported GI Gastroesophageal Reflux Disease (None this morning) Dysphagia Metabolic None reported Musc/skel None reported Hx back surgery Neuropsych Anxiety, Depression and Neuropathy Anesthetic Plan ASA status: 4 Anesthesia: Anesthesia Evaluation, General and MAC Risk of > 500 ml blood loss (7ml/kg in children): No Medications/Allergies Home Medications ?Medication ?Instructions ?Recorded ?Confirmed ?Last Taken ?Type fluoxetine 20 mg capsule (Prozac) 20 mg PO QAM 04/19/19 01/04/25 01/03/25 History fluoxetine 40 mg capsule 40 mg PO DAILY 01/20/24 01/04/25 01/03/25 History amitriptyline 25 mg tablet 25 mg PO BEDTIME 07/07/24 01/04/25 01/03/25 History amlodipine 5 mg tablet 5 mg PO DAILY 07/07/24 01/04/25 01/03/25 History fluticasone fur. 100 mcg-umeclid 1 inh inhalation DAILY 07/07/24 01/04/25 01/03/25 History 62.5 mcg-vilant 25 mcg inhalat.powder (Trelegy Ellipta) baclofen 5 mg tablet 5 mg PO DAILY PRN muscle spasm #20 07/27/24 01/04/25 01/02/25 Rx tabs ondansetron HCl 4 mg tablet 4 mg PO Q6H PRN nausea and 09/21/24 01/04/25 01/03/25 Rx vomiting #30 tabs prochlorperazine maleate 10 mg 10 mg PO Q4H PRN mild nausea #30 09/21/24 01/04/25 01/03/25 Rx tablet (Compazine) tabs lidocaine-prilocaine 2.5 %-2.5 % 1 applic topical .COMPLEX #30 grams 09/22/24 12/31/24 12/30/24 Rx topical cream gabapentin 100 mg capsule 100 mg PO BID #60 caps 10/11/24 01/04/25 01/03/25 Rx lorazepam 0.5 mg tablet (Ativan) 0.25 mg (1/2 x 0.5 mg) PO Q8H PRN 10/26/24 01/04/25 01/03/25 Rx anxiety #30 tabs hydrocodone 5 mg-acetaminophen 325 1 tab PO TID PRN pain 30 days #60 11/26/24 01/04/25 01/03/25 Rx mg tablet tabs diazepam 10 mg tablet (Valium) See Rx Instructions .Route 11/29/24 01/04/25 1 Month Ago History .COMPLEX PRN anxiety ~12/05/24 lidocaine HCl 2 % mucosal solution 5 ml PO QID #100 mL 11/29/24 12/31/24 12/30/24 Rx (Lidocaine Viscous) sucralfate 100 mg/mL oral 1 g (10 mL) PO TID PRN vomiting 11/30/24 01/04/25 12/30/24 Rx suspension (Carafate) #500 mL morphine concentrate 20 mg/mL oral 10 mg (0.5 mL) sublingual Q4H PRN 12/28/24 01/04/25 01/03/25 Rx syringe (FOR ORAL USE ONLY) pain 30 days #50 mL morphine 20 mg/5 mL (4 mg/mL) oral 10 mg (2.5 mL) PO Q4H PRN pain 2 1001/04/25 12/30/24 Rx solution weeks #30 mL morphine concentrate 100 mg/5 mL 20 mg PO Q6H 2 weeks #30 mL 12/29/24 01/04/25 12/30/24 Rx (20 mg/mL) oral solution omeprazole 40 mg capsule,delayed 40 mg PO BID #30 caps 01/03/25 01/04/25 01/03/25 Rx release Allergies Allergy/AdvReac Type Severity Reaction Status Date / Time clindamycin (From Cleocin) Allergy Severe anaphylaxis Verified 12/31/24 08:46 codeine Allergy Mild chest Verified 12/31/24 08:46 pain, abdominal pain tizanidine Allergy upset Verified 12/31/24 08:46 stomach topiramate (From Topamax) Allergy ADR-Headach Verified 12/31/24 08:46 e Current Medications Generic Name Dose Route Start Last Admin Trade Name Freq PRN Reason Stop Dose Admin Sodium Chloride 1,000 mls @ 15 mls/hr 01/04/25 09:03 01/04/25 09:26 Sodium Chloride 0.9% IV 01/05/25 09:02 15 mls/hr .Q24H PRN Administration COLONOSCOPY FLUIDS PFSH Anesthesia Medical History (Updated 01/01/25 @ 00:00 by RANGEL Rosario) Displacement of lumbar disc with radiculopathy Lumbar disc disease with radiculopathy Nicotine abuse Myocardial infarction HTN (hypertension) Surgical History History of lumbar laminectomy Left L3-L4 laminotomy/discectomy/foraminotomy 03/08/19 Dr. Yenifer Becker History of myringotomy (~1985) left, 1985. Performed in [place], [place] History of cholecystectomy (~1998) Performed in [place], [place]. Took out appendix during same surgery. History of tonsillectomy performed in her 20's in [place], [place] History of hysterectomy (~1989) Performed in [facility] due to hemorrhaging, states patient. Hx of total cystectomy back of left leg 2x performed in [place], [place] History of appendectomy (~1998) Performed in [place], [place] Family History Father Heart disease Hypertension Mother Diabetes Hypertension Brother Diabetes Hypertension Social History Smoking and tobacco/nicotine status: current every day tobacco/nicotine user (1/2 pack a day) cigarettes Packs smoked per day: 3 Years cigarettes smoked: 38 [ Other cigarette details: 10 cigarettes per day currently] Quit status (tobacco/nicotine): has tried quititng Alcohol intake: former Year of sobriety/quit date alcohol: 12 Substance/Drug Use: current Other substance/drug use details: HAS MED MARIJUANA CARD Household members: significant other Marital status: / Current occupational status: retired
--- NOTE | 2025-01-04 10:17 | W.PM.OPSUD ---
Surgery/Procedure H&P Update DATE OF PROCEDURE: January 04, 2025 DATE H&P PERFORMED: 12/30/24 H&P UPDATE INFORMATION: I have reviewed H&P completed within last 30 days, I have examined patient prior to procedure, No changes to prior documentation and Risks and benefits of the procedure reviewed PLANNED PROCEDURE: Operation Date: 01/04/25 10:30 Proposed Procedures p EGD EGD with Biopsy 98118 R13.10 C34.90(Not Applicable) - Cal Gomes MD
[2025-01-04 10:33] VITALS: BP 127/80; PULSE 83; RESP 16; TEMP 37.5; O2SAT 100
[2025-01-04 10:43] VITALS: BP 140/98; PULSE 94; RESP 16; O2SAT 99
[2025-01-04 10:54] VITALS: BP 137/84; PULSE 87; RESP 16; O2SAT 97
--- NOTE | 2025-01-04 11:14 | ANE.PACU2 ---
Inpatient post-anesthesia follow up: Airway intact: Yes Vital signs: Temperature 99.5 F Pulse Rate 87 Respiratory Rate 16 Blood Pressure 137/84 Pulse Oximetry 97 Oxygen Delivery Me thod Room Air Oxygen Flow Rate Fraction of Inspir ed Oxygen Hydration adequate: Yes Nausea and vomiting: No Pain level: 1 Mental status: Baseline
== END 2025-01-04 11:14 | disposition home or self-care (01) ==
PROVIDERS: PCP Internal Medicine; Visit Provider Student in an Organized Health Care Education/Training Program
PROC: 0DJ08ZZ Inspection of Upper Intestinal Tract, Via Natural or Artificial Opening Endoscopic (ICD-10-PCS; principal; 2025-01-04 10:30)
DX: R13.10 Dysphagia, unspecified (principal); K22.10 Ulcer of esophagus without bleeding; K29.50 Unspecified chronic gastritis without bleeding; J44.9 Chronic obstructive pulmonary disease, unspecified; I10 Essential (primary) hypertension; K21.9 Gastro-esophageal reflux disease without esophagitis; F41.8 Other specified anxiety disorders; G62.9 Polyneuropathy, unspecified; Z79.891 Long term (current) use of opiate analgesic; I25.2 Old myocardial infarction; F17.210 Nicotine dependence, cigarettes, uncomplicated; F12.90 Cannabis use, unspecified, uncomplicated; C34.90 Malignant neoplasm of unspecified part of unspecified bronchus or lung
CPT/HCPCS: 43239; 88305; 88312; 88342; J1885; J2704; J7030

== ENCOUNTER 2025-01-10 09:30 | Oncology outpatient (recurring) (ONCR) | payer OTHER, SELFPAY ==
[2024-12-30] MEDS: iohexol 350 mg/mL 500 mL Btl (per mL) PO (15:27)
[2024-12-30] MEDS: iohexol 350 mg/mL 500 mL Btl (per mL) IV (15:29)
--- NOTE | 2024-12-30 17:15 | CTR_ITS ---
PROCEDURE INFORMATION: Exam: CT Chest With Contrast; Diagnostic Exam date and time: 12/30/2024 3:25 PM Age: 64 years old Clinical indication: Condition or disease; Other: Non-small cell lung cancer; Prior surgery; Surgery date: 6+ months; Surgery type: Port, gb, appy, hyst; Additional info: Non-small cell chilo cancer TECHNIQUE: Imaging protocol: Diagnostic computed tomography of the chest with contrast. Radiation optimization: All CT scans at this facility use at least one of these dose optimization techniques: automated exposure control; mA and/or kV adjustment per patient size (includes targeted exams where dose is matched to clinical indication); or iterative reconstruction. Contrast material: OMNI 350; Contrast volume: 60 ml; Contrast route: INTRAVENOUS (IV); COMPARISON: CT angio chest PE protcl [id number] 11/29/2024 12:52 PM RADIATION DOSE METRICS: Total DLP (mGy-cm): 352.79 FINDINGS: Lungs: Redemonstration of the two adjacent pulmonary nodules with cavitary components located in the posterior segment of the right upper lobe. Pleural spaces: No pleural effusions or pneumothorax. Heart: Heart size within normal limits. No pericardial effusions. Coronary arteries: Scattered atherosclerotic coronary artery calcifications. Lymph nodes: Interval significant decrease in the right hilar and mediastinal lymphadenopathy. The subcarinal lymph node mass now measures 1.1 x 1.7 cm in the axial plane compared to 1.5 x 1.9 cm previously. Vasculature: Unremarkable. No aortic aneurysm. Bones/joints: Unremarkable. No acute fracture. Soft tissues: Unremarkable. Other findings: Moderate diffuse emphysema. Stable solid component of the larger nodule measuring 2 x 1.4 cm in axial plane. Interval slight increase in the solid component of the smaller nodule now measuring 10 x 5 mm in the axial plane compared to 8 x 4.[address] scan dated 11/29/2024. No other suspicious masses or nodules. PROCEDURE INFORMATION: Exam: CT Abdomen And Pelvis With Contrast Exam date and time: 12/30/2024 3:25 PM Age: 64 years old Clinical indication: Condition or disease; Other: Non-small cell lung cancer; Prior surgery; Surgery date: 6+ months; Surgery type: Port, gb, appy, hyst; Additional info: Non-small cell chilo cancer TECHNIQUE: Imaging protocol: Computed tomography of the abdomen and pelvis with contrast. Radiation optimization: All CT scans at this facility use at least one of these dose optimization techniques: automated exposure control; mA and/or kV adjustment per patient size (includes targeted exams where dose is matched to clinical indication); or iterative reconstruction. Contrast material: OMNI 350; Contrast volume: 60 ml; Contrast route: INTRAVENOUS (IV); COMPARISON: PT PET skull to thigh INIT [id number] 08/13/2024 1:20 PM RADIATION DOSE METRICS: Total DLP (mGy-cm): 352.79 FINDINGS: Liver: Hepatic steatosis. No significant focal hepatic lesions. Gallbladder and biliary ducts: Stable intrahepatic and extrahepatic biliary ductal dilatation. Surgically absent gallbladder. Pancreas: Atrophic pancreas. Spleen: Normal. No splenomegaly. Adrenal glands: Normal. No mass. Kidneys and ureters: No suspicious renal lesions. No hydronephrosis or nephrolithiasis. No ureteral stones. Stomach and bowel: Normal caliber of the bowel without evidence of obstruction. No focal bowel wall thickening or inflammation. Sigmoid colon diverticulosis without CT evidence of acute diverticulitis. Appendix: Not visualized with certainty. No inflammatory changes adjacent to the cecum. Intraperitoneal space: Unremarkable. No free air. No significant fluid collection. Vasculature: Unremarkable. No abdominal aortic aneurysm. Lymph nodes: Unremarkable. No enlarged lymph nodes. Urinary bladder: Urinary bladder decompressed limiting evaluation. Reproductive: Surgically absent uterus. No significant adnexal lesions. Bones/joints: No significant focal osseous lesions. No fractures or malalignment. Soft tissues: Nonspecific subcutaneous nodular opacity in the umbilical region measuring up to [address]/CT chest abdpel [id number] IMPRESSION: 1. No acute findings in the chest. 2. Redemonstration of the two adjacent pulmonary nodules with cavitary components located in the posterior segment of the right upper lobe with stable size of the solid component of the larger nodule and interval slight increase in size of the solid component of the smaller nodule as described above. 3. Interval slight decrease right hilar and mediastinal lymphadenopathy as described above. 4. Emphysema. IMPRESSION: 1. No acute findings in the abdomen or pelvis. 2. Nonspecific subcutaneous nodular opacity in the umbilical region measuring up to 10 mm. 3. Stable intrahepatic and extrahepatic biliary ductal dilatation. 4. Sigmoid colon diverticulosis without CT evidence of acute diverticulitis.
[2025-01-10 09:26] LABS: Hematocrit 29.8 % (36-47); Hemoglobin 9.70 g/dL (11.27-16.99); Mean Corpuscular HGB Conc 32.6 g/dL (30-55); Mean Corpuscular Hemoglobin 32.7 pg (27-33); Mean Corpuscular Volume 100.3 fl (85-98); Nucleated Red Blood Cells % 0 %; Platelet Count 188 10^3/cmm (157-399); Red Blood Count 2.97 10^6/uL (3.85-5.65); White Blood Count 11.00 10^3/uL (3.29-11.43)
[2025-01-10 10:48] LABS: Alanine Aminotransferase 8 U/L (0-33); Albumin Level 3.8 g/dL (3.5-5.2); Alkaline Phosphatase 73 U/L (35-105); Anion Gap 16.6 (5-19); Aspartate Amino Transferase 12 U/L (0-32); Blood Urea Nitrogen 18 mg/dL (8-23); Calcium 9.0 mg/dL (8.5-10.5); Carbon Dioxide 24 mmol/L (22-29); Chloride 101 mmol/L (98-107); Creatinine Clr Calc Pharmacy 40.6439; Globulin 2.2 g/dL (1.3-4.6); Glucose 125 mg/dL (65-115); Osmolality Calculated 289 mOsm/kg (285-295); Potassium 3.6 mmol/L (3.5-5.1); Sodium 138 mmol/L (136-145); Thyroid Stimulating Hormone 5.05 uIU/mL (0.27-4.20); Total Protein 6.0 g/dL (6.6-8.7)
[2025-01-10 11:04] VITALS: BP 134/86; PULSE 85; RESP 16; TEMP 36.4; O2SAT 99
[2025-01-10] MEDS: durvalumab 1,500 MG in sodium chloride 0.9% 250 ML 280 MG IV (11:38)
[2025-01-10 11:57] VITALS: RESP 17; O2SAT 98
[2025-01-10] MEDS: morphine 4 mg/mL SDV 1 mL 2 MG IVP (11:57)
[2025-01-10 13:05] VITALS: BP 118/78; PULSE 82; RESP 16; TEMP 37.1; O2SAT 95
== END 2025-01-10 23:59 | disposition home or self-care (01) ==
PROVIDERS: PCP Internal Medicine; Visit Provider Internal Medicine Medical Oncology
DX: Z53.9 Procedure and treatment not carried out, unspecified reason; Z51.12 Encounter for antineoplastic immunotherapy; C34.11 Malignant neoplasm of upper lobe, right bronchus or lung; F17.210 Nicotine dependence, cigarettes, uncomplicated; R03.0 Elevated blood-pressure reading, without diagnosis of hypertension; R13.10 Dysphagia, unspecified; Z92.3 Personal history of irradiation; Z92.21 Personal history of antineoplastic chemotherapy; Z79.899 Other long term (current) drug therapy
CPT/HCPCS: 71260; 74177; 80053; 84443; 85025; 96375; 96413; 96523; 99214; A4222; J2270; J7050; J9173

== ENCOUNTER 2025-02-14 12:15 | Oncology outpatient (recurring) (ONCR) | payer OTHER, SELFPAY ==
[2025-02-07 10:30] LABS: Hematocrit 33.5 % (36-47); Hemoglobin 11.00 g/dL (11.27-16.99); Mean Corpuscular HGB Conc 32.8 g/dL (30-55); Mean Corpuscular Hemoglobin 31.7 pg (27-33); Mean Corpuscular Volume 96.5 fl (85-98); Nucleated Red Blood Cells % 0 %; Platelet Count 222 10^3/cmm (157-399); Red Blood Count 3.47 10^6/uL (3.85-5.65); White Blood Count 8.51 10^3/uL (3.29-11.43)
[2025-02-07 11:00] LABS: Alanine Aminotransferase 8 U/L (0-33); Albumin Level 4.0 g/dL (3.5-5.2); Alkaline Phosphatase 76 U/L (35-105); Anion Gap 14.7 (5-19); Aspartate Amino Transferase 13 U/L (0-32); Blood Urea Nitrogen 12 mg/dL (8-23); Calcium 8.9 mg/dL (8.5-10.5); Carbon Dioxide 27 mmol/L (22-29); Chloride 103 mmol/L (98-107); Globulin 2.3 g/dL (1.3-4.6); Glucose 112 mg/dL (65-115); Osmolality Calculated 293 mOsm/kg (285-295); Potassium 3.7 mmol/L (3.5-5.1); Sodium 141 mmol/L (136-145); Thyroid Stimulating Hormone 3.16 uIU/mL (0.27-4.20); Total Protein 6.3 g/dL (6.6-8.7)
[2025-02-14 12:32] LABS: Hematocrit 29.8 % (36-47); Hemoglobin 9.70 g/dL (11.27-16.99); Mean Corpuscular HGB Conc 32.6 g/dL (30-55); Mean Corpuscular Hemoglobin 31.4 pg (27-33); Mean Corpuscular Volume 96.4 fl (85-98); Nucleated Red Blood Cells % 0 %; Platelet Count 156 10^3/cmm (157-399); Red Blood Count 3.09 10^6/uL (3.85-5.65); White Blood Count 8.18 10^3/uL (3.29-11.43)
[2025-02-14 13:12] LABS: Alanine Aminotransferase 6 U/L (0-33); Albumin Level 3.8 g/dL (3.5-5.2); Alkaline Phosphatase 64 U/L (35-105); Anion Gap 11.7 (5-19); Aspartate Amino Transferase 11 U/L (0-32); Blood Urea Nitrogen 16 mg/dL (8-23); Calcium 8.6 mg/dL (8.5-10.5); Carbon Dioxide 28 mmol/L (22-29); Chloride 105 mmol/L (98-107); Globulin 1.9 g/dL (1.3-4.6); Glucose 102 mg/dL (65-115); Osmolality Calculated 293 mOsm/kg (285-295); Potassium 3.7 mmol/L (3.5-5.1); Sodium 141 mmol/L (136-145); Thyroid Stimulating Hormone 1.21 uIU/mL (0.27-4.20); Total Protein 5.7 g/dL (6.6-8.7)
== END 2025-02-27 23:59 | disposition home or self-care (01) ==
PROVIDERS: PCP Internal Medicine; Visit Provider Nurse Practitioner
DX: C34.91 Malignant neoplasm of unspecified part of right bronchus or lung; F17.210 Nicotine dependence, cigarettes, uncomplicated; R03.0 Elevated blood-pressure reading, without diagnosis of hypertension; Z79.899 Other long term (current) drug therapy; Z95.828 Presence of other vascular implants and grafts; Z92.3 Personal history of irradiation; Z53.9 Procedure and treatment not carried out, unspecified reason
CPT/HCPCS: 36591; 80053; 84443; 85025; 99214

== ENCOUNTER 2025-02-28 09:17 | Oncology outpatient (recurring) (ONCR) | payer OTHER, SELFPAY ==
[2025-02-28 09:40] LABS: Hematocrit 34.2 % (36-47); Hemoglobin 11.30 g/dL (11.27-16.99); Mean Corpuscular HGB Conc 33.0 g/dL (30-55); Mean Corpuscular Hemoglobin 31.0 pg (27-33); Mean Corpuscular Volume 93.7 fl (85-98); Nucleated Red Blood Cells % 0 %; Platelet Count 220 10^3/cmm (157-399); Red Blood Count 3.65 10^6/uL (3.85-5.65); White Blood Count 8.95 10^3/uL (3.29-11.43)
[2025-02-28 10:04] LABS: Alanine Aminotransferase 13 U/L (0-33); Albumin Level 4.3 g/dL (3.5-5.2); Alkaline Phosphatase 75 U/L (35-105); Anion Gap 14.3 (5-19); Aspartate Amino Transferase 17 U/L (0-32); Blood Urea Nitrogen 13 mg/dL (8-23); Calcium 9.0 mg/dL (8.5-10.5); Carbon Dioxide 26 mmol/L (22-29); Chloride 104 mmol/L (98-107); Globulin 2.1 g/dL (1.3-4.6); Glucose 127 mg/dL (65-115); Osmolality Calculated 294 mOsm/kg (285-295); Potassium 3.3 mmol/L (3.5-5.1); Sodium 141 mmol/L (136-145); Total Protein 6.4 g/dL (6.6-8.7)
--- NOTE | 2025-02-28 11:00 | CT_ITS ---
WS: [id number] CT HEAD TECHNIQUE: Noncontrast and contrast-enhanced CT of the head. CLINICAL INFORMATION: nonsmall cell lung cancer COMPARISON: CT 07/07/2024 DLP: 1862.[address] scans at [facility] use at least one of these dose optimization techniques: automated exposure control; mA and/or kV adjustment per patient size (includes targeted exams where dose is matched to clinical indication); or iterative reconstruction. FINDINGS: Multiple new ring-enhancing lesions in the LEFT frontal lobe in the LEFT frontal and periventricular white matter. Minimal mass effect on the LEFT frontal horn. No hydrocephalus. Mild LEFT to RIGHT midline shift measuring 2 to 3 mm. Largest lesion measures approximately 1.3 x 1.3 cm. No other definite visualized enhancing lesions. No visualized infratentorial lesions. Paranasal sinuses and mastoid air cells are well aerated. CT/CT head wo/w con [id number] IMPRESSION: 1. Several new ring-enhancing presumed metastatic lesions in the LEFT frontal lobe described above. This could be further evaluated with MRI if patient is a candidate. 2. Moderate surrounding associated edema with minimal localized mass effect. 3. Mild LEFT RIGHT midline shift measuring 2 to 3 mm. 4. No other visualized lesions.
[2025-02-28] MEDS: iohexol 350 mg/mL 500 mL Btl (per mL) IV (11:07)
[2025-02-28 13:14] VITALS: BP 130/84; PULSE 54; RESP 18; TEMP 37.5; O2SAT 96
== END 2025-02-28 23:59 | disposition home or self-care (01) ==
PROVIDERS: Internal Medicine Medical Oncology; PCP Internal Medicine; Visit Provider Nurse Practitioner
DX: Z51.12 Encounter for antineoplastic immunotherapy (principal); C34.91 Malignant neoplasm of unspecified part of right bronchus or lung; F17.210 Nicotine dependence, cigarettes, uncomplicated; R93.0 Abnormal findings on diagnostic imaging of skull and head, not elsewhere classified; R60.0 Localized edema; R03.0 Elevated blood-pressure reading, without diagnosis of hypertension; Z79.899 Other long term (current) drug therapy; Z95.828 Presence of other vascular implants and grafts; Z92.3 Personal history of irradiation
CPT/HCPCS: 70470; 80053; 85025; 96413; 99214; A4222; J7050; J9173; J9999

== ENCOUNTER 2025-03-28 10:00 | Oncology outpatient (recurring) (ONCR) | payer OTHER, SELFPAY ==
--- NOTE | 2025-03-02 15:16 | ONCRAD EPV_ITS ---
Radiation Oncology Established Patient Visit Patient: Adwoa Ledbetter [id number] : 1960> Age: 64> Sex: Female> Dictated by: Dr. Eileen Weston Date of Service: 03/02/2025 Referring Physician(s) : Dr. Johnson Diagnosis: C77.1 - Secondary and unspecified malignant neoplasm of intrathoracic lymph nodes, Diagnosed 08/13/2024 (Active) C34.11 - Malignant neoplasm of upper lobe, right bronchus or lung, Diagnosed 08/05/2024 (Active) Radiotherapy to Date: Course: RUL 2024, Treatment Site: RT Lung 2024, Ref. ID: PTV RtLung, Energy: 6X, Dose/Fx (cGy): 200, #Fx: , Dose Correction (cGy): 0, Total Dose Delivered (cGy): 6,000, Start Date: 09/27/2024, End Date: 11/08/2024, Elapsed Days: 42 Current History: Pt has been having dizzy spells and increased falling. Most recently she has had headaches in am. CT head showed several L sided brain mets with edema in the frontal lobe. She has been asked to start steroids but is picking them up today. Current Medications: amitriptyline 25 mg PO BEDTIME amlodipine 5 mg PO DAILY baclofen 5 mg PO DAILY PRN diazepam (Valium) Take 10 mg orally as needed pre procedure for anxiety. fluoxetine (Prozac) 20 mg PO QAM fluoxetine 40 mg PO DAILY fluticasone- umeclidin-vilanter 100-62.5-25 mcg (Trelegy Ellipta) 1 inh inhalation DAILY gabapentin 100 mg PO BID hydrocodone- acetaminophen 5-325 mg 1 tab PO TID PRN 30 days lidocaine HCl 2% (Lidocaine Viscous) 5 mL PO QID lidocaine-prilocaine 2.5-2.5 % Apply quarter-size amount to port site 30 minutes prior to access; cover with cling wrap lorazepam (Ativan) 0.25 mg (1/2 x 0.5 mg) PO Q8H PRN megestrol 800 mg (20 mL) PO DAILY morphine 10 mg (2.5 mL) PO Q4H PRN 2 weeks morphine concentrate 10 mg (0.5 mL) sublingual Q4H PRN 30 days morphine concentrate 20 mg PO Q6H 2 weeks omeprazole 40 mg PO BID ondansetron HCl 4 mg PO Q6H PRN prochlorperazine maleate (Compazine) 10 mg PO Q4H PRN sucralfate (Carafate) 1 g (10 mL) PO TID PRN dexamethasone 4 mg PO Q12H 60 tabs 0RF Allergies: clindamycin (From Cleocin) Allergy (Severe, Verified 02/28/25 09:53) anaphylaxis codeine Allergy (Mild, Verified 02/28/25 09:53) chest pain, abdominal pain tizanidine Allergy (Verified 02/28/25 09:53) upset stomach topiramate (From Topamax) Allergy (Verified 02/28/25 09:53) ADR-Headache Current Complaints / Review of Systems: . Vital Signs: Performed on 03/02/2025 2:14 PM BMI - 15.783 kg/m2 (low), Height - 56 in, Weight - 70.4 lbs, Temperature - 98.0 f, Pulse - 92 /min, Respiration - 16 /min, O2 Sat - 92 % (low), Pain - 4, Fatigue - 0 and BP - 164/ 100 mm(hg)(high). Physical Exam: General: Alert and oriented x 3. No acute distress. HEENT: Normocephalic, atraumatic. Extraocular Movements Intact: Pupils Equal, Round, Reactive to Light and Accommodation: Sclerae anicteric . LUNGS:.Resp rate is reg and non labored HEART: Regular rate and rhythm,. ABDOMEN: Pt weighs all of 70 pounds. Performance Status: Lab: None pending. Pathology: Primary, c77.1 - secondary and unspecified malignant neoplasm of intrathoracic lymph nodes, Diagnosed 08/13/2024 (active) and Primary, c34.11 - malignant neoplasm of upper lobe, right bronchus or lung, Diagnosed 08/05/2024 (active) . Imaging: See HPI Impression: Stage IV lung cancer with brain mets Plan: I reviewed the findings on her CT. We talked about the typical course of treatment for brain mets. I reviewed the simulation process and the daily treatment regiment of 10 txs. We discussed the risks and side effects both acute and mcfp. She has agreed to proceed. She will under go sim today and start her treatments later this week. Signed by: 03/02/2025 3:14:58 PM <<Signature on File>> Time spent with patient: 45 CPT Code: CPT Code:
--- NOTE | 2025-03-08 15:03 | ONCRAD TMN_ITS ---
Radiation Oncology Weekly Treatment Management Patient: Adwoa Ledbetter MR#: [id number] : 1960 Attending Physician: Dr. Eileen Weston Date of Service: 03/08/2025 Referring Physician(s) : Diagnosis: C79.31 - Secondary malignant neoplasm of brain, Diagnosed 03/02/2025 (Active) C77.1 - Secondary and unspecified malignant neoplasm of intrathoracic lymph nodes, Diagnosed 08/13/2024 (Active) C34.11 - Malignant neoplasm of upper lobe, right bronchus or lung, Diagnosed 08/05/2024 (Active) Radiotherapy to date: Course: Whole Brain 2024, Treatment Site: [id number], Ref. ID: Brain, Energy: 6X, Dose/Fx (cGy): 300, #Fx: 2 / 10, Dose Correction (cGy): 0, Total Dose Delivered (cGy): 600, Start Date: 03/07/2025, End Date: 03/08/2025, Elapsed Days: 1 Reason for visit: The patient is being seen today as part of their regularly scheduled weekly on treatment visits to assess for acute toxicities from radiotherapy. Review of Systems: Pt has am ALEMAN which lessens when she takes steroid and Tylenol. She says she feels foggy. Vital Signs: Performed on 03/08/2025 2:26 PM BMI - 15.47 kg/m2 (low), Height - 56 in, Weight - 69 lbs, Temperature - 97.8 f, Pulse - 87 /min, Respiration - 17 /min, O2 Sat - 95 % (low), Pain - 6, Fatigue - 0 and BP - 150/ 84 mm(hg)(high/). Physical Exam: no changes on exam Imaging: Radiation therapy imaging related to accurate target localization (i.e. KV, MV and CBCT) was reviewed. Appropriate changes, if any, were made to ensure treatment accuracy. Plan: Son was present today and asked about stage and prognosis. Reviewed the palliative nature of the radiation. Pt maybe a candidate for continued Immune therapy. To see Dr. Johnson later today. Signed by: Dr. Eileen Weston 03/08/2025 3:02:25 PM
--- NOTE | 2025-03-15 10:23 | ONCRAD TMN_ITS ---
Radiation Oncology Weekly Treatment Management Patient: Anatoly Prakash MR#: [id number] : 1960> Attending Physician: Robin Diggs Date of Service: 03/15/2025 Referring Physician(s) : Diagnosis: C79.31 - Secondary malignant neoplasm of brain, Diagnosed 03/02/2025 (Active) C77.1 - Secondary and unspecified malignant neoplasm of intrathoracic lymph nodes, Diagnosed 08/13/2024 (Active) C34.11 - Malignant neoplasm of upper lobe, right bronchus or lung, Diagnosed 08/05/2024 (Active) Radiotherapy to date: Course: Whole Brain 2024, Treatment Site: [id number], Ref. ID: Brain, Energy: 6X, Dose/Fx (cGy): 300, #Fx: 7 / 10, Dose Correction (cGy): 0, Total Dose Delivered (cGy): 2,100, Start Date: 03/07/2025, Elapsed Days: 8 Reason for visit: The patient is being seen today as part of their regularly scheduled weekly on treatment visits to assess for acute toxicities from radiotherapy. Review of Systems: Patient presented to the medical system with severe headaches. They are lessening some. She has 3 more fractions to complete her course. She was then given steroid taper schedule of every 5 days. She is also complaining of severe anxiety which she has been treated in the past for with Xanax 0.5 mg. REVIEWED DRUG PROFILE AND SHE NEEDS TO SEE DR ESTRADA. Vital Signs: Performed on 03/15/2025 9:23 AM BMI - 15.111 kg/m2 (low), Height - 56 in, Weight - 67.4 lbs, Temperature - 97.3 f, Pulse - 88 /min, Respiration - 18 /min, O2 Sat - 96 %, Pain - 8, Fatigue - 0 and BP - 146/ 97 mm(hg)(high). Physical Exam: She is alert and answers questions appropriately. Skin and hair are intact. Imaging: Radiation therapy imaging related to accurate target localization (i.e. KV, MV and CBCT) was reviewed. Appropriate changes, if any, were made to ensure treatment accuracy. Plan: Continue XRT Completes course of WBRT on Friday Rx Xanax 0.5 mg, #30, 1 daily as needed for anxiety, [facility] WAS NOT ORDERED AFTER REVIEW OF DRUG PROFILE. PT ADVISED THAT SHE NEEDS TO TALK WITH DR ESTRADA. Signed by: Robin Diggs 03/15/2025 10:51:01 AM
--- NOTE | 2025-03-21 15:03 | N.ONRD TS_ITS ---
Radiation Oncology Treatment Summary Patient: Anatoly>Dwain MR#: [id number] : 1960> Age: 64> Sex: Female Dictated by: Robin Diggs Date of Service: 03/18/2025 Referring Physician(s) : Diagnosis: C79.31 - Secondary malignant neoplasm of brain, Diagnosed 03/02/2025 (Active) C77.1 - Secondary and unspecified malignant neoplasm of intrathoracic lymph nodes, Diagnosed 08/13/2024 (Active) C34.11 - Malignant neoplasm of upper lobe, right bronchus or lung, Diagnosed 08/05/2024 (Active) Radiotherapy to Date: Course: RUL 2024, Treatment Site: RT Lung 2024, Ref. ID: PTV RtLung, Energy: 6X, Dose/Fx (cGy): 200, #Fx: 30 / 30, Dose Correction (cGy): 0, Total Dose Delivered (cGy): 6,000, Start Date: 09/27/2024, End Date: 11/08/2024, Elapsed Days: 42 Course: Whole Brain 2024, Treatment Site: [id number], Ref. ID: Brain, Energy: 6X, Dose/Fx (cGy): 300, #Fx: 10 / 10, Dose Correction (cGy): 0, Total Dose Delivered (cGy): 3,000, Start Date: 03/07/2025, End Date: 03/18/2025, Elapsed Days: 11 Clinical Summary: The patient tolerated RT well. Mild aneity toward the end of the treatments. Pt to follow up with PCP as he had her using Valium 10mg. Plan: End of treatment today. Continue on the above medication until the skin reaction resolves. Follow up in one month. Signed by: Robin Diggs>03/21/2025 3:01:34 PM <<Signature on File>>
[2025-03-28 10:24] LABS: Hematocrit 33.0 % (36-47); Hemoglobin 10.70 g/dL (11.27-16.99); Mean Corpuscular HGB Conc 32.4 g/dL (30-55); Mean Corpuscular Hemoglobin 30.7 pg (27-33); Mean Corpuscular Volume 94.8 fl (85-98); Nucleated Red Blood Cells % 0 %; Platelet Count 130 10^3/cmm (157-399); Red Blood Count 3.48 10^6/uL (3.85-5.65); White Blood Count 5.56 10^3/uL (3.29-11.43)
[2025-03-28 10:43] LABS: Alanine Aminotransferase 16 U/L (0-33); Albumin Level 4.0 g/dL (3.5-5.2); Alkaline Phosphatase 75 U/L (35-105); Anion Gap 13.9 (5-19); Aspartate Amino Transferase 18 U/L (0-32); Blood Urea Nitrogen 14 mg/dL (8-23); Calcium 9.0 mg/dL (8.5-10.5); Carbon Dioxide 27 mmol/L (22-29); Chloride 104 mmol/L (98-107); Globulin 1.8 g/dL (1.3-4.6); Glucose 106 mg/dL (65-115); Osmolality Calculated 293 mOsm/kg (285-295); Potassium 3.9 mmol/L (3.5-5.1); Sodium 141 mmol/L (136-145); Total Protein 5.8 g/dL (6.6-8.7)
== END 2025-03-30 23:59 | disposition home or self-care (01) ==
PROVIDERS: Internal Medicine Medical Oncology; PCP Internal Medicine; Visit Provider Nurse Practitioner
DX: Z53.9 Procedure and treatment not carried out, unspecified reason; C34.11 Malignant neoplasm of upper lobe, right bronchus or lung; F17.210 Nicotine dependence, cigarettes, uncomplicated; Z92.3 Personal history of irradiation; F41.9 Anxiety disorder, unspecified; Z79.899 Other long term (current) drug therapy
CPT/HCPCS: 64615; 77290; 77295; 77300; 77334; 77336; 77387; 77412; 80053; 85025; 99024; 99214; 99215; J0585; J9999